=== PATIENT | female | born 1950 | race Caucasian/White ===

== ENCOUNTER 2019-10-28 04:02 | Emergency (ER) | payer MEDICARE, OTHER, SELFPAY ==
[2019-10-28 04:51] VITALS: BP 152/84; PULSE 94; RESP 18; TEMP 37; O2SAT 97; BMI 26.9
--- NOTE | 2019-10-28 04:58 | ECG_ITS ---
[facility] Test Date: 2019-10-28 Pat Name: Kylah Patterson Department: Room: Gender: Female Credit Historian: : 1950 Requested By: Rashmi Gonzalez Order Number: [id number] Otoniel MD: Yoly Dewitt M.D. Measurements Intervals [place] Rate: 78 P: 30 ND: 174 QRS: -20 QRSD: 79 T: 11 QT: 379 QTc: 434 Interpretive Statements SINUS RHYTHM LOW QRS VOLTAGE IN PRECORDIAL LEADS [QRS DEFLECTION < 1.0 mV IN CHEST LEADS] MINIMAL VOLTAGE CRITERIA FOR LVH, CONSIDER NORMAL VARIANT [MEETS CRITERIA IN ONE OF: R(aVL), S(V1), R(V5), R(V5/V6)+S(V1)] No previous ECG available for comparison Electronically Signed On 10-28-2019 15:36:05 CDT by Yoly Dewitt M.D. [id number]
--- NOTE | 2019-10-28 04:58 | XRR_ITS ---
PROCEDURE INFORMATION: Exam: XR Chest, 1 View Exam date and time: 10/28/2019 5:32 AM Age: 68 years old Clinical indication: Prior surgery; Surgery date: <1 month; Surgery type: Thyroidectomy 2 weeks ago; Patient HX: C/O redness and drainage of incision from thyroidectomy with skin flap; Additional info: Section TECHNIQUE: Imaging protocol: XR of the chest Views: 1 view. COMPARISON: No relevant prior studies available. FINDINGS: Tubes, catheters and devices: Surgical clips in the left neck and and about the thoracic inlet Lungs: Calcified granuloma left mid lung Lungs are well aerated without a focal area of consolidation. Pleural space: Unremarkable. No pleural effusion. No pneumothorax. Heart/Mediastinum: Unremarkable. No cardiomegaly. Bones/joints: Unremarkable. Soft tissues: axillary dissection on the left with numerous surgical clips in the left axillary region. Surgical drain in the axillary region XR/XR chest 1V portable [id number] IMPRESSION: Lungs are well aerated without a focal area of consolidation.
--- NOTE | 2019-10-28 05:00 | CTR_ITS ---
PROCEDURE INFORMATION: Exam: CT Chest With Contrast Exam date and time: 10/28/2019 6:12 AM Age: 68 years old Clinical indication: Prior surgery; Patient HX: Onset of infection S/P thyroidectomy two weeks ago TECHNIQUE: Imaging protocol: Computed tomography of the chest with intravenous contrast. Radiation optimization: All CT scans at this facility use at least one of these dose optimization techniques: automated exposure control; mA and/or kV adjustment per patient size (includes targeted exams where dose is matched to clinical indication); or iterative reconstruction. Contrast material: OMNI 300; Contrast volume: 75 ml; Contrast route: INTRAVENOUS (IV); COMPARISON: No relevant prior studies available. RADIATION DOSE METRICS: Total DLP (mGy-cm): 455.28 FINDINGS: Thyroid: Operative changes about the thoracic inlet status post thyroidectomy. Large amount of air in the soft tissues. See above CT neck dictation. Lungs: Lungs are well aerated without a focal area of consolidation. Calcified granuloma left lower lobe Pleural space: Unremarkable. No pneumothorax. No pleural effusion. Heart: Unremarkable. No cardiomegaly. No pericardial effusion. Mediastinal space: Soft tissues of the mediastinum unremarkable. Aorta: Unremarkable. No aortic aneurysm. Lymph nodes: Unremarkable. No enlarged lymph nodes. Bones/joints: The osseous structures are unremarkable other than mild degenerative disk disease.. No fracture. Soft tissues: See Thyroid finding. Other findings: No dissection; In regards to the visualized portions of the abdomen, no acute process. CT/CT chest w con* [id number] IMPRESSION: 1. Soft tissues of the mediastinum unremarkable. 2. Lungs are well aerated without a focal area of consolidation. 3. Operative changes about the thoracic inlet status post thyroidectomy. Large amount of air in the soft tissues. See CT neck dictation. Radiation Dose CTDIVOL = (mGy): DLP = 455.28 (mGy-cm)
--- NOTE | 2019-10-28 05:00 | CTR_ITS ---
PROCEDURE INFORMATION: Exam: CT Neck With Contrast Exam date and time: 10/28/2019 6:12 AM Age: 68 years old Clinical indication: Abscess, cutaneous; Prior surgery; Patient HX: Onset of infection to neck S/P thyroidectomy 2 weeks ago. TECHNIQUE: Imaging protocol: Computed tomography images of the neck with intravenous contrast. Radiation optimization: All CT scans at this facility use at least one of these dose optimization techniques: automated exposure control; mA and/or kV adjustment per patient size (includes targeted exams where dose is matched to clinical indication); or iterative reconstruction. Contrast material: OMNI 300; Contrast volume: 75 ml; Contrast route: INTRAVENOUS (IV); COMPARISON: No relevant prior studies available. RADIATION DOSE METRICS: Total DLP (mGy-cm): 510.49 FINDINGS: Brain: The deliverer pharmacy space is normal. Visualized portions of the brain and orbits are normal. Nasopharynx: fossa of Rosenmuller is normal. Oropharynx: parapharyngeal space normal. Hypopharynx: Piriform sinus is unremarkable. Larynx: the epiglottis, preepiglottic fat and the aryepiglottic folds are normal. The true cords appear normal. Retropharyngeal space: Unremarkable. Submandibular/Parotid glands: submental and submandibular regions are normal. the carotid and parotid spaces are normal. Thyroid: Operative changes in the soft tissues of the neck on the right and left about the thyroid gland. Lymph nodes: Unremarkable. No lymphadenopathy. Trachea: Visualized trachea is unremarkable. Lungs: The lung apices are normal. Bones/joints: No acute osseous abnormality. Vasculature: Nonvisualization of the left jugular vein. Correlate regarding surgical ligation and or thrombosis. Soft tissues: Unremarkable. No significant soft tissue swelling. Other findings: The; precervical space is normal. CT/CT neck w con* [id number] IMPRESSION: 1. Operative changes in the soft tissues of the neck on the right and left about the thyroid gland. inflammatory changes with thickening of the left sternocleidomastoid muscle. Small amount of fluid about the operative site. Large amount of air in the soft tissues about the left thyroidectomy site with fistula communication to the skin surface. Air extends posteriorly adjacent to the thickened esophagus. Correlate regarding esophageal injury. Consider esophagram. Small amount of air in the retropharyngeal space. 2. Nonvisualization of the left jugular vein. Correlate regarding surgical ligation and or thrombosis. Radiation Dose CTDIVOL = (mGy): DLP = 510.49 (mGy-cm)
--- NOTE | 2019-10-28 05:59 | ED_ITS ---
Documented by User: Rashmi Taylor 10/28/19 06:02 HPI - Wound/Laceration General: Chief Complaint: Wound/Laceration Stated Complaint: drainage/post op complications Time Seen by Provider: 10/28/19 04:58 Source: patient and family Mode of arrival: ambulatory Limitations: no limitations History of Present Illness: HPI narrative: Kylah is a nice 68-year-old female who comes in complaining of swelling and neck pain with drainage. Patient states that she had a thyroidectomy with skin flap done at [facility] by Dr. Tarsha Small. She been recovering uneventfully had followed up once with Dr. Aguilar but over the past few days she developed redness and drainage from her wound. She denies any fevers or chills and she denies any difficulty speaking or difficulty swallowing or eating. Associated symptoms: Denies chills, fever(s), nausea, syncope or vomiting Review of Systems Const: Denies: fever(s), chills, body aches, fatigue, malaise or diaphoresis Eyes: Denies: change in vision, blurry vision, blind spots, photophobia, eye discharge or eye redness ENMT: Reports: other (See HPI); Denies: throat pain, odynophagia, hoarseness, swelling of lips/tongue, oral sores, ear or mastoid pain, ear discharge, change in hearing or nasal discharge Card: Denies: chest pain, palpitations, irregular heart rhythm, edema, lightheadedness, syncope, pre-syncope, dyspnea on exertion or orthopnea Resp: Denies: dyspnea, productive cough, non-productive cough, wheezing, hemoptysis or chest congestion GI: Denies: abdominal pain, nausea, vomiting, hematemesis, coffee ground emesis, heartburn, diarrhea, constipation, GI cramping, hematochezia or melena : Denies: flank pain, dysuria, urinary frequency, urinary urgency or hematuria Musc: Denies: neck pain, back pain, extremity pain, extremity swelling, joint pain, joint swelling, joint redness, joint warmth or joint stiffness Skin/Breast: Denies: rash, pruritus, erythema, skin tenderness or jaundice Neuro: Denies: headache(s), numbness in extremities, weakness in extremities, sensory changes, lack of coordination, difficulty walking, dizziness, vertigo, confusion, Slurred speech present or seizure-like activity Erik/Lymph: Denies: easy bruising, easy bleeding, petechiae, purpura or enlarged lymph nodes All/Imm: Denies: urticaria, throat swelling, tongue swelling, facial swelling or acute wheezing PFSH ED PFSH: Medical History (Updated 10/28/19 @ 06:01 by Rashmi Taylor) DM type 2 (diabetes mellitus, type 2) Thyroid cancer Surgical History (Updated 10/28/19 @ 06:01 by Rashmi Taylor) History of thyroid surgery Physical Exam Const: COMMON NORMALS: no acute distress, patient oriented x3, no limitations, healthy appearing and well nourished GENERAL APPEARANCE: cooperative, well kempt and well developed HENMT: COMMON NORMALS: normocephalic, atraumatic, external ears normal, EAC's normal and Normal external nose present HEAD & SCALP: normal to inspection, normocephalic and atraumatic FACE & SINUS: normal facial exam and face symmetric NOSE: Normal external nose present and Normal nares present EXTERNAL EAR: Yes external ears normal EXTERNAL AUDITORY CANAL: EAC's normal MOUTH: Normal oral and palatal mucosa present, lip normal and tongue normal Eye: COMMON NORMALS: Equal, round and reactive pupils present and conjunctivae normal GENERAL EYE: appearance normal, both eyes and all related structures ALIGNMENT: Yes alignment normal PERIORBITAL: periorbital findings normal EYELID: eyelids normal CONJUNCTIVA: Yes conjunctivae normal SCLERA: sclerae normal PUPIL: Yes Equal, round and reactive pupils present Neck/C-Spine: COMMON NORMALS: full ROM, no lymphadenopathy and no meningeal signs GENERAL: Yes normal visual inspection, Yes trachea midline and Yes other (Large amount of swelling and erythema noted with significant large amount of thick purulent drainage from incision site.) Chest: COMMONS NORMALS: normal inspection of the chest and normal palpation of entire chest wall Resp: COMMON NORMALS: normal respiratory effort, No retractions and No use of accessory muscles EFFORT & INSPECTION: Yes able to speak in complete sentences and Yes symmetric chest movement AUSCULTATION: no crackles, no rales, no rhonchi and no wheezes Cardio: COMMON NORMALS: regular rate, regular rhythm, S1 normal heart sound present and S2 normal heart sound present RATE: regular rate RHYTHM: regular rhythm HEART SOUNDS: S1 normal heart sound present, S2 normal heart sound present, no click, no gallops, no murmurs, no rubs and abnormal split S2 GI: COMMON NORMALS: Soft to palpation and No hepatosplenomegaly present PALPATION: Yes Soft to palpation, No Tenderness to palpation present (GI), No Guarding due to palpation present (GI), No Rigid due to palpation, Yes No hepatosplenomegaly present, No Hernia present, No Palpable mass present and No Pulsatile mass present : COMMON NORMALS: Yes no CVA tenderness BLADDER/KIDNEY EXAM: Yes no CVA tenderness EXTERNAL FEMALE EXAM: No Hernia present Back/Pelvis: COMMON NORMALS: no CVA tenderness, thoracic and lumbar spine normal to inspection, no thoracic nor lumbar tenderness and thoraco-lumbar ROM normal GENERAL BACK: Yes other (Incision site appears well-healed.) Extremity: COMMON NORMALS: normal to inspection, full ROM, capillary refill normal, no joint enlargement, no clubbing, cyanosis or edema and no calf tenderness Neuro: COMMON NORMALS: patient oriented x3, CN's II-XII intact bilaterally, moves all extremities, no focal motor deficits and no sensory deficits noted MENINGEAL SIGNS: Yes no meningeal signs SPEECH: speech normal Psych: COMMON NORMALS: mental status grossly normal, Normal thought process present, cooperative, normal affect, speech normal and activity/motor behavior normal APPEARANCE: Yes well kempt SPEECH: Yes normal speech THOUGHT PROCESS: Normal thought process present Skin: COMMON NORMALS: no rashes or lesions noted, turgor normal, no jaundice, no petechiae and no mottling GENERAL SKIN EXAM: no rashes or lesions noted and turgor normal Course Vital Signs: Vital signs: Vital Signs Temperature 98.6 F 10/28/19 04:51 Pulse Rate 92 10/28/19 06:10 Respiratory Rate 18 10/28/19 06:10 Blood Pressure 136/78 10/28/19 06:33 Pulse Oximetry 100 10/28/19 06:33 MDM - Wound/Laceration MDM Narrative: Medical decision making narrative: Dr. Alcantar was contacted by phone he states he is unavailable and the patient will be have to be transferred back to [facility] for definitive therapy. Dr. Aguilar then talked to Dr. Prieto of the ENT resident at [facility] who agreed to accept the patient but wanted me to talk to the ER. I reviewed the case with Dr. Wang who understands that CT is pending at this time and we will call him with an update but he agrees to accept the patient in transfer. Lab Data: Labs: Lab Results 10/28/19 10/28/19 10/28/19 Range/Units 06:00 06:00 06:00 WBC 10.0 (4.0-10.0) 10^3/ uL RBC 4.37 (4.1-5.3) 10^6/u L Hgb 11.9 (11.5-15.3) g/dL Hct 38.9 (37.0-47.0) % MCV 89.0 (81-99) fL MCH 27.2 L (28.0-34.0) pg MCHC 30.6 (30.0-36.0) g/dL RDW 14.3 (12.1-15.1) % Plt Count 318 (130-400) 10^3/c mm MPV 8.8 (7.4-10.4) fL Neut % (Auto) 75.4 % Lymph % (Auto) 11.7 % [place] % (Auto) 6.8 % Eos % (Auto) 5.3 % Baso % (Auto) 0.5 % Neut # (Auto) 7.52 (1.8-7.7) 10^3/u L Lymph # (Auto) 1.2 (0.8-4.8) 10^3/u L [place] # (Auto) 0.7 (0.2-0.9) 10^3/u L Eos # (Auto) 0.5 (0.0-0.8) 10^3/u L Baso # (Auto) 0.1 (0.0-0.1) 10^3/u L Nucleated RBC % (a uto) 0 % Nucleated RBCs # 0.0 /100WBC Sodium 137 (136-145) mmol/L Potassium 3.9 (3.5-5.1) mmol/L Chloride 99 (98-107) mmol/L Carbon Dioxide 28 (22-29) mmol/L Anion Gap 13.9 (5-19) BUN 8 (8-23) mg/dL Creatinine 0.7 (0.5-0.9) mg/dL GFR Calculation 83.7 L (90-130) mL/min Glucose 152 H (65-115) mg/dL Calculated Osmolal ity 283 L (285-295) mOsm/k g Lactic Acid 1.1 (0.5-2.2) mmol/L Calcium 9.5 (8.5-10.5) mg/dL Magnesium 2.3 (1.7-2.3) mg/dL Total Bilirubin 0.4 (0.15-1.2) mg/dL AST 13 (0-32) U/L ALT 12 (0-33) U/L Alkaline Phosphata se 115 H (35-105) IU/L Total Protein 7.5 (6.6-8.7) g/dL Albumin 4.1 (3.5-5.2) g/dL Globulin 3.4 (1.3-4.6) g/dL Discharge Plan Discharge Discharge Orders: Transfer Out of Facility (Order); Ordered 10/28/19 Ordered By: Delvin James Sign Out Sign Out Data: Patient Sign Out occurred on 10/28/19 at 07:24. Patient's care was discussed, and care was transferred from to Delvin James. Coding Level of Care Code ED Cookie Mixer Helper for Chg Fwd Exam Comprehensive Documented by User: Delvin James DO 10/28/19 07:24 HPI - Wound/Laceration General: Chief Complaint: Wound/Laceration Stated Complaint: drainage/post op complications Time Seen by Provider: 10/28/19 04:58 PFSH ED PFSH: Medical History (Updated 10/28/19 @ 06:01 by Rashmi Taylor) DM type 2 (diabetes mellitus, type 2) Thyroid cancer Surgical History (Updated 10/28/19 @ 06:01 by Rashmi Taylor) History of thyroid surgery Course Vital Signs: Vital signs: Vital Signs Temperature 98.6 F 10/28/19 04:51 Pulse Rate 92 10/28/19 06:10 Respiratory Rate 18 10/28/19 06:10 Blood Pressure 136/78 10/28/19 06:33 Pulse Oximetry 100 07/09/20 06:33 MDM - Wound/Laceration Lab Data: Labs: Lab Results 10/28/19 10/28/19 10/28/19 Range/Units 06:00 06:00 06:00 WBC 10.0 (4.0-10.0) 10^3/ uL RBC 4.37 (4.1-5.3) 10^6/u L Hgb 11.9 (11.5-15.3) g/dL Hct 38.9 (37.0-47.0) % MCV 89.0 (81-99) fL MCH 27.2 L (28.0-34.0) pg MCHC 30.6 (30.0-36.0) g/dL RDW 14.3 (12.1-15.1) % Plt Count 318 (130-400) 10^3/c mm MPV 8.8 (7.4-10.4) fL Neut % (Auto) 75.4 % Lymph % (Auto) 11.7 % [place] % (Auto) 6.8 % Eos % (Auto) 5.3 % Baso % (Auto) 0.5 % Neut # (Auto) 7.52 (1.8-7.7) 10^3/u L Lymph # (Auto) 1.2 (0.8-4.8) 10^3/u L [place] # (Auto) 0.7 (0.2-0.9) 10^3/u L Eos # (Auto) 0.5 (0.0-0.8) 10^3/u L Baso # (Auto) 0.1 (0.0-0.1) 10^3/u L Nucleated RBC % (a uto) 0 % Nucleated RBCs # 0.0 /100WBC Sodium 137 (136-145) mmol/L Potassium 3.9 (3.5-5.1) mmol/L Chloride 99 (98-107) mmol/L Carbon Dioxide 28 (22-29) mmol/L Anion Gap 13.9 (5-19) BUN 8 (8-23) mg/dL Creatinine 0.7 (0.5-0.9) mg/dL GFR Calculation 83.7 L (90-130) mL/min Glucose 152 H (65-115) mg/dL Calculated Osmolal ity 283 L (285-295) mOsm/k g Lactic Acid 1.1 (0.5-2.2) mmol/L Calcium 9.5 (8.5-10.5) mg/dL Magnesium 2.3 (1.7-2.3) mg/dL Total Bilirubin 0.4 (0.15-1.2) mg/dL AST 13 (0-32) U/L ALT 12 (0-33) U/L Alkaline Phosphata se 115 H (35-105) IU/L Total Protein 7.5 (6.6-8.7) g/dL Albumin 4.1 (3.5-5.2) g/dL Globulin 3.4 (1.3-4.6) g/dL Discharge Plan Discharge Discharge Orders: Transfer Out of Facility (Order); Ordered 10/28/19 Ordered By: Delvin James Sign Out Sign Out Data: Patient Sign Out occurred on 10/28/19 at 07:24. Patient's care was discussed, and care was transferred from to Delvin James. Coding Level of Care Code ED Cookie Mixer Helper for Berting Fwd Exam Comprehensive
[2019-10-28] MEDS: piperacillin-tazobactam 3.375 GM in sodium chloride 0.9% (plus) 50 ML IV (06:00)
[2019-10-28] MEDS: sodium chloride 0.9% 1,809.84 ML 1809.8 ML IV (06:02)
[2019-10-28 06:10] VITALS: BP 135/80; PULSE 92; RESP 18; O2SAT 99
[2019-10-28 06:15] LABS: Basophils # 0.1 10^3/uL (0.0-0.1); Basophils % 0.5 %; Eosinophils # 0.5 10^3/uL (0.0-0.8); Eosinophils % 5.3 %; Hematocrit 38.9 % (37.0-47.0); Hemoglobin 11.9 g/dL (11.5-15.3); Lymphocytes # 1.2 10^3/uL (0.8-4.8); Lymphocytes % 11.7 %; Mean Corpuscular HGB Conc 30.6 g/dL (30.0-36.0); Mean Corpuscular Hemoglobin 27.2 pg (28.0-34.0); Mean Platelet Volume 8.8 fL (7.4-10.4); Monocytes # 0.7 10^3/uL (0.2-0.9); Monocytes % 6.8 %; Neutrophils # 7.52 10^3/uL (1.8-7.7); Neutrophils % 75.4 %; Nucleated Red Blood Cells % 0 %; Platelet Count 318 10^3/cmm (130-400); Red Blood Count 4.37 10^6/uL (4.1-5.3); Red Cell Distribution Width 14.3 % (12.1-15.1)
[2019-10-28 06:30] LABS: Alanine Aminotransferase 12 U/L (0-33); Albumin Level 4.1 g/dL (3.5-5.2); Alkaline Phosphatase 115 IU/L (35-105); Anion Gap 13.9 (5-19); Aspartate Amino Transferase 13 U/L (0-32); Blood Urea Nitrogen 8 mg/dL (8-23); Calcium 9.5 mg/dL (8.5-10.5); Carbon Dioxide 28 mmol/L (22-29); Chloride 99 mmol/L (98-107); Globulin 3.4 g/dL (1.3-4.6); Glomerular Filtration Rate 83.7 mL/min (90-130); Glucose 152 mg/dL (65-115); Lactic Sepsis W/Reflex 1.1 mmol/L (0.5-2.2); Magnesium 2.3 mg/dL (1.7-2.3); Osmolality Calculated 283 mOsm/kg (285-295); Potassium 3.9 mmol/L (3.5-5.1); Sodium 137 mmol/L (136-145); Total Bilirubin 0.4 mg/dL (0.15-1.2); Total Protein 7.5 g/dL (6.6-8.7)
[2019-10-28 06:33] VITALS: BP 136/78; O2SAT 100
[2019-10-28] MEDS: iohexol 300 mg/mL 100 mL Btl IV ×2 (06:47→06:48)
[2019-10-28 07:36] VITALS: BP 127/73; PULSE 81; RESP 20; TEMP 36.8; O2SAT 99
== END 2019-10-28 08:02 ==
PROVIDERS: Emergency Medicine; Emergency Provider Family Medicine; Family Provider Family Medicine
DX: M79.89 Other specified soft tissue disorders (principal); M54.2 Cervicalgia; E11.9 Type 2 diabetes mellitus without complications; Z85.850 Personal history of malignant neoplasm of thyroid
CPT/HCPCS: 12345; 36415; 70491; 71045; 71260; 80053; 83605; 83735; 85025; 87040; 93005; 96365; 96367; 99283; 99285; J0131; J2543; J3370; J7030; J7050; Q9967

== ENCOUNTER → 2020-01-26 11:03 | Outpatient (BNVA) | payer MEDICARE, OTHER, SELFPAY | PROVIDERS: Family Provider Family Medicine; Visit Provider Specialist | DX: Z11.59 Encounter for screening for other viral diseases (principal) | CPT/HCPCS: 87635 ==

== ENCOUNTER 2020-01-31 09:51 | Outpatient (CLI) | payer MEDICARE, OTHER, SELFPAY ==
--- NOTE | 2020-01-31 10:00 | FL_ITS ---
WS: [id number] ESOPHAGRAM WITH FLUOROSCOPY HISTORY: MALIGNANT NEOPLASM OF THYROID GLAND COMPARISON: None available. FLUOROSCOPY TIME: 1.1 minutes. Stitch Bonding Machine Operator radiograph: Slight increase in the cervical lordosis. There are extensive surgical clips in the soft tissues of the neck. No retropharyngeal mass or abscess. No air in the soft tissues beyond the lumen of the esophagus. Esophagus and swallowing function: Patient swallowed the barium mixture without difficulty. There is no extravasation into the soft tissues. No aspiration was noted. Small osteophytes encroach upon the posterior cervical esophagus without significant narrowing or stenosis. FL/FL barium swallow [id number] IMPRESSION: 1. No fistulous communication. 2. Extensive postsurgical clips in the soft tissues of the neck. 3. No cervical esophageal stenosis.
== END 2020-01-31 09:52 | disposition home or self-care (01) ==
LOC: RAD 09:56
PROVIDERS: PCP Family Medicine; Visit Provider Specialist
DX: C73 Malignant neoplasm of thyroid gland (principal)
CPT/HCPCS: 74220

== ENCOUNTER 2020-02-02 05:40 | Outpatient (RCR) | payer MEDICARE, OTHER, SELFPAY ==
--- NOTE | 2020-02-02 | CT_ITS ---
Radiation Therapy Planning CT images; total exam DLP: 767.86 mGy-cm MTDD
[2020-02-02 10:17] LABS: Basophils % 0.8 %; Eosinophils # 0.1 10^3/uL (0.0-0.8); Hematocrit 40.2 % (37.0-47.0); Hemoglobin 12.2 g/dL (11.5-15.3); Lymphocytes # 1.4 10^3/uL (0.8-4.8); Lymphocytes % 28.5 %; Mean Corpuscular HGB Conc 30.3 g/dL (30.0-36.0); Mean Corpuscular Hemoglobin 26.2 pg (28.0-34.0); Mean Corpuscular Volume 86.3 fL (81-99); Mean Platelet Volume 9.4 fL (7.4-10.4); Monocytes # 0.5 10^3/uL (0.2-0.9); Monocytes % 9.3 %; Neutrophils # 2.98 10^3/uL (1.8-7.7); Nucleated Red Blood Cells % 0 %; Platelet Count 171 10^3/cmm (130-400); Red Blood Count 4.66 10^6/uL (4.1-5.3); White Blood Count 5.1 10^3/uL (4.0-10.0)
[2020-02-02 10:26] LABS: Total Bilirubin 0.3 mg/dL (0.15-1.2)
[2020-02-02 11:00] LABS: Blood Urea Nitrogen 18 mg/dL (8-23); Glomerular Filtration Rate 83.5 mL/min (90-130)
--- NOTE | 2020-02-03 11:55 | N.ONRAD NP_ITS ---
Radiation Oncology New Patient Visit Patient: Kylah Patterson MR#: [id number] : 1950> Age: 69> Sex: Female> Dictated by: Dr. Lexa Darnell Date of Service: 01/31/2020 Referring Physician(s) : Dr. Mccray Diagnosis: [id number] stage III papillary thyroid carcinoma Treatment rendered: -) 05/12/2018 (Dr Laboy & Melvina) - total thyroidectomy, sacrifice of recurrent laryngeal nerve, lymph node dissection and reimplantation of left inferior parathyroid into right brachial radialis musculature. Tumor was noted to extend into the esophagus & recurrent laryngeal nerve and 5/5 lymph nodes were involved with extranodal extension; -) May 2018 - radioactive iodine, 150 mCi -) 10/15/2019 - due to disease recurrence with significant FDG avidity in the bilateral neck per PET/CT (10/01/2019) she underwent bilateral neck dissection. Pathology revealed 8 positive lymph nodes involving left neck level 3 (largest 2.5 cm without CHRISTOPHER), left neck level 2A, left neck level 4, central neck lymph node, right level 4, and in the right superior parapharyngeal lymph node. -) 01/12/2020 ??? Dr Hinson recommended adjuvant lenvatanib vs other options such as Pembro of Vemurafenib. Tumor molecular profiling showed BRAF mutation and PD-L1 positivity at 40%, TMB was low. Purpose of Visit: Discuss the role of radiotherapy with curative intent. History of Present Illness: The patient is a 69-year-old female with the above diagnosis and treatment history. She is referred to us by Dr. Mccray due to travel constraints associated with external beam radiation therapy. In consultation today, the patient reports no swallowing difficulties, no significant range of motion issues with her neck, and no new lumps or bumps. Her most recent MRI of the brain (01/05/2020) revealed no evidence of intracranial metastasis. Imaging Review: I reviewed the radiographic images discussed above. Current Medications: Doxycycline Hyclate, levothyroxine Sodium. Allergies: No Known Allergies Medical History: - Gastroesophageal reflux disease, - hypercholesterolemia, - hypertension, - osteoarthritis, - type II diabetes. No history of collagen vascular disease. No previous radiation therapy. Surgical History: Bowel and bladder suspension, cholecystectomy, colonoscopy on 04/21/2010, hysterectomy, left parathyroidectomy, thyroidectomy and tonsillectomy. Current Complaints / Review of Systems: Constitutional - Complains of mild fatigue. Denies lack of appetite, fever, night sweats and change in weight. Eyes - Denies blurred vision and double vision. ENMT - Complains of altered taste. Denies dysphagia, ear pain, mouth dryness, stomatitis and tinnitus. Neck - Complains of decreased range of motion. Denies neck pain but has tightness. Integumentary - Denies rash. Breasts - Denies pain. Cardiovascular - Denies arrhythmias, chest pain and edema. Respiratory - Complains of a mild cough which is productive. Complains of hiccoughs. Denies dyspnea, hemoptysis and wheezing. Gastrointestinal - Complains of intermittent constipation. Complains of heartburn / dyspepsia. Denies abdominal pain, diarrhea, melena / GI bleeding, nausea and vomiting. Genitourinary (F) - Complains of nocturia occasionally. Denies dysuria, frequency, urgency, vaginal discharge / bleeding and vaginal spotting. Musculoskeletal - Complains of joint pain to the right knee, both hips, and lower back. Complains of generalized muscle weakness. Denies bone pain. Neurologic - Denies dizziness, abnormal gait and headaches. Endocrine - Complains of thyroid disease. Denies diabetes. Hematologic/Lymphatic - Denies easy bruising.. Vital Signs: Performed on 01/31/2020 4:16 PM BMI - 28.045 kg/m2 (high), Height - 57.00 in, Weight - 129.6 lbs, Temperature - 98.3 f, Pulse - 89, Respiration - 20, O2 Sat - 98 %, Pain - 0 and BP - 150/ 99 mm(hg)(high). Physical Exam: GENERAL:??? The patient is alert, and in no acute distress. HEENT:??? Head is normocephalic. Face is symmetric. External ocular movements are intact. Sclera and conjunctivae are non erythematous. NECK:??? Trachea is midline.??? Postsurgical changes are appreciated bilaterally, along with mild subcutaneous fibrotic change. LYMPH NODES:??? There is no palpable cervical or supraclavicular adenopathy bilaterally. LUNGS:??? Clear to auscultation bilaterally. Respiratory movement is unlabored. HEART:??? Regular rate and rhythm. EXTREMITIES:??? No deformities. NEUROLOGIC:??? Gait and station are normal.??? The patient is well coordinated and strength is equal bilaterally. AUTOMATED WEAVER:??? Cranial nerves II-XII are intact and without focal deficits.??? Psych: Affect is normal. Skin: Cursory review of the skin reveals no obvious lesions concerning for malignancy. Performance Status: 0 - Fully active, able to carry on all predisease activities without restrictions. (ECOG) Impression: The patient is a 69 year-old female who was diagnosed in April 2018 with [id number] stage III papillary thyroid carcinoma. She was treated with a total thyroidectomy and lymph node dissection (04/2018), followed by radioactive iodine ablation therapy (05/2018), and a bilateral neck dissection for bulky disease recurrence proving 8 positive lymph nodes throughout the bilateral neck (10/15/2019). Adjuvant external beam radiation therapy is prudent given her history of multiply recurrent disease and pathologic findings. I plan to offer a total dose of 66 Gy in 33 fractions, unless gross disease is appreciated on upcoming scans. We will begin treatment planning along with an MRI of the head and neck/soft tissues spanning an area from the base of skull down to the kendra. If minimal gross disease is found, I will increase the dose to 70 Gy in 35 fractions. Medical oncology intends to continue treating with VEGF antagonists. Signed by: 02/03/2020 11:53:20 AM <<Signature on File>> Time spent with patient: CPT Code: CPT Code:
== END 2020-02-08 06:00 | disposition home or self-care (01) ==
LOC: ONCMED 05:40
PROVIDERS: PCP Family Medicine; Visit Provider Radiology Radiation Oncology
DX: Z51.0 Encounter for antineoplastic radiation therapy (principal); C73 Malignant neoplasm of thyroid gland; C77.0 Secondary and unspecified malignant neoplasm of lymph nodes of head, face and neck; I10 Essential (primary) hypertension; E78.5 Hyperlipidemia, unspecified; E11.9 Type 2 diabetes mellitus without complications; K21.9 Gastro-esophageal reflux disease without esophagitis; K58.9 Irritable bowel syndrome, unspecified; M19.90 Unspecified osteoarthritis, unspecified site
CPT/HCPCS: 77300; 77301; 77334; 77338; 82247; 82248; 82565; 84520; 85025; 99203

== ENCOUNTER 2020-02-08 14:02 | Outpatient (CLI) | payer MEDICARE, OTHER, SELFPAY ==
--- NOTE | 2020-02-08 14:30 | MR_ITS ---
WS: [id number] MRI NECK with and without CONTRAST. COMPARISON: 01/05/2020 and 03/24/2018 Multiplanar, multisequence imaging is performed with and without contrast. Status post thyroidectomy. No thyroid tissue is identified. No postoperative collection or abscess is identified. There is a very small amount of increased T2 signal overlying the LEFT lateral sternocle idomastoid muscle. Probably the residual of the surgery. There is no compromise of the airway. No cer vical chain lymph nodes are identified. Imaging through the skull base is negative. Mild increase in cervical lordosis and disc bulging and desiccation. MR/MR orbit face neck wo/w* [id number] IMPRESSION: 1. Status post complete thyroidectomy. No thyroid tissue is identified. 2. Very small amount of increased T2 signal is probably edema along the LEFT s ternocleidomastoid muscle. 3. No abscess. 4. No lymphadenopathy.
== END 2020-02-08 14:03 | disposition home or self-care (01) ==
LOC: RADWPI 14:05
PROVIDERS: Family Provider Family Medicine; PCP Family Medicine; Visit Provider Radiology Radiation Oncology
DX: C73 Malignant neoplasm of thyroid gland (principal); E89.0 Postprocedural hypothyroidism
CPT/HCPCS: 70543; A9579

== ENCOUNTER 2020-02-10 13:21 | Outpatient (CLI) | payer MEDICARE, OTHER, SELFPAY ==
--- NOTE | 2020-02-11 09:18 | ONC CON_ITS ---
Dr. Clark New Patient Note Patient: yKlah Patterson Unit #: [id number]: 1950 Dicatated By: Mata Clark M.D.Date of Visit: Feb 10, 2020 Onc MED New Patient/Consult Referring Physician: Hugh Morfin Chief Complaint: Thyroid cancer. History of Present Illness: This is a 69-year-old woman with recurrent/metastatic papillary thyroid cancer. On 05/12/2018 she underwent left radical total thyroidectomy for locally advanced papillary thyroid cancer, which included involvement of the recurrent laryngeal nerve and esophagus. The procedure included partial esophagectomy, sacrifice of the recurrent laryngeal nerve, Left central neck dissection, reimplantation of the left inferior parathyroid into right brachial radialis musculature, left laryngeal reinnervation and left cranial nerve neurorrhaphy, and sternocleidomastoid muscle flap repair of esophagus. Pathology showed papillary carcinoma involving the left lobe measuring 4 x 3.5 x 1 cm. There was extension into strap muscles and perithyroidal soft tissues both microscopically and grossly. The margins were noted to be involved. There was involvement in 1 level lymph node and there was involvement in 4/4 left central neck lymph nodes. There was extranodal extension. Her disease was stage III (pT4a, pN2b, M0). She was given 150 mCI of radioactive iodine in May 2018 due to finding of 2 foci of increased activity in the midline neck on her posttreatment scan, consistent with residual functioning thyroid tissue. She reportedly was noted to have rising thyroglobulin level in 2019. Her I-131 scan completed on 10/01/2019 showed no functioning thyroid tissue. PET/CT at that time showed extensive FDG avid disease in the neck, including right and left level 2 nodes, right thyroid bed, bilateral supraclavicular nodes, and a probable small right paraesophageal node at the thoracic inlet. The most significant area of involvement was a left level 2 node measuring 2.3 x 1.3 cm with maximum SUV 57.6. There were no other areas of metastatic involvement noted. On 10/15/2019 she underwent bilateral neck dissection. Pathology showed metastatic papillary thyroid cancer involving 3/13 level III nodes, the largest measuring 2.5 cm, 1/10 level IIA, 1/2 level IV, 1/4 central lymph nodes, 1/11 right level IV lymph nodes. Nodes from the right level IIA, III, and IIB were negative. Excision of a right superior parapharyngeal lymph node also was positive. 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 Her tremor reportedly showed positive PD-L1 expression at 40%, though TMB was reportedly low. On molecular profiling, her tumor was noted to harbor a BRAF mutation. She had radiation and medical oncology consultations in [place]. She was recommended to undergo postop radiation. Options for systemic therapy were reviewed, including lenvatinib, immunotherapy, and vemurafenib. She was recommended to begin adjuvant therapy with lenvatinib following completion of the radiation. She is seen today because she wishes to continue her further treatment locally. She has been seen by Dr. Darnell for the radiation, which is expected to start next week. She has been feeling pretty good generally. Her energy is not as good as it used to be, but she is still pretty active. Her ECOG score is 1. She has good appetite and her weight is stable. She has not had fever or night sweats. She says she does feel warm off and on. She has a lot of sinus drainage, which is chronic. She has just occasional cough. She sometimes has difficulty swallowing. She has no shortness of breath or chest pain. She occasionally has nausea, and she does have heartburn off and on. Her bowel function is somewhat variable due to irritable bowel syndrome. Bladder function has been okay. She has a little arthritis pain, mainly in her hands. She does not complain of headache or dizziness. She has no focal neurologic symptoms. Past Medical History: Her medical history includes degenerative arthritis, gastroesophageal reflux disease, hypercholesterolemia, hypertension, irritable bowel syndrome, and type II diabetes. Past Surgical History: She underwent left radical total thyroidectomy, partial esophagectomy, sacrifice of recurrent laryngeal nerve, left central neck dissection, reimplantation of left inferior parathyroid, left laryngeal reinnervation and sternocleidomastoid muscle flap repair of esophagus on 05/12/2018. She underwent bilateral neck dissection, left revision central neck dissection, limited right revision central neck dissection, resection of right retropharyngeal lymph node, esophageal repair, and left fasciocutaneous parascapular free flap on 10/15/2019. Her other surgical/procedural history includes bowel and bladder suspension, cholecystectomy, hysterectomy/bilateral salpingo-oophorectomy, tonsillectomy, and colonoscopy in 2010. Medications: Levothyroxine Sodium 1 Tablet (of 150 mcg) Tablet Oral daily Allergies: No Known Allergies. Social History: Ms. Patterson is . She is a nonsmoker. She does not drink alcohol. Family History: Her father had COPD and at age 66 due to complications following hip fracture. Mother of lung disease at age 62. A brother has diabetes and heart disease and a sister also has diabetes. Review Of Symptoms: Constitutional - She generally feels good. Her energy is not as good as it used to be. Her appetite is good and her weight is stable. No fevers or night sweats. She has hot flashes. ECOG score is 1, Eyes - No change in vision, ENMT - No hearing loss or tinnitus. She has a lot of sinus congestion/drainage. No mouth sores. No sore throat. She has occasional difficulty swallowing, Hematologic/Lymphatic - No abnormal bruising or bleeding, Respiratory - No shortness of breath. She has occasional cough. No pleuritic pain or hemoptysis, Cardiovascular - No angina pain. No palpitations, Gastrointestinal - She has occasional nausea. No vomiting. She has heartburn depending on what she eats. Her bowels are irregular from IBS. No blood in the stool or black stools, Genitourinary (F) - No dysuria or hematuria. No urinary frequency. No urgency or incontinence, Musculoskeletal - She has some arhritis pain, mainly in her hands, Integumentary - No skin complications, Neurologic - No headache or dizziness. No numbness or tingling. No other focal neurologic symptoms, Psychiatric - She has some anxiety/depression. She has some difficulty sleeping. Vital Signs: Performed on Feb 10, 2020 14:05: 0, 27.96, 1.49 sq.m, 57.00 in, 99 %, 93 /min, 20 /min, 123/70 mm(hg), 98.4 F, and 129.2 lbs (LOW). Physical Examination: Constitutional - She looks good generally, Eyes - Sclerae nonicteric. Conjunctivae clear, ENMT - No lesions noted in the oral cavity, Neck - There is induration on both sides of the neck. There is no discrete mass noted, Hematologic/Lymphatic - No cervical, clavicular, or axillary adenopathy noted, Respiratory - Lungs are clear with good air movement bilaterally, Cardiovascular - Heart rhythm is regular. There is no murmur, gallop, or rub noted, Abdomen - Soft and non-tender. Liver and spleen are not enlarged. There is no abdominal mass or ascites noted and there is no inguinal adenopathy, Back/Spine - No spine or CVA tenderness noted, Extremities - No edema. Pedal pulses are palpable bilaterally, Integumentary - No rashes. No suspicious skin lesions noted, Neurologic - No focal neurologic deficits noted. Impression: 1. Patient with papillary thyroid carcinoma, stage III (pT4a, pN1b, M0) at initial diagnosis in April 2018 at which time she underwent left total thyroidectomy and left central neck dissection. 2. She was given 150 mCI of radioactive iodine in May 2018. 3. On 10/15/2019 she underwent bilateral neck dissection for PET/CT evidence of extensive recurrent disease in the neck, including right and left level II nodes, bilateral supraclavicular nodes, and a paraesophageal lymph node at the thoracic inlet. Her tumor was noted to have positive PD-L1 expression at 40%, though with low TMB. On molecular analysis, the tumor was noted to harbor a BRAF mutation. Her other medical illnesses include: 4. Hypertension. 5. Hyperlipidemia. 6. Type 2 diabetes. 7. GERD. 8. Irritable bowel syndrome. 9. Degenerative arthritis. Plan: Patient will be undergoing radiation, currently scheduled to begin next week. Due to her very high risk for further recurrence/disease progression, she also has been advised to begin adjuvant TKI therapy with lenvatinib. She has already reviewed information on lenvatinib, and given the possible side effects associated with it, she indicates that she is not wanting to take it. I will plan to review all of this in more detail with her after she completes the radiation. A trial of immunotherapy may be a reasonable alternative if she is still opposed to taking the lenvatinib, but that would be subject to availability of the medication through manufacture, as it would be an off label usage. Signed By: Mata Clark M.D. <<Signature on File>>
== END 2020-02-10 13:22 | disposition home or self-care (01) ==
LOC: ONCMED 13:23
PROVIDERS: PCP Family Medicine; Visit Provider Internal Medicine Medical Oncology
DX: C73 Malignant neoplasm of thyroid gland (principal); C77.0 Secondary and unspecified malignant neoplasm of lymph nodes of head, face and neck; I10 Essential (primary) hypertension; E78.5 Hyperlipidemia, unspecified; E11.9 Type 2 diabetes mellitus without complications; K21.9 Gastro-esophageal reflux disease without esophagitis; K58.9 Irritable bowel syndrome, unspecified; M19.90 Unspecified osteoarthritis, unspecified site; Z92.3 Personal history of irradiation; Z79.899 Other long term (current) drug therapy
CPT/HCPCS: 99215

== ENCOUNTER 2020-02-18 05:44 | Outpatient (RCR) | payer MEDICARE, OTHER, SELFPAY | END 2020-02-19 23:59 | disposition home or self-care (01) | LOC: ONCMED 05:44 | PROVIDERS: PCP Family Medicine; Visit Provider Radiology Radiation Oncology | DX: C73 Malignant neoplasm of thyroid gland (principal); C77.0 Secondary and unspecified malignant neoplasm of lymph nodes of head, face and neck | CPT/HCPCS: 77386 ==

== ENCOUNTER 2020-03-08 10:59 | Outpatient (CLI) | payer MEDICARE, OTHER, SELFPAY ==
[2020-03-08 11:55] LABS: Thyroid Stimulating Hormone 0.02 uIU/mL (0.27-4.20)
[2020-03-09 16:42] LABS: Thyroglobulin AB <1 IU/mL (< or = 1)
[2020-03-15 10:58] LABS: Thyroglobulin Level <0.4 ng/mL
== END 2020-03-08 11:00 | disposition home or self-care (01) ==
LOC: LAB 11:05
PROVIDERS: PCP Family Medicine; Visit Provider Internal Medicine
DX: C73 Malignant neoplasm of thyroid gland (principal)
CPT/HCPCS: 84432; 84439; 84443; 86800

== ENCOUNTER 2020-03-20 05:24 | Outpatient (RCR) | payer MEDICARE, OTHER, SELFPAY ==
--- NOTE | 2020-02-22 18:48 | ONCRAD TMN_ITS ---
Radiation Oncology Weekly Treatment Management Patient: Leonardo Montero MR#: [id number] : 1950 Age: 69 Sex: Female Dictated by: Dr. Lexa Darnell Date of Service: 02/22/2020 Referring Physician(s) : Diagnosis: [id number] stage III papillary thyroid carcinoma Treatment rendered: -) 05/12/2018 (Dr Laboy & Melvina) - total thyroidectomy, sacrifice of recurrent laryngeal nerve, lymph node dissection and reimplantation of left inferior parathyroid into right brachial radialis musculature. Tumor was noted to extend into the esophagus & recurrent laryngeal nerve and 5/5 lymph nodes were involved with extranodal extension; -) May 2018 - radioactive iodine, 150 mCi -) 10/15/2019 - due to disease recurrence with significant FDG avidity in the bilateral neck per PET/CT (10/01/2019) she underwent bilateral neck dissection. Pathology revealed 8 positive lymph nodes involving left neck level 3 (largest 2.5 cm without CHRISTOPHER), left neck level 2A, left neck level 4, central neck lymph node, right level 4, and in the right superior parapharyngeal lymph node. -) 01/12/2020 ??? Dr Hinson recommended adjuvant lenvatanib vs other options such as Pembro of Vemurafenib. Tumor molecular profiling showed BRAF mutation and PD-L1 positivity at 40%, TMB was low. Planned treatment: Postoperative radiation therapy to a total dose of 66 Gy in 33 fractions. Radiotherapy to date: Course: HN 33FX, Treatment Site: HN SIB 33FX, Ref. ID: [id number], Energy: 6X, Dose/Fx (cGy): 200, #Fx: , Dose Correction (cGy): 0, Total Dose (cGy): 1,000, Start Date: 02/16/2020, Elapsed Days: 6 Reason for visit: The patient is being seen today as part of their regularly scheduled weekly on treatment visits to assess for acute toxicities from radiotherapy. Interim History: The patient reports dysgeusia, and mild irritation around her surgical site on the right neck. Current Medications: Levothyroxine Sodium. Allergies: No Known Allergies Vital Signs: Performed on 02/22/2020 3:04 PM BMI - 27.396 kg/m2 (high), Height - 57.00 in, Weight - 126.6 lbs, Temperature - 98.6 f, Pulse - 80, Respiration - 18, O2 Sat - 98 %, Pain - 0 and BP - 137/ 85 mm(hg). Physical Exam: Appears stable, no skin erythema or desquamation. Performance Status: 0 - Fully active, able to carry on all predisease activities without restrictions. (ECOG) Lab: None pending in Radiation Oncology. Imaging: Radiation therapy imaging related to accurate target localization (i.e. KV, MV and CBCT) was reviewed. Appropriate changes, if any, were made to ensure treatment accuracy. Plan: The patient is tolerating therapy reasonably well. Radiotherapy will continue as planned. CPT: 92345 Signed by: Dr. Lexa Darnell 02/22/2020 6:46:41 PM
--- NOTE | 2020-03-01 16:13 | ONCRAD TMN_ITS ---
Radiation Oncology Weekly Treatment Management Patient: Leonardo Montero MR#: [id number] : 1950> Attending Physician: Romario Franks M.D. Date of Service: 03/01/2020 Diagnosis: C73 - Malignant neoplasm of thyroid gland, Diagnosed 02/10/2020 (Active) Stage III, T4a, N1b, M0, DxAge=>57 Treatment Site: Thyroid Fraction #: Start Date: 02/16/2020 End Date: 03/01/2020 Elapsed Days: 14 Reason for visit: The patient is being seen today as part of their regularly scheduled weekly on treatment visits to assess for acute toxicities from radiotherapy. Review of Systems: The patient reported odynophagia. Vital Signs: Performed on 03/01/2020 3:42 PM BMI - 26.574 kg/m2 (high), Height - 57.00 in, Weight - 122.8 lbs, Temperature - 96.0 f, Pulse - 80, Respiration - 18, O2 Sat - 100 %, Pain - 0 and BP - 141/ 86 mm(hg)(high/). Physical Exam: Examination of the skin within the treatment calles did not reveal any erythema. Imaging: Radiation therapy imaging related to accurate target localization (i.e. KV, MV and CBCT) was reviewed. Appropriate changes, if any, were made to ensure treatment accuracy. Plan: Continue head and neck radiotherapy as prescribed. Ultram 50 mg was prescribed for odynophagia. Signed by: Dr. Romario Franks 03/01/2020 4:11:08 PM
--- NOTE | 2020-03-07 15:59 | ONCRAD TMN_ITS ---
Radiation Oncology Weekly Treatment Management Patient: Kylah Patterson MR#: [id number] : 1950 Attending Physician: Romario Franks M.D. Date of Service: 03/07/2020 Referring Physician(s): Diagnosis: Thyroid cancer Treatment Site: Neck Dose: 30 Gy of a prescribed 66 Gy. Review of Systems: The patient described dysgeusia. Vital Signs: Weight - 120 lbs. Temperature -97.4 F, BP -126/85 (mm Hg). Pulse ??? 74 bpm, Respirations - 18, oxygen saturation was 99% with ambient air Physical Exam: The skin within the treatment calles did not demonstrate any erythema. Imaging: Radiation therapy imaging related to accurate target localization (i.e. KV, MV and CBCT) was reviewed. Appropriate changes, if any, were made to ensure treatment accuracy. Plan: Continue head and neck radiotherapy as planned. Signed by: Dr. Romario Franks 03/07/2020 3:58:42 PM
--- NOTE | 2020-03-14 15:36 | ONCRAD TMN_ITS ---
Radiation Oncology Weekly Treatment Management Patient: Leonardo Montero MR#: [id number] : 1950 Attending Physician: Romario Franks M.D. Date of Service: 03/14/2020 Diagnosis: Papillary thyroid cancer Treatment Site: Neck Dose: 38 Gy of a prescribed 66 Gy. Review of Systems: The patient described dysgeusia. Vital Signs: Weight - 119 lbs. Temperature -98.3 F, BP -131/79 (mm Hg). Pulse ??? 86 bpm, Respirations - 18, oxygen saturation was 99% with ambient air Physical Exam: The skin within the treatment calles did not demonstrate any erythema. Imaging: Radiation therapy imaging related to accurate target localization (i.e. KV, MV and CBCT) was reviewed. Appropriate changes, if any, were made to ensure treatment accuracy. Plan: Continue head and neck radiotherapy as prescribed. Signed by: Dr. Romario Franks 03/14/2020 3:34:51 PM
== END 2020-03-20 23:59 | disposition home or self-care (01) ==
LOC: ONCMED 05:24
PROVIDERS: PCP Family Medicine; Visit Provider Radiology Radiation Oncology
DX: C73 Malignant neoplasm of thyroid gland (principal); C77.0 Secondary and unspecified malignant neoplasm of lymph nodes of head, face and neck; Z51.0 Encounter for antineoplastic radiation therapy; R43.2 Parageusia; R13.10 Dysphagia, unspecified; E89.0 Postprocedural hypothyroidism; Z98.890 Other specified postprocedural states
CPT/HCPCS: 77336; 77386

== ENCOUNTER 2020-04-13 05:36 | Outpatient (RCR) | payer MEDICARE, OTHER, SELFPAY ==
--- NOTE | 2020-03-21 15:46 | ONCRAD TMN_ITS ---
Radiation Oncology Weekly Treatment Management Patient: Leonardo Montero MR#: [id number] : 1950 Attending Physician: Romario Franks M.D. Date of Service: 03/21/2020 Diagnosis: Thyroid cancer Treatment Site: Head & Neck Fraction Number: Total Dose: 44 Gy Start Date: 02/16/2020 Reason for visit: The patient is being seen today as part of their regularly scheduled weekly on treatment visits to assess for acute toxicities from radiotherapy. Review of Systems: She did not describe any adverse effects from radiotherapy. Vital Signs: Weight - 116 lbs. Temperature -98.6 F, BP -985318 (mm Hg). Pulse ??? 85 bpm, Respirations - 18, oxygen saturation was 95% with ambient air Physical Exam: The skin within the treatment calles demonstrated erythema without desquamation. Imaging: Radiation therapy imaging related to accurate target localization (i.e. KV, MV and CBCT) was reviewed. Appropriate changes, if any, were made to ensure treatment accuracy. Plan: Continue head neck radiotherapy as planned. Signed by: Dr. Romario Franks 03/21/2020 3:44:31 PM
--- NOTE | 2020-03-28 15:14 | ONCRAD TMN_ITS ---
Radiation Oncology Weekly Treatment Management Patient: Kylah Patterson MR#: [id number] : 1950 Attending Physician: Romario Franks M.D. Date of Service: 03/28/2020 Diagnosis: Thyroid cancer Treatment Site: Head & Neck Fraction Number: Total Dose: 52 Gy Reason for visit: The patient is being seen today as part of their regularly scheduled weekly on treatment visits to assess for acute toxicities from radiotherapy. Review of Systems: She reported peeling of the skin. Vital Signs: Weight - 112 lbs. Temperature -96.0 F, BP -137/85 (mm Hg). Pulse ??? 89 bpm, Respirations - 18, oxygen saturation was 98% with ambient air Physical Exam: The skin within the treatment calles demonstrated wet desquamation. Imaging: Radiation therapy imaging related to accurate target localization (i.e. KV, MV and CBCT) was reviewed. Appropriate changes, if any, were made to ensure treatment accuracy. Plan: Radiotherapy will be delayed for 1 week Signed by: Dr. Romario Franks 03/28/2020 3:12:38 PM
--- NOTE | 2020-04-06 15:34 | ONCRAD TMN_ITS ---
Radiation Oncology Weekly Treatment Management Patient: Kylah Patterson MR#: [id number] : 1950 Attending Physician: Romario Franks M.D. Date of Service: 04/06/2020 Diagnosis: Thyroid cancer Treatment Site: Head & Neck Fraction Number: Total Dose: 58 Gy Reason for visit: The patient is being seen today as part of their regularly scheduled weekly on treatment visits to assess for acute toxicities from radiotherapy. Review of Systems: She reported hoarseness. Vital Signs: Weight - 110 lbs. Temperature -99.2 F, BP -137/84 (mm Hg). Pulse ??? 80 bpm, Respirations - 20, oxygen saturation was 98% while breathing ambient air Physical Exam: The skin within the treatment calles demonstrated localized dry desquamation. Imaging: Radiation therapy imaging related to accurate target localization (i.e. KV, MV and CBCT) was reviewed. Appropriate changes, if any, were made to ensure treatment accuracy. Plan: Continue head and neck radiotherapy as prescribed. Signed by: Dr. Romario Franks 04/06/2020 3:32:30 PM
== END 2020-04-20 23:59 | disposition home or self-care (01) ==
LOC: ONCMED 05:36
PROVIDERS: PCP Family Medicine; Visit Provider Radiology Radiation Oncology
DX: Z51.0 Encounter for antineoplastic radiation therapy (principal); C73 Malignant neoplasm of thyroid gland; C77.0 Secondary and unspecified malignant neoplasm of lymph nodes of head, face and neck; R23.4 Changes in skin texture; Y84.2 Radiological procedure and radiotherapy as the cause of abnormal reaction of the patient, or of later complication, without mention of misadventure at the time of the procedure
CPT/HCPCS: 77336; 77385; 77386

== ENCOUNTER → 2020-05-08 09:06 | Outpatient (BNVA) | payer MEDICARE, OTHER, SELFPAY | PROVIDERS: PCP Family Medicine; Visit Provider Internal Medicine | DX: C73 Malignant neoplasm of thyroid gland (principal); Z98.890 Other specified postprocedural states | CPT/HCPCS: 99215 ==

== ENCOUNTER 2020-05-15 12:51 | Outpatient (CLI) | payer MEDICARE, OTHER, SELFPAY ==
[2020-05-15 14:16] LABS: Thyroid Stimulating Hormone 0.01 uIU/mL (0.27-4.20)
== END 2020-05-15 12:52 | disposition home or self-care (01) ==
LOC: LAB 12:58
PROVIDERS: PCP Family Medicine; Visit Provider Internal Medicine
DX: C73 Malignant neoplasm of thyroid gland (principal)
CPT/HCPCS: 84443

== ENCOUNTER 2020-05-16 05:55 | Outpatient (RCR) | payer MEDICARE, OTHER, SELFPAY ==
--- NOTE | 2020-05-22 11:33 | ONC FU_ITS ---
Dr. Clark Patient Follow-Up Note Patient: Kylah Patterson Unit #: [id number]: 1950 Dicatated By: Mata Clark M.D.Date of Visit:May 16, 2020 Onc Med Follow-up/Prog Note Chief Complaint: Thyroid cancer. History of Present Illness: This is a 69 year-old woman with recurrent/metastatic papillary thyroid cancer. On 05/12/2018 she underwent left radical total thyroidectomy for locally advanced papillary thyroid cancer, which included involvement of the recurrent laryngeal nerve and esophagus. The procedure included partial esophagectomy, sacrifice of the recurrent laryngeal nerve, Left central neck dissection, reimplantation of the left inferior parathyroid into right brachial radialis musculature, left laryngeal reinnervation and left cranial nerve neurorrhaphy, and sternocleidomastoid muscle flap repair of esophagus. Pathology showed papillary carcinoma involving the left lobe measuring 4 x 3.5 x 1 cm. There was extension into strap muscles and perithyroidal soft tissues both microscopically and grossly. The margins were noted to be involved. There was involvement in 1 level lymph node and there was involvement in 4/4 left central neck lymph nodes. There was extranodal extension. Her disease was stage III (pT4a, pN2b, M0). She was given 150 mCI of radioactive iodine in May 2018 due to finding of 2 foci of increased activity in the midline neck on her posttreatment scan, consistent with residual functioning thyroid tissue. She reportedly was noted to have rising thyroglobulin level in 2019. Her I-131 scan completed on 10/01/2019 showed no functioning thyroid tissue. PET/CT at that time showed extensive FDG avid disease in the neck, including right and left level 2 nodes, right thyroid bed, bilateral supraclavicular nodes, and a probable small right paraesophageal node at the thoracic inlet. The most significant area of involvement was a left level 2 node measuring 2.3 x 1.3 cm with maximum SUV 57.6. There were no other areas of metastatic involvement noted. On 10/15/2019 she underwent bilateral neck dissection. Pathology showed metastatic papillary thyroid cancer involving 3/13 level III nodes, the largest measuring 2.5 cm, 1/10 level IIA, 1/2 level IV, 1/4 central lymph nodes, 1/11 right level IV lymph nodes. Nodes from the right level IIA, III, and IIB were negative. Excision of a right superior parapharyngeal lymph node also was positive. 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 Her tremor reportedly showed positive PD-L1 expression at 40%, though TMB was reportedly low. On molecular profiling, her tumor was noted to harbor a BRAF mutation. She had radiation and medical oncology consultations in [place]. She was recommended to undergo postop radiation. Options for systemic therapy were reviewed, including lenvatinib, immunotherapy, and vemurafenib. She was recommended to begin adjuvant therapy with lenvatinib following completion of the radiation. She was then seen here because she preferred to continue her further treatment locally. She completed radiation on 04/13/2020 to a total dose of 6600 cGy, adiministered in 33 fractions. Her other medical illnesses include hypertension, hyperlipidemia, type 2 diabetes, GERD, irritable bowel syndrome, and degenerative. Her other surgeries include bowel and bladder suspension, cholecystectomy, hysterectomy/bilateral salpingo-oophorectomy, and tonsillectomy. She had a colonoscopy in 2010. She is a nonsmoker. She is seen for a followup visit. She has been feeling pretty good generally. Her energy is improving. Her ECOG score is 1. She has good appetite. She does not have fever or night sweats. She does complain that her throat is dry and sore. She is having some difficulty swallowing, particularly pills. She also tends to cough and choke when she drinks liquids. Overall she has a lot of coughing and she has some shortness of breath with activity. She does not complain of chest pain. She has not been having nausea. She sometimes has acid reflux. Bowel and bladder function have been okay. She has some arthritis in her hands, but not very much. She has no other joint or bone pain. She does not complain of headache. She occasionally has dizziness. She has no focal neurologic symptoms. Medications: Levothyroxine Sodium 1 Tablet (of 150 mcg) Tablet Oral daily, Prochlorperazine Maleate 1 Tablet (of 10 mg) Oral t.i.d. PRN Allergies: No Known Allergies. Vital Signs: Performed on May 16, 2020 08:22 Height - 57.00 in Weight - 104.2 lbs (LOW) BSA - 1.36 sq.m BMI - 22.55 Temperature - 97.8 F (LOW) Pulse - 89 /min Respiration - 17 /min BP - 123/78 mm(hg) O2 Sat - 98 % Pain - 0 Physical Examination: Constitutional - She looks good generally, Eyes - Sclerae nonicteric. Conjunctivae clear, ENMT - No lesions noted in the oral cavity, Neck - There is swelling and induration on both sides of the neck. There is no discrete mass palpable, Hematologic/Lymphatic - No cervical, clavicular, or axillary adenopathy, Respiratory - Lungs sound clear, Cardiovascular - Heart rhythm is regular. There is no murmur, gallop, or rub noted, Abdomen - Soft. Liver and spleen are not enlarged. There is no abdominal mass or ascites noted and there is no inguinal adenopathy, Extremities - No edema, Neurologic - No focal neurologic deficits noted. Problem List: 1. Papillary thyroid carcinoma, stage III (pT4a, pN1b, M0) at initial diagnosis in April 2018. She underwent left total thyroidectomy and left central neck dissection. 2. She was given 150 mCI of radioactive iodine in May 2018. 3. On 10/15/2019 she underwent bilateral neck dissection for PET/CT evidence of extensive recurrent disease in the neck, including right and left level II nodes, bilateral supraclavicular nodes, and a paraesophageal lymph node at the thoracic inlet. Her tumor was noted to have positive PD-L1 expression at 40%, though with low TMB. On molecular analysis, the tumor was noted to harbor a BRAF mutation. 4. Hypertension. 5. Hyperlipidemia. 6. Type 2 diabetes. 7. GERD. 8. Irritable bowel syndrome. 9. Degenerative arthritis. Problems Addressed with this Encounter and Plan: Papillary thyroid carcinoma, stage III (pT4a, pN1b, M0) at initial diagnosis in April 2018. She underwent left total thyroidectomy and left central neck dissection. She was given 150 mCI of radioactive iodine in May 2018. In September 2019 she underwent bilateral neck dissection for PET/CT evidence of extensive recurrent disease in the neck, including right and left level II nodes, bilateral supraclavicular nodes, and a paraesophageal lymph node at the thoracic inlet. Her tumor was noted to have positive PD-L1 expression at 40%, though with low TMB. On molecular analysis, the tumor was noted to harbor a p.V600E BRAF mutation. She was given definitive radiation to the neck area, completed on 04/13/2020 to a total dose of 6600 cGy, administered in 33 fractions. She has having some difficulty with dryness and other local symptoms following the radiation, and she is having some difficulty with swallowing. I suspect that she is aspirating liquids. Overall, she tolerated the radiation well. She unfortunately is at very high risk for further recurrence of the thyroid cancer. At this point she will need restaging labs and a restaging PET/CT, but not until at least 6 weeks following completion of the radiation. In the meantime, she will be referred to speech therapy to assist with her swallowing/aspiration. Signed By: Mata Clark M.D. <<Signature on File>>
== END 2020-05-21 23:59 | disposition home or self-care (01) ==
LOC: ONCMED 05:55
PROVIDERS: PCP Family Medicine; Visit Provider Internal Medicine Medical Oncology
DX: C73 Malignant neoplasm of thyroid gland (principal); C77.0 Secondary and unspecified malignant neoplasm of lymph nodes of head, face and neck; I10 Essential (primary) hypertension; E78.5 Hyperlipidemia, unspecified; E11.9 Type 2 diabetes mellitus without complications; K21.9 Gastro-esophageal reflux disease without esophagitis; K58.9 Irritable bowel syndrome, unspecified; M19.90 Unspecified osteoarthritis, unspecified site; Z92.3 Personal history of irradiation; Z79.899 Other long term (current) drug therapy
CPT/HCPCS: 99214

== ENCOUNTER 2020-05-24 09:12 | Outpatient (RCR) | payer MEDICARE, OTHER, SELFPAY | END 2020-06-18 23:59 | disposition home or self-care (01) | LOC: SST 09:12 | PROVIDERS: PCP Family Medicine; Referring Provider Internal Medicine Medical Oncology; Visit Provider Internal Medicine Medical Oncology | DX: R13.19 Other dysphagia (principal) | CPT/HCPCS: 80307; 92610 ==

== ENCOUNTER 2020-06-19 06:00 | Outpatient (RCR) | payer MEDICARE, OTHER, SELFPAY | END 2020-07-19 23:59 | disposition home or self-care (01) | LOC: SST 06:00 | PROVIDERS: PCP Family Medicine; Referring Provider Internal Medicine Medical Oncology; Visit Provider Internal Medicine Medical Oncology | DX: R13.10 Dysphagia, unspecified (principal); R13.19 Other dysphagia | CPT/HCPCS: 92526 ==

== ENCOUNTER 2020-06-26 10:58 | Outpatient (CLI) | payer MEDICARE, SELFPAY ==
--- NOTE | 2020-06-26 11:06 | FL_ITS ---
WS: [id number] MODIFIED BARIUM SWALLOW TECHNIQUE: Modified barium swallow with speech therapy using multiple consistencies. FLUOROSCOPY TIME: 2.8 minutes. CLINICAL INFORMATION: Other dysphagia COMPARISON: None. FINDINGS: Multiple consistencies utilized. Aspiration is visualized with thin liquids. Penetration was visualiz ed with multiple consistencies. No difficulties with the barium tablet. Surgical clips overlying the soft tissues neck with diffuse anterior soft tissue neck edema. This can be further evaluated with co ntrast-enhanced neck CT. Mild narrowing of the pharynx be due to prior radiation therapy but indeterm inant. This can be further evaluated with endoscopy. FL/FL barium swallow modifd 42810 IMPRESSION: 1. Penetration and aspiration visualized with thin liquids. 2. Mild narrowing of the pharynx may be due to radiation therapy but indetermi nant. This can be further evaluated with contrast-enhanced neck CT and upper en doscopy. 3. Prominent edema and increased density in the anterior neck soft tissues. Re commend further evaluation with contrast-enhanced neck CT.
== END 2020-06-26 10:59 | disposition home or self-care (01) ==
LOC: RAD 11:04
PROVIDERS: PCP Family Medicine; Visit Provider Internal Medicine Medical Oncology
DX: R13.19 Other dysphagia (principal); R60.0 Localized edema
CPT/HCPCS: 74230; 92611

== ENCOUNTER 2020-07-25 07:53 | Outpatient (CLI) | payer MEDICARE, OTHER, SELFPAY ==
[2020-07-25 08:39] LABS: Basophils % 0.7 %; Eosinophils # 0.1 10^3/uL (0.0-0.8); Eosinophils % 4.5 %; Hematocrit 40.7 % (37.0-47.0); Hemoglobin 12.9 g/dL (11.5-15.3); Lymphocytes # 0.5 10^3/uL (0.8-4.8); Lymphocytes % 16.6 %; Mean Corpuscular HGB Conc 31.7 g/dL (30.0-36.0); Mean Corpuscular Hemoglobin 28.4 pg (28.0-34.0); Mean Corpuscular Volume 89.6 fL (81-99); Mean Platelet Volume 8.9 fL (7.4-10.4); Monocytes # 0.4 10^3/uL (0.2-0.9); Monocytes % 12.8 %; Neutrophils # 1.89 10^3/uL (1.8-7.7); Neutrophils % 65.4 %; Nucleated Red Blood Cells % 0 %; Platelet Count 142 10^3/cmm (130-400); Red Blood Count 4.54 10^6/uL (4.1-5.3); Red Cell Distribution Width 12.8 % (12.1-15.1); White Blood Count 2.9 10^3/uL (4.0-10.0)
[2020-07-25 08:56] LABS: Alanine Aminotransferase 7 U/L (0-33); Albumin Level 4.1 g/dL (3.5-5.2); Alkaline Phosphatase 73 IU/L (35-105); Anion Gap 11.8 (5-19); Aspartate Amino Transferase 11 U/L (0-32); Blood Urea Nitrogen 10 mg/dL (8-23); Calcium 8.9 mg/dL (8.5-10.5); Carbon Dioxide 31 mmol/L (22-29); Chloride 100 mmol/L (98-107); Globulin 2.7 g/dL (1.3-4.6); Glomerular Filtration Rate 123.1 mL/min (90-130); Glucose 128 mg/dL (65-115); Osmolality Calculated 289 mOsm/kg (285-295); Potassium 3.8 mmol/L (3.5-5.1); Sodium 139 mmol/L (136-145); Total Bilirubin 0.3 mg/dL (0.15-1.2); Total Protein 6.8 g/dL (6.6-8.7)
--- NOTE | 2020-07-29 09:03 | ONC FU_ITS ---
Dr. Clark Patient Follow-Up Note Patient: Kylah Patterson Unit #: [id number]: 1950 Dicatated By: Mata Clark M.D.Date of Visit:Jul 25, 2020 Onc Med Follow-up/Prog Note Chief Complaint: Thyroid cancer. History of Present Illness: This is a 69 year-old woman with recurrent/metastatic papillary thyroid cancer. On 05/12/2018 she underwent left radical total thyroidectomy for locally advanced papillary thyroid cancer, which included involvement of the recurrent laryngeal nerve and esophagus. The procedure included partial esophagectomy, sacrifice of the recurrent laryngeal nerve, Left central neck dissection, reimplantation of the left inferior parathyroid into right brachial radialis musculature, left laryngeal reinnervation and left cranial nerve neurorrhaphy, and sternocleidomastoid muscle flap repair of esophagus. Pathology showed papillary carcinoma involving the left lobe measuring 4 x 3.5 x 1 cm. There was extension into strap muscles and perithyroidal soft tissues both microscopically and grossly. The margins were noted to be involved. There was involvement in 1 level lymph node and there was involvement in 4/4 left central neck lymph nodes. There was extranodal extension. Her disease was stage III (pT4a, pN2b, M0). She was given 150 mCI of radioactive iodine in May 2018 due to finding of 2 foci of increased activity in the midline neck on her posttreatment scan, consistent with residual functioning thyroid tissue. She reportedly was noted to have rising thyroglobulin level in 2019. Her I-131 scan completed on 10/01/2019 showed no functioning thyroid tissue. PET/CT at that time showed extensive FDG avid disease in the neck, including right and left level 2 nodes, right thyroid bed, bilateral supraclavicular nodes, and a probable small right paraesophageal node at the thoracic inlet. The most significant area of involvement was a left level 2 node measuring 2.3 x 1.3 cm with maximum SUV 57.6. There were no other areas of metastatic involvement noted. On 10/15/2019 she underwent bilateral neck dissection. Pathology showed metastatic papillary thyroid cancer involving 3/13 level III nodes, the largest measuring 2.5 cm, 1/10 level IIA, 1/2 level IV, 1/4 central lymph nodes, 1/11 right level IV lymph nodes. Nodes from the right level IIA, III, and IIB were negative. Excision of a right superior parapharyngeal lymph node also was positive. 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 Her tremor reportedly showed positive PD-L1 expression at 40%, though TMB was reportedly low. On molecular profiling, her tumor was noted to harbor a p.V600E BRAF mutation. She had radiation and medical oncology consultations in [place]. She was recommended to undergo postop radiation. Options for systemic therapy were reviewed, including lenvatinib, immunotherapy, and vemurafenib. She was recommended to begin adjuvant therapy with lenvatinib following completion of the radiation. She was then seen here because she preferred to continue her further treatment locally. She completed radiation on 04/13/2020 to a total dose of 6600 cGy, adiministered in 33 fractions. Her other medical illnesses include hypertension, hyperlipidemia, type 2 diabetes, GERD, irritable bowel syndrome, and degenerative. Her other surgeries include bowel and bladder suspension, cholecystectomy, hysterectomy/bilateral salpingo-oophorectomy, and tonsillectomy. She had a colonoscopy in 2010. She is a nonsmoker. INTERIM HISTORY: A restaging PET/CT on 06/17/2020 showed postsurgical and radiation therapy changes in the neck area. Within the thyroid bed there was noted to be an FDG avid 1.0 x 1.3 cm soft tissue nodule, SUV 17.1, felt to be highly likely to represent recurrent disease. There were no other areas of abnormal uptake. She had a follow-up visit with Dr. Laboy at [facility] on 06/27/2020. His evaluation included ultrasound-guided fine-needle aspiration biopsy of the nodule at the right level 6. He recommended that we proceed with a trial of systemic therapy prior to attempting any further surgery. She is seen for a followup visit. She says she is feeling pretty good, though she does have significant fatigue. Her ECOG score is 1. Her appetite has been okay, but she still has a nasty taste with certain foods. She has having some difficulty swallowing. During this time she did have evaluation with a modified barium swallow, which showed penetration and aspiration with thin liquids. She is seeing speech therapy. She does not have fever or night sweats. She is having some sinus drainage and cough. She says her breathing is pretty good. She does not complain of chest pain. She has nausea occasionally in association with coughing. She has occasional acid reflux. Bowel and bladder function have been okay. She has some joint pain in her hands/fingers and she also has back pain. She has occasional shooting pain in her head. She has no focal neurologic symptoms. Medications: Levothyroxine Sodium 1 Tablet (of 150 mcg) Tablet Oral daily, Prochlorperazine Maleate 1 Tablet (of 10 mg) Oral t.i.d. PRN Allergies: No Known Allergies. Vital Signs: Performed on Jul 25, 2020 09:15 Height - 57.00 in Weight - 102.8 lbs (LOW) BSA - 1.36 sq.m BMI - 22.25 Temperature - 97.9 F (LOW) Pulse - 72 /min Respiration - 17 /min BP - 131/84 mm(hg) O2 Sat - 97 % Pain - 0 Physical Examination: Constitutional - She looks a little bit frail now, Eyes - Sclerae nonicteric. Conjunctivae clear, ENMT - No lesions noted in the oral cavity, Neck - There is soft tissue swelling and induration, but there is no discrete mass palpable, Hematologic/Lymphatic - No cervical, clavicular, or axillary adenopathy, Respiratory - Lungs sound clear with some decrease in air movement bilaterally, Cardiovascular - Heart rhythm is regular. There is no murmur, gallop, or rub noted, Abdomen - Soft. Liver and spleen are not enlarged. There is no abdominal mass or ascites noted and there is no inguinal adenopathy, Extremities - No edema, Neurologic - No focal neurologic deficits noted. Lab/Imaging: Test performed on Jul 25, 2020 08:16 Sodium 139 mmol/L Potassium 3.8 mmol/L Chloride 100 mmol/L CO2 31 mmol/L Anion Gap 11.8 BUN 10 mg/dL Creatinine 0.5 mg/dL Cr Clearance (Est) 80.37 mL/min eGFR 123.1 mL/min Glucose 128 mg/dL Osmolality - Calculated 289 mOsm/kg Calcium 8.9 mg/dL Protein, Total 6.8 g/dL Albumin 4.1 g/dL Globulin 2.7 g/dL Bilirubin, Total 0.3 mg/dL ALT (SGPT) 7 U/L AST (SGOT) 11 U/L Alkaline Phosphatase 73 IU/L WBC 2.9 10 3/uL RBC 4.54 10 6/uL HGB 12.9 g/dL HCT 40.7 % MCV 89.6 fL MCH 28.4 pg MCHC 31.7 g/dL RDW 12.8 % Platelet Count 142 10 3/cmm MPV 8.9 fL Neutrophils 1.89 10 3/uL Lymphocytes 0.5 10 3/uL Monocytes 0.4 10 3/uL Eosinophils 0.1 10 3/uL Basophils 0.0 10 3/uL Neutrophil % 65.4 % Lymphocyte % 16.6 % Monocyte % 12.8 % Eosinophil % 4.5 % Basophils % 0.7 % NRBC % 0 % Problem List: 1. Papillary thyroid carcinoma, stage III (pT4a, pN1b, M0) at initial diagnosis in April 2018. She underwent left total thyroidectomy and left central neck dissection. 2. She was given 150 mCI of radioactive iodine in May 2018. 3. On 10/15/2019 she underwent bilateral neck dissection for PET/CT evidence of extensive recurrent disease in the neck, including right and left level II nodes, bilateral supraclavicular nodes, and a paraesophageal lymph node at the thoracic inlet. Her tumor was noted to have positive PD-L1 expression at 40%, though with low TMB. On molecular analysis, the tumor was noted to harbor a BRAF mutation. 4. Hypertension. 5. Hyperlipidemia. 6. Type 2 diabetes. 7. GERD. 8. Irritable bowel syndrome. 9. Degenerative arthritis. Problems Addressed with this Encounter and Plan: Patient with papillary thyroid carcinoma, stage III (pT4a, pN1b, M0) at initial diagnosis in April 2018. She underwent left total thyroidectomy and left central neck dissection. She was given 150 mCI of radioactive iodine in May 2018. In September 2019 she underwent bilateral neck dissection for PET/CT evidence of extensive recurrent disease in the neck, including right and left level II nodes, bilateral supraclavicular nodes, and a paraesophageal lymph node at the thoracic inlet. Her tumor was noted to have positive PD-L1 expression at 40%, though with low TMB. On molecular analysis, the tumor was noted to harbor a p.V600E BRAF mutation. She was given definitive radiation to the neck area, completed on 04/13/2020 to a total dose of 6600 cGy, administered in 33 fractions. A restaging PET/CT on 06/17/2020 showed postsurgical and radiation therapy changes in the neck area. Within the thyroid bed there was noted to be an FDG avid 1.0 x 1.3 cm soft tissue nodule, SUV 17.1, felt to be highly likely to represent recurrent disease. There were no other areas of abnormal uptake. She had a follow-up visit with Dr. Laboy at [facility] on 06/27/2020. His evaluation included ultrasound-guided fine-needle aspiration biopsy of the nodule at the right level 6. He recommended that we proceed with a trial of systemic therapy prior to attempting any further surgery. I reviewed several options for systemic therapy. The recommended treatment per NCCN guidelines and the only approved option is lenvatinib. With her tumor showing positive PD-L1 expression, another option would be a trial of immunotherapy, that would be off label for thyroid cancer. The other option would be a targeted therapy for the breath the 600 E mutation, that also would be an off label usage and thyroid cancer. Either of the above can reserve for salvage therapy. In the meantime, she is agreeable to proceeding with lenvatinib, which will be initiated at a standard dosage of 24 mg daily. I reviewed potential side effects including fatigue, hypertension, proteinuria, edema, skin rash, and renal and or liver dysfunction, among others. She will require close monitoring, as the majority of patients do require dose reduction. Treatment will be started subject to verification of insurance coverage and availability of the medication. Signed By: Mata Clark M.D. <<Signature on File>>
== END 2020-07-25 07:54 | disposition home or self-care (01) ==
LOC: ONCMED 07:55
PROVIDERS: PCP Family Medicine; Visit Provider Internal Medicine Medical Oncology
DX: C73 Malignant neoplasm of thyroid gland (principal); C77.0 Secondary and unspecified malignant neoplasm of lymph nodes of head, face and neck; I10 Essential (primary) hypertension; E78.5 Hyperlipidemia, unspecified; E11.9 Type 2 diabetes mellitus without complications; K21.9 Gastro-esophageal reflux disease without esophagitis; K58.9 Irritable bowel syndrome, unspecified; M19.90 Unspecified osteoarthritis, unspecified site; Z79.899 Other long term (current) drug therapy
CPT/HCPCS: 36415; 80053; 85025; 99215

== ENCOUNTER → 2020-07-31 09:04 | Outpatient (BNVA) | payer MEDICARE, OTHER, SELFPAY | PROVIDERS: PCP Family Medicine; Visit Provider Internal Medicine | DX: C73 Malignant neoplasm of thyroid gland (principal); Z98.890 Other specified postprocedural states | CPT/HCPCS: 99214 ==

== ENCOUNTER 2020-08-04 10:09 | Outpatient (CLI) | payer MEDICARE, OTHER, SELFPAY ==
[2020-08-04 10:57] LABS: Thyroid Stimulating Hormone 0.02 uIU/mL (0.27-4.20)
[2020-08-04 12:34] LABS: Free T4 Free Thyroxine 2.69 ng/dL (0.82-1.77)
== END 2020-08-04 10:10 | disposition home or self-care (01) ==
LOC: LAB 10:16
PROVIDERS: PCP Family Medicine; Visit Provider Internal Medicine
DX: C73 Malignant neoplasm of thyroid gland (principal)
CPT/HCPCS: 36415; 84439; 84443

== ENCOUNTER 2020-08-21 15:14 | Outpatient (CLI) | payer MEDICARE, OTHER, SELFPAY ==
--- NOTE | 2020-09-03 23:22 | ONC FU_ITS ---
[facility] Patient Note Patient: Kylah Patterson Unit #: [id number]: 1950 Dictated By: Mini ZamudioDate of Visit: August 21, 2020 Onc MED Follow-Up/Prog Note Chief Complaint: Thyroid cancer. History of Present Illness: Ms Patterson is a 69 year-old woman with recurrent/metastatic papillary thyroid cancer. On 05/12/2018 she underwent left radical total thyroidectomy for locally advanced papillary thyroid cancer, which included involvement of the recurrent laryngeal nerve and esophagus. The procedure included partial esophagectomy, sacrifice of the recurrent laryngeal nerve, Left central neck dissection, reimplantation of the left inferior parathyroid into right brachial radialis musculature, left laryngeal reinnervation and left cranial nerve neurorrhaphy, and sternocleidomastoid muscle flap repair of esophagus. Pathology showed papillary carcinoma involving the left lobe measuring 4 x 3.5 x 1 cm. There was extension into strap muscles and perithyroidal soft tissues both microscopically and grossly. The margins were noted to be involved. There was involvement in 1 level lymph node and there was involvement in 4/4 left central neck lymph nodes. There was extranodal extension. Her disease was stage III (pT4a, pN2b, M0). She was given 150 mCI of radioactive iodine in May 2018 due to finding of 2 foci of increased activity in the midline neck on her posttreatment scan, consistent with residual functioning thyroid tissue. She reportedly was noted to have rising thyroglobulin level in 2019. Her I-131 scan completed on 10/01/2019 showed no functioning thyroid tissue. PET/CT at that time showed extensive FDG avid disease in the neck, including right and left level 2 nodes, right thyroid bed, bilateral supraclavicular nodes, and a probable small right paraesophageal node at the thoracic inlet. The most significant area of involvement was a left level 2 node measuring 2.3 x 1.3 cm with maximum SUV 57.6. There were no other areas of metastatic involvement noted. On 10/15/2019 she underwent bilateral neck dissection. Pathology showed metastatic papillary thyroid cancer involving 3/13 level III nodes, the largest measuring 2.5 cm, 1/10 level IIA, 1/2 level IV, 1/4 central lymph nodes, 1/11 right level IV lymph nodes. Nodes from the right level IIA, III, and IIB were negative. Excision of a right superior parapharyngeal lymph node also was positive. 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 Her tremor reportedly showed positive PD-L1 expression at 40%, though TMB was reportedly low. On molecular profiling, her tumor was noted to harbor a p.V600E BRAF mutation. She had radiation and medical oncology consultations in [place]. She was recommended to undergo postop radiation. Options for systemic therapy were reviewed, including lenvatinib, immunotherapy, and vemurafenib. She was recommended to begin adjuvant therapy with lenvatinib following completion of the radiation. She was then seen here because she preferred to continue her further treatment locally. She completed radiation on 04/13/2020 to a total dose of 6600 cGy, adiministered in 33 fractions. Her other medical illnesses include hypertension, hyperlipidemia, type 2 diabetes, GERD, irritable bowel syndrome, and degenerative. Her other surgeries include bowel and bladder suspension, cholecystectomy, hysterectomy/bilateral salpingo-oophorectomy, and tonsillectomy. She had a colonoscopy in 2010. She is a nonsmoker. INTERIM HISTORY: A restaging PET/CT on 06/17/2020 showed postsurgical and radiation therapy changes in the neck area. Within the thyroid bed there was noted to be an FDG avid 1.0 x 1.3 cm soft tissue nodule, SUV 17.1, felt to be highly likely to represent recurrent disease. There were no other areas of abnormal uptake. She had a follow-up visit with Dr. Laboy at [facility] on 06/27/2020. His evaluation included ultrasound-guided fine-needle aspiration biopsy of the nodule at the right level 6. He recommended that we proceed with a trial of systemic therapy prior to attempting any further surgery. Ms. Patterson was seen by Dr. Clark July 25, 2020 and was encouraged to pursue lenvatinib (Lenvima). She is here today for followup and initiation of her first cycles of lenvatinib 24 mg daily. She has no new concerns. She denies any fever or chills. She is had no signs or symptoms of infection for at least the last 72 hours. She denies any mouth sores, sore throat or difficulty swallowing. She denies any cough or hemoptysis. She denies any shortness of breath orthopnea. She denies chest pain, palpitations and dyspnea. She denies any nausea. Her energy level is about the same as always. She states her bowels and bladder are always [id number] but she has a history of irritable bowel syndrome, but states they are normal for her. She is able to do all her ADLs without any assistance. Her ECOG is 1. Past Medical History: Degenerative arthritis Gastroesophageal reflux disease Hypercholesterolemia Hypertension Irritable bowel syndrome Type II diabetes Past Surgical History: Bowel and bladder suspension Cholecystectomy Hysterectomy/bilateral salpingo-oophorectomy Tonsillectomy Bilateral neck dissection in 2019 Left central neck dissection and reimplantation of left inferior parathyroid in 2018 Left laryngeal reinnervation and sternocleidomastoid muscle flap repair of esophagus in 2018 Left radical total thyroidectomy, partial esophagectomy, sacrifice of recurrent laryngeal nerve in 2019 Colonoscopy in 2010 Allergies: No Known Allergies. Medications: Levothyroxine Sodium 1 Tablet (of 150 mcg) Tablet Oral daily Prochlorperazine Maleate 1 Tablet (of 10 mg) Oral t.i.d. PRN Family History: Ms. Patterson's mother at age 62. Ms. Patterson's father at age 66: chronic obstructive pulmonary disease. Ms. Patterson has 1 brother who is alive. Her father had COPD and at age 66 due to complications following hip fracture. Mother of lung disease at age 62. A brother has diabetes and heart disease and a sister also has diabetes. Social History: Ms. Patterson is . Ms. Patterson has never smoked. She has no history of drinking. She is a nonsmoker. She does not drink alcohol. Review Of Symptoms: <See Above> Vital Signs: Performed on August 21, 2020 15:28 Height - 57.00 in Weight - 100.8 lbs (LOW) BSA - 1.34 sq.m BMI - 21.81 Temperature - 98.2 F (LOW) Pulse - 106 /min (HIGH) Respiration - 18 /min BP - 106/70 mm(hg) O2 Sat - 99 % Pain - 0 Fatigue - 6,1 - No physically strenuous activity, but ambulatory and able to carry out light or sedentary work (e.g. office work, light house work). (ECOG) Physical Examination: Constitutional Alert, oriented, no acute distress. Skin pink, warm and dry. Head Normocephalic; atraumatic. Eyes Conjunctivae and sclerae are clear and without icterus. Pupils are reactive and equal. Neck Supple without masses. No jugular venous distension. Hematologic/Lymphatic No petechiae or purpura. No tender or palpable lymph nodes in the cervical or supraclavicular areas. Respiratory Lungs are clear to auscultation without rhonchi or wheezing. Cardiovascular Regular rate and rhythm of heart without murmurs,clicks, gallops or rubs. Abdomen Non-tender, non-distended, no masses or ascites. Good bowel sounds noted in all quads. No guarding or rebound tenderness. No pulsatile masses. Back/Spine Non-tender to palpation. Extremities No visible deformities, no cyanosis, clubbing or edema. Musculoskeletal No tenderness or swelling, normal range of motion without obvious weakness. Integumentary No rashes or lesions. Neurologic No sensory or motor deficits, normal cerebellar function, normal gait. Psychiatric Alert and oriented times three. Coherent speech. Verbalizes understanding of our discussions today. Laboratory:Test performed on Jul 25, 2020 08:16 Sodium 139 mmol/L Potassium 3.8 mmol/L Chloride 100 mmol/L CO2 31 mmol/L Anion Gap 11.8 BUN 10 mg/dL Creatinine 0.5 mg/dL Cr Clearance (Est) 80.37 mL/min eGFR 123.1 mL/min Glucose 128 mg/dL Osmolality - Calculated 289 mOsm/kg Calcium 8.9 mg/dL Protein, Total 6.8 g/dL Albumin 4.1 g/dL Globulin 2.7 g/dL Bilirubin, Total 0.3 mg/dL ALT (SGPT) 7 U/L AST (SGOT) 11 U/L Alkaline Phosphatase 73 IU/L WBC 2.9 10 3/uL RBC 4.54 10 6/uL HGB 12.9 g/dL HCT 40.7 % MCV 89.6 fL MCH 28.4 pg MCHC 31.7 g/dL RDW 12.8 % Platelet Count 142 10 3/cmm MPV 8.9 fL Neutrophils 1.89 10 3/uL Lymphocytes 0.5 10 3/uL Monocytes 0.4 10 3/uL Eosinophils 0.1 10 3/uL Basophils 0.0 10 3/uL Neutrophil % 65.4 % Lymphocyte % 16.6 % Monocyte % 12.8 % Eosinophil % 4.5 % Basophils % 0.7 % NRBC % 0 % Impression: 1. Papillary thyroid carcinoma, stage III (pT4a, pN1b, M0) at initial diagnosis in April 2018. She underwent left total thyroidectomy and left central neck dissection. 2. She was given 150 mCI of radioactive iodine in May 2018. 3. On 10/15/2019 she underwent bilateral neck dissection for PET/CT evidence of extensive recurrent disease in the neck, including right and left level II nodes, bilateral supraclavicular nodes, and a paraesophageal lymph node at the thoracic inlet. Her tumor was noted to have positive PD-L1 expression at 40%, though with low TMB. On molecular analysis, the tumor was noted to harbor a BRAF mutation. 4. Hypertension. 5. Hyperlipidemia. 6. Type 2 diabetes. 7. GERD. 8. Irritable bowel syndrome. 9. Degenerative arthritis. Plan/Problems Addressed at this Visit: 1. Papillary thyroid carcinoma, stage III (pT4a, pN1b, M0) at initial diagnosis in April 2018. She underwent left total thyroidectomy and left central neck dissection. She was given 150 mCI of radioactive iodine in May 2018. In September 2019 she underwent bilateral neck dissection for PET/CT evidence of extensive recurrent disease in the neck, including right and left level II nodes, bilateral supraclavicular nodes, and a paraesophageal lymph node at the thoracic inlet. Her tumor was noted to have positive PD-L1 expression at 40%, though with low TMB. On molecular analysis, the tumor was noted to harbor a p.V600E BRAF mutation. She was given definitive radiation to the neck area, completed on 04/13/2020 to a total dose of 6600 cGy, administered in 33 fractions. A restaging PET/CT on 06/17/2020 showed postsurgical and radiation therapy changes in the neck area. Within the thyroid bed there was noted to be an FDG avid 1.0 x 1.3 cm soft tissue nodule, SUV 17.1, felt to be highly likely to represent recurrent disease. There were no other areas of abnormal uptake. She had a follow-up visit with Dr. Laboy at [facility] on 06/27/2020. His evaluation included ultrasound-guided fine-needle aspiration biopsy of the nodule at the right level 6. He recommended that we proceed with a trial of systemic therapy prior to attempting any further surgery. Dr Clark had reviewed several options for systemic therapy. The recommended treatment per NCCN guidelines and the only approved option is lenvatinib. With her tumor showing positive PD-L1 expression, another option would be a trial of immunotherapy, that would be off label for thyroid cancer. The other option would be a targeted therapy for the breath the 600 E mutation, that also would be an off label usage and thyroid cancer. Either of the above can be reserved for salvage therapy. In the meantime, she is agreeable to proceeding with lenvatinib, which will be initiated at a standard dosage of 24 mg daily. A. Proceed with lenvatinib 24 mg p.o. daily B. She may have Compazine, lorazepam and/or ondansetron as needed for antiemetics at home. C. Her last labs were January 24, 2021. She will need baseline labs today to include a CBC CMP, TSH and thyroglobulin level. D. WE will plan weekly interim CBC, CMP. E. She will be due back in 2 weeks for follow-up visit to determine how well she is tolerating the lenvatinib. Have requested a CBC CMP, UA for that visit. F. Her TSH on 08/04/2020 was reported at 0.02 and free T4 was 2.69. Her follow-up TSH today is 0.02 and thyroglobulin is less than 0.4 G. Mrs. Patterson was instructed to contact us in interim if questions or problems arise. 2. Chemotherapy Patient Treatment Plan Education A. he patient and family were informed of chemotherapy plan and specific drugs were discussed. We also discussed how chemotherapy works and identified common side effects including alopecia; myelosuppression-including neutropenia, anemia, thrombocytopenia; peripheral neuropathy; fatigue; nausea; edema, diarrhea; constipation; bleeding or bruising; skin changes-rash/dryness; mouth sores; drug hypersensitivity/allergic reactions or anaphylaxis, renal and /or liver dysfunction and increased risk of blood clots. They have also been informed how to contact the clinic with side effects or symptoms, including but not limited to fever greater than 100.4???, chills, sore throat, bleeding or bruising that is not explained or mouth sores, cough, nasal discharge, diarrhea, constipation, nausea and/or vomiting not relieved with medications on hand at home, as well as any other concern or question they may have. Our hours are 8:00 a.m. to 4:30 p.m. on Friday through and 8-12:00 on Friday. However, someone is pulmonary nurse practitioner 24 hours per day and they have been advised to contact the [facility] at if it is after hours. We have also discussed potential long-term side effects of chemotherapy including secondary cancers, infertility, pulmonary complications, cardiac complications, and again peripheral neuropathy. We have discussed that they certainly need to let us know before taking any antioxidants or herbal or further dietary supplements, as we are unsure of how these agents react with chemotherapy and we request that they avoid these products for now. They were informed that it is okay to take multivitamins at normal doses. They verbally state that they understand to take all medications as directed by their healthcare provider unless otherwise indicated. Instructions for oral care with baking soda and salt water rinses as well as a guide for use of [id number] medication were provided with the treatment plan. They have been given a written patient treatment plan, of which a copy is in the chart, as well as specific drug information. They have no questions and verbalized understanding and are willing to proceed with chemotherapy at this time. Total time spent on Ms Patterson's care today included review of records prior to visit, discussion of treatment plan with lenvatinib 25 mg p.o. daily as well as side effect identification and management and post visit documentation was 60 minutes. Signed By: Mini Zamudio-BRE NAGEL <<Signature on File>>
== END 2020-08-21 15:15 | disposition home or self-care (01) ==
PROVIDERS: PCP Family Medicine; Visit Provider Nurse Practitioner
DX: C73 Malignant neoplasm of thyroid gland (principal); I10 Essential (primary) hypertension; E78.5 Hyperlipidemia, unspecified; E11.9 Type 2 diabetes mellitus without complications; K21.9 Gastro-esophageal reflux disease without esophagitis; K58.9 Irritable bowel syndrome, unspecified; M47.9 Spondylosis, unspecified; Z79.899 Other long term (current) drug therapy; Z92.21 Personal history of antineoplastic chemotherapy
CPT/HCPCS: 99215

== ENCOUNTER 2020-08-24 13:42 | Outpatient (CLI) | payer MEDICARE, OTHER, SELFPAY ==
[2020-08-24 15:45] LABS: Thyroid Stimulating Hormone 0.02 uIU/mL (0.27-4.20)
[2020-08-30 12:47] LABS: Thyroglobulin Level <0.4 ng/mL
== END 2020-08-24 13:43 | disposition home or self-care (01) ==
PROVIDERS: PCP Family Medicine; Visit Provider Nurse Practitioner
DX: C73 Malignant neoplasm of thyroid gland (principal); C77.0 Secondary and unspecified malignant neoplasm of lymph nodes of head, face and neck
CPT/HCPCS: 36415; 84432; 84443; 86800

== ENCOUNTER 2020-08-31 06:23 | Outpatient (CLI) | payer MEDICARE, OTHER, SELFPAY ==
[2020-08-31 10:42] LABS: Basophils % 0.9 %; Eosinophils # 0.1 10^3/uL (0.0-0.8); Eosinophils % 1.7 %; Hematocrit 40.8 % (37.0-47.0); Hemoglobin 12.8 g/dL (11.5-15.3); Lymphocytes # 0.4 10^3/uL (0.8-4.8); Lymphocytes % 12.6 %; Mean Corpuscular HGB Conc 31.4 g/dL (30.0-36.0); Mean Corpuscular Hemoglobin 27.5 pg (28.0-34.0); Mean Corpuscular Volume 87.6 fL (81-99); Mean Platelet Volume 9.1 fL (7.4-10.4); Monocytes # 0.3 10^3/uL (0.2-0.9); Monocytes % 9.8 %; Neutrophils # 2.61 10^3/uL (1.8-7.7); Nucleated Red Blood Cells % 0 %; Platelet Count 163 10^3/cmm (130-400); Red Blood Count 4.66 10^6/uL (4.1-5.3); Red Cell Distribution Width 13.2 % (12.1-15.1); White Blood Count 3.5 10^3/uL (4.0-10.0)
[2020-08-31 10:54] LABS: Alanine Aminotransferase 6 U/L (0-33); Albumin Level 3.7 g/dL (3.5-5.2); Alkaline Phosphatase 92 IU/L (35-105); Aspartate Amino Transferase 10 U/L (0-32); Blood Urea Nitrogen 8 mg/dL (8-23); Calcium 8.9 mg/dL (8.5-10.5); Carbon Dioxide 32 mmol/L (22-29); Chloride 99 mmol/L (98-107); Globulin 3.1 g/dL (1.3-4.6); Glomerular Filtration Rate 123.1 mL/min (90-130); Glucose 175 mg/dL (65-115); Osmolality Calculated 287 mOsm/kg (285-295); Sodium 137 mmol/L (136-145); Total Bilirubin 0.3 mg/dL (0.15-1.2); Total Protein 6.8 g/dL (6.6-8.7)
== END 2020-08-31 06:24 | disposition home or self-care (01) ==
LOC: ONCMED 06:25
PROVIDERS: PCP Family Medicine; Visit Provider Nurse Practitioner
DX: C73 Malignant neoplasm of thyroid gland (principal)
CPT/HCPCS: 36415; 80053; 85025

== ENCOUNTER 2020-09-04 05:55 | Outpatient (CLI) | payer MEDICARE, OTHER, SELFPAY ==
--- NOTE | 2020-09-04 13:11 | CT_ITS ---
WS: [id number] CT NECK WITH CONTRAST HISTORY: NEW PROBLEMS SWALLOWING/SHORTNESS OF BREATH;THYROID CA TECHNIQUE: Contiguous 5 mm axial images are performed through the neck with intravenous contrast. Sag ittal and coronal reformats are also submitted. All CT scans at [facility] use at least o ne of these dose optimization techniques: automated exposure control; mA and/or kV adjustment per pat ient size (includes targeted exams where dose is matched to clinical indication); or iterative recons truction. CONTRAST: CONTRAST: Omnipaque 300; 50 mL IV. DLP: 526.85 mGy.cm COMPARISON: 10/28/2019 Status post RIGHT thyroidectomy. Left-sided cervical dissection. There are extensive surgical clips w ithin the soft tissues. The thyroid has been removed. There is a moderate amount of soft tissue edema and stranding which is probably posttreatment edema. Very mild narrowing of the larynx at the level of the vocal cords. No significant narrowing is identified. Previously described nodule in the RIGHT thyroid bed is no longer evident. No adenopathy identified. Again noted is the mild soft tissue stranding in the upper lung calles bilaterally. Irregular opacifi cations greatest at the medial LEFT upper lobe. May be postradiation pneumonitis. Early metastatic le sions are not completely excluded. No abnormality at the skull base. CT/CT neck w con* [id number] IMPRESSION: 1. Status post thyroidectomy. Large amount of soft tissue stranding and edema in the neck, greatest at the thyroidectomy site. 2. Previously described metastatic nodule in the RIGHT thyroid bed is not iden tified today. 3. Mild narrowing of the larynx secondary to edema. 4. Irregular consolidation at the LEFT apex may be post radiation changes. Ear ly metastatic lesions are not excluded. These were also described on the recent chest CT. Recommend chest CT follow-up in 2-3 months.
--- NOTE | 2020-09-04 13:11 | CT_ITS ---
WS: [id number] CT CHEST WITH INTRAVENOUS CONTRAST HISTORY: NEW PROBLEMS SWALLOWING/SHORTNESS OF Breath; thyroid CA;WHEEZ TECHNIQUE: Contiguous 5 mm axial imaging performed on the thorax. Coronal and sagittal reformats are submitted. All CT scans at [facility] use at least one of these dose optimization techniq ues: automated exposure control; mA and/or kV adjustment per patient size (includes targeted exams wh ere dose is matched to clinical indication); or iterative reconstruction. CONTRAST: Omnipaque 200; 50 mL IV. DLP: 135.56 mGy-cm. COMPARISON: 10/28/[address] 06/17/2020 Lungs and central airway: Bilateral paratracheal upper lobe opacifications. More focal areas of opaci fication and consolidation in the medial LEFT upper lobe. There is adjacent pleural thickening in the LEFT upper lung. This is probably related to postradiation pneumonitis. 5 mm nodule in the RIGHT mid dle lobe abuts the major fissure. This nodule was probably present on the PET/CT of 06/17/2020. Very s mall. New since 10/28/2019. No additional nodules. There is a focal opacification at the medial LEFT brandin ng base which may be an area of pneumonitis. Pleura: Normal. No pleural effusion. Heart and pericardium: Normal size heart with no pericardial effusion. Mediastinum and harvey: Mild mild esophageal thickening and a small hiatal hernia. No definite adenopat hy. Vessels: Mild atherosclerosis aorta. Chest wall and lower neck: Postsurgical changes at the thyroid bed. Interstitial edema and soft tissu e stranding at the thyroid bed and lower neck extending into the upper mediastinum. Upper abdomen: Prior cholecystectomy. Small hiatal hernia. Osseous structures: No destructive process. CT/CT chest w con* [id number] IMPRESSION: 1. Bilateral medial upper lobe stranding with more increasing consolidation an d pleural thickening at the LEFT apex. Probably post radiation pneumonitis. Rec ommend follow-up CT evaluation in 2-3 months. 2. New 5 mm nodule in the RIGHT middle lobe was probably present on the PET/CT from 06/17/2020. May be too small to be detected by FDG uptake. New nodule sinc e 10/28/2019. This can also be followed up in 2-3 months. Postinflammatory versus very early metastatic lesion. 3. Postsurgical changes and postsurgical treatment at the thyroid bed.
[2020-09-04] MEDS: iohexol 300 mg/mL 100 mL Btl IV ×2 (13:57→13:58)
--- NOTE | 2020-09-13 13:41 | ONC FU_ITS ---
[facility] Patient Note Patient: Kylah Patterson Unit #: [id number]: 1950 Dictated By: Mini ZamudioDate of Visit: September 04, 2020 Onc MED Follow-Up/Prog Note Chief Complaint: Thyroid cancer. History of Present Illness: Ms Patterson is a 69 year-old woman with recurrent/metastatic papillary thyroid cancer. On 05/12/2018 she underwent left radical total thyroidectomy for locally advanced papillary thyroid cancer, which included involvement of the recurrent laryngeal nerve and esophagus. The procedure included partial esophagectomy, sacrifice of the recurrent laryngeal nerve, Left central neck dissection, reimplantation of the left inferior parathyroid into right brachial radialis musculature, left laryngeal reinnervation and left cranial nerve neurorrhaphy, and sternocleidomastoid muscle flap repair of esophagus. Pathology showed papillary carcinoma involving the left lobe measuring 4 x 3.5 x 1 cm. There was extension into strap muscles and perithyroidal soft tissues both microscopically and grossly. The margins were noted to be involved. There was involvement in 1 level lymph node and there was involvement in 4/4 left central neck lymph nodes. There was extranodal extension. Her disease was stage III (pT4a, pN2b, M0). She was given 150 mCI of radioactive iodine in May 2018 due to finding of 2 foci of increased activity in the midline neck on her posttreatment scan, consistent with residual functioning thyroid tissue. She reportedly was noted to have rising thyroglobulin level in 2019. Her I-131 scan completed on 10/01/2019 showed no functioning thyroid tissue. PET/CT at that time showed extensive FDG avid disease in the neck, including right and left level 2 nodes, right thyroid bed, bilateral supraclavicular nodes, and a probable small right paraesophageal node at the thoracic inlet. The most significant area of involvement was a left level 2 node measuring 2.3 x 1.3 cm with maximum SUV 57.6. There were no other areas of metastatic involvement noted. On 10/15/2019 she underwent bilateral neck dissection. Pathology showed metastatic papillary thyroid cancer involving 3/13 level III nodes, the largest measuring 2.5 cm, 1/10 level IIA, 1/2 level IV, 1/4 central lymph nodes, 1/11 right level IV lymph nodes. Nodes from the right level IIA, III, and IIB were negative. Excision of a right superior parapharyngeal lymph node also was positive. 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 Her tremor reportedly showed positive PD-L1 expression at 40%, though TMB was reportedly low. On molecular profiling, her tumor was noted to harbor a p.V600E BRAF mutation. She had radiation and medical oncology consultations in [place]. She was recommended to undergo postop radiation. Options for systemic therapy were reviewed, including lenvatinib, immunotherapy, and vemurafenib. She was recommended to begin adjuvant therapy with lenvatinib following completion of the radiation. She was then seen here because she preferred to continue her further treatment locally. She completed radiation on 04/13/2020 to a total dose of 6600 cGy, adiministered in 33 fractions. Her other medical illnesses include hypertension, hyperlipidemia, type 2 diabetes, GERD, irritable bowel syndrome, and degenerative. Her other surgeries include bowel and bladder suspension, cholecystectomy, hysterectomy/bilateral salpingo-oophorectomy, and tonsillectomy. She had a colonoscopy in 2010. She is a nonsmoker. INTERIM HISTORY: A restaging PET/CT on 06/17/2020 showed postsurgical and radiation therapy changes in the neck area. Within the thyroid bed there was noted to be an FDG avid 1.0 x 1.3 cm soft tissue nodule, SUV 17.1, felt to be highly likely to represent recurrent disease. There were no other areas of abnormal uptake. She had a follow-up visit with Dr. Laboy at [facility] on 06/27/2020. His evaluation included ultrasound-guided fine-needle aspiration biopsy of the nodule at the right level 6. He recommended that we proceed with a trial of systemic therapy prior to attempting any further surgery. Ms. Patterson was seen by Dr. Clark July 25, 2020 and was encouraged to pursue lenvatinib (Lenvima). She is here today for followup after initiation of her first cycles of lenvatinib 24 mg daily on 08-21-2020. She has stopped the Lenvima on 08/25/2020. She had significantly increased shortness of breath and trouble swallowing. She also had decreased performance status. She did increase her oral fluid intake after stopping the Lenvima and by August 28 she was feeling like her old self. She states she is still having symptoms problems swallowing and still short of breath. She denies any fever or chills. She is had no cough or hemoptysis. She denies nausea or vomiting. She had no diarrhea or constipation. She denies any neuropathy symptoms. Her appetite is marginal and her energy is just fair . She states overall she does feel better since stopping the Lenvima but is still short of breath and having trouble swallowing. Her ECOG is 1. Past Medical History: Degenerative arthritis Gastroesophageal reflux disease Hypercholesterolemia Hypertension Irritable bowel syndrome Type II diabetes Past Surgical History: Bowel and bladder suspension Cholecystectomy Hysterectomy/bilateral salpingo-oophorectomy Tonsillectomy Bilateral neck dissection in 2019 Left central neck dissection and reimplantation of left inferior parathyroid in 2018 Left laryngeal reinnervation and sternocleidomastoid muscle flap repair of esophagus in 2019 Left radical total thyroidectomy, partial esophagectomy, sacrifice of recurrent laryngeal nerve in 2019 Colonoscopy in 2010 Allergies: No Known Allergies. Medications: Levothyroxine Sodium 1 Tablet (of 150 mcg) Tablet Oral daily Prochlorperazine Maleate 1 Tablet (of 10 mg) Oral t.i.d. PRN Family History: Ms. Patterson's mother at age 62. Ms. Patterson's father at age 66: chronic obstructive pulmonary disease. Ms. Patterson has 1 brother who is alive. Her father had COPD and at age 66 due to complications following hip fracture. Mother of lung disease at age 62. A brother has diabetes and heart disease and a sister also has diabetes. Social History: Ms. Patterson is . Ms. Patterson has never smoked. She has no history of drinking. She is a nonsmoker. She does not drink alcohol. Review Of Symptoms: <See Above> Vital Signs: Performed on September 04, 2020 12:17 Height - 57.00 in Weight - 99.6 lbs (LOW) BSA - 1.34 sq.m BMI - 21.55 Temperature - 98.0 F (LOW) Pulse - 90 /min Respiration - 18 /min BP - 125/84 mm(hg) O2 Sat - 95 % (LOW) Pain - 3,1 - No physically strenuous activity, but ambulatory and able to carry out light or sedentary work (e.g. office work, light house work). (ECOG) Physical Examination: Constitutional Alert, oriented, no acute distress. Skin pink, warm and dry. Head Normocephalic; atraumatic. Eyes Conjunctivae and sclerae are clear and without icterus. Pupils are reactive and equal. Neck Supple without masses. No jugular venous distension. Hematologic/Lymphatic No petechiae or purpura. No tender or palpable lymph nodes in the cervical or supraclavicular areas. Respiratory She does have some scattered expiratory wheezing without rhonchi and no fluid noted. Cardiovascular Regular rate and rhythm of heart without murmurs,clicks, gallops or rubs. Abdomen Non-tender, non-distended, no masses or ascites. Good bowel sounds noted in all quads. No guarding or rebound tenderness. No pulsatile masses. Back/Spine Non-tender to palpation. Extremities No visible deformities, no cyanosis, clubbing or edema. Musculoskeletal No tenderness or swelling, normal range of motion without obvious weakness. Integumentary No rashes or lesions. Neurologic No sensory or motor deficits, normal cerebellar function, normal gait. Psychiatric Alert and oriented times three. Coherent speech. Verbalizes understanding of our discussions today. Laboratory:Test performed on Jul 25, 2020 08:16 Sodium 139 mmol/L Potassium 3.8 mmol/L Chloride 100 mmol/L CO2 31 mmol/L Anion Gap 11.8 BUN 10 mg/dL Creatinine 0.5 mg/dL Cr Clearance (Est) 80.37 mL/min eGFR 123.1 mL/min Glucose 128 mg/dL Osmolality - Calculated 289 mOsm/kg Calcium 8.9 mg/dL Protein, Total 6.8 g/dL Albumin 4.1 g/dL Globulin 2.7 g/dL Bilirubin, Total 0.3 mg/dL ALT (SGPT) 7 U/L AST (SGOT) 11 U/L Alkaline Phosphatase 73 IU/L WBC 2.9 10 3/uL RBC 4.54 10 6/uL HGB 12.9 g/dL HCT 40.7 % MCV 89.6 fL MCH 28.4 pg MCHC 31.7 g/dL RDW 12.8 % Platelet Count 142 10 3/cmm MPV 8.9 fL Neutrophils 1.89 10 3/uL Lymphocytes 0.5 10 3/uL Monocytes 0.4 10 3/uL Eosinophils 0.1 10 3/uL Basophils 0.0 10 3/uL Neutrophil % 65.4 % Lymphocyte % 16.6 % Monocyte % 12.8 % Eosinophil % 4.5 % Basophils % 0.7 % NRBC % 0 % Impression: 1. Papillary thyroid carcinoma, stage III (pT4a, pN1b, M0) at initial diagnosis in April 2018. She underwent left total thyroidectomy and left central neck dissection. 2. She was given 150 mCI of radioactive iodine in May 2018. 3. On 10/15/2019 she underwent bilateral neck dissection for PET/CT evidence of extensive recurrent disease in the neck, including right and left level II nodes, bilateral supraclavicular nodes, and a paraesophageal lymph node at the thoracic inlet. Her tumor was noted to have positive PD-L1 expression at 40%, though with low TMB. On molecular analysis, the tumor was noted to harbor a BRAF mutation. 4. Hypertension. 5. Hyperlipidemia. 6. Type 2 diabetes. 7. GERD. 8. Irritable bowel syndrome. 9. Degenerative arthritis. Plan/Problems Addressed at this Visit: 1. Papillary thyroid carcinoma, stage III (pT4a, pN1b, M0) at initial diagnosis in April 2018. She underwent left total thyroidectomy and left central neck dissection. She was given 150 mCI of radioactive iodine in May 2018. In September 2019 she underwent bilateral neck dissection for PET/CT evidence of extensive recurrent disease in the neck, including right and left level II nodes, bilateral supraclavicular nodes, and a paraesophageal lymph node at the thoracic inlet. Her tumor was noted to have positive PD-L1 expression at 40%, though with low TMB. On molecular analysis, the tumor was noted to harbor a p.V600E BRAF mutation. She was given definitive radiation to the neck area, completed on 04/13/2020 to a total dose of 6600 cGy, administered in 33 fractions. A restaging PET/CT on 06/17/2020 showed postsurgical and radiation therapy changes in the neck area. Within the thyroid bed there was noted to be an FDG avid 1.0 x 1.3 cm soft tissue nodule, SUV 17.1, felt to be highly likely to represent recurrent disease. There were no other areas of abnormal uptake. She had a follow-up visit with Dr. Laboy at [facility] on 06/27/2020. His evaluation included ultrasound-guided fine-needle aspiration biopsy of the nodule at the right level 6. He recommended that we proceed with a trial of systemic therapy prior to attempting any further surgery. Dr Calrk had reviewed several options for systemic therapy. The recommended treatment per NCCN guidelines and the only approved option is lenvatinib. With her tumor showing positive PD-L1 expression, another option would be a trial of immunotherapy, that would be off label for thyroid cancer. The other option would be a targeted therapy for the breath the 600 E mutation, that also would be an off label usage and thyroid cancer. Either of the above can be reserved for salvage therapy. In the meantime, she is agreeable to proceeding with lenvatinib, which will be initiated at a standard dosage of 24 mg daily. A. Continue to HOLD lenvatinib 24 mg p.o. daily due to worsening of shortness of breath and difficulty swallowing and poor performance status after starting the Lenvima. B. I have requested a CT with contrast of the neck/soft tissues for evaluation of her difficulty swallowing. C. I have also requested a restaging CT of the chest abdomen and pelvis with contrast. D. We will have her try Xopenex MDI 2 puffs up to 4 times daily for her shortness of breath. E. We will determine follow-up with her after we see the results of her CT scans. F. She states that she cannot tolerate the full dosing of the Lenvima but would be willing to try smaller dosing. G. Mrs. Patterson was instructed to contact us in interim if questions or problems arise. Signed By: Mini Zamudio-, [facility] Mata Clark MD <<Signature on File>>
== END 2020-09-04 05:56 | disposition home or self-care (01) ==
PROVIDERS: PCP Family Medicine; Visit Provider Nurse Practitioner
DX: C73 Malignant neoplasm of thyroid gland (principal); C77.8 Secondary and unspecified malignant neoplasm of lymph nodes of multiple regions; I10 Essential (primary) hypertension; E78.5 Hyperlipidemia, unspecified; K21.9 Gastro-esophageal reflux disease without esophagitis; K58.9 Irritable bowel syndrome, unspecified; M19.90 Unspecified osteoarthritis, unspecified site; Z79.899 Other long term (current) drug therapy; Z92.21 Personal history of antineoplastic chemotherapy
CPT/HCPCS: 70491; 71260; 99214; Q9967

== ENCOUNTER 2020-09-28 12:10 | Outpatient (CLI) | payer MEDICARE, OTHER, SELFPAY ==
[2020-09-28 12:58] LABS: Basophils # 0.1 10^3/uL (0.0-0.1); Basophils % 0.6 %; Eosinophils # 0.1 10^3/uL (0.0-0.8); Eosinophils % 0.6 %; Hematocrit 39.3 % (37.0-47.0); Hemoglobin 12.7 g/dL (11.5-15.3); Lymphocytes # 0.7 10^3/uL (0.8-4.8); Lymphocytes % 8.2 %; Mean Corpuscular HGB Conc 32.3 g/dL (30.0-36.0); Mean Corpuscular Hemoglobin 27.3 pg (28.0-34.0); Mean Corpuscular Volume 84.5 fL (81-99); Mean Platelet Volume 8.8 fL (7.4-10.4); Monocytes # 0.7 10^3/uL (0.2-0.9); Monocytes % 7.9 %; Neutrophils # 7.17 10^3/uL (1.8-7.7); Neutrophils % 82.4 %; Nucleated Red Blood Cells % 0 %; Platelet Count 179 10^3/cmm (130-400); Red Blood Count 4.65 10^6/uL (4.1-5.3); Red Cell Distribution Width 13.9 % (12.1-15.1); White Blood Count 8.7 10^3/uL (4.0-10.0)
[2020-09-28 13:19] LABS: Alanine Aminotransferase 6 U/L (0-33); Albumin Level 3.9 g/dL (3.5-5.2); Alkaline Phosphatase 81 IU/L (35-105); Anion Gap 13.2 (5-19); Aspartate Amino Transferase 14 U/L (0-32); Blood Urea Nitrogen 15 mg/dL (8-23); Calcium 8.8 mg/dL (8.5-10.5); Carbon Dioxide 31 mmol/L (22-29); Chloride 95 mmol/L (98-107); Globulin 2.7 g/dL (1.3-4.6); Glomerular Filtration Rate 83.5 mL/min (90-130); Glucose 190 mg/dL (65-115); Osmolality Calculated 286 mOsm/kg (285-295); Potassium 4.2 mmol/L (3.5-5.1); Sodium 135 mmol/L (136-145); Total Bilirubin 0.2 mg/dL (0.15-1.2); Total Protein 6.6 g/dL (6.6-8.7)
--- NOTE | 2020-10-19 21:43 | ONC FU_ITS ---
[facility] Patient Note Patient: Kylah Patterson Unit #: [id number]: 1950 Dictated By: Mini ZamudioDate of Visit: Sep 28, 2020 Onc MED Follow-Up/Prog Note Chief Complaint: Thyroid cancer. History of Present Illness: Ms Patterson is a 69 year-old woman with recurrent/metastatic papillary thyroid cancer. On 05/12/2018 she underwent left radical total thyroidectomy for locally advanced papillary thyroid cancer, which included involvement of the recurrent laryngeal nerve and esophagus. The procedure included partial esophagectomy, sacrifice of the recurrent laryngeal nerve, Left central neck dissection, reimplantation of the left inferior parathyroid into right brachial radialis musculature, left laryngeal reinnervation and left cranial nerve neurorrhaphy, and sternocleidomastoid muscle flap repair of esophagus. Pathology showed papillary carcinoma involving the left lobe measuring 4 x 3.5 x 1 cm. There was extension into strap muscles and perithyroidal soft tissues both microscopically and grossly. The margins were noted to be involved. There was involvement in 1 level lymph node and there was involvement in 4/4 left central neck lymph nodes. There was extranodal extension. Her disease was stage III (pT4a, pN2b, M0). She was given 150 mCI of radioactive iodine in May 2018 due to finding of 2 foci of increased activity in the midline neck on her posttreatment scan, consistent with residual functioning thyroid tissue. She reportedly was noted to have rising thyroglobulin level in 2019. Her I-131 scan completed on 10/01/2019 showed no functioning thyroid tissue. PET/CT at that time showed extensive FDG avid disease in the neck, including right and left level 2 nodes, right thyroid bed, bilateral supraclavicular nodes, and a probable small right paraesophageal node at the thoracic inlet. The most significant area of involvement was a left level 2 node measuring 2.3 x 1.3 cm with maximum SUV 57.6. There were no other areas of metastatic involvement noted. On 10/15/2019 she underwent bilateral neck dissection. Pathology showed metastatic papillary thyroid cancer involving 3/13 level III nodes, the largest measuring 2.5 cm, 1/10 level IIA, 1/2 level IV, 1/4 central lymph nodes, 1/11 right level IV lymph nodes. Nodes from the right level IIA, III, and IIB were negative. Excision of a right superior parapharyngeal lymph node also was positive. 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 Her tremor reportedly showed positive PD-L1 expression at 40%, though TMB was reportedly low. On molecular profiling, her tumor was noted to harbor a p.V600E BRAF mutation. She had radiation and medical oncology consultations in [place]. She was recommended to undergo postop radiation. Options for systemic therapy were reviewed, including lenvatinib, immunotherapy, and vemurafenib. She was recommended to begin adjuvant therapy with lenvatinib following completion of the radiation. She was then seen here because she preferred to continue her further treatment locally. She completed radiation on 04/13/2020 to a total dose of 6600 cGy, adiministered in 33 fractions. Her other medical illnesses include hypertension, hyperlipidemia, type 2 diabetes, GERD, irritable bowel syndrome, and degenerative. Her other surgeries include bowel and bladder suspension, cholecystectomy, hysterectomy/bilateral salpingo-oophorectomy, and tonsillectomy. She had a colonoscopy in 2010. She is a nonsmoker. INTERIM HISTORY: A restaging PET/CT on 06/17/2020 showed postsurgical and radiation therapy changes in the neck area. Within the thyroid bed there was noted to be an FDG avid 1.0 x 1.3 cm soft tissue nodule, SUV 17.1, felt to be highly likely to represent recurrent disease. There were no other areas of abnormal uptake. She had a follow-up visit with Dr. Laboy at [facility] on 06/27/2020. His evaluation included ultrasound-guided fine-needle aspiration biopsy of the nodule at the right level 6. He recommended that we proceed with a trial of systemic therapy prior to attempting any further surgery. Ms. Patterson was seen by Dr. Clark July 25, 2020 and was encouraged to pursue lenvatinib (Lenvima). She returned for followup on 08/31/2020 after initiation of her first cycles of lenvatinib 24 mg daily on 08-21-2020. She stopped the Lenvima on 08/25/2020. She had significantly increased shortness of breath and trouble swallowing. She also had decreased performance status. She did increase her oral fluid intake after stopping the Lenvima and by Friday, August 28 she was feeling like her old self. She did have follow-up CT of the neck and chest both with contrast on 09/04/2020. CT of the neck reported status post thyroidectomy. Large amount of soft tissue stranding and edema in the neck, greatest at the thyroidectomy site. Previously described metastatic nodule in the right thyroid bed is not identified. Mild narrowing of the larynx secondary to edema. Irregular consolidation at the left apex may be post radiation changes. Early metastatic lesions are not excluded. These were also described on the recent chest CT and recommend chest CT follow-up in 2 to [address] of the chest reported bilateral medial upper lobe stranding with more increasing consolidation and pleural thickening at the left apex. Probably post radiation pneumonitis recommend follow-up CT evaluation 2 to 3 months . There is a new 5 mm nodule in the right middle lobe which was probably present on the PET/CT from 06/17/2020. This may be too small to be detected by FDG uptake. New nodule since 10/28/2019. Postsurgical changes in for surgical treatment at the thyroid bed. Mrs. Ramirez was informed of her PET/CT results by clinic nurse Neena GOMES on 09/13/2020. She was encouraged to reduce the Lenvima to 12 mg and attempt to resume it at that time. She is here today for follow-up after resuming the Lenvima at 12 mg daily. She states overall she feels some better as far as a poor performance status however she is still having some trouble swallowing. She states it just hurts to swallow even water at times. She states she is also having new bilateral shoulder pain and is requesting an MRI of her shoulders. However given the new 5 mm long nodule noted on the CT as above, we will request PET CT imaging for further evaluation. She states she is just very concerned that the cancer is there and we are not finding it. She denies any new cough. She denies any hemoptysis. She denies any diarrhea or constipation. She has had no neuropathy symptoms. She denies any skin rashes or lesions. She denies any mouth sores. She states she has not had any fever or chills. Her appetite is marginal at times. Her ECOG is 1. Past Medical History: Degenerative arthritis Gastroesophageal reflux disease Hypercholesterolemia Hypertension Irritable bowel syndrome Type II diabetes Past Surgical History: Bowel and bladder suspension Cholecystectomy Hysterectomy/bilateral salpingo-oophorectomy Tonsillectomy Bilateral neck dissection in 2019 Left central neck dissection and reimplantation of left inferior parathyroid in 2018 Left laryngeal reinnervation and sternocleidomastoid muscle flap repair of esophagus in 2018 Left radical total thyroidectomy, partial esophagectomy, sacrifice of recurrent laryngeal nerve in 2019 Colonoscopy in 2010 Allergies: No Known Allergies. Medications: Lenvima (12 MG Daily Dose) Tablet Oral daily Levothyroxine Sodium 1 Tablet (of 150 mcg) Tablet Oral daily Prochlorperazine Maleate 1 Tablet (of 10 mg) Oral t.i.d. PRN Family History: Ms. Patterson's mother at age 62. Ms. Patterson's father at age 66: chronic obstructive pulmonary disease. Ms. Patterson has 1 brother who is alive. Her father had COPD and at age 66 due to complications following hip fracture. Mother of lung disease at age 62. A brother has diabetes and heart disease and a sister also has diabetes. Social History: Ms. Patterson is . Ms. Patterson has never smoked. She has no history of drinking. She is a nonsmoker. She does not drink alcohol. Review Of Symptoms: <See Above> Vital Signs: Performed on Sep 28, 2020 14:24 Height - 57.00 in Weight - 99.4 lbs (LOW) BSA - 1.34 sq.m BMI - 21.51 Temperature - 98.9 F (HIGH) Pulse - 98 /min Respiration - 17 /min BP - 158/99 mm(hg) (HIGH) O2 Sat - 99 % Pain - 4,1 - No physically strenuous activity, but ambulatory and able to carry out light or sedentary work (e.g. office work, light house work). (ECOG) Physical Examination: Constitutional Alert, oriented, no acute distress. Skin pink, warm and dry. Head Normocephalic; atraumatic. Eyes Conjunctivae and sclerae are clear and without icterus. Pupils are reactive and equal. Neck Supple without masses. No jugular venous distension. Hematologic/Lymphatic No petechiae or purpura. No tender or palpable lymph nodes in the cervical or supraclavicular areas. Respiratory She does have some scattered expiratory wheezing without rhonchi and no fluid noted. Cardiovascular Regular rate and rhythm of heart without murmurs,clicks, gallops or rubs. Back/Spine Non-tender to palpation. Extremities No visible deformities, no cyanosis, clubbing or edema. Musculoskeletal No tenderness or swelling, normal range of motion without obvious weakness. Integumentary No rashes or lesions. Neurologic No sensory or motor deficits, normal cerebellar function, normal gait. Psychiatric Alert and oriented times three. Coherent speech. Verbalizes understanding of our discussions today. Laboratory:Test performed on Sep 28, 2020 12:36 Sodium 135 mmol/L Potassium 4.2 mmol/L Chloride 95 mmol/L CO2 31 mmol/L Anion Gap 13.2 BUN 15 mg/dL Creatinine 0.7 mg/dL Cr Clearance (Est) 55.51 mL/min eGFR 83.5 mL/min Glucose 190 mg/dL Osmolality - Calculated 286 mOsm/kg Calcium 8.8 mg/dL Protein, Total 6.6 g/dL Albumin 3.9 g/dL Globulin 2.7 g/dL Bilirubin, Total 0.2 mg/dL ALT (SGPT) 6 U/L AST (SGOT) 14 U/L Alkaline Phosphatase 81 IU/L WBC 8.7 10 3/uL RBC 4.65 10 6/uL HGB 12.7 g/dL HCT 39.3 % MCV 84.5 fL MCH 27.3 pg MCHC 32.3 g/dL RDW 13.9 % Platelet Count 179 10 3/cmm MPV 8.8 fL Neutrophils 7.17 10 3/uL Lymphocytes 0.7 10 3/uL Monocytes 0.7 10 3/uL Eosinophils 0.1 10 3/uL Basophils 0.1 10 3/uL Neutrophil % 82.4 % Lymphocyte % 8.2 % Monocyte % 7.9 % Eosinophil % 0.6 % Basophils % 0.6 % NRBC % 0 % Impression: 1. Papillary thyroid carcinoma, stage III (pT4a, pN1b, M0) at initial diagnosis in April 2018. She underwent left total thyroidectomy and left central neck dissection. 2. She was given 150 mCI of radioactive iodine in May 2018. 3. On 10/15/2019 she underwent bilateral neck dissection for PET/CT evidence of extensive recurrent disease in the neck, including right and left level II nodes, bilateral supraclavicular nodes, and a paraesophageal lymph node at the thoracic inlet. Her tumor was noted to have positive PD-L1 expression at 40%, though with low TMB. On molecular analysis, the tumor was noted to harbor a BRAF mutation. 4. Hypertension. 5. Hyperlipidemia. 6. Type 2 diabetes. 7. GERD. 8. Irritable bowel syndrome. 9. Degenerative arthritis. Plan/Problems Addressed at this Visit: 1. Papillary thyroid carcinoma, stage III (pT4a, pN1b, M0) at initial diagnosis in April 2018. She underwent left total thyroidectomy and left central neck dissection. She was given 150 mCI of radioactive iodine in May 2018. In September 2019 she underwent bilateral neck dissection for PET/CT evidence of extensive recurrent disease in the neck, including right and left level II nodes, bilateral supraclavicular nodes, and a paraesophageal lymph node at the thoracic inlet. Her tumor was noted to have positive PD-L1 expression at 40%, though with low TMB. On molecular analysis, the tumor was noted to harbor a p.V600E BRAF mutation. She was given definitive radiation to the neck area, completed on 04/13/2020 to a total dose of 6600 cGy, administered in 33 fractions. A restaging PET/CT on 06/17/2020 showed postsurgical and radiation therapy changes in the neck area. Within the thyroid bed there was noted to be an FDG avid 1.0 x 1.3 cm soft tissue nodule, SUV 17.1, felt to be highly likely to represent recurrent disease. There were no other areas of abnormal uptake. She had a follow-up visit with Dr. Laboy at [facility] on 06/27/2020. His evaluation included ultrasound-guided fine-needle aspiration biopsy of the nodule at the right level 6. He recommended that we proceed with a trial of systemic therapy prior to attempting any further surgery. Dr Clark had reviewed several options for systemic therapy. The recommended treatment per NCCN guidelines and the only approved option is lenvatinib. With her tumor showing positive PD-L1 expression, another option would be a trial of immunotherapy, that would be off label for thyroid cancer. The other option would be a targeted therapy for the breath the 600 E mutation, that also would be an off label usage and thyroid cancer. Either of the above can be reserved for salvage therapy. In the meantime, she was agreeable to proceeding with lenvatinib, which was initiated at a standard dosage of 24 mg daily. She began her 1st dose on 08/21/2020. She stopped the Lenvima on 08/25/2020 due to significant increase shortness of breath and trouble swallowing. She also had decreased performance status. She increased her fluid intake and by August 28 she was feeling like her old self. Follow-up CT of the neck and chest did not reveal any new disease but mild narrowing of the larynx secondary to edema and irregular consolidation at the left apex may be postradiation changes. Early metastatic lesions were not excluded. CT of the chest reported bilateral medial upper lobe stranding with more increasing consolidation and pleural thickening at the left apex. It was thought to be post radiation pneumonitis. There was a new 5 mm nodule in the right middle lobe which was probably present on the PET/CT from June 17, 2020. She was encouraged to reduce the Lenvima to 12 mg and attempt to resume it on 09/13/2020. She has tolerated it much better to date. A. Continue Lenvima at 12 mg daily. B. Today's labs reviewed in detail and discussed with Ms. Nino and her family and a copy was given to her. WBC 8.7, hemoglobin 12.7, platelets 179,000, ANC is 7170. Potassium 4.2 creatinine 0.7 random glucose 190 LFTs are normal. C. I requested PET/CT imaging for evaluation of a new pulmonary nodule and her persistence in difficulty swallowing. She is also having bilateral shoulder pain which is most likely due to degenerative arthritis but she is concerned that this could be cancer. D. We will establish follow-up plan of care after the results of her PET/CT imaging are obtained. E. Mrs. Patterson was instructed to contact us in interim if questions or problems arise. Signed By: Mini Zamudio-ROBE, BRE Clark MD <<Signature on File>>
== END 2020-09-28 12:11 | disposition home or self-care (01) ==
LOC: ONCMED 12:12
PROVIDERS: PCP Family Medicine; Visit Provider Nurse Practitioner
DX: C73 Malignant neoplasm of thyroid gland (principal); C77.8 Secondary and unspecified malignant neoplasm of lymph nodes of multiple regions; I10 Essential (primary) hypertension; E78.5 Hyperlipidemia, unspecified; E11.9 Type 2 diabetes mellitus without complications; K21.9 Gastro-esophageal reflux disease without esophagitis; K58.9 Irritable bowel syndrome, unspecified; M19.90 Unspecified osteoarthritis, unspecified site; Z92.21 Personal history of antineoplastic chemotherapy; Z79.899 Other long term (current) drug therapy
CPT/HCPCS: 36415; 80053; 85025; 99214

== ENCOUNTER 2020-10-27 11:30 | Outpatient (CLI) | payer MEDICARE, OTHER, SELFPAY ==
[2020-10-27 11:59] LABS: Basophils % 0.8 %; Eosinophils % 1.5 %; Hematocrit 43.7 % (37.0-47.0); Lymphocytes # 0.5 10^3/uL (0.8-4.8); Lymphocytes % 19.5 %; Mean Corpuscular Hemoglobin 27.8 pg (28.0-34.0); Mean Corpuscular Volume 86.9 fL (81-99); Mean Platelet Volume 8.9 fL (7.4-10.4); Monocytes # 0.3 10^3/uL (0.2-0.9); Monocytes % 11.9 %; Neutrophils # 1.72 10^3/uL (1.8-7.7); Neutrophils % 65.9 %; Nucleated Red Blood Cells % 0 %; Platelet Count 68 10^3/cmm (130-400); Red Blood Count 5.03 10^6/uL (4.1-5.3); Red Cell Distribution Width 16.1 % (12.1-15.1); White Blood Count 2.6 10^3/uL (4.0-10.0)
[2020-10-27 12:31] LABS: Alanine Aminotransferase 12 U/L (0-33); Albumin Level 4.2 g/dL (3.5-5.2); Alkaline Phosphatase 92 IU/L (35-105); Aspartate Amino Transferase 16 U/L (0-32); Blood Urea Nitrogen 11 mg/dL (8-23); Calcium 9.6 mg/dL (8.5-10.5); Carbon Dioxide 33 mmol/L (22-29); Chloride 98 mmol/L (98-107); Globulin 2.7 g/dL (1.3-4.6); Glomerular Filtration Rate 99.7 mL/min (90-130); Glucose 109 mg/dL (65-115); Osmolality Calculated 290 mOsm/kg (285-295); Sodium 140 mmol/L (136-145); Thyroid Stimulating Hormone 0.04 uIU/mL (0.27-4.20); Total Bilirubin 0.8 mg/dL (0.15-1.2); Total Protein 6.9 g/dL (6.6-8.7)
[2020-11-03 16:03] LABS: Thyroglobulin Level <0.4 ng/mL
== END 2020-10-27 11:31 | disposition home or self-care (01) ==
LOC: ONCMED 11:37
PROVIDERS: PCP Family Medicine; Visit Provider Internal Medicine Medical Oncology
DX: C73 Malignant neoplasm of thyroid gland (principal); C77.0 Secondary and unspecified malignant neoplasm of lymph nodes of head, face and neck
CPT/HCPCS: 36415; 80053; 84432; 84443; 85025; 86800

== ENCOUNTER 2020-10-31 06:18 | Outpatient (CLI) | payer MEDICARE, OTHER, SELFPAY ==
--- NOTE | 2020-11-04 13:10 | ONC FU_ITS ---
Dr. Clark Patient Follow-Up Note Patient: Kylah Patterson Unit #: [id number]: 1950 Dicatated By: Mata Clark M.D.Date of Visit:Oct 31, 2020 Onc Med Follow-up/Prog Note Chief Complaint: Thyroid cancer. History of Present Illness: This is a 69 year-old woman with recurrent/metastatic papillary thyroid cancer. On 05/12/2018 she underwent left radical total thyroidectomy for locally advanced papillary thyroid cancer, which included involvement of the recurrent laryngeal nerve and esophagus. The procedure included partial esophagectomy, sacrifice of the recurrent laryngeal nerve, Left central neck dissection, reimplantation of the left inferior parathyroid into right brachial radialis musculature, left laryngeal reinnervation and left cranial nerve neurorrhaphy, and sternocleidomastoid muscle flap repair of esophagus. Pathology showed papillary carcinoma involving the left lobe measuring 4 x 3.5 x 1 cm. There was extension into strap muscles and perithyroidal soft tissues both microscopically and grossly. The margins were noted to be involved. There was involvement in 1 level lymph node and there was involvement in 4/4 left central neck lymph nodes. There was extranodal extension. Her disease was stage III (pT4a, pN2b, M0). She was given 150 mCI of radioactive iodine in May 2018 due to finding of 2 foci of increased activity in the midline neck on her posttreatment scan, consistent with residual functioning thyroid tissue. She reportedly was noted to have rising thyroglobulin level in 2019. Her I-131 scan completed on 10/01/2019 showed no functioning thyroid tissue. PET/CT at that time showed extensive FDG avid disease in the neck, including right and left level 2 nodes, right thyroid bed, bilateral supraclavicular nodes, and a probable small right paraesophageal node at the thoracic inlet. The most significant area of involvement was a left level 2 node measuring 2.3 x 1.3 cm with maximum SUV 57.6. There were no other areas of metastatic involvement noted. On 10/15/2019 she underwent bilateral neck dissection. Pathology showed metastatic papillary thyroid cancer involving 3/13 level III nodes, the largest measuring 2.5 cm, 1/10 level IIA, 1/2 level IV, 1/4 central lymph nodes, 1/11 right level IV lymph nodes. Nodes from the right level IIA, III, and IIB were negative. Excision of a right superior parapharyngeal lymph node also was positive. 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 Her tremor reportedly showed positive PD-L1 expression at 40%, though TMB was reportedly low. On molecular profiling, her tumor was noted to harbor a p.V600E BRAF mutation. She had radiation and medical oncology consultations in [place]. She was recommended to undergo postop radiation. Options for systemic therapy were reviewed, including lenvatinib, immunotherapy, and vemurafenib. She was recommended to begin adjuvant therapy with lenvatinib following completion of the radiation. She was then seen here because she preferred to continue her further treatment locally. She completed radiation on 04/13/2020 to a total dose of 6600 cGy, adiministered in 33 fractions. Her other medical illnesses include hypertension, hyperlipidemia, type 2 diabetes, GERD, irritable bowel syndrome, and degenerative. Her other surgeries include bowel and bladder suspension, cholecystectomy, hysterectomy/bilateral salpingo-oophorectomy, and tonsillectomy. She had a colonoscopy in 2010. She is a nonsmoker. INTERIM HISTORY: A restaging PET/CT on 06/17/2020 showed postsurgical and radiation therapy changes in the neck area. Within the thyroid bed there was noted to be an FDG avid 1.0 x 1.3 cm soft tissue nodule, SUV 17.1, felt to be highly likely to represent recurrent disease. There were no other areas of abnormal uptake. She had a follow-up visit with Dr. Laboy at [facility] on 06/27/2020. His evaluation included ultrasound-guided fine-needle aspiration biopsy of the nodule at the right level 6. He recommended that we proceed with a trial of systemic therapy prior to attempting any further surgery. On 08/21/2020 she began a trial of therapy with lenvatinib 24 mg daily. She developed chest pain after the initial dosage, and she then stopped taking it. As of 09/13/2020 she restarted treatment with the dosage reduced to 12 mg daily. A repeat PET/CT on 09/30/2020 showed resolution of the right-sided thyroid bed lesion compared to the previous study from May 2020. A new 5 mm pulmonary nodule in the inferior right major fissure had SUV 2.2, suspicious for metastatic disease. There were no other areas of abnormal uptake noted on that study. With those findings, she continued lenvatinib 12 mg daily. She is seen for a follow-up visit. Her main complaint now is that she just does not have any energy. She is still doing some light housework. ECOG score is 1. Her appetite is usually good. She does report having some difficulty swallowing. She complains that she cannot gain weight. She does not have fever or night sweats. She has having some angular cheilitis on the lenvatinib. She has quite a bit of cough. She does not complain of shortness of breath or chest pain. She has some nausea and she has been having postprandial bloating with Ensure. Her stools are sometimes runny and sometimes hard. Bladder function has been okay. She has no significant joint or bone pain. She has headaches, sometimes in the back of her head/neck area and sometimes in the forehead area. She has dizziness. She has no numbness/paresthesia or other focal neurologic symptoms. Medications: Lenvima (12 MG Daily Dose) Tablet Oral daily, Levothyroxine Sodium 1 Tablet (of 150 mcg) Tablet Oral daily, Prochlorperazine Maleate 1 Tablet (of 10 mg) Oral t.i.d. PRN Allergies: No Known Allergies. Vital Signs: Performed on Oct 31, 2020 15:38 Height - 57.00 in Weight - 93.2 lbs (LOW) BSA - 1.30 sq.m BMI - 20.17 Temperature - 97.9 F (LOW) Pulse - 94 /min Respiration - 18 /min BP - 135/91 mm(hg) O2 Sat - 96 % Pain - 0 Fatigue - 8 Physical Examination: Constitutional - She appears somewhat weak generally, Eyes - Sclerae nonicteric. Conjunctivae clear, ENMT - There is some angular cheilitis. There are no lesions noted in the oral cavity, Neck - There is some swelling and induration on both sides of the neck, more prominently on the right. There is no discrete mass palpable, Hematologic/Lymphatic - No cervical, clavicular, or axillary adenopathy, Respiratory - Lungs sound clear with some decrease in air movement bilaterally, Cardiovascular - Heart rhythm is regular. There is no murmur, gallop, or rub noted, Abdomen - Soft. Liver and spleen are not enlarged. There is no abdominal mass or ascites noted and there is no inguinal adenopathy, Extremities - No edema, Neurologic - No focal neurologic deficits noted. Lab/Imaging: Test performed on Oct 27, 2020 11:45 Sodium 140 mmol/L TSH 0.04 uIU/mL Potassium 4.0 mmol/L Chloride 98 mmol/L CO2 33 mmol/L Anion Gap 13.0 BUN 11 mg/dL Creatinine 0.6 mg/dL Cr Clearance (Est) 64.7600 mL/min eGFR 99.7 mL/min Glucose 109 mg/dL Osmolality - Calculated 290 mOsm/kg Calcium 9.6 mg/dL Protein, Total 6.9 g/dL Albumin 4.2 g/dL Globulin 2.7 g/dL Bilirubin, Total 0.8 mg/dL ALT (SGPT) 12 U/L AST (SGOT) 16 U/L Alkaline Phosphatase 92 IU/L WBC 2.6 10 3/uL RBC 5.03 10 6/uL HGB 14.0 g/dL HCT 43.7 % MCV 86.9 fL MCH 27.8 pg MCHC 32.0 g/dL RDW 16.1 % Platelet Count 68 10 3/cmm MPV 8.9 fL Neutrophils 1.72 10 3/uL Lymphocytes 0.5 10 3/uL Monocytes 0.3 10 3/uL Eosinophils 0.0 10 3/uL Basophils 0.0 10 3/uL Neutrophil % 65.9 % Lymphocyte % 19.5 % Monocyte % 11.9 % Eosinophil % 1.5 % Basophils % 0.8 % NRBC % 0 % Problem List: 1. Papillary thyroid carcinoma, stage III (pT4a, pN1b, M0) at initial diagnosis in April 2018. She underwent left total thyroidectomy and left central neck dissection. 2. She was given 150 mCI of radioactive iodine in May 2018. 3. On 10/15/2019 she underwent bilateral neck dissection for PET/CT evidence of extensive recurrent disease in the neck, including right and left level II nodes, bilateral supraclavicular nodes, and a paraesophageal lymph node at the thoracic inlet. Her tumor was noted to have positive PD-L1 expression at 40%, though with low TMB. On molecular analysis, the tumor was noted to harbor a BRAF mutation. 4. Hypertension. 5. Hyperlipidemia. 6. Type 2 diabetes. 7. GERD. 8. Irritable bowel syndrome. 9. Degenerative arthritis. Problems Addressed with this Encounter and Plan: Patient with papillary thyroid carcinoma, stage III (pT4a, pN1b, M0) at initial diagnosis in April 2018. She underwent left total thyroidectomy and left central neck dissection. She was given 150 mCI of radioactive iodine in May 2018. In September 2019 she underwent bilateral neck dissection for PET/CT evidence of extensive recurrent disease in the neck, including right and left level II nodes, bilateral supraclavicular nodes, and a paraesophageal lymph node at the thoracic inlet. Her tumor was noted to have positive PD-L1 expression at 40%, though with low TMB. On molecular analysis, the tumor was noted to harbor a p.V600E BRAF mutation. She was given definitive radiation to the neck area, completed on 04/13/2020 to a total dose of 6600 cGy, administered in 33 fractions. A restaging PET/CT on 06/17/2020 showed postsurgical and radiation therapy changes in the neck area. Within the thyroid bed there was noted to be an FDG avid 1.0 x 1.3 cm soft tissue nodule, SUV 17.1, felt to be highly likely to represent recurrent disease. There were no other areas of abnormal uptake. She had a follow-up visit with Dr. Laboy at [facility] on 06/27/2020. His evaluation included ultrasound-guided fine-needle aspiration biopsy of the nodule at the right level 6. He recommended that we proceed with a trial of systemic therapy prior to attempting any further surgery. On 08/21/2020 she began a trial of therapy with lenvatinib 24 mg daily. She developed chest pain after the initial dosage, and she then stopped taking it. As of 09/13/2020 she restarted treatment with the dosage reduced to 12 mg daily. A repeat PET/CT on 09/30/2020 showed resolution of the right-sided thyroid bed lesion compared to the previous study from May 2020. A new 5 mm pulmonary nodule in the inferior right major fissure had SUV 2.2, suspicious for metastatic disease. There were no other areas of abnormal uptake noted on that study. With those findings, she continued lenvatinib 12 mg daily. At this point she is having significant fatigue associated with the lenvatinib. She has some mild angular cheilitis. The significance of the pulmonary nodule noted on the PET/CT is uncertain, but has a thyroid lesion appears to have responded to treatment, I am encouraging her to continue with the lenvatinib. She will try reducing the dosage to 8 mg daily. She will continue to monitor her blood pressure at home. I encouraged her to bring in her blood pressure cuff so that we can verify the accuracy, she has been getting higher blood pressure readings at home. I will see her in 1 month. Signed By: Mata Clark M.D. <<Signature on File>>
== END 2020-10-31 06:19 | disposition home or self-care (01) ==
LOC: ONCMED 06:20
PROVIDERS: PCP Family Medicine; Visit Provider Internal Medicine Medical Oncology
DX: C73 Malignant neoplasm of thyroid gland (principal); C77.0 Secondary and unspecified malignant neoplasm of lymph nodes of head, face and neck; I10 Essential (primary) hypertension; E78.5 Hyperlipidemia, unspecified; E11.9 Type 2 diabetes mellitus without complications; K21.9 Gastro-esophageal reflux disease without esophagitis; K58.9 Irritable bowel syndrome, unspecified; M19.90 Unspecified osteoarthritis, unspecified site; Z92.3 Personal history of irradiation
CPT/HCPCS: 99214

== ENCOUNTER 2020-11-29 08:11 | Outpatient (CLI) | payer MEDICARE, OTHER, SELFPAY ==
[2020-11-29 08:44] LABS: Basophils % 0.8 %; Eosinophils # 0.1 10^3/uL (0.0-0.8); Eosinophils % 1.9 %; Hemoglobin 14.2 g/dL (11.5-15.3); Lymphocytes # 0.6 10^3/uL (0.8-4.8); Lymphocytes % 22.1 %; Mean Corpuscular HGB Conc 31.6 g/dL (30.0-36.0); Mean Corpuscular Hemoglobin 28.4 pg (28.0-34.0); Mean Platelet Volume 9.3 fL (7.4-10.4); Monocytes # 0.4 10^3/uL (0.2-0.9); Monocytes % 14.1 %; Neutrophils # 1.61 10^3/uL (1.8-7.7); Neutrophils % 61.1 %; Nucleated Red Blood Cells % 0 %; Platelet Count 119 10^3/cmm (130-400); Red Cell Distribution Width 15.3 % (12.1-15.1); White Blood Count 2.6 10^3/uL (4.0-10.0)
[2020-11-29 09:16] LABS: Alanine Aminotransferase 10 U/L (0-33); Albumin Level 4.1 g/dL (3.5-5.2); Alkaline Phosphatase 75 IU/L (35-105); Anion Gap 12.8 (5-19); Aspartate Amino Transferase 16 U/L (0-32); Blood Urea Nitrogen 9 mg/dL (8-23); Calcium 9.1 mg/dL (8.5-10.5); Carbon Dioxide 31 mmol/L (22-29); Chloride 100 mmol/L (98-107); Globulin 2.7 g/dL (1.3-4.6); Glomerular Filtration Rate 122.7 mL/min (90-130); Glucose 136 mg/dL (65-115); Osmolality Calculated 291 mOsm/kg (285-295); Potassium 3.8 mmol/L (3.5-5.1); Sodium 140 mmol/L (136-145); Total Bilirubin 0.4 mg/dL (0.15-1.2); Total Protein 6.8 g/dL (6.6-8.7)
--- NOTE | 2020-11-29 18:29 | ONC FU_ITS ---
Dr. Clark Patient Follow-Up Note Patient: Kylah Patterson Unit #: [id number]: 1950 Dicatated By: Mata Clark M.D.Date of Visit:Nov 29, 2020 Onc Med Follow-up/Prog Note Chief Complaint: Thyroid cancer. History of Present Illness: This is a 69 year-old woman with recurrent/metastatic papillary thyroid cancer. On 05/12/2018 she underwent left radical total thyroidectomy for locally advanced papillary thyroid cancer, which included involvement of the recurrent laryngeal nerve and esophagus. The procedure included partial esophagectomy, sacrifice of the recurrent laryngeal nerve, Left central neck dissection, reimplantation of the left inferior parathyroid into right brachial radialis musculature, left laryngeal reinnervation and left cranial nerve neurorrhaphy, and sternocleidomastoid muscle flap repair of esophagus. Pathology showed papillary carcinoma involving the left lobe measuring 4 x 3.5 x 1 cm. There was extension into strap muscles and perithyroidal soft tissues both microscopically and grossly. The margins were noted to be involved. There was involvement in 1 level lymph node and there was involvement in 4/4 left central neck lymph nodes. There was extranodal extension. Her disease was stage III (pT4a, pN2b, M0). She was given 150 mCI of radioactive iodine in May 2018 due to finding of 2 foci of increased activity in the midline neck on her posttreatment scan, consistent with residual functioning thyroid tissue. She reportedly was noted to have rising thyroglobulin level in 2019. Her I-131 scan completed on 10/01/2019 showed no functioning thyroid tissue. PET/CT at that time showed extensive FDG avid disease in the neck, including right and left level 2 nodes, right thyroid bed, bilateral supraclavicular nodes, and a probable small right paraesophageal node at the thoracic inlet. The most significant area of involvement was a left level 2 node measuring 2.3 x 1.3 cm with maximum SUV 57.6. There were no other areas of metastatic involvement noted. On 10/15/2019 she underwent bilateral neck dissection. Pathology showed metastatic papillary thyroid cancer involving 3/13 level III nodes, the largest measuring 2.5 cm, 1/10 level IIA, 1/2 level IV, 1/4 central lymph nodes, 1/11 right level IV lymph nodes. Nodes from the right level IIA, III, and IIB were negative. Excision of a right superior parapharyngeal lymph node also was positive. 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 Her tremor reportedly showed positive PD-L1 expression at 40%, though TMB was reportedly low. On molecular profiling, her tumor was noted to harbor a p.V600E BRAF mutation. She had radiation and medical oncology consultations in [place]. She was recommended to undergo postop radiation. Options for systemic therapy were reviewed, including lenvatinib, immunotherapy, and vemurafenib. She was recommended to begin adjuvant therapy with lenvatinib following completion of the radiation. She was then seen here because she preferred to continue her further treatment locally. She completed radiation on 04/13/2020 to a total dose of 6600 cGy, adiministered in 33 fractions. Her other medical illnesses include hypertension, hyperlipidemia, type 2 diabetes, GERD, irritable bowel syndrome, and degenerative. Her other surgeries include bowel and bladder suspension, cholecystectomy, hysterectomy/bilateral salpingo-oophorectomy, and tonsillectomy. She had a colonoscopy in 2010. She is a nonsmoker. INTERIM HISTORY: A restaging PET/CT on 06/17/2020 showed postsurgical and radiation therapy changes in the neck area. Within the thyroid bed there was noted to be an FDG avid 1.0 x 1.3 cm soft tissue nodule, SUV 17.1, felt to be highly likely to represent recurrent disease. There were no other areas of abnormal uptake. She had a follow-up visit with Dr. Laboy at [facility] on 06/27/2020. His evaluation included ultrasound-guided fine-needle aspiration biopsy of the nodule at the right level 6. He recommended that we proceed with a trial of systemic therapy prior to attempting any further surgery. On 08/21/2020 she began a trial of therapy with lenvatinib 24 mg daily. She developed chest pain after the initial dosage, and she then stopped taking it. As of 09/13/2020 she restarted treatment with the dosage reduced to 12 mg daily. A repeat PET/CT on 09/30/2020 showed resolution of the right-sided thyroid bed lesion compared to the previous study from May 2020. A new 5 mm pulmonary nodule in the inferior right major fissure had SUV 2.2, suspicious for metastatic disease. There were no other areas of abnormal uptake noted on that study. With those findings, she continued lenvatinib 12 mg daily. As of her follow-up visit on 10/31/2020 her lenvatinib dosage was further reduced to 8 mg daily due to persistent fatigue and to moderately severe neutropenia, ANC 1700. She is seen for a scheduled visit. She has continued to have severe fatigue. In the interim she did see her primary care provider and she did initially get some improvement in her energy following a B12 shot. Her fatigue, though, is coming back now. Her ECOG score is 2. Her appetite lately has been a little better. She does not have fever or night sweats. She has dry mouth and throat. She coughs to clear phlegm from her throat. She has shortness of breath with activity. She does not complain of chest pain. She has nausea off and on and she feels a knot in her stomach when she first gets up in the morning. She has constipation. She has no complaints. She has no significant joint or bone pain. She has just occasional headache. She sometimes has dizziness. She has no numbness/paresthesia or other focal neurologic symptoms. Medications: Lenvima (12 MG Daily Dose) Tablet Oral daily, Levothyroxine Sodium 1 Tablet (of 150 mcg) Tablet Oral daily, Methylphenidate HCl (5 mg) Tablet Oral b.i.d., Prochlorperazine Maleate 1 Tablet (of 10 mg) Oral t.i.d. PRN Allergies: No Known Allergies. Vital Signs: Performed on Nov 29, 2020 10:06 Height - 57.00 in Weight - 89.8 lbs (LOW) BSA - 1.28 sq.m BMI - 19.43 Temperature - 98.4 F Pulse - 92 /min Respiration - 18 /min BP - 128/86 mm(hg) O2 Sat - 97 % Pain - 0 Fatigue - 8 Physical Examination: Constitutional - She appears somewhat weak generally, Eyes - Sclerae nonicteric. Conjunctivae clear, ENMT - No lesions noted in the oral cavity, Neck - There is significant induration on both sides of the neck, more prominently on the right. There is no discrete mass palpable, Hematologic/Lymphatic - No cervical, clavicular, or axillary adenopathy, Respiratory - Lungs sound clear with some decrease in air movement bilaterally, Cardiovascular - Heart rhythm is regular. There is no murmur, gallop, or rub noted, Abdomen - Soft. Liver and spleen are not enlarged. There is no abdominal mass or ascites noted and there is no inguinal adenopathy, Extremities - No edema, Neurologic - No focal neurologic deficits noted. Lab/Imaging: Test performed on Nov 29, 2020 08:21 Sodium 140 mmol/L Potassium 3.8 mmol/L Chloride 100 mmol/L CO2 31 mmol/L Anion Gap 12.8 BUN 9 mg/dL Creatinine 0.5 mg/dL Cr Clearance (Est) 69.25 mL/min eGFR 122.7 mL/min Glucose 136 mg/dL Osmolality - Calculated 291 mOsm/kg Calcium 9.1 mg/dL Protein, Total 6.8 g/dL Albumin 4.1 g/dL Globulin 2.7 g/dL Bilirubin, Total 0.4 mg/dL ALT (SGPT) 10 U/L AST (SGOT) 16 U/L Alkaline Phosphatase 75 IU/L WBC 2.6 10 3/uL RBC 5.00 10 6/uL HGB 14.2 g/dL HCT 45.0 % MCV 90.0 fL MCH 28.4 pg MCHC 31.6 g/dL RDW 15.3 % Platelet Count 119 10 3/cmm MPV 9.3 fL Neutrophils 1.61 10 3/uL Lymphocytes 0.6 10 3/uL Monocytes 0.4 10 3/uL Eosinophils 0.1 10 3/uL Basophils 0.0 10 3/uL Neutrophil % 61.1 % Lymphocyte % 22.1 % Monocyte % 14.1 % Eosinophil % 1.9 % Basophils % 0.8 % NRBC % 0 % Problem List: 1. Papillary thyroid carcinoma, stage III (pT4a, pN1b, M0) at initial diagnosis in April 2018. She underwent left total thyroidectomy and left central neck dissection. 2. She was given 150 mCI of radioactive iodine in May 2018. 3. On 10/15/2019 she underwent bilateral neck dissection for PET/CT evidence of extensive recurrent disease in the neck, including right and left level II nodes, bilateral supraclavicular nodes, and a paraesophageal lymph node at the thoracic inlet. Her tumor was noted to have positive PD-L1 expression at 40%, though with low TMB. On molecular analysis, the tumor was noted to harbor a BRAF mutation. 4. Hypertension. 5. Hyperlipidemia. 6. Type 2 diabetes. 7. GERD. 8. Irritable bowel syndrome. 9. Degenerative arthritis. Problems Addressed with this Encounter and Plan: Patient with papillary thyroid carcinoma, stage III (pT4a, pN1b, M0) at initial diagnosis in April 2018. She underwent left total thyroidectomy and left central neck dissection. She was given 150 mCI of radioactive iodine in May 2018. In September 2019 she underwent bilateral neck dissection for PET/CT evidence of extensive recurrent disease in the neck, including right and left level II nodes, bilateral supraclavicular nodes, and a paraesophageal lymph node at the thoracic inlet. Her tumor was noted to have positive PD-L1 expression at 40%, though with low TMB. On molecular analysis, the tumor was noted to harbor a p.V600E BRAF mutation. She was given definitive radiation to the neck area, completed on 04/13/2020 to a total dose of 6600 cGy, administered in 33 fractions. A restaging PET/CT on 06/17/2020 showed postsurgical and radiation therapy changes in the neck area. Within the thyroid bed there was noted to be an FDG avid 1.0 x 1.3 cm soft tissue nodule, SUV 17.1, felt to be highly likely to represent recurrent disease. There were no other areas of abnormal uptake. She had a follow-up visit with Dr. Laboy at [facility] on 06/27/2020. His evaluation included ultrasound-guided fine-needle aspiration biopsy of the nodule at the right level 6. He recommended that we proceed with a trial of systemic therapy prior to attempting any further surgery. On 08/21/2020 she began a trial of therapy with lenvatinib 24 mg daily. She developed chest pain after the initial dosage, and she then stopped taking it. As of 09/13/2020 she restarted treatment with the dosage reduced to 12 mg daily. A repeat PET/CT on 09/30/2020 showed resolution of the right-sided thyroid bed lesion compared to the previous study from May 2020. A new 5 mm pulmonary nodule in the inferior right major fissure had SUV 2.2, suspicious for metastatic disease. There were no other areas of abnormal uptake noted on that study. With those findings, she continued lenvatinib 12 mg daily. As of her follow-up visit on 10/31/2020 the lenvatinib dosage was further reduced to 8 mg daily due to persistent fatigue and to moderately severe neutropenia, ANC 1700. At this point she continues to have moderately severe neutropenia, but her blood counts remain adequate and stable. She also continues to have significant fatigue. Thus far there has been no obvious progression of the thyroid cancer. As such, she will continue the lenvatinib at 8 mg daily as long as she is able to tolerate it. I will see her again in 1 month. She will have restaging CT scans of the neck and chest prior to that visit. Signed By: Mata Clark M.D. <<Signature on File>>
== END 2020-11-29 08:12 | disposition home or self-care (01) ==
LOC: ONCMED 08:15
PROVIDERS: PCP Family Medicine; Visit Provider Internal Medicine Medical Oncology
DX: C73 Malignant neoplasm of thyroid gland (principal); C77.0 Secondary and unspecified malignant neoplasm of lymph nodes of head, face and neck; I10 Essential (primary) hypertension; E78.5 Hyperlipidemia, unspecified; E11.9 Type 2 diabetes mellitus without complications; K21.9 Gastro-esophageal reflux disease without esophagitis; K58.9 Irritable bowel syndrome, unspecified; M19.90 Unspecified osteoarthritis, unspecified site; Z92.3 Personal history of irradiation
CPT/HCPCS: 36415; 80053; 85025; 99214

== ENCOUNTER 2020-12-26 09:25 | Outpatient (CLI) | payer MEDICARE, OTHER, SELFPAY ==
--- NOTE | 2020-12-26 10:05 | CT_ITS ---
WS: [id number] CT CHEST TECHNIQUE: Contrast enhanced CT of the chest with coronal and sagittal reformatted images. CLINICAL INFORMATION: PROBLEMS SWALLOWING/SHORTNESS OF BREATH COMPARISON: CT chest September 04, 2020 10/28/2019 PET/CT September 30, [address] June 17, 2020 DLP: 251.[address] scans at [facility] use at least one of these dose optimization techniques: automated e xposure control; mA and/or kV adjustment per patient size (includes targeted exams where dose is matc hed to clinical indication); or iterative reconstruction. FINDINGS: Previously described 5 mm FDG avid pulmonary nodule inferior right major fissure medially is unchange d since AugustSeptember 2020. This was previously FDG avid suspicious for metastatic disease. Tiny stabl e 2 mm noncalcified nodule left upper lobe. A few calcified granulomas. Fibrosis in the lung apices. Small pleural fluid or pleural thickening in the posterior mid and upper lungs bilaterally. Post radiation changes in the lung apices and mediast inum with bronchiectasis.Subsegmental atelectasis left lower lobe. Postoperative changes thyroid bed. Normal caliber thoracic aorta. Proximal main pulmonary arteries ar e normal. Calcified mediastinal lymph nodes. No mediastinal or hilar lymphadenopathy. No axillary lym phadenopathy. Diffuse fatty infiltration liver. Adrenal glands are normal. Small esophageal hiatal hernia. Mild tho racic kyphosis with mild thoracic curve. CT/CT chest w con* [id number] IMPRESSION: 1. Post radiation changes in the lung apices are stable. 2. Small amount of progressed pleural fluid and pleural thickening layering in the mid and upper lungs bilaterally. Postradiation changes with bronchovascula r thickening about the mediastinum. 3. Previously described 5 mm FDG avid pulmonary nodule inferior right major fi ssure medially is unchanged since AugustSeptember 2020. This was previously FDG av id suspicious for metastatic disease. 4. Tiny stable 2 mm noncalcified nodule left upper lobe.
--- NOTE | 2020-12-26 10:05 | CT_ITS ---
WS: [id number] CT NECK TECHNIQUE: Contrast-enhanced CT of the neck with coronal and sagittal reformatted images. CLINICAL INFORMATION: SHORTNESS OF BREATH/WHEEZING COMPARISON: CT September 04, 2020 and PET/CT September 30, 2020 DLP: 276.[address] scans at [facility] use at least one of these dose optimization techniques: automated e xposure control; mA and/or kV adjustment per patient size (includes targeted exams where dose is matc hed to clinical indication); or iterative reconstruction. FINDINGS: Prior postoperative changes right thyroidectomy. Thyroid bed is stable in appearance with treatment-r elated changes. No evidence of significant airway narrowing. No recurrent thyroid lesions. No cervical lymphadenopathy. Prior postoperative changes neck dissection and postradiation changes. N o evidence of supraglottic or glottic mass. Mild thickening of the platysma bilaterally due to postra diation changes. No evidence of supraglottic or glottic mass. Mastoid air cells and paranasal sinuses are well aerated. Normal posterior nasopharynx. Normal parapharyngeal fat. Postradiation changes in the lung apices with bronchovascular thickening and interstitial fibrosis. CT/CT neck w con* [id number] IMPRESSION: 1. Prior postoperative intramedullary changes in the neck with surgical clips in the neck bilaterally. 2. No cervical lymphadenopathy. 3. No evidence supraglottic or glottic mass. 4. Postoperative changes thyroidectomy stable in appearance from previous. No mass or lesion in the thyroid bed. 5. Radiation changes in the lung apices and upper mediastinum.
[2020-12-26 10:10] LABS: Basophils % 0.3 %; Eosinophils % 0.2 %; Hematocrit 44.6 % (37.0-47.0); Hemoglobin 14.2 g/dL (11.5-15.3); Lymphocytes # 0.5 10^3/uL (0.8-4.8); Lymphocytes % 7.8 %; Mean Corpuscular HGB Conc 31.8 g/dL (30.0-36.0); Mean Corpuscular Hemoglobin 28.7 pg (28.0-34.0); Mean Corpuscular Volume 90.1 fl (81-99); Mean Platelet Volume 9.4 fL (7.4-10.4); Monocytes # 0.4 10^3/uL (0.2-0.9); Monocytes % 5.7 %; Neutrophils # 5.42 10^3/uL (1.8-7.7); Neutrophils % 85.8 %; Nucleated Red Blood Cells % 0 %; Platelet Count 154 10^3/cmm (130-400); Red Blood Count 4.95 10^6/uL (4.1-5.3); Red Cell Distribution Width 14.3 % (12.1-15.1); White Blood Count 6.3 10^3/uL (4.0-10.0)
[2020-12-26 10:45] LABS: Alanine Aminotransferase 7 U/L (0-33); Albumin Level 3.8 g/dL (3.5-5.2); Alkaline Phosphatase 81 IU/L (35-105); Anion Gap 15.6 (5-19); Aspartate Amino Transferase 14 U/L (0-32); Blood Urea Nitrogen 10 mg/dL (8-23); Calcium 9.5 mg/dL (8.5-10.5); Carbon Dioxide 27 mmol/L (22-29); Chloride 97 mmol/L (98-107); Globulin 3.1 g/dL (1.3-4.6); Glomerular Filtration Rate 122.7 mL/min (90-130); Glucose 161 mg/dL (65-115); Osmolality Calculated 285 mOsm/kg (285-295); Potassium 3.6 mmol/L (3.5-5.1); Sodium 136 mmol/L (136-145); Total Bilirubin 0.4 mg/dL (0.15-1.2); Total Protein 6.9 g/dL (6.6-8.7)
[2020-12-26] MEDS: iohexol 300 mg/mL 100 mL Btl IV ×2 (12:17→12:18)
== END 2020-12-26 09:26 | disposition home or self-care (01) ==
PROVIDERS: PCP Family Medicine; Visit Provider Internal Medicine Medical Oncology
DX: C73 Malignant neoplasm of thyroid gland (principal); C77.0 Secondary and unspecified malignant neoplasm of lymph nodes of head, face and neck; R06.02 Shortness of breath; R06.2 Wheezing
CPT/HCPCS: 36415; 70491; 71260; 80053; 85025; Q9967

== ENCOUNTER 2021-01-02 06:07 | Outpatient (CLI) | payer MEDICARE, OTHER, SELFPAY ==
--- NOTE | 2021-01-02 17:22 | ONC FU_ITS ---
Dr. Clark Patient Follow-Up Note Patient: Kylah Patterson Unit #: [id number]: 1950 Dicatated By: Mata Clark M.D.Date of Visit:Jan 02, 2021 Onc Med Follow-up/Prog Note Chief Complaint: Thyroid cancer. History of Present Illness: This is a 70 year-old woman with recurrent/metastatic papillary thyroid cancer. On 05/12/2018 she underwent left radical total thyroidectomy for locally advanced papillary thyroid cancer, which included involvement of the recurrent laryngeal nerve and esophagus. The procedure included partial esophagectomy, sacrifice of the recurrent laryngeal nerve, Left central neck dissection, reimplantation of the left inferior parathyroid into right brachial radialis musculature, left laryngeal reinnervation and left cranial nerve neurorrhaphy, and sternocleidomastoid muscle flap repair of esophagus. Pathology showed papillary carcinoma involving the left lobe measuring 4 x 3.5 x 1 cm. There was extension into strap muscles and perithyroidal soft tissues both microscopically and grossly. The margins were noted to be involved. There was involvement in 1 level lymph node and there was involvement in 4/4 left central neck lymph nodes. There was extranodal extension. Her disease was stage III (pT4a, pN2b, M0). She was given 150 mCI of radioactive iodine in May 2018 due to finding of 2 foci of increased activity in the midline neck on her posttreatment scan, consistent with residual functioning thyroid tissue. She reportedly was noted to have rising thyroglobulin level in 2019. Her I-131 scan completed on 10/01/2019 showed no functioning thyroid tissue. PET/CT at that time showed extensive FDG avid disease in the neck, including right and left level 2 nodes, right thyroid bed, bilateral supraclavicular nodes, and a probable small right paraesophageal node at the thoracic inlet. The most significant area of involvement was a left level 2 node measuring 2.3 x 1.3 cm with maximum SUV 57.6. There were no other areas of metastatic involvement noted. On 10/15/2019 she underwent bilateral neck dissection. Pathology showed metastatic papillary thyroid cancer involving 3/13 level III nodes, the largest measuring 2.5 cm, 1/10 level IIA, 1/2 level IV, 1/4 central lymph nodes, 1/11 right level IV lymph nodes. Nodes from the right level IIA, III, and IIB were negative. Excision of a right superior parapharyngeal lymph node also was positive. 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 Her tremor reportedly showed positive PD-L1 expression at 40%, though TMB was reportedly low. On molecular profiling, her tumor was noted to harbor a p.V600E BRAF mutation. She had radiation and medical oncology consultations in [place]. She was recommended to undergo postop radiation. Options for systemic therapy were reviewed, including lenvatinib, immunotherapy, and vemurafenib. She was recommended to begin adjuvant therapy with lenvatinib following completion of the radiation. She was then seen here because she preferred to continue her further treatment locally. She completed radiation on 04/13/2020 to a total dose of 6600 cGy, adiministered in 33 fractions. Her other medical illnesses include hypertension, hyperlipidemia, type 2 diabetes, GERD, irritable bowel syndrome, and degenerative. Her other surgeries include bowel and bladder suspension, cholecystectomy, hysterectomy/bilateral salpingo-oophorectomy, and tonsillectomy. She had a colonoscopy in 2010. She is a nonsmoker. INTERIM HISTORY: A restaging PET/CT on 06/17/2020 showed postsurgical and radiation therapy changes in the neck area. Within the thyroid bed there was noted to be an FDG avid 1.0 x 1.3 cm soft tissue nodule, SUV 17.1, felt to be highly likely to represent recurrent disease. There were no other areas of abnormal uptake. She had a follow-up visit with Dr. Laboy at [facility] on 06/27/2020. His evaluation included ultrasound-guided fine-needle aspiration biopsy of the nodule at the right level 6. He recommended that we proceed with a trial of systemic therapy prior to attempting any further surgery. On 08/21/2020 she began a trial of therapy with lenvatinib 24 mg daily. She developed chest pain after the initial dosage, and she then stopped taking it. As of 09/13/2020 she restarted treatment with the dosage reduced to 12 mg daily. A repeat PET/CT on 09/30/2020 showed resolution of the right-sided thyroid bed lesion compared to the previous study from May 2020. A new 5 mm pulmonary nodule in the inferior right major fissure had SUV 2.2, suspicious for metastatic disease. There were no other areas of abnormal uptake noted on that study. With those findings, she continued lenvatinib 12 mg daily. As of her follow-up visit on 10/31/2020 her lenvatinib dosage was further reduced to 8 mg daily due to persistent fatigue and to moderately severe neutropenia, ANC 1700. She then continued treatment at that dosage, though she still had to periodically stop it for short time periods due to side effects. Her repeat CT scans of the neck and chest on 12/26/2020 showed postoperative changes in the neck bilaterally with no associated cervical lymphadenopathy. There was no evidence for supraglottic or glottic mass. There was no mass or lesion noted in the thyroid bed. Radiation changes were noted in the lung apices and upper. There was a small amount of progressed pleural fluid and pleural thickening layering in the mid and upper lungs bilaterally. There were postradiation changes with bronchovascular thickening about the mediastinum. A previously described 5 mm pulmonary nodule inferior to the right major fissure medially appeared unchanged. A 2 mm noncalcified left upper lobe nodule also appeared stable. She is seen for a follow-up visit. Her main complaint is that her throat is dry and it tends to block off, so that she is constantly trying to bring up phlegm. She says it bothers her all day and night, but it is worse at night, and she tends to repeatedly wake up coughing and choking. She has ongoing problems with her voice being hoarse and gruff. She has been taking her lenvatinib, but off and on. Recently she has been off for the last 4 days, but she is planning to start it up again. She says her energy is not as good as she would like it to be. She is able to do light work. ECOG score is 1. Her appetite lately has been a little better. She does not have fever or night sweats. She says her breathing is not real good. She does not complain of chest pain. She has no GI or complaints. She has no significant joint or bone pain. She does not complain of headache. She does get lightheaded off and on. She has no numbness/paresthesia or other focal neurologic symptoms. Medications: Lenvima (8 MG Daily Dose) Tablet Oral daily, Levothyroxine Sodium 1 Tablet (of 150 mcg) Tablet Oral daily, Methylphenidate HCl (5 mg) Tablet Oral b.i.d., Prochlorperazine Maleate 1 Tablet (of 10 mg) Oral t.i.d. PRN Allergies: No Known Allergies. Vital Signs: Performed on Jan 02, 2021 11:32 Height - 57.00 in Weight - 87.6 lbs (LOW) BSA - 1.27 sq.m BMI - 18.96 Temperature - 98.3 F (LOW) Pulse - 103 /min (HIGH) Respiration - 18 /min BP - 108/72 mm(hg) O2 Sat - 95 % (LOW) Pain - 0 Fatigue - 7 Physical Examination: Constitutional - She appears somewhat frail generally, Eyes - Sclerae nonicteric. Conjunctivae clear, ENMT - No lesions noted in the oral cavity, Neck - There is induration on both sides of the neck, moreso on the right. There is no discrete mass palpable, Hematologic/Lymphatic - No cervical, clavicular, or axillary adenopathy noted, Respiratory - Lungs show slightly coarse breath sounds and some decrease in air movement bilaterally, Cardiovascular - Heart rhythm is regular. There is a I/ systolic murmur. There is no gallop or rub noted, Abdomen - Soft. Liver and spleen are not enlarged. There is no abdominal mass or ascites noted and there is no inguinal adenopathy, Extremities - No edema, Neurologic - No focal neurologic deficits noted. Lab/Imaging: Test performed on Dec 26, 2020 09:40 Sodium 136 mmol/L Potassium 3.6 mmol/L Chloride 97 mmol/L CO2 27 mmol/L Anion Gap 15.6 BUN 10 mg/dL Creatinine 0.5 mg/dL Cr Clearance (Est) 69.2500 mL/min eGFR 122.7 mL/min Glucose 161 mg/dL Osmolality - Calculated 285 mOsm/kg Calcium 9.5 mg/dL Protein, Total 6.9 g/dL Albumin 3.8 g/dL Globulin 3.1 g/dL Bilirubin, Total 0.4 mg/dL ALT (SGPT) 7 U/L AST (SGOT) 14 U/L Alkaline Phosphatase 81 IU/L WBC 6.3 10 3/uL RBC 4.95 10 6/uL HGB 14.2 g/dL HCT 44.6 % MCV 90.1 fl MCH 28.7 pg MCHC 31.8 g/dL RDW 14.3 % Platelet Count 154 10 3/cmm MPV 9.4 fL Neutrophils 5.42 10 3/uL Lymphocytes 0.5 10 3/uL Monocytes 0.4 10 3/uL Eosinophils 0.0 10 3/uL Basophils 0.0 10 3/uL Neutrophil % 85.8 % Lymphocyte % 7.8 % Monocyte % 5.7 % Eosinophil % 0.2 % Basophils % 0.3 % NRBC % 0 % Problem List: 1. Papillary thyroid carcinoma, stage III (pT4a, pN1b, M0) at initial diagnosis in April 2018. She underwent left total thyroidectomy and left central neck dissection. 2. She was given 150 mCI of radioactive iodine in May 2018. 3. On 10/15/2019 she underwent bilateral neck dissection for PET/CT evidence of extensive recurrent disease in the neck, including right and left level II nodes, bilateral supraclavicular nodes, and a paraesophageal lymph node at the thoracic inlet. Her tumor was noted to have positive PD-L1 expression at 40%, though with low TMB. On molecular analysis, the tumor was noted to harbor a BRAF mutation. 4. Hypertension. 5. Hyperlipidemia. 6. Type 2 diabetes. 7. GERD. 8. Irritable bowel syndrome. 9. Degenerative arthritis. Problems Addressed with this Encounter and Plan: Patient with papillary thyroid carcinoma, stage III (pT4a, pN1b, M0) at initial diagnosis in April 2018. She underwent left total thyroidectomy and left central neck dissection. She was given 150 mCI of radioactive iodine in May 2018. In September 2019 she underwent bilateral neck dissection for PET/CT evidence of extensive recurrent disease in the neck, including right and left level II nodes, bilateral supraclavicular nodes, and a paraesophageal lymph node at the thoracic inlet. Her tumor was noted to have positive PD-L1 expression at 40%, though with low TMB. On molecular analysis, the tumor was noted to harbor a p.V600E BRAF mutation. She was given definitive radiation to the neck area, completed on 04/13/2020 to a total dose of 6600 cGy, administered in 33 fractions. A restaging PET/CT on 06/17/2020 showed postsurgical and radiation therapy changes in the neck area. Within the thyroid bed there was noted to be an FDG avid 1.0 x 1.3 cm soft tissue nodule, SUV 17.1, felt to be highly likely to represent recurrent disease. There were no other areas of abnormal uptake. She had a follow-up visit with Dr. Laboy at [facility] on 06/27/2020. His evaluation included ultrasound-guided fine-needle aspiration biopsy of the nodule at the right level 6. He recommended that we proceed with a trial of systemic therapy prior to attempting any further surgery. On 08/21/2020 she began a trial of therapy with lenvatinib 24 mg daily. She developed chest pain after the initial dosage, and she then stopped taking it. As of 09/13/2020 she restarted treatment with the dosage reduced to 12 mg daily. A repeat PET/CT on 09/30/2020 showed resolution of the right-sided thyroid bed lesion compared to the previous study from May 2020. A new 5 mm pulmonary nodule in the inferior right major fissure had SUV 2.2, suspicious for metastatic disease. There were no other areas of abnormal uptake noted on that study. With those findings, she continued lenvatinib 12 mg daily. As of her follow-up visit on 10/31/2020 the lenvatinib dosage was further reduced to 8 mg daily due to persistent fatigue and to moderately severe neutropenia, ANC 1700. She has since then been able to continue treatment at that dosage, though due to ongoing side effects she has been taking it on an intermittent basis. With that she does it appear to be tolerating it with acceptable toxicity. She does appear to have response by follow-up CT scan. However, she has ongoing problems with throat dryness and associated respiratory symptoms. This is most likely secondary to radiation. I will have her see Dr. Dick to see if he has any suggestions for her symptomatic management. I will see her again in 1 month. In the meantime, she will continue lenvatinib 8 mg daily as tolerated. I will have her try [place] 5 mg 3 times daily for the throat dryness. Signed By: Mata Clark M.D. <<Signature on File>>
== END 2021-01-02 06:08 | disposition home or self-care (01) ==
LOC: ONCMED 06:10
PROVIDERS: PCP Family Medicine; Visit Provider Internal Medicine Medical Oncology
DX: C73 Malignant neoplasm of thyroid gland (principal); C77.0 Secondary and unspecified malignant neoplasm of lymph nodes of head, face and neck; J39.2 Other diseases of pharynx; I10 Essential (primary) hypertension; E78.5 Hyperlipidemia, unspecified; E11.9 Type 2 diabetes mellitus without complications; K21.9 Gastro-esophageal reflux disease without esophagitis; K58.9 Irritable bowel syndrome, unspecified; M19.90 Unspecified osteoarthritis, unspecified site; Z79.899 Other long term (current) drug therapy; Z79.890 Hormone replacement therapy
CPT/HCPCS: 99214

== ENCOUNTER 2021-01-15 13:50 | Inpatient (IN) | payer MEDICARE, OTHER, SELFPAY ==
[2021-01-15] VITALS (10 sets, daily range): BP systolic 102–145; BP diastolic 62–102; PULSE 104–123; RESP 18–33; TEMP 36.6–37.2; O2SAT 91–100; BMI 17.4; BMI 17.7
--- NOTE | 2021-01-15 15:27 | XR_ITS ---
WS: [id number] Exam: XR chest 1V portable [id number] Date/Time of Exam: 01/15/2021 3:30 PM Reason For Exam: dyspnea/cough Comparison 10/28/2019. There are patchy groundglass infiltrates in the upper lobe of the right lung and possibly the upper l eft lung zone. There may also be some infiltrate in the left lower lobe in the retrocardiac region. H eart size is normal. The mediastinum is not widened. Surgical clips seen in the base of the neck in t he left axilla. Bilateral apical pleural thickening. XR/XR chest 1V portable [id number] IMPRESSION: 1. Patchy groundglass infiltrates in the upper lobe of the right lung and the l eft lower lobe. There may also be some infiltrate developing in the left upper lobe. Active pneumonia is considered likely. 2. Bilateral apical pleural thickening. Postoperative changes of the chest and lower neck.
--- NOTE | 2021-01-15 15:27 | ECG_ITS ---
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 Measurements Intervals [place] Rate: 123 P: 61 FL: 143 QRS: -20 QRSD: 64 T: 59 QT: 320 QTc: 458 Interpretive Statements SINUS TACHYCARDIA POSSIBLE ANTERIOR MYOCARDIAL INFARCTION , OF INDETERMINATE AGE [30 ms Q WAVE IN V3/V4, OR R < 0.2 mV IN V4] Compared to ECG 10/28/2019 07:29:16 Myocardial infarct finding now present Sinus rhythm no longer present Electronically Signed On 01-15-2021 22:10:08 CDT by Richard Unger M.D. [email or web address]
--- NOTE | 2021-01-15 15:32 | W.ED.SOB ---
HPI - SOB/Dyspnea General: Chief Complaint: Shortness of Breath/Dyspnea Stated Complaint: ALLERGIC REACION TO NASAL SPRAY/INHALATION POWDER Time Seen by Provider: 01/15/21 15:15 History of Present Illness: HPI Narrative: 70-year-old female presents emergency room with cough and wheezing. States it began last night when she used an Astelin nasal spray. She states that throughout the night she was having difficulty with breathing. She denies any fevers or chills she has had some cough she is on a LABA ICS combination medications as well as Astelin nasal spray she is not used any beta agonist. No fever sweats or chills no productive cough denies chest pain MD elicited complaint: shortness of breath and cough Pertinent past history: COPD Onset (ago): hour(s) Timing: constant Severity: moderate Exacerbating factors: nothing Relieving factors: nothing Known history of: COPD Associated symptoms: Reports chest congestion; Deny abdominal pain, chest pain, cough, diaphoresis, dizziness, extremity pain, fever(s), hemoptysis, lightheadedness, myalgias, nausea, orthopnea, palpitations, paresthesias, polydipsia, polyuria, rash, sense of impending doom, syncope or vomiting Treatment prior to arrival: oxygen Review of Systems Const: Denies: fever(s) or diaphoresis ENMT: Denies: throat pain, ear or mastoid pain, nasal discharge or nasal congestion Card: Denies: chest pain, palpitations, lightheadedness, syncope or orthopnea Resp: Reports: dyspnea, non-productive cough and chest congestion; Denies: hemoptysis GI: Denies: abdominal pain, nausea or vomiting : Denies: flank pain, difficulty voiding, dysuria, urinary frequency or urinary urgency Musc: Denies: extremity pain Skin/Breast: Denies: rash or pruritus Neuro: Denies: dizziness Endo: Denies: polyuria or polydipsia PFSH ED PFSH: Medical History DM type 2 (diabetes mellitus, type 2) GERD (gastroesophageal reflux disease) HTN (hypertension) Hyperlipidemia IBS (irritable bowel syndrome) Lung nodules Thyroid cancer Surgical History History of bladder suspension procedure History of cholecystectomy History of hysterectomy History of intestinal surgery History of salpingo-oophorectomy History of thyroid surgery Hx of tonsillectomy Family History Unknown Hypertension Diabetes Social History Smoking and tobacco status: never smoked Second hand smoke exposure: No Smoking risk assessment/counseling performed?: No Alcohol intake: never Counseling given: No Counseling given: No Lives independently: Yes Household members: spouse Marital status: History of recent travel: No Current gender identity: Female Physical Exam Const: COMMON NORMALS: no acute distress GENERAL APPEARANCE: cooperative and comfortable ORIENTATION/CONSCIOUSNESS: Yes awake, Yes oriented to person, Yes oriented to place and Yes oriented to time HENMT: COMMON NORMALS: normocephalic, atraumatic and hearing grossly normal bilaterally HEAD & SCALP: normocephalic and atraumatic Neck/C-Spine: COMMON NORMALS: no JVD Resp: AUSCULTATION: rhonchi, wheezes and diminished lung sounds Cardio: COMMON NORMALS: no JVD, regular rate, regular rhythm and No murmurs present (Cardio) RATE: regular rate RHYTHM: regular rhythm GI: COMMON NORMALS: Soft to palpation and No hepatosplenomegaly present AUSCULTATION: Yes normoactive bowel sounds PALPATION: Yes Soft to palpation, No Tenderness to palpation present (GI), No Guarding due to palpation present (GI) and Yes No hepatosplenomegaly present Extremity: COMMON NORMALS: normal to inspection, capillary refill normal, no clubbing, cyanosis or edema, no calf tenderness and no pedal edema Neuro: SENSORIUM/ORIENTATION: Yes oriented to person, Yes oriented to place and Yes oriented to time Skin: COMMON NORMALS: no rashes or lesions noted GENERAL SKIN EXAM: no rashes or lesions noted Course Vital Signs: Vital signs: Vital Signs Temperature 97.9 F 01/17/21 12:00 Pulse Rate 94 01/17/21 15:49 Respiratory Rate 20 H 01/17/21 15:49 Blood Pressure 111/64 01/17/21 12:00 Pulse Oximetry 94 01/17/21 15:49 MDM - SOB/Dyspnea MDM Narrative: Medical decision making narrative: Labs imaging and EKGs reviewed. Patient appears to have a aspiration pneumonia. Is also potential this is Covid discussed with Dr. Vasquez orders written in addition to that she has an acute kidney injury, albeit somewhat mild. Lab Data: Labs: Lab Results 01/15/21 01/15/21 01/15/21 15:30 15:30 15:30 WBC 20.4 10^3/uL H 10 ^3/uL (4.0-10.0) RBC 5.27 10^6/uL 10^6 /uL (4.1-5.3) Hgb 15.0 g/dL g/dL (11.5-15.3) Hct 47.7 % H % (37.0-47.0) MCV 90.5 fl fl (81-99) MCH 28.5 pg pg (28.0-34.0) MCHC 31.4 g/dL g/dL (30.0-36.0) RDW 14.4 % % (12.1-15.1) Plt Count 128 10^3/cmm L 10 ^3/cmm (130-400) MPV 9.6 fL fL (7.4-10.4) Neut % (Auto) 94.8 % % Lymph % (Auto) 1.3 % % Saline % (Auto) 1.4 % % Eos % (Auto) 0.0 % % Baso % (Auto) 0.7 % % Neut # (Auto) 19.32 10^3/uL H 1 0^3/uL (1.8-7.7) Lymph # (Auto) 0.3 10^3/uL L 10^ 3/uL (0.8-4.8) Saline # (Auto) 0.3 10^3/uL 10^3/ uL (0.2-0.9) Eos # (Auto) 0.0 10^3/uL 10^3/ uL (0.0-0.8) Baso # (Auto) 0.1 10^3/uL 10^3/ uL (0.0-0.1) Nucleated RBC % (a uto) 0 % % Nucleated RBCs # 0.0 /100WBC /100W BC Specimen Type Sample Site ABG pH ABG pCO2 ABG pO2 ABG HCO3 ABG O2 Saturation ABG Base Excess Js Test A-a O2 Gradient Hematocrit Hgb O2 Saturation Carboxyhemoglobin Methemoglobin Total Hemoglobin Ionized Calcium O2 Delivery Device FiO2 Licensed Dispensing Optician ID Sodium 134 mmol/L L mmol /L (136-145) Potassium 4.1 mmol/L mmol/L (3.5-5.1) Chloride 91 mmol/L L mmol/ L (98-107) Carbon Dioxide 25 mmol/L mmol/L (22-29) Anion Gap 22.1 H (5-19) BUN 26 mg/dL H mg/dL (8-23) Creatinine 1.4 mg/dL H mg/dL (0.5-0.9) GFR Calculation 37.4 mL/min L mL/ min (90-130) Glucose 191 mg/dL H mg/dL (65-115) Calculated Osmolal ity 288 mOsm/kg mOsm/ kg (285-295) Calcium 9.9 mg/dL mg/dL (8.5-10.5) Total Bilirubin 0.4 mg/dL mg/dL (0.15-1.2) AST 18 U/L U/L (0-32) ALT 13 U/L U/L (0-33) Alkaline Phosphata se 71 IU/L IU/L (35-105) Total Protein 7.6 g/dL g/dL (6.6-8.7) Albumin 3.7 g/dL g/dL (3.5-5.2) Globulin 3.9 g/dL g/dL (1.3-4.6) Serum Ketones Negative (Negative) Nasal/Oral COVID-1 9 PCR SARS-CoV-2 Ag (Rap id) 01/15/21 01/15/21 01/15/21 15:41 16:40 16:40 WBC RBC Hgb Hct MCV MCH MCHC RDW Plt Count MPV Neut % (Auto) Lymph % (Auto) Saline % (Auto) Eos % (Auto) Baso % (Auto) Neut # (Auto) Lymph # (Auto) Saline # (Auto) Eos # (Auto) Baso # (Auto) Nucleated RBC % (a uto) Nucleated RBCs # Specimen Type Arterial Sample Site Radial, left ABG pH 7.39 (7.35-7.45) ABG pCO2 41.2 mmHg mmHg (35-45) ABG pO2 54.7 mmHg L mmHg (80.0-100.0) ABG HCO3 24.8 mmol/L mmol/ L (22-26) ABG O2 Saturation 91.5 ABG Base Excess -0.3 mmol/L mmol/ L (-2.0-2.0) Js Test Pos A-a O2 Gradient 5.7 mmHg mmHg (5-10) Hematocrit 44.4 % % (37-47) Hgb O2 Saturation 90.3 % L % (95-100) Carboxyhemoglobin 1.2 %THgb %THgb (0.4-20.1) Methemoglobin 0.1 % L % (0.4-1.5) Total Hemoglobin 14.5 g/dL g/dL (12-16) Ionized Calcium 1.2 mmol/L mmol/L (1.1-1.4) O2 Delivery Device Room air FiO2 21.0 % % Licensed Dispensing Optician ID [place] Sodium 135.0 mmol/L mmol /L (131-143) Potassium 4.0 mmol/L mmol/L (3.5-5.0) Chloride Carbon Dioxide Anion Gap BUN Creatinine GFR Calculation Glucose 187.0 mg/dL H mg/ dL (70-115) Calculated Osmolal ity Calcium Total Bilirubin AST ALT Alkaline Phosphata se Total Protein Albumin Globulin Serum Ketones Nasal/Oral COVID-1 9 PCR Not detected SARS-CoV-2 Ag (Rap id) Negative (Negative) Discharge Plan Discharge Patient Disposition: Home Clinical Impression: Aspiration pneumonia, DM type 2 (diabetes mellitus, type 2), Sepsis, YOLANDA (acute kidney injury), Metabolic acidosis Condition: Stable Coding Level of Care Code ED Saw Offbearer for Chg Fwd Exam Comprehensive
[2021-01-15] MEDS: famotidine 20 mg/2 mL INJ 40 MG IVP (15:39)
[2021-01-15] MEDS: diphenhydrAMINE 50 mg/mL SDV 1mL IVP (15:39)
[2021-01-15] MEDS: ipratropium-albuterol 3 mL Neb INHALATION (15:39)
[2021-01-15 15:44] LABS: Basophils # 0.1 10^3/uL (0.0-0.1); Basophils % 0.7 %; Hematocrit 47.7 % (37.0-47.0); Lymphocytes # 0.3 10^3/uL (0.8-4.8); Lymphocytes % 1.3 %; Mean Corpuscular HGB Conc 31.4 g/dL (30.0-36.0); Mean Corpuscular Hemoglobin 28.5 pg (28.0-34.0); Mean Corpuscular Volume 90.5 fl (81-99); Mean Platelet Volume 9.6 fL (7.4-10.4); Monocytes # 0.3 10^3/uL (0.2-0.9); Monocytes % 1.4 %; Neutrophils # 19.32 10^3/uL (1.8-7.7); Neutrophils % 94.8 %; Nucleated Red Blood Cells % 0 %; Platelet Count 128 10^3/cmm (130-400); Red Blood Count 5.27 10^6/uL (4.1-5.3); Red Cell Distribution Width 14.4 % (12.1-15.1); White Blood Count 20.4 10^3/uL (4.0-10.0)
[2021-01-15 15:53] LABS: ABG PCO2 41.2 mmHg (35-45); ABG PH Result 7.39 (7.35-7.45); Alveolar-Arterial Oxygen Gradi 5.7 mmHg (5-10); Arterial Blood Gas Hematocrit 44.4 % (37-47); Base Excess ABG -0.3 mmol/L (-2.0-2.0); Blood Gas Allen Test Pos; Blood Gas Sample Type Arterial; Carboxyhemoglobin 1.2 %THgb (0.4-20.1); HCO3 ABG 24.8 mmol/L (22-26); HGB O2 Sat 90.3 % (95-100); Ionized Calcium Level - ABG 1.2 mmol/L (1.1-1.4); Methemoglobin 0.1 % (0.4-1.5); Oxygen Saturation ABG 91.5; PO2 ABG 54.7 mmHg (80.0-100.0); Total Hemoglobin 14.5 g/dL (12-16)
[2021-01-15 15:54] LABS: Blood Gas Operator Identificat MONRO; Blood Gas Sample Site Radial, left; Oxygen Device ROOM AIR
[2021-01-15 16:03] LABS: Alanine Aminotransferase 13 U/L (0-33); Albumin Level 3.7 g/dL (3.5-5.2); Alkaline Phosphatase 71 IU/L (35-105); Anion Gap 22.1 (5-19); Aspartate Amino Transferase 18 U/L (0-32); Blood Urea Nitrogen 26 mg/dL (8-23); Calcium 9.9 mg/dL (8.5-10.5); Carbon Dioxide 25 mmol/L (22-29); Chloride 91 mmol/L (98-107); Globulin 3.9 g/dL (1.3-4.6); Glomerular Filtration Rate 37.4 mL/min (90-130); Glucose 191 mg/dL (65-115); Osmolality Calculated 288 mOsm/kg (285-295); Potassium 4.1 mmol/L (3.5-5.1); Sodium 134 mmol/L (136-145); Total Bilirubin 0.4 mg/dL (0.15-1.2); Total Protein 7.6 g/dL (6.6-8.7)
--- NOTE | 2021-01-15 16:19 | PC.PHAR ---
PT STATES SHE TAKES CARE OF HER OWN MEDICATIONS-PT STATES SHE HASNT TAKEN RITALIN 5MG FOR A WHILE EXT MED HISTORY SHOWS LAST FILLED ON 11/05/20 30D/S FOR 5MG BID-
[2021-01-15 16:35] LABS: Slide Review Slide Review Perform
[2021-01-15] MEDS: cefTRIAXone 1,000 MG in sodium chloride 0.9% (plus) 50 ML 100 MG IV (16:50)
[2021-01-15 17:17] LABS: SARS Covid-2 Antigen Negative (Negative)
[2021-01-15] MEDS: azithromycin 500 MG in sodium chloride 0.9% 250 ML 250 MG IV (17:30)
[2021-01-15] MEDS: piperacillin-tazobactam 3.375 GM in sodium chloride 0.9% (plus) 50 ML IV (17:47)
--- NOTE | 2021-01-15 19:29 | PM.HP ---
Providers/Chief Complaint Primary Care Provider: Jah Ortega DO Chief Complaint: ALLERGIC REACTION TO NASAL SPRAY/INHALATION POWDER History of Present Illness Pleasant 70-year-old lady with history of papillary thyroid cancer status post multiple surgical procedures as well as radiation therapy, with noted history of aspiration with abnormal MBS in June 2020, also follows with pulmonology, with history of allergic rhinosinusitis, also treated for possible asthma, as well as following due to history of post radiation lung changes, presents to the hospital due to being progressively more short of breath, last night shaking, which she associated with azelastine spray and Symbicort inhalation, thinking she had taken them close together. Denies any rash. Did not feel she had chills, although did feel somewhat cold. States she was hurting all over. Has been coughing, although this is not unusual for her. Had diarrhea last night as well. Does not think that she has COVID-19 as she has been distancing from others, however, has been vaccinated against illness. Reports she feels like she has some phlegm to cough up, but has not been able to. In ER noted to be hypoxic requiring 3 L of oxygen. Not normally on supplemental oxygen. Chest x-ray with patchy groundglass infiltrates in upper lobe right lung and left lower lobe. Possibly some infiltrate developing in the left upper lobe. Changes suspicious of pneumonia. She initially received ceftriaxone, azithromycin, but due to suspicion of aspiration is started on Zosyn after blood cultures collected due to possible sepsis with leukocytosis of 20.4, tachycardia 108. Also noted to have acute kidney injury with creatinine of 1.4. She does say she took ibuprofen yesterday due to the shaking spell. With regards to CODE STATUS, states she would want attempted resuscitation but would not want prolonged or indefinite life support especially if she was not having cognitive recovery. Review of Systems Const: Reports: chills, body aches and malaise; Denies: fever(s) Eyes: Denies: change in vision or eye redness ENMT: Denies: throat pain, oral sores or ear or mastoid pain Card: Denies: chest pain, edema, pre-syncope or dyspnea on exertion Resp: Reports: productive cough; Denies: dyspnea, change in phlegm color or hemoptysis GI: Reports: diarrhea; Denies: abdominal pain, nausea, vomiting, constipation, hematochezia or melena : Denies: flank pain, urinary frequency or hematuria Musc: Denies: back pain, joint swelling or joint redness Skin/Breast: Denies: rash, sores or new lesions Neuro: Denies: headache(s), numbness in extremities, weakness in extremities, dizziness, confusion or seizure-like activity Endo: Denies: polyuria or polydipsia Erik/Lymph: Denies: easy bleeding or purpura All/Imm: Denies: urticaria, throat swelling or tongue swelling Medications/Allergies Home Medications Medication Instructions Recorded Confirmed Last Taken Type azelastine 137 mcg (0.1 %) nasal 2 spray INTRANASAL BID 30 Days #30 01/04/21 01/15/21 01/15/21 11:30 Rx spray aerosol ml mecobalamin (vitamin B12) 1,000 1,000 mcg SUBLINGUAL DAILY 01/04/21 01/15/21 01/14/21 History mcg disintegrating tablet,sublingual pilocarpine HCl 5 mg tablet 5 mg PO TID 01/04/21 01/15/21 01/14/21 History fluticasone furoate 100 1 inh INHALATION DAILY #60 ea 01/09/21 01/15/21 01/14/21 Rx mcg-vilanterol 25 mcg/dose inhalation powder acetaminophen [Tylenol Ex Str 500 mg PO Q4H PRN 01/15/21 01/15/21 Unknown History Rapid Release] ibuprofen 400 mg PO Q4H PRN 01/15/21 01/15/21 01/15/21 10:00 History lenvatinib [Lenvima] 12 mg PO QAM 01/15/21 01/15/21 01/14/21 History levothyroxine 125 mcg PO QAM 01/15/21 01/15/21 01/14/21 History Allergies Allergy/AdvReac Type Severity Reaction Status Date / Time No Known Allergies Allergy Verified 01/15/21 16:19 PFSH Acute PFSH: Medical History DM type 2 (diabetes mellitus, type 2) GERD (gastroesophageal reflux disease) HTN (hypertension) Hyperlipidemia IBS (irritable bowel syndrome) Lung nodules Thyroid cancer Surgical History History of bladder suspension procedure History of cholecystectomy History of hysterectomy History of intestinal surgery History of salpingo-oophorectomy History of thyroid surgery Hx of tonsillectomy Family History Unknown Hypertension Diabetes Social History Smoking and tobacco status: never smoked Second hand smoke exposure: No Smoking risk assessment/counseling performed?: No Alcohol intake: never Counseling given: No Counseling given: No Lives independently: Yes Household members: spouse Marital status: History of recent travel: No Current gender identity: Female Vitals/I&O/Wt Last Vital Signs Temp 98.9 F 01/15/21 14:53 Pulse 108 H 01/15/21 18:38 Resp 22 H 01/15/21 18:38 BP 128/79 01/15/21 18:38 Pulse Ox 100 01/15/21 18:38 01/15/21 01/15/21 01/15/21 06:59 14:59 22:59 Intake Total 100 / 100 Balance 100 / 100 Weight last 48 hrs Weight 39.009 kg Physical Exam Const: COMMON NORMALS: no acute distress, patient oriented x3 and alert GENERAL APPEARANCE: cooperative and frail appearing ORIENTATION/CONSCIOUSNESS: Yes awake HENMT: COMMON NORMALS: oropharynx normal Neck/C-Spine: COMMON NORMALS: no JVD Resp: COMMON NORMALS: normal respiratory effort and clear to auscultation bilaterally AUSCULTATION: clear to auscultation bilaterally Cardio: COMMON NORMALS: no JVD, regular rhythm, S1 normal heart sound present, S2 normal heart sound present and No murmurs present (Cardio) RHYTHM: regular rhythm HEART SOUNDS: S1 normal heart sound present and S2 normal heart sound present GI: COMMON NORMALS: Normal to inspection, nondistended, normoactive bowel sounds present, Soft to palpation and non-tender PALPATION: Yes Soft to palpation Extremity: COMMON NORMALS: no joint enlargement and no pedal edema Neuro: COMMON NORMALS: patient oriented x3 and moves all extremities Skin: COMMON NORMALS: no rashes or lesions noted GENERAL SKIN EXAM: no rashes or lesions noted Data : 01/15/21 15:30 09/27/21 15:30 Micro: Microbiology 01/15/21 17:25 Blood Culture - Preliminary Blood SPECIMEN COLLECTED 01/15/21 17:25 Blood Culture - Preliminary Blood SPECIMEN COLLECTED A&P Assessment and plan (1) Pneumonia: Possible aspiration, however discussed with her appears symptoms may also represent COVID-19 given chills yesterday, rigors, cough, malaise, body aches, diarrhea, groundglass opacities in unvaccinated patient. She verbalized understanding, hopes it is not COVID-19. PCR is pending. Continue renally dosed Zosyn at this time due to concern for aspiration pneumonia given known history of dysphagia. She has not been thickening her liquids. Discussed with her abnormal MBS in June with noted aspiration with thin liquids. Encouraged her to thicken liquids to prevent additional aspiration. Will request speech therapy evaluation. In addition history complicated by post radiation changes, as well as possible asthma as noted by pulmonology. Currently does not appear to be in asthma exacerbation, no wheezing on exam. Decent air entry. Oxygen support due to hypoxia. Collect sputum cultures. Urine bacterial antigens, Legionella. Rapid flu. Fungitell. Galactomannan. Hold lenvatinib at this time due to acute infection, risk of pneumonia with the medication. Status: Acute (2) Sepsis: Blood culture collected. Received antibiotic. Check lactic acid. Leukocytosis 20.4, mostly neutrophilic. Sinus tachycardia 108. Respiratory rate 33 at presentation. Currently improved down to 22. Source is pneumonia. Status: Acute (3) YOLANDA (acute kidney injury): Suspect secondary to NSAID use. States has been taken ibuprofen at home. Discussed with her to discontinue NSAID use. Hold NSAIDs. Very cautious minimal fluid challenge due to new hypoxia, multilobar pneumonia with possibility it still may be COVID-19. Status: Acute (4) Hypoxia: As above. Status: Acute (5) Dysphagia: ST, dysphagia diet Status: Acute (6) Metabolic acidosis: Gap and nongap metabolic acidosis. Check lactic acid. Otherwise likely secondary to acute kidney injury. Possibly diarrhea. Combined with metabolic alkalosis. Has diabetes as well. Check ketones. Status: Acute Additional A&P Information Papillary thyroid cancer History of thyroid surgery DM HTN HLD Lung nodules GERD Other comorbidities noted Attestations Medical Necessity Statement*: Admission of over 2 midnights is going to be needed for assessment management of pneumonia, sepsis, in a lady with thyroid papillary cancer, post radiation lung changes, dysphagia, possible asthma, other comorbidities. Coding Level of Care Code Acute [employer] Functional Analyst for Chg Fwd Diagnoses Pneumonia J18.9 Sepsis A41.9 YOLANDA (acute kidney injury) N17.9 Hypoxia R09.02 Dysphagia R13.10 Metabolic acidosis E87.2
--- NOTE | 2021-01-15 20:37 | PC.NURSE ---
1899 report from ELISEO Major
[2021-01-15 20:40] LABS: Lactic Sepsis W/Reflex 5.9 mmol/L (0.5-2.2)
[2021-01-15 20:45] LABS: Ketone (Acetest) Serum Negative (Negative)
--- NOTE | 2021-01-15 20:53 | PM.EVENT ---
Event Note Event Note: Lactic acid came back at 5.9 HR 112, SBP 137, looks frail but comfortable, mild cough, congestion. Tachycardic, scattered wheezes that improve with cough, upper airway noise, no retractions. Pulses equal x 4, no mottling, cap refill 2 seconds. Abd soft, muscle wasting noted. Verified repeat lactic acid ordered. Do not currently feel elevation related to sepsis given current clinical status. May be related to hypoxemia, cancer, other. Has antibiotics and fluids order at rate of 75 ml/hr. Discussed with patient and will monitor for change.
--- NOTE | 2021-01-15 21:32 | PC.NURSE ---
Assisted onto bedside toilet; assistance needed due to weakness, but pt was able to successfully do so. Urine sent to lab.
--- NOTE | 2021-01-15 21:44 | PC.NURSE ---
Pt gave permission to speak to daughter Tasha about any of her care.
[2021-01-15 21:46] LABS: Add Urine Culture? Yes; Add Urine Microscopic? YES; Bacteria Urine 1+ /hpf; Bilirubin Urine Neg (Negative); Blood Urine Neg (Negative); Glucose Urine UA Norm (Normal); Ketones Urine 1+ (Negative); Leukocyte Esterase Urine 2+ (Negative); Nitrate Urine Negative (Negative); Protein Urine Trace (Negative); RBC Urine 0-4 /hpf (0-2); Urine Appearance SL Hazy (CLEAR); Urine Color Yellow (Yellow); Urobilinogen Urine Norm (Negative); WBC Urine 40-55 /hpf (0-5); pH Urine 5 (5-7)
[2021-01-15 21:46] LABS: Reflex Lactate Order REFLEX LACTIC ORDERD
--- NOTE | 2021-01-15 22:00 | PC.NURSE ---
Attempted to call daughter Tasha, but the number given is the wrong number. Pt unsure of the number, states it is at home in her cell phone. Also states her is at home but I m sure he is asleep and won't hear his phone. No answer at the home and cell numbers listed as pt's numbers.
[2021-01-15 22:13] LABS: Influenza A by IFA Negative (Negative); Influenza B by IFA Negative (Negative)
--- NOTE | 2021-01-15 22:14 | PC.NURSE ---
Addendum entered by Christy Mixon RN 01/15/21 22:40: Did get hold of karel Cordova and gave her an update, as requested by pt. She states that she is unable to reach the hospital due to an issue with her cell service provider, so she asks that she be given a call every few hours or if any changes. Original Note: Karel Monroy [phone]
[2021-01-15] MEDS: lactated ringers 1,000 ML 67 ML (23:06)
[2021-01-15 23:30] LABS: Lactic Acid level (Lactate) 4.1 mmol/L (0.5-2.2)
[2021-01-16] VITALS (12 sets, daily range): BP systolic 87–116; BP diastolic 54–69; PULSE 89–113; RESP 16–20; TEMP 36.2–37.2; O2SAT 91–99
[2021-01-16] MEDS: enoxaparin 40 mg/0.4 mL Syringe SUBCUT ×2 (00:08→21:23)
[2021-01-16] MEDS: sodium chloride 0.9% 1,000 ML 120 ML IV ×3 (00:09→14:20)
[2021-01-16] MEDS: acetaminophen 500 mg Tablet PO ×2 (00:32→12:29)
[2021-01-16 05:36] LABS: Hematocrit 40.4 % (37.0-47.0); Hemoglobin 12.8 g/dL (11.5-15.3); Mean Corpuscular HGB Conc 31.7 g/dL (30.0-36.0); Mean Corpuscular Hemoglobin 28.2 pg (28.0-34.0); Mean Platelet Volume 9.8 fL (7.4-10.4); Platelet Count 109 10^3/cmm (130-400); Red Blood Count 4.54 10^6/uL (4.1-5.3); Red Cell Distribution Width 14.4 % (12.1-15.1); White Blood Count 14.9 10^3/uL (4.0-10.0)
[2021-01-16 06:00] LABS: Alanine Aminotransferase 9 U/L (0-33); Albumin Level 3.2 g/dL (3.5-5.2); Alkaline Phosphatase 64 IU/L (35-105); Anion Gap 16.2 (5-19); Aspartate Amino Transferase 13 U/L (0-32); Blood Urea Nitrogen 32 mg/dL (8-23); Calcium 9.1 mg/dL (8.5-10.5); Carbon Dioxide 27 mmol/L (22-29); Chloride 95 mmol/L (98-107); Glomerular Filtration Rate 62.3 mL/min (90-130); Glucose 120 mg/dL (65-115); Osmolality Calculated 286 mOsm/kg (285-295); Potassium 4.2 mmol/L (3.5-5.1); Sodium 134 mmol/L (136-145); Total Bilirubin 0.3 mg/dL (0.15-1.2); Total Protein 6.2 g/dL (6.6-8.7)
[2021-01-16 06:12] LABS: Slide Review Slide Review Perform
[2021-01-16 06:14] LABS: Absolute Neutrophil 14.3 10^3/cmm (1.4-6.5); Absolute Segmented Neutrophil 7.5 10/cmm (1.6-7.1); Band Neutrophils Absolute 6.9 10^3/cmm (0.0-1.2); Eosinophils 0 %; Lymphocytes 3 %; Lymphocytes Absolute 0.4 10^3/cmm (1.2-3.4); Monocytes Absolute 0.1 10^3/cmm (0.1-0.6); Platelet Estimate Decreased (Normal); Segmented Neutrophils 50 %; Total Cells Counted 100 (0-100)
[2021-01-16] MEDS: piperacillin-tazobactam 3.375 GM in sodium chloride 0.9% (plus) 50 ML IV ×3 (06:18→21:22)
[2021-01-16] MEDS: levothyroxine 125 mcg Tablet PO (06:18)
--- NOTE | 2021-01-16 12:37 | PC.NURSE ---
Notified Dr Vasquez that patient has her cancer drug with her, Lenvima, she said she takes 2 tablets twice a day. are you ok with her taking it here? also, sent patient's home med pilocarpine to pharmacy for label
[2021-01-16] MEDS: ipratropium-albuterol 3 mL Neb INHALATION ×2 (14:10→21:25)
--- NOTE | 2021-01-16 14:18 | PC.NURSE ---
Rcvd message from Dr Vasquez stating he doesn't want patient to restart Lenvima because she has pneumonia
--- NOTE | 2021-01-16 15:25 | PC.NURSE ---
notified Dr Vasquez that patient's heart rate is jumping up in the 170s.
--- NOTE | 2021-01-16 15:36 | ECG_ITS ---
[facility] Test Date: 2021-01-16 Pat Name: Kylah Patterson Department: Room: 268 Gender: Female Civil Manager: : 1950 Requested By: Negro Vasquez Order Number: [id number] Reading MD: JAMAAL GILLIAM Measurements Intervals [place] Rate: 105 P: 60 WI: 148 QRS: -9 QRSD: 74 T: 59 QT: 316 QTc: 418 Interpretive Statements SINUS TACHYCARDIA WITH FREQUENT SUPRAVENTRICULAR PREMATURE COMPLEXES ABNORMAL RHYTHM ECG Compared to ECG 01/15/2021 15:45:59 Myocardial infarct finding no longer present Electronically Signed On 01-16-2021 20:02:50 CDT by JAMAAL GILLIAM [id number]
[2021-01-16 16:05] LABS: Coronavirus Test Green County Not Detected
--- NOTE | 2021-01-16 17:31 | PC.NURSE ---
Called Daughter Tasha [phone] and gave her update on patient.
--- NOTE | 2021-01-16 21:15 | P.PN_ITS ---
Subjective Subjective: Interval history: Has been having some pain in the posterior axillary line/right shoulder blade especially with deep inspiration, cough. She is otherwise doing little bit better. Vitals/I&O/Wt Last Vital Signs Temp 98.6 F 01/16/21 20:00 Pulse 102 H 01/16/21 20:00 Resp 18 01/16/21 20:00 BP 106/68 01/16/21 20:00 Pulse Ox 97 01/16/21 20:00 01/16/21 01/16/21 01/16/21 06:59 14:59 22:59 Intake Total 3384 / 3384 360 / 3744 Output Total 200 / 200 Balance -200 / -100 3384 / 3384 360 / 3744 Weight last 48 hrs Weight 39.916 kg Weight 39.916 kg Weight 39.009 kg Physical Exam Narrative: EXAM NARRATIVE: Visited by her . Const: COMMON NORMALS: no acute distress, patient oriented x3 and alert GENERAL APPEARANCE: cooperative and frail appearing ORIENTATION/ CONSCIOUSNESS: Yes awake HENMT: COMMON NORMALS: oropharynx normal Neck/C-Spine: COMMON NORMALS: no JVD Resp: COMMON NORMALS: normal respiratory effort and clear to auscultation bilaterally AUSCULTATION: clear to auscultation bilaterally and wheezes (Mild) Cardio: COMMON NORMALS: no JVD, regular rhythm, S1 normal heart sound present, S2 normal heart sound present and No murmurs present (Cardio) RHYTHM: regular rhythm HEART SOUNDS: S1 normal heart sound present and S2 normal heart sound present GI: COMMON NORMALS: Normal to inspection, nondistended, normoactive bowel sounds present, Soft to palpation and non-tender PALPATION: Yes Soft to palpation Extremity: COMMON NORMALS: no joint enlargement and no pedal edema Neuro: COMMON NORMALS: patient oriented x3 and moves all extremities SENSORIUM/ORIENTATION: Yes alert Skin: COMMON NORMALS: no rashes or lesions noted GENERAL SKIN EXAM: no rashes or lesions noted Data : 01/16/21 05:11 01/16/21 05:11 Micro: Microbiology 01/15/21 17:25 Blood Culture - Preliminary Blood NEGATIVE TO DATE 01/15/21 17:25 Blood Culture - Preliminary Blood NEGATIVE TO DATE 01/16/21 04:00 Gram Stain - Final Sputum - Expectorated Sputum 01/15/21 21:18 Bacterial Antigens - Final Urine,Clean Catch 01/15/21 21:18 Legionella Urinary Antigen - Final Urine,Clean Catch A&P Assessment and plan (1) Pneumonia: Improvement in sepsis, oxygenation secondary to aspiration pneumonia. Was assessed by speech therapy with recommendation for pur?ed consistency dysphagia diet with nectar thick liquids. Requested. Continue Zosyn. YOLANDA resolved. Changed to regular dosing. COVID-19 PCR negative. Follow-up micro studies. Oxygen support due to hypoxia. Hypoxia gradually improving. Collect sputum cultures. Urine bacterial antigens, Legionella negative. Rapid flu. Fungitell. Galactomannan. Hold lenvatinib at this time due to acute infection, risk of pneumonia with the medication. Status: Acute (2) Sepsis: Improving sepsis. Decreasing leukocytosis. Improving tachycardia. Blood culture negative so far. Continue antibiotic. Status: Acute (3) YOLANDA (acute kidney injury): Resolved. Suspect secondary to NSAID use. States has been taken ibuprofen at home. Discussed with her to discontinue NSAID use. Hold NSAIDs. Received very cautious minimal fluid challenge due to new hypoxia, multilobar pneumonia with possibility it still may be COVID-19. Status: Acute (4) Hypoxia: As above. Status: Acute (5) Dysphagia: Appreciate assessment by ST, adjusted dysphagia diet. Status: Acute (6) Metabolic acidosis: Resolved. Status: Acute Additional A&P Information Papillary thyroid cancer History of thyroid surgery DM HTN HLD Lung nodules GERD Other comorbidities noted Attestations Medical Necessity Statement*: Continue admission for assessment management of pneumonia, hypoxia, improving sepsis. Coding Level of Care Code Acute Fiscal Clerk for [facility] Fwd Diagnoses Pneumonia J18.9 Sepsis A41.9 YOLANDA (acute kidney injury) N17.9 Hypoxia R09.02 Dysphagia R13.10 Metabolic acidosis E87.2
[2021-01-17] VITALS (18 sets, daily range): BP systolic 111–137; BP diastolic 64–88; PULSE 84–99; RESP 17–22; TEMP 36.4–37.1; O2SAT 94–99
[2021-01-17] MEDS: sodium chloride 0.9% 1,000 ML 120 ML IV ×3 (00:32→20:04)
[2021-01-17] MEDS: ipratropium-albuterol 3 mL Neb INHALATION ×4 (03:10→20:49)
[2021-01-17 05:31] LABS: Basophils # 0.1 10^3/uL (0.0-0.1); Basophils % 0.7 %; Hematocrit 40.2 % (37.0-47.0); Hemoglobin 12.6 g/dL (11.5-15.3); Lymphocytes # 0.4 10^3/uL (0.8-4.8); Lymphocytes % 2.8 %; Mean Corpuscular HGB Conc 31.3 g/dL (30.0-36.0); Mean Corpuscular Hemoglobin 28.6 pg (28.0-34.0); Mean Corpuscular Volume 91.2 fl (81-99); Mean Platelet Volume 10.6 fL (7.4-10.4); Monocytes # 0.2 10^3/uL (0.2-0.9); Monocytes % 1.3 %; Neutrophils # 13.97 10^3/uL (1.8-7.7); Neutrophils % 94.3 %; Nucleated Red Blood Cells % 0 %; Platelet Count 102 10^3/cmm (130-400); Red Blood Count 4.41 10^6/uL (4.1-5.3); Red Cell Distribution Width 14.7 % (12.1-15.1); White Blood Count 14.8 10^3/uL (4.0-10.0)
[2021-01-17] MEDS: levothyroxine 125 mcg Tablet PO (05:33)
[2021-01-17] MEDS: piperacillin-tazobactam 3.375 GM in sodium chloride 0.9% (plus) 50 ML IV ×3 (05:35→20:06)
[2021-01-17 05:43] LABS: Anion Gap 11.6 (5-19); Blood Urea Nitrogen 19 mg/dL (8-23); Calcium 8.4 mg/dL (8.5-10.5); Carbon Dioxide 25 mmol/L (22-29); Chloride 105 mmol/L (98-107); Glomerular Filtration Rate 158.7 mL/min (90-130); Glucose 99 mg/dL (65-115); Osmolality Calculated 288 mOsm/kg (285-295); Potassium 3.6 mmol/L (3.5-5.1); Sodium 138 mmol/L (136-145)
[2021-01-17 06:04] LABS: Slide Review Slide Review Perform
[2021-01-17] MEDS: lidocaine 5% Patch 1 PATCH TOPICAL (08:34)
--- NOTE | 2021-01-17 12:07 | PC.NURSE ---
Flutter valve placed at bedside. Instructed patient how and when to use it. Patient stated understanding.
--- NOTE | 2021-01-17 15:49 | PM.PN ---
Subjective Subjective: Interval history: She is doing a little bit better. She has been coughing up phlegm. Right posterior chest/shortness of breath pain better with lidocaine patch. Vitals/I&O/Wt Last Vital Signs Temp 97.9 F 01/17/21 12:00 Pulse 91 01/17/21 15:43 Resp 20 H 01/17/21 15:43 BP 111/64 01/17/21 12:00 Pulse Ox 94 01/17/21 15:43 01/17/21 01/17/21 01/17/21 06:59 14:59 22:59 Intake Total 1050 / 4844 1170 / 1170 Output Total 550 / 550 Balance 500 / 4294 1170 / 1170 Weight last 48 hrs Weight 42.184 kg Weight 39.916 kg Weight 39.916 kg Physical Exam Narrative: EXAM NARRATIVE: Visited by her . Const: COMMON NORMALS: no acute distress, patient oriented x3 and alert GENERAL APPEARANCE: cooperative and frail appearing ORIENTATION/CONSCIOUSNESS: Yes awake HENMT: COMMON NORMALS: oropharynx normal Neck/C-Spine: COMMON NORMALS: no JVD Resp: COMMON NORMALS: normal respiratory effort AUSCULTATION: no wheezes (Mild) and diminished lung sounds Cardio: COMMON NORMALS: no JVD, regular rhythm, S1 normal heart sound present, S2 normal heart sound present and No murmurs present (Cardio) RHYTHM: regular rhythm HEART SOUNDS: S1 normal heart sound present and S2 normal heart sound present GI: COMMON NORMALS: Normal to inspection, nondistended, normoactive bowel sounds present, Soft to palpation and non-tender PALPATION: Yes Soft to palpation Extremity: COMMON NORMALS: no joint enlargement and no pedal edema Neuro: COMMON NORMALS: patient oriented x3 and moves all extremities SENSORIUM/ORIENTATION: Yes alert Skin: COMMON NORMALS: no rashes or lesions noted GENERAL SKIN EXAM: no rashes or lesions noted Data : 01/17/21 04:48 01/17/21 04:48 Micro: Microbiology 01/16/21 04:00 Gram Stain - Final Sputum - Expectorated Sputum Sputum Culture - Preliminary 01/15/21 21:18 Urine Culture - Preliminary Urine,Clean Catch 01/15/21 17:25 Blood Culture - Preliminary Blood NEGATIVE TO DATE 01/15/21 17:25 Blood Culture - Preliminary Blood NEGATIVE TO DATE A&P Assessment and plan (1) Pneumonia: Subjectively she is feeling little bit better. There is further improvement in tachycardia. Persistent leukocytosis at 14.8. Continues with hypoxia, requiring 3 L oxygen by nasal cannula. Continues working with speech therapy. Diet adjusted. Continue with dysphagia, ground meats, nectar thick liquid. Continue Zosyn. COVID-19 PCR negative. Follow-up micro studies including fungal studies. Urine bacterial antigens, Legionella negative. Rapid flu. Fungitell. Galactomannan. Hold lenvatinib at this time due to acute infection, risk of pneumonia with the medication. Status: Acute (2) Sepsis: Improving sepsis. Persistent leukocytosis but improving tachycardia. Blood culture negative so far. Continue antibiotic. Status: Acute (3) YOLANDA (acute kidney injury): Resolved. Suspect secondary to NSAID use. States has been taken ibuprofen at home. Discussed with her to discontinue NSAID use. Hold NSAIDs. Received very cautious minimal fluid challenge due to new hypoxia, multilobar pneumonia with possibility it still may be COVID-19. Status: Acute (4) Hypoxia: As above. Status: Acute (5) Dysphagia: Appreciate assessment by ST, continue to optimize dysphagia diet. Status: Acute (6) Metabolic acidosis: Resolved. Status: Acute Additional A&P Information Papillary thyroid cancer History of thyroid surgery DM HTN HLD Lung nodules GERD Other comorbidities noted Attestations Medical Necessity Statement*: Continue admission for assessment and management of improving sepsis, aspiration pneumonia of antibiotics, optimization of dysphagia diet, follow-up on microbiologic studies. Coding Level of Care Code Acute Inspector Quality Assurance for [facility] Fwd Exam Comprehensive Diagnoses Pneumonia J18.9 Sepsis A41.9 YOLANDA (acute kidney injury) N17.9 Hypoxia R09.02 Dysphagia R13.10 Metabolic acidosis E87.2
[2021-01-17] MEDS: guaiFENesin 600 mg Tablet PO (17:23)
[2021-01-17] MEDS: lanolin oint 7 gm 1 APPLIC TOPICAL (17:24)
[2021-01-18] VITALS (15 sets, daily range): BP systolic 138–163; BP diastolic 80–94; PULSE 70–102; RESP 18–22; TEMP 36.7–37.3; O2SAT 95–100; BMI 18.8
[2021-01-18] MEDS: enoxaparin 40 mg/0.4 mL Syringe SUBCUT ×2 (00:07→22:28)
[2021-01-18] MEDS: ipratropium-albuterol 3 mL Neb INHALATION ×3 (03:45→20:00)
[2021-01-18] MEDS: piperacillin-tazobactam 3.375 GM in sodium chloride 0.9% (plus) 50 ML IV ×2 (04:38→22:25)
[2021-01-18] MEDS: sodium chloride 0.9% 1,000 ML 120 ML IV (04:39)
[2021-01-18] MEDS: levothyroxine 125 mcg Tablet PO (05:00)
[2021-01-18 05:48] LABS: Basophils # 0.1 10^3/uL (0.0-0.1); Basophils % 0.5 %; Eosinophils % 0.1 %; Hematocrit 39.2 % (37.0-47.0); Lymphocytes # 0.4 10^3/uL (0.8-4.8); Lymphocytes % 3.1 %; Mean Corpuscular HGB Conc 30.6 g/dL (30.0-36.0); Mean Corpuscular Hemoglobin 28.3 pg (28.0-34.0); Mean Corpuscular Volume 92.5 fl (81-99); Mean Platelet Volume 9.8 fL (7.4-10.4); Monocytes # 0.3 10^3/uL (0.2-0.9); Monocytes % 2.2 %; Neutrophils # 10.74 10^3/uL (1.8-7.7); Neutrophils % 93.8 %; Nucleated Red Blood Cells % 0 %; Platelet Count 96 10^3/cmm (130-400); Red Blood Count 4.24 10^6/uL (4.1-5.3); Red Cell Distribution Width 14.9 % (12.1-15.1); White Blood Count 11.5 10^3/uL (4.0-10.0)
[2021-01-18 06:10] LABS: Slide Review Slide Review Perform
[2021-01-18 06:11] LABS: Blood Urea Nitrogen 6 mg/dL (8-23); Calcium 8.3 mg/dL (8.5-10.5); Carbon Dioxide 29 mmol/L (22-29); Chloride 102 mmol/L (98-107); Glomerular Filtration Rate 221.2 mL/min (90-130); Glucose 102 mg/dL (65-115); Osmolality Calculated 282 mOsm/kg (285-295); Sodium 137 mmol/L (136-145)
[2021-01-18] MEDS: lidocaine 5% Patch 1 PATCH TOPICAL (08:48)
[2021-01-18] MEDS: budesonide 0.5 mg/2 mL Neb INHALATION ×2 (09:14→19:56)
--- NOTE | 2021-01-18 10:41 | PC.NURSE ---
When this nurse entered room the patient was woken up to get ready for breakfast, when this nurse noted patient having trouble breathing. Respiratory was called. Lung sounds were diminished and stridor was heard. Vitals showed patient was 99-100% on 2 L NC. Physician was called. Orders to put patient on continuous pulse ox, NPO diet ordered. CT at a later time if patient does not recover well. Patient also given a PRN breathing treatment by respiratory. Patient doing better. Goiter noted to be swollen and red. Patient states this sometimes happens. Dr. Vasquez also ordered Acyclovir for cold sores on patient's lips.
--- NOTE | 2021-01-18 11:08 | PC.NURSE ---
Called daughter to update her on patient's condition.
[2021-01-18] MEDS: lidocaine 1% 5 ML in potassium chloride premix 100 ML 50 ML IV (11:29)
--- NOTE | 2021-01-18 11:56 | CTR_ITS ---
PROCEDURE INFORMATION: Exam: CT Neck With Contrast Exam date and time: 01/18/2021 11:56 AM Age: 70 years old Clinical indication: Mass, lump, or swelling in neck; Bilateral; Prior surgery; Surgery type: Lymph nodes; Patient HX: Thyroid cancer; Additional info: Sepsis, neck swelling, dyspnea TECHNIQUE: Imaging protocol: Computed tomography images of the neck with contrast. Total images: 283 Radiation optimization: All CT scans at this facility use at least one of these dose optimization techniques: automated exposure control; mA and/or kV adjustment per patient size (includes targeted exams where dose is matched to clinical indication); or iterative reconstruction. Contrast material: OMNI 300; Contrast volume: 95 ml; Contrast route: INTRAVENOUS (IV); COMPARISON: CT neck w con* [id number] 12/26/2020 12:15 PM RADIATION DOSE METRICS: Total DLP (mGy-cm): 331.81 FINDINGS: Nasopharynx: Unremarkable. Oropharynx: [place], pharyngeal, and lingual tonsils unremarkable. Hypopharynx: No visible mass. Soft tissue fullness post radiation therapy. Larynx: Thickening of the epiglottis that remain stable since study of 12/26/2020. Retropharyngeal space: Unremarkable. Submandibular/Parotid glands: Hypoplastic. No visible mass. No visible sialoadenitis. Thyroid: Status post thyroidectomy. Lymph nodes: Numerous anterior cervical surgical clips presume from lymph node resection. Trachea: Small amount of retained secretions at the kendra of the trachea. No findings raising suspicion for tracheitis. Lungs: Limited assessment of the lungs reveals bilateral pleural effusions. Subsegmental densely consolidated alveolar airspace disease with air bronchograms medial aspect of the anterior and apical segments right upper lobe that has increased since last evaluation with concern for pneumonia. Bilateral patches of ground-glass interstitial lung disease raising concern for bilateral active interstitial pneumonitis. In light of the patient's history of thyroid carcinoma linear bilateral upper lobe medial fibrotic changes are again identified consistent with radiation fibrosis. Esophagus: Diffuse mucosal thickening of the esophagus suggesting chronic esophagitis. Bones/joints: No visible active or acute osseous pathology. Osteopenia. Soft tissues: Soft tissue fullness to the base of the neck again bleed secondary to radiation fibrosis. CT/CT neck w con* [id number] IMPRESSION: 1. Subsegmental densely consolidated alveolar airspace disease with air bronchograms medial aspect of the anterior and apical segments right upper lobe that has increased since last evaluation with concern for pneumonia. 2. Bilateral patches of ground-glass interstitial lung disease raising concern for bilateral active interstitial pneumonitis. 3. Bilateral pleural effusions. 4. Diffuse mucosal thickening of the esophagus suggesting chronic esophagitis. 5. Status post thyroidectomy. 6. Status post partial neck lymph node resection. 7. Post radiation therapy changes. Radiation Dose CTDIVOL = (mGy): DLP = 331.81 (mGy-cm)
--- NOTE | 2021-01-18 12:12 | P.PN_ITS ---
Subjective Subjective: Interval history: This morning noted to have a hard time breathing. Could not have breakfast. With goiter concern was for possibly some stridor sounds. Received a breathing treatment. Made NPO. During my visit feeling better. Breathing more comfortably. Saturations good on 2 L nasal cannula. Denies any throat pain. Noticed also is breaking out with cold sores in multiple occasions on both upper and lower lips. Vitals/I&O/Wt Last Vital Signs Temp 98.2 F 01/18/21 11:34 Pulse 94 01/18/21 11:34 Resp 20 H 01/18/21 11:34 BP 138/85 01/18/21 11:34 Pulse Ox 99 01/18/21 11:34 01/17/21 01/18/21 01/18/21 22:59 06:59 14:59 Intake Total 1370 / 2540 1350 / 3890 154.2 / 154.2 Output Total 800 / 800 Balance 1370 / 2540 550 / 3090 154.2 / 154.2 Weight last 48 hrs Weight 42.184 kg Weight 42.184 kg Physical Exam Narrative: EXAM NARRATIVE: Visited by her . Const: COMMON NORMALS: no acute distress, patient oriented x3 and alert GENERAL APPEARANCE: cooperative and frail appearing LUDMILA ENTATION/CONSCIOUSNESS: Yes awake HENMT: COMMON NORMALS: oropharynx normal Neck/C-Spine: OTHER: Persistent swelling changes around the neck Resp: COMMON NORMALS: normal respiratory effort AUSCULTATION: no wheezes and diminished lung sounds Cardio: COMMON NORMALS: regular rhythm, S1 normal heart sound present, S2 normal heart sound present and No murmurs present (Cardio) RHYTHM: regular rhythm HEART SOUNDS: S1 normal heart sound present and S2 normal heart sound present GI: COMMON NORMALS: Normal to inspection, nondistended, normoactive bowel sounds present, Soft to palpation and non-tender PALPATION: Yes Soft to palpation Extremity: COMMON NORMALS: no joint enlargement and no pedal edema Neuro: COMMON NORMALS: patient oriented x3 and moves all extremities SENSORIUM/ORIENTATION: Yes alert Skin: COMMON NORMALS: no rashes or lesions noted GENERAL SKIN EXAM: no rashes or lesions noted Data : 01/18/21 05:20 01/18/21 05:20 Micro: Microbiology 01/16/21 04:00 Gram Stain - Final Sputum - Expectorated Sputum Sputum Culture - Final 01/15/21 21:18 Urine Culture - Final Urine,Clean Catch A&P Assessment and plan (1) Pneumonia: This morning episode of difficulty breathing. Made NPO. Persistent swelling of the neck with history of extensive neck dissection. Possibly some transient stridorous sounds. Continuous pulse oximetry requested. Will image with CT neck soft tissues. Add budesonide nebs. Continue breathing treatments. Continue antibiotic treatment with Zosyn. Will broaden also with vancomycin for now. MRSA PCR nares. Added acyclovir as well due to extensive herpes labialis. Sepsis improving. Leukocytosis coming down. Hypoxia gradual improvement, currently down to 2 L nasal cannula. Continue working with speech therapy. Diet adjusted yesterday after her dentures were brought in. Continue with dysphagia, ground meats, nectar thick liquid. Continue Zosyn. COVID-19 PCR negative. Follow-up micro studies including fungal studies. Urine bacterial antigens, Legionella negative. Rapid flu. Fungitell. Galactomannan. Hold lenvatinib at this time due to acute infection, risk of pneumonia with the medication. Status: Acute (2) Sepsis: Improving sepsis. Blood culture negative so far. Continue antibiotic. Status: Acute (3) YOLANDA (acute kidney injury): Resolved. Suspect secondary to NSAID use. States has been taken ibuprofen at home. Discussed with her to discontinue NSAID use. Hold NSAIDs. Received very cautious minimal fluid challenge due to new hypoxia, multilobar pneumonia with possibility it still may be COVID-19. Status: Acute (4) Hypoxia: As above. Status: Acute (5) Dysphagia: Appreciate assessment by ST, continue to optimize dysphagia diet when resumes p.o. intake. Status: Acute (6) Metabolic acidosis: Resolved. Status: Acute Additional A&P Information Papillary thyroid cancer History of thyroid surgery DM HTN HLD Lung nodules GERD Other comorbidities noted Attestations Medical Necessity Statement*: Continue admission for assessment management of pneumonia, sepsis, hypoxia, with neck swelling with history of thyroid cancer, extensive neck dissection, radiation therapy, with additionally underlying chronic radiation lung changes. Coding Level of Care Code Acute Supervisor Beam Department for [facility] Fwd Diagnoses Pneumonia J18.9 Sepsis A41.9 YOLANDA (acute kidney injury) N17.9 Hypoxia R09.02 Dysphagia R13.10 Metabolic acidosis E87.2
--- NOTE | 2021-01-18 16:45 | ECG_ITS ---
[facility] Test Date: 2021-01-18 Pat Name: Kylah Patterson Department: Room: 268 Gender: Female Target Network Analyst: : 1950 Requested By: Negro Vasquez Order Number: [id number] Otoniel MD: Yoly Dewitt M.D. Measurements Intervals [place] Rate: 93 P: 53 SC: 136 QRS: 2 QRSD: 70 T: 53 QT: 347 QTc: 432 Interpretive Statements SINUS RHYTHM LOW QRS VOLTAGE IN PRECORDIAL LEADS [QRS DEFLECTION < 1.0 mV IN CHEST LEADS] Compared to ECG 01/16/2021 15:42:32 Low QRS voltage now present Sinus tachycardia no longer present Electronically Signed On 01-19-2021 6:57:43 CDT by Yoly Dewitt M.D. [id number]
[2021-01-18] MEDS: iohexol 300 mg/mL 100 mL Btl IV (20:23)
[2021-01-18] MEDS: vancomycin 750 MG in sodium chloride 0.9% 250 ML 250 MG IV (21:14)
[2021-01-19] VITALS (16 sets, daily range): BP systolic 128–163; BP diastolic 69–90; PULSE 65–106; RESP 16–20; TEMP 36.2–37.2; O2SAT 97–100
[2021-01-19] MEDS: ipratropium-albuterol 3 mL Neb INHALATION ×4 (02:30→20:00)
[2021-01-19] MEDS: piperacillin-tazobactam 3.375 GM in sodium chloride 0.9% (plus) 50 ML IV ×2 (05:55→16:31)
[2021-01-19] MEDS: levothyroxine 125 mcg Tablet PO (05:55)
[2021-01-19] MEDS: sodium chloride 0.9% 1,000 ML 120 ML IV ×2 (06:00→15:03)
[2021-01-19 06:03] LABS: Basophils % 0.6 %; Hematocrit 39.2 % (37.0-47.0); Hemoglobin 11.9 g/dL (11.5-15.3); Lymphocytes # 0.3 10^3/uL (0.8-4.8); Lymphocytes % 6.4 %; Mean Corpuscular HGB Conc 30.4 g/dL (30.0-36.0); Mean Corpuscular Hemoglobin 28.1 pg (28.0-34.0); Mean Corpuscular Volume 92.7 fl (81-99); Mean Platelet Volume 10.4 fL (7.4-10.4); Monocytes # 0.4 10^3/uL (0.2-0.9); Monocytes % 7.1 %; Neutrophils # 4.58 10^3/uL (1.8-7.7); Neutrophils % 85.5 %; Nucleated Red Blood Cells % 0 %; Platelet Count 106 10^3/cmm (130-400); Red Blood Count 4.23 10^6/uL (4.1-5.3); Red Cell Distribution Width 14.8 % (12.1-15.1); White Blood Count 5.4 10^3/uL (4.0-10.0)
[2021-01-19 06:15] LABS: Anion Gap 15.3 (5-19); Blood Urea Nitrogen 5 mg/dL (8-23); Calcium 8.1 mg/dL (8.5-10.5); Carbon Dioxide 29 mmol/L (22-29); Chloride 100 mmol/L (98-107); Glomerular Filtration Rate 221.2 mL/min (90-130); Glucose 73 mg/dL (65-115); Osmolality Calculated 288 mOsm/kg (285-295); Potassium 3.3 mmol/L (3.5-5.1); Sodium 141 mmol/L (136-145)
[2021-01-19] MEDS: guaiFENesin 600 mg Tablet PO ×2 (08:34→16:33)
[2021-01-19] MEDS: lidocaine 5% Patch 1 PATCH TOPICAL (08:34)
[2021-01-19] MEDS: budesonide 0.5 mg/2 mL Neb INHALATION ×2 (09:03→20:00)
[2021-01-19] MEDS: fluconazole premix 200 MG/100 ML PREMIX 100 MG IV (11:22)
[2021-01-19] MEDS: vancomycin 750 MG in sodium chloride 0.9% 250 ML 250 MG IV (15:03)
--- NOTE | 2021-01-19 15:19 | PC.CHAP ---
Pastoral Care Encounter/Spiritual Assessment Type of Contact [] Declined audio/visual manager visit [] Patient/Family/Request visit [] Outpatient visit [xx] Follow-up visit [] Physician referral [] Code/Alert [xx] Routine visit [] Staff referral [] Actively dying [] Patient sleeping [] Family support [] [] Out of room [] Palliative care [] [] Receiving care in room [] Pre-surgical visit [] Trauma [xx] Long length of stay [] ICU visit [] Other: Relational/Emotional Strength [xx] Patient feels connected with others/family/visitors/staff [] Distress [] Loneliness/isolation [] Abandonment Spirituality of Patient [xx] Person of Unique [xx] Attends Pentecostal of their Unique [xx] Believes in Prayer [xx] Reads Bible or Worship materials [] There are Spiritual issues to be addressed Learning And Development Consultant Interventions [xx] Prayer [xx] Active listening [xx] Non-anxious presence [] Spiritual/emotional support [] Crisis/trauma care [] Spiritual counseling [] Bereavement support [] Provided bereavement packet [xx] Provided Bible/devotional materials [] Provided toy/stuffed animal, coloring book to patient or family member [] Provided Communion [] Anointing/[place] [] Salvation [xx] Completed spiritual assessment [] Other: Impact on Illness or Injury [] Angry [] Fearful [] Anxious [] Often cries [] Exhaustion [] Unable to work [] Unable to attend sikh [] Unable to walk/stand [] Unable to read [] Unable to drive [] Unable to eat/drink [] Unable to sleep [] Unable to be with family [] Patient intubated [] Other: Summary Patient's spouse, Tashi, was present. 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 Time spent with patient 7 minutes
--- NOTE | 2021-01-19 19:23 | P.PN_ITS ---
Subjective Subjective: Interval history: Today she is overall doing a bit better. Requested to try advance her diet. Discussed with her results of CT scan, no abscess noted in the neck, and a chest noted multiple changes in the lungs, including pneumonia, as well as pleural effusions, as well as post radiation changes and pleural thickening. Vitals/I&O/Wt Last Vital Signs Temp 98.2 F 01/19/21 16:00 Pulse 99 01/19/21 16:00 Resp 16 01/19/21 16:00 BP 163/85 01/19/21 16:00 Pulse Ox 99 01/19/21 16:00 01/19/21 01/19/21 01/19/21 06:59 14:59 22:59 Intake Total 154.2 / 2063.4 1344.2 / 1344.2 350 / 1694.2 Output Total 750 / 750 800 / 800 Balance -595.8 / 1313.4 544.2 / 544.2 350 / 894.2 Weight last 48 hrs Weight 45.45 kg Weight 42.184 kg Physical Exam Const: COMMON NORMALS: no acute distress, patient oriented x3 and alert GENERAL APPEARANCE: cooperative and frail appearing ORIENTATION /CONSCIOUSNESS: Yes awake HENMT: COMMON NORMALS: oropharynx normal Neck/C-Spine: OTHER: Persistent swelling/postsurgical changes of neck Resp: COMMON NORMALS: normal respiratory effort AUSCULTATION: no wheezes and diminished lung sounds Cardio: COMMON NORMALS: regular rhythm, S1 normal heart sound present, S2 normal heart sound present and No murmurs present (Cardio) RHYTHM: regular rhythm HEART SOUNDS: S1 normal heart sound present and S2 normal heart sound present GI: COMMON NORMALS: Normal to inspection, nondistended, normoactive bowel sounds present, Soft to palpation and non-tender PALPATION: Yes Soft to palpation Extremity: COMMON NORMALS: no joint enlargement and no pedal edema Neuro: COMMON NORMALS: patient oriented x3 and moves all extremities SENSORIUM/ORIENTATION: Yes alert Skin: COMMON NORMALS: no rashes or lesions noted GENERAL SKIN EXAM: no rashes or lesions noted Data : 01/19/21 04:54 01/19/21 04:54 Micro: Microbiology 01/18/21 12:35 MRSA Culture - Final Nose A&P Assessment and plan (1) Pneumonia: Doing a bit better today. With noted thrush, started on IV Diflucan so as to reduce chance of aspiration. Continue Zosyn, vancomycin for now given decompensation on 01/18. Doing a bit better in terms of oxygenation. Discussed with her results of CT scan with finding of pneumonia, pleural effusions. As well as chronic changes post radiation in the upper lungs and pleural thickening. Requested to advance her diet, trial of GI diet again. Continue ST follow-up. Budesonide nebs. Acyclovir as well due to extensive herpes labialis. Sepsis improving. Leukocytosis resolving. Hypoxia gradual improvement, currently down to 1.5 L nasal cannula. COVID-19 PCR negative. Follow-up micro studies including fungal studies. Urine bacterial antigens, Legionella negative. Rapid flu. Fungitell. Galactomannan. Hold lenvatinib at this time due to acute infection, risk of pneumonia with the medication. Status: Acute (2) Sepsis: Improving sepsis. Blood culture negative so far. Continue antibiotic. Status: Acute (3) Hypoxia: As above. Status: Acute (4) Dysphagia: Appreciate assessment by ST, continue to optimize dysphagia diet when resumes p.o. intake. Status: Acute (5) YOLANDA (acute kidney injury): Resolved. Suspect secondary to NSAID use. States has been taken ibuprofen at home. Discussed with her to discontinue NSAID use. Hold NSAIDs. Received very cautious minimal fluid challenge due to new hypoxia, multilobar pneumonia with possibility it still may be COVID-19. Status: Acute (6) Metabolic acidosis: Resolved. Status: Acute Additional A&P Information Papillary thyroid cancer History of thyroid surgery DM HTN: Blood pressures initially low, now variable but appear to be rising. Monitor. HLD Lung nodules GERD Other comorbidities noted Attestations Medical Necessity Statement*: Continue admission for assessment of management of aspiration pneumonia with multiple complicating factors with underlying radiation lung damage, asthma. Coding Level of Care Code Acute Logistics Analytics Manager for g Fwd Diagnoses Pneumonia J18.9 Sepsis A41.9 Hypoxia R09.02 Dysphagia R13.10 YOLANDA (acute kidney injury) N17.9 Metabolic acidosis E87.2
--- NOTE | 2021-01-19 21:21 | PC.NURSE ---
Spoke with daughter Tasha on phone and gave her an update on patient. Family has concerns about discharge plans and possible day of discharge, concerns over weight loss and would like to talk to the doctor about possible placement of a G-Tube for supplemental feedings, would also like to speak to patient care coordinator about home services and home oxygen evaluation and needing possible help with medication expenses.
[2021-01-20] VITALS (15 sets, daily range): BP systolic 112–160; BP diastolic 65–82; PULSE 87–111; RESP 18–20; TEMP 36.7–37.1; O2SAT 86–100
[2021-01-20] MEDS: lidocaine 5% Patch 1 PATCH TOPICAL ×2 (00:27→20:44)
[2021-01-20] MEDS: enoxaparin 40 mg/0.4 mL Syringe SUBCUT ×2 (00:28→22:37)
[2021-01-20] MEDS: sodium chloride 0.9% 1,000 ML 120 ML IV ×3 (00:46→17:53)
[2021-01-20] MEDS: piperacillin-tazobactam 3.375 GM in sodium chloride 0.9% (plus) 50 ML IV ×3 (01:09→16:22)
[2021-01-20] MEDS: ipratropium-albuterol 3 mL Neb INHALATION ×4 (02:26→20:53)
[2021-01-20 05:51] LABS: Alanine Aminotransferase 7 U/L (0-33); Albumin Level 2.4 g/dL (3.5-5.2); Alkaline Phosphatase 54 IU/L (35-105); Anion Gap 16.8 (5-19); Aspartate Amino Transferase 11 U/L (0-32); Blood Urea Nitrogen 4 mg/dL (8-23); Calcium 8.1 mg/dL (8.5-10.5); Carbon Dioxide 27 mmol/L (22-29); Chloride 99 mmol/L (98-107); Globulin 2.7 g/dL (1.3-4.6); Glomerular Filtration Rate 221.2 mL/min (90-130); Glucose 80 mg/dL (65-115); Osmolality Calculated 286 mOsm/kg (285-295); Sodium 140 mmol/L (136-145); Total Bilirubin 0.3 mg/dL (0.15-1.2); Total Protein 5.1 g/dL (6.6-8.7)
[2021-01-20 06:12] LABS: Potassium 2.8 mmol/L (3.5-5.1)
[2021-01-20] MEDS: levothyroxine 125 mcg Tablet PO (06:54)
[2021-01-20 09:03] LABS: Magnesium 1.8 mg/dL (1.7-2.3)
[2021-01-20] MEDS: budesonide 0.5 mg/2 mL Neb INHALATION ×2 (09:05→20:52)
[2021-01-20] MEDS: vancomycin 750 MG in sodium chloride 0.9% 250 ML 250 MG IV (09:59)
[2021-01-20] MEDS: fluconazole premix 100 MG in empty flexible container 1 EACH 50 MG IV (10:53)
--- NOTE | 2021-01-20 10:58 | PC.SOCIAL ---
IMM Update Pg. 2of IMM updated and reviewed with patient, who verbalized understanding. Copy provided.
[2021-01-20] MEDS: potassium chloride premix 100 ML 25 MEQ IV (11:24)
--- NOTE | 2021-01-20 18:39 | P.PN_ITS ---
Subjective Subjective: Interval history: She is overall doing a bit better, but is rather weak, with some difficulties with balance. Later on reporting feeling heartburn after having soup. Requesting for Maalox. Vitals/I&O/Wt Last Vital Signs Temp 98.6 F 01/20/21 15:59 Pulse 102 H 01/20/21 15:59 Resp 18 01/20/21 15:59 BP 141/75 01/20/21 15:59 Pulse Ox 100 01/20/21 15:59 01/20/21 01/20/21 01/20/21 06:59 14:59 22:59 Intake Total 1216.2 / 2960.4 1814.2 / 1814.2 1564.2 / 3378.4 Output Total 300 / 1700 Balance 916.2 / 1260.4 1814.2 / 1814.2 1564.2 / 3378.4 Weight last 48 hrs Weight 47.219 kg Weight 45.45 kg Physical Exam Narrative: EXAM NARRATIVE: Visited by her son. Const: COMMON NORMALS: no acute distress, patient oriented x3 and alert GENERAL APPEARANCE: cooperative and frail appearing ORIENTATION/CON SCIOUSNESS: Yes awake HENMT: COMMON NORMALS: oropharynx normal Neck/C-Spine: OTHER: Postsurgical goiter-like changes of neck Resp: COMMON NORMALS: normal respiratory effort AUSCULTATION: diminished lung sounds Cardio: COMMON NORMALS: regular rhythm, S1 normal heart sound present, S2 normal heart sound present and No murmurs present (Cardio) RHYTHM: regular rhythm HEART SOUNDS: S1 normal heart sound present and S2 normal heart sound present GI: COMMON NORMALS: Normal to inspection, nondistended, normoactive bowel sounds present, Soft to palpation and non-tender PALPATION: Yes Soft to palpation Extremity: COMMON NORMALS: no joint enlargement and no pedal edema Neuro: COMMON NORMALS: patient oriented x3 and moves all extremities SENSORIUM/ORIENTATION: Yes alert Skin: COMMON NORMALS: no rashes or lesions noted GENERAL SKIN EXAM: no rashes or lesions noted Data : 01/19/21 04:54 01/20/21 04:36 A&P Assessment and plan (1) Pneumonia: Today doing slightly worse, requiring 3 L of oxygen by nasal cannula. No hitesh overall has been weak, and having some difficulties with her balance, staggering backwards even at short distances. Continue to biotic at this time. Reports she did not eat her lunch, requesting for more soup in her diet. We will switch her diet to full liquid with protein shakes, she does seem to be drinking Ensure. Continue aspiration precautions. Continue Zosyn, vancomycin, empirically D iflucan. Thrush appears to be improving. Continue acyclovir, extensive herpes labialis appears to be improving. Today noted to have some dysphonia. Did report/complaint of significant heartburn as well. Noted hiatal hernia on CT. Possibility also of chemical pneumonitis secondary to acid reflux possibly again exacerbated by extensive neck surgery. Add PPI. She also request for Maalox. Continue Zosyn, vancomycin for now given decompensation on 01/18. Doing a bit better in terms of oxygenation. Discussed with her results of CT scan with finding of pneumonia, pleural effusions. As well as chronic changes post radiation in the upper lungs and pleural thickening. Continue ST follow-up. Budesonide nebs. Acyclovir as well due to extensive herpes labialis. Sepsis improving. Leukocytosis had been resolving. Hypoxia gradual improvement, currently down to 1.5 L nasal cannula. COVID-19 PCR negative. Follow-up micro studies including fungal studies. Sputum cultures initially with GPC in pairs, few GPR, few GNR, but no growth on culture. Urine bacterial antigens, Legionella negative. Rapid flu. Fungitell. Galactomannan. Hold lenvatinib at this time due to acute infection, risk of pneumonia with the medication. Status: Acute (2) Sepsis: Improving sepsis. Blood culture negative so far. Continue antibiotic. Status: Acute (3) Hypoxia: As above. Status: Acute (4) Dysphagia: Appreciate assessment by ST, continue to optimize dysphagia diet when resumes p.o. intake. Discussed with her and her son consideration of feeding tube, she absolutely declines. Status: Acute (5) YOLANDA (acute kidney injury): Resolved. Suspect secondary to NSAID use. States has been taking ibuprofen at home. Discussed with her to discontinue NSAID use. Hold NSAIDs. Received very cautious minimal fluid challenge due to new hypoxia, multilobar pneumonia with possibility it still may be COVID-19. Status: Acute (6) Metabolic acidosis: Resolved. Status: Acute Additional A&P Information Hyperkalemia: Replaced. Magnesium checked, 1.8, replacement requested. Papillary thyroid cancer History of thyroid surgery DM HTN: Blood pressures initially low, now variable but appear to be rising. Monitor. HLD Lung nodules GERD Other comorbidities noted Attestations Medical Necessity Statement*: Continue admission for assessment management of hypoxia, pneumonia, aspiration pneumonia, with prior extensive neck dissection, radiation therapy, with aspiration, possibly with chemical pneumonitis secondary to acid reflux, optimization of diet in setting of aspiration, poor oral intake. Coding Level of Care Code Acute It Project Manager for Chg Fwd Exam Comprehensive Diagnoses Pneumonia J18.9 Sepsis A41.9 Hypoxia R09.02 Dysphagia R13.10 YOLANDA (acute kidney injury) N17.9 Metabolic acidosis E87.2
[2021-01-20] MEDS: alum-mag-hydroxide-sime 30 mL UDC 15 ML PO (18:40)
[2021-01-20] MEDS: pantoprazole DR 40 mg Tablet PO (20:44)
[2021-01-21] VITALS (10 sets, daily range): BP systolic 160–179; BP diastolic 72–93; PULSE 82–107; RESP 16–18; TEMP 36.6–36.7; O2SAT 93–100
[2021-01-21] MEDS: piperacillin-tazobactam 3.375 GM in sodium chloride 0.9% (plus) 50 ML IV ×2 (00:29→09:30)
[2021-01-21] MEDS: sodium chloride 0.9% 1,000 ML 120 ML IV ×2 (02:15→10:51)
[2021-01-21] MEDS: ipratropium-albuterol 3 mL Neb INHALATION ×2 (03:04→09:10)
[2021-01-21] MEDS: vancomycin 750 MG in sodium chloride 0.9% 250 ML 250 MG IV (03:58)
[2021-01-21 05:35] LABS: Alanine Aminotransferase 6 U/L (0-33); Alkaline Phosphatase 41 IU/L (35-105); Aspartate Amino Transferase 11 U/L (0-32); Blood Urea Nitrogen 2 mg/dL (8-23); Calcium 7.4 mg/dL (8.5-10.5); Carbon Dioxide 30 mmol/L (22-29); Chloride 100 mmol/L (98-107); Globulin 2.5 g/dL (1.3-4.6); Glomerular Filtration Rate 353.2 mL/min (90-130); Glucose 116 mg/dL (65-115); Osmolality Calculated 281 mOsm/kg (285-295); Sodium 137 mmol/L (136-145); Total Bilirubin 0.2 mg/dL (0.15-1.2); Total Protein 4.5 g/dL (6.6-8.7)
[2021-01-21 05:41] LABS: Anion Gap 10.1 (5-19); Potassium 3.1 mmol/L (3.5-5.1)
[2021-01-21] MEDS: levothyroxine 125 mcg Tablet PO (06:03)
[2021-01-21] MEDS: budesonide 0.5 mg/2 mL Neb INHALATION (09:11)
[2021-01-21] MEDS: lidocaine 1% 5 ML in potassium chloride premix 100 ML 50 ML IV (09:27)
[2021-01-21 09:30] LABS: Basophils % 0.5 %; Eosinophils # 0.1 10^3/uL (0.0-0.8); Eosinophils % 2.1 %; Hematocrit 36.1 % (37.0-47.0); Hemoglobin 11.1 g/dL (11.5-15.3); Lymphocytes # 0.4 10^3/uL (0.8-4.8); Lymphocytes % 10.9 %; Mean Corpuscular HGB Conc 30.7 g/dL (30.0-36.0); Mean Corpuscular Hemoglobin 28.9 pg (28.0-34.0); Mean Platelet Volume 10.4 fL (7.4-10.4); Monocytes # 0.6 10^3/uL (0.2-0.9); Monocytes % 14.8 %; Neutrophils # 2.72 10^3/uL (1.8-7.7); Neutrophils % 70.7 %; Nucleated Red Blood Cells % 0 %; Platelet Count 122 10^3/cmm (130-400); Red Blood Count 3.84 10^6/uL (4.1-5.3); Red Cell Distribution Width 14.7 % (12.1-15.1); White Blood Count 3.9 10^3/uL (4.0-10.0)
[2021-01-21] MEDS: fluconazole premix 100 MG in empty flexible container 1 EACH 50 MG IV (09:32)
[2021-01-21] MEDS: lidocaine 5% Patch 1 PATCH TOPICAL (09:36)
[2021-01-21] MEDS: amlodipine 5 mg Tablet PO (09:37)
--- NOTE | 2021-01-21 17:15 | PC.NURSE ---
PT HAS DONE WELL FOR ME TODAY. PT IS READY TO GO HOME. HER O2 HAS BEEN REALLY WELL; BETWEEN 98-100. PT HAS NOT HAD ANY COMPLAINTS OF PAIN. PTS LUNG SOUNDS HAVE IMPROVED A LOT AND SEE SOUNDS MUCH BETTER. SHE STATES SHE IS FEELING MUCH BETTER WELL. PT WILL DISCHARGE TODAY PER HOSPITALIST. DISCHARGE PAPERWORK WAS GONE OVER WITH PT. ALL QUESTIONS ANSWERED. IV WAS REMOVED. PT TOLERATED WELL. CATHETER TIP INTACT. PT WHEELED OUT BY THIS NURSE.
--- NOTE | 2021-01-21 22:13 | PM.DCS ---
Discharge Providers Date of Admission: 01/15/21 17:34 Date of Discharge: January 21, 2021 Attending Provider at Admission: Negro Vasquez Attending Provider at Discharge: Negro Vasquez Primary Care Provider: Jah Ortega DO Diagnoses at Discharge Discharge Diagnosis (1) Pneumonia: Status: Acute (2) Sepsis: Status: Acute (3) Hypoxia: Status: Acute (4) Dysphagia: Status: Acute (5) YOLANDA (acute kidney injury): Status: Acute (6) Metabolic acidosis: Status: Acute Reason for Visit Reason for Visit: ALLERGIC REACTION TO NASAL SPRAY/INHALATION POWDER Hospital Course Hospital Course Pleasant 70-year-old lady with history of papillary thyroid cancer with multiple surgical procedures, extensive neck dissection, with noted abnormal MBS in June 2020, aspiration, recently following with pulmonology for additional assessment, also with noted chronic radiation changes in upper lungs, pleura, was admitted and treated for aspiration pneumonia, initially with some scattered wheezing, with noted some concern for asthma, although on and off noted some of the wheezing may be coming from upper airway, with no problems superimposed on the additional chronic conditions related to radiation therapy. Possibly exacerbated by GERD, for which she is started on PPI. Initially with sepsis, acute kidney injury, metabolic acidosis. With new requirement of 3-4 L of oxygen by nasal cannula. Tested negative for COVID-19. Was treated with Zosyn, breathing treatments, inhaled steroid, seen by speech therapy with adjustment of diet to dysphagia, ground meats, nectar thick liquids, although preferred full liquid diet with protein shakes, nectar thick liquids. Acute kidney injury possibly related to sepsis, possibly NSAID use. Is asked to discontinue NSAIDs at discharge. Please avoid. Sepsis gradually resolved. Initially was overall improving, transiently with some worsening, also with noted thrush, as well as herpes labialis in both upper and lower lips, additionally treated with fluconazole and acyclovir respectively. Subsequently continue to improve, today feeling well to return home. Lenvatinib currently is held until her condition and its safety can be reassessed. She has currently weaned down to about 1 L of oxygen. Did qualify for oxygen and home oxygen evaluation. Given some dysphonia, dysphagia, on and off mild wheezes which appear to be coming from upper airway she is referred for reevaluation by ENT. CT neck was obtained showing the postsurgical changes. She is encouraged to also follow-up with pulmonology in office. She is feeling much better, although overall is found deconditioned. Declined consideration of going to [facility]. Is referred for outpatient physical therapy to which she states will be taken by her . Physical Exam Const: COMMON NORMALS: no acute distress, patient oriented x3 and alert GENERAL APPEARANCE: cooperative and frail appearing ORIENTATION/CONSCIOUSNESS: Yes awake OTHER: Pleasant, in good spirits. Has been set up with oxygen. Feels ready to return home. HENMT: COMMON NORMALS: oropharynx normal Neck/C-Spine: OTHER: Postsurgical goiter-like changes of neck Resp: COMMON NORMALS: normal respiratory effort and clear to auscultation bilaterally AUSCULTATION: clear to auscultation bilaterally Cardio: COMMON NORMALS: regular rhythm, S1 normal heart sound present, S2 normal heart sound present and No murmurs present (Cardio) RHYTHM: regular rhythm HEART SOUNDS: S1 normal heart sound present and S2 normal heart sound present GI: COMMON NORMALS: Normal to inspection, nondistended, normoactive bowel sounds present, Soft to palpation and non-tender PALPATION: Yes Soft to palpation Extremity: COMMON NORMALS: no joint enlargement and no pedal edema Neuro: COMMON NORMALS: patient oriented x3 and moves all extremities SENSORIUM/ORIENTATION: Yes alert Skin: COMMON NORMALS: no rashes or lesions noted GENERAL SKIN EXAM: no rashes or lesions noted Discharge Data Data Completed and Pending: Completed Studies During Hospitalization Category Date Time Status CT neck w con* [id number] Routine Cat Scan 01/18/21 11:56 Completed XR chest 1V kassie ble [id number] Stat Exams 01/15/21 15:27 Completed Pending at discharge Category Date Time Status Fungitell Glucan Assay Routine Lab 01/15/21 19:43 Received Miscellaneous Mamta t Routine Lab 01/15/21 19:43 Received Labs from last 24 hours 01/21/21 01/21/21 04:57 04:51 WBC 3.9 L RBC 3.84 L Hgb 11.1 L Hct 36.1 L MCV 94.0 MCH 28.9 MCHC 30.7 RDW 14.7 Plt Count 122 L MPV 10.4 Neut % (Auto) 70.7 Lymph % (Auto) 10.9 [place] % (Auto) 14.8 Eos % (Auto) 2.1 Baso % (Auto) 0.5 Neut # (Auto) 2.72 Lymph # (Auto) 0.4 L [place] # (Auto) 0.6 Eos # (Auto) 0.1 Baso # (Auto) 0.0 Nucleated RBC % (a uto) 0 Nucleated RBCs # 0.0 Sodium 137 Potassium 3.1 L Chloride 100 Carbon Dioxide 30 H Anion Gap 10.1 BUN 2 L Creatinine 0.2 L GFR Calculation 353.2 H Glucose 116 H Calculated Osmolal ity 281 L Calcium 7.4 L Total Bilirubin 0.2 AST 11 ALT 6 Alkaline Phosphata se 41 Total Protein 4.5 L Albumin 2.0 L Globulin 2.5 Vitals: Last Vital Signs Temp 98.1 F 01/21/21 12:00 Pulse 99 01/21/21 17:27 Resp 16 01/21/21 15:36 BP 164/72 01/21/21 12:00 Pulse Ox 96 01/21/21 15:36 Discharge Plan Discharge Patient Disposition: Home Condition: Stable Prescriptions: New acyclovir 400 mg tablet 400 mg PO TID 10 Days Qty: 30 RF: 0 ipratropium-albuterol 0.5 mg-3 mg(2.5 mg base)/3 mL Solution For Nebulization 3 ml inhalation Q4H PRN (Reason: Shortness Of Breath) Qty: 90 RF: 3 Mucinex 600 mg Tablet Extended Release 12hr 600 mg PO BID Qty: 60 RF: 0 Lanolin (HPA) 100 % Cream 1 applic topical PRN PRN (Reason: Dryness) Qty: 7 RF: 0 Augmentin 875-125 mg tablet 1 tab PO BID 4 Days Qty: 8 RF: 0 pantoprazole 40 mg Tablet,Delayed Release (Dr/Ec) 40 mg PO Q24H Qty: 90 RF: 0 fluconazole 100 mg tablet 100 mg PO DAILY 14 Days Qty: 14 RF: 0 Continued mecobalamin (vitamin B12) 1,000 mcg tablet,disintegrating 1,000 mcg sublingual DAILY RF: 0 pilocarpine HCl 5 mg tablet 5 mg PO TID RF: 0 azelastine 137 mcg (0.1 %) aerosol,spray 2 spray intranasal BID 30 Days Qty: 30 RF: 3 Breo Ellipta 100-25 mcg/dose blister with device 1 inh inhalation DAILY Qty: 60 RF: 3 acetaminophen 500 mg Tablet 500 mg PO Q4H PRN (Reason: Pain) RF: 0 levothyroxine 125 mcg tablet 125 mcg PO QAM RF: 0 Held Lenvima 12 mg/day (4 mg x 3) Capsule 12 mg PO QAM RF: 0 Hold Instructions: Resume on 02/04/21. Discontinued ibuprofen 200 mg Tablet 400 mg PO Q4H PRN (Reason: Pain) RF: 0 Discharge Orders: Discharge Order (Routine); Ordered 01/21/21 Ordered By: Negro Vasquez Other Ambulatory Orders: DME: Nebulizer with Neb Kit (Order) Timeframe: 1 Day Location: None Selected Ordered By: Negro Vasquez DME: Oxygen (Order) Location: None Selected Ordered By: Negro Vasquez Physical Therapy Eval and Treat Outpatient (Order) Timeframe: 1 Day Facility: [facility] - Location: Physical Therapy Ordered By: Negro Vasquez Referrals: [facility] [Outside] Rich Alcantar MD [Physician] - (Recurrent aspiration, shortness of breath, dysphonia Dr. Alcantar's office will call you with appointment.) Mata Clark MD [Hospitalist] - 1 week (Dr. Clark's office will call you Friday to set up an appointment. ) Jah Ortega DO [Primary Care Provider] - 4-7 days (Please call Dr. Ortega and schedule an appointment to be seen next week.) Bisi Dick MD [Physician] - 4-7 days ([facility] will call you Friday to set up an appointment.) Discharge Diet: As Directed Discharge Activity: Increase activity as tolerated and Oxygen as instructed Patient Instructions: Acyclovir (By mouth), Amoxicillin/Clavulanate Potassium (By mouth), Fluconazole (By mouth), Acute Kidney Injury (GEN), Using Oxygen at Home (DC), Aspiration Pneumonia (GEN), Aspiration Precautions (GEN) Activity Restrictions/Additional Instructions: Please complete antibiotic course for your pneumonia. Continue with Breo Ellipta. Nebulizer is requested for you as well. You are able to use DuoNeb nebulization with it. Please maintain strict aspiration precautions. Please continue dysphagia diet as instructed. As per her preference you may continue with full liquids if that is easier for you. You can try ground solids as per discussion with speech. Please continue to thicken water and other liquids to nectar thick consistency. Please follow-up with ENT for reassessment of dysphagia, as well as hoarseness, occasional upper airway wheezing. In case you experience severe shortness of breath, or your oxygen saturation decreases below 88% despite oxygen supplementation, please seek medical attention immediately. Revisit consideration of feeding tube with your primary provider if you change your mind. Continue follow-up with your lung doctor with regards to aspiration pneumonia, as well as of the more chronic changes seen in your lungs with radiation, as well as thickening of the pleura from radiation, lung nodules, as well as consideration of any other underlying lung condition. Please follow-up with your primary doctor with regards to all of the above including sepsis that was caused by your pneumonia, but also follow-up with regards to thrush for which you are prescribed Diflucan. As well as with regards to herpes labialis/cold sores for which you are prescribed acyclovir. Please hold your chemotherapy medication for now while you are recovering from acute infection. Please schedule an appointment with your oncology doctor to follow-up with regards to when it may be safe to restart this medication. Please have your primary doctor also recheck your kidney function due to noted acute kidney injury on presentation. Please avoid any NSAIDs like ibuprofen, Aleve, etc. as these may contribute to kidney injury. Discharge Attestations Time Spent in Discharge Care*: greater than 30 min Quality Metrics Clinical Quality Measures During this hospital stay, did patient experience: None Coding Level of Care Code Acute [facility] note Diagnoses Pneumonia J18.9 Sepsis A41.9 Hypoxia R09.02 Dysphagia R13.10 YOLANDA (acute kidney injury) N17.9 Metabolic acidosis E87.2
[2021-01-22 18:26] LABS: Fungitell 1-3-B Glucan Assay <31 pg/mL; Interpretation NEGATIVE
--- NOTE | 2021-01-23 09:02 | PC.SOCIAL ---
discharge follow up call made. spoke with patient. patient picked up prescriptions from the pharmacy. patient didn't receive nebulizer solution, lanolin or mucinex. nurse called and spoke to [facility]. the pharmacy needs a diagnosis code for the nebulizer solution, spoke with dr. fitzgerald, since dr. jansen is out and he is going to send over new prescription. discussed to not take motrin or aleve due to kidney injury, patient verbalizes understanding. patient is aware of lenvima being on hold and to resume 17. patient given all follow up appointment dates and times, she has transportation to those appointments. discussed with patient the importance of maintaining dysphagia diet. she reports she is doing well with that. patient denies any questions or concerns.
== END 2021-01-21 17:27 | disposition home or self-care (01) | DRG 871 ==
LOC: ER 15:15 → MEDSURG 20:47
PROVIDERS: Admitting Provider Internal Medicine; Emergency Provider Family Medicine; PCP Family Medicine; Visit Provider Internal Medicine
DX: A41.9 Sepsis, unspecified organism (principal); J69.0 Pneumonitis due to inhalation of food and vomit; N17.9 Acute kidney failure, unspecified; B37.0 Candidal stomatitis; E11.9 Type 2 diabetes mellitus without complications; K21.9 Gastro-esophageal reflux disease without esophagitis; I10 Essential (primary) hypertension; E78.5 Hyperlipidemia, unspecified; Z85.850 Personal history of malignant neoplasm of thyroid; E89.0 Postprocedural hypothyroidism; Z92.3 Personal history of irradiation; R13.10 Dysphagia, unspecified; R09.02 Hypoxemia; B00.1 Herpesviral vesicular dermatitis
CPT/HCPCS: 36415; 36600; 70491; 71045; 80048; 80051; 80053; 81001; 82009; 82330; 82805; 83605; 83735; 85007; 85025; 86403; 87040; 87070; 87086; 87205; 87305; 87426; 87449; 87635; 87641; 87804; 92526; 92610; 93005; 94640; 94664; 94762; 96365; 96367; 96372; 96375; 97162; 97530; 99285; J0133; J0456; J0696; J1200; J1450; J1650; J2543; J2930; J3370; J3475; J3480; J3490; J7030; J7050; J7626; Q9967

== ENCOUNTER 2021-01-30 10:19 | Outpatient (RCR) | payer MEDICARE, OTHER, SELFPAY | END 2021-02-18 23:59 | disposition home or self-care (01) | LOC: SPT 10:19 | PROVIDERS: PCP Family Medicine; Referring Provider Internal Medicine; Visit Provider Internal Medicine | DX: M62.81 Muscle weakness (generalized) (principal) | CPT/HCPCS: 97110; 97116; 97161 ==

== ENCOUNTER → 2021-02-05 09:30 | Outpatient (BNVA) | payer MEDICARE, OTHER, SELFPAY | PROVIDERS: PCP Family Medicine; Visit Provider Internal Medicine Critical Care Medicine | DX: Z20.822 Contact with and (suspected) exposure to COVID-19 (principal); J45.909 Unspecified asthma, uncomplicated | CPT/HCPCS: 87635 ==

== ENCOUNTER 2021-02-08 10:03 | Outpatient (CLI) | payer MEDICARE, OTHER, SELFPAY ==
--- NOTE | 2021-02-08 12:52 | PFTS_ITS ---
Date of Study:02/08/21 Date of Dictation: MECHANICS: Forced vital capacity (FVC) is reduced. Forced expiratory volume in one second (FEV1) is normal. FEV1/FVC is normal. FLOW VOLUME LOOP: Reduced flow at all lung volumes LUNG VOLUMES: Total lung capacity (TLC) is normal. Residual volume (RV) is increased. DIFFUSING CAPACITY FOR CARBON MONOXIDE: Normal. INTERPRETATION: The pulmonary function tests are consistent with nonspecific ventilatory limitations. The prebronchodilator spirometry is consistent with mild restriction however the lung volumes are not suggestive of that. No postbronchodilator spirometry was performed. Lung volumes are consistent with air trapping. Gas exchange (DLCO) is normal. MTDD
== END 2021-02-08 10:04 | disposition home or self-care (01) ==
LOC: RT 10:05
PROVIDERS: PCP Family Medicine; Visit Provider Internal Medicine Critical Care Medicine
DX: J45.909 Unspecified asthma, uncomplicated (principal)
CPT/HCPCS: 94010; 94726; 94729

== ENCOUNTER 2021-02-13 14:01 | Outpatient (CLI) | payer MEDICARE, OTHER, SELFPAY ==
[2021-02-13 15:10] LABS: Basophils % 0.6 %; Eosinophils # 0.1 10^3/uL (0.0-0.8); Eosinophils % 1.1 %; Hematocrit 42.9 % (37.0-47.0); Hemoglobin 13.3 g/dL (11.5-15.3); Lymphocytes # 0.5 10^3/uL (0.8-4.8); Lymphocytes % 9.7 %; Mean Corpuscular Hemoglobin 28.2 pg (28.0-34.0); Mean Corpuscular Volume 91.1 fl (81-99); Mean Platelet Volume 9.5 fL (7.4-10.4); Monocytes # 0.5 10^3/uL (0.2-0.9); Monocytes % 9.9 %; Neutrophils # 4.22 10^3/uL (1.8-7.7); Neutrophils % 78.3 %; Nucleated Red Blood Cells % 0 %; Platelet Count 191 10^3/cmm (130-400); Red Blood Count 4.71 10^6/uL (4.1-5.3); Red Cell Distribution Width 15.9 % (12.1-15.1); White Blood Count 5.4 10^3/uL (4.0-10.0)
[2021-02-13 15:22] LABS: Alanine Aminotransferase 6 U/L (0-33); Alkaline Phosphatase 72 IU/L (35-105); Anion Gap 13.6 (5-19); Aspartate Amino Transferase 12 U/L (0-32); Blood Urea Nitrogen 10 mg/dL (8-23); Calcium 9.5 mg/dL (8.5-10.5); Carbon Dioxide 32 mmol/L (22-29); Chloride 97 mmol/L (98-107); Globulin 3.3 g/dL (1.3-4.6); Glomerular Filtration Rate 122.7 mL/min (90-130); Glucose 110 mg/dL (65-115); Osmolality Calculated 286 mOsm/kg (285-295); Potassium 4.6 mmol/L (3.5-5.1); Sodium 138 mmol/L (136-145); Total Bilirubin 0.3 mg/dL (0.15-1.2); Total Protein 7.3 g/dL (6.6-8.7)
--- NOTE | 2021-02-17 12:07 | ONC FU_ITS ---
Dr. Clark Patient Follow-Up Note Patient: Kylah Patterson Unit #: [id number]: 1950 Dicatated By: Mata Clark M.D.Date of Visit:Feb 13, 2021 Onc Med Follow-up/Prog Note Chief Complaint: Thyroid cancer. History of Present Illness: This is a 70 year-old woman with recurrent/metastatic papillary thyroid cancer. On 05/12/2018 she underwent left radical total thyroidectomy for locally advanced papillary thyroid cancer, which included involvement of the recurrent laryngeal nerve and esophagus. The procedure included partial esophagectomy, sacrifice of the recurrent laryngeal nerve, Left central neck dissection, reimplantation of the left inferior parathyroid into right brachial radialis musculature, left laryngeal reinnervation and left cranial nerve neurorrhaphy, and sternocleidomastoid muscle flap repair of esophagus. Pathology showed papillary carcinoma involving the left lobe measuring 4 x 3.5 x 1 cm. There was extension into strap muscles and perithyroidal soft tissues both microscopically and grossly. The margins were noted to be involved. There was involvement in 1 level lymph node and there was involvement in 4/4 left central neck lymph nodes. There was extranodal extension. Her disease was stage III (pT4a, pN2b, M0). She was given 150 mCI of radioactive iodine in May 2018 due to finding of 2 foci of increased activity in the midline neck on her posttreatment scan, consistent with residual functioning thyroid tissue. She reportedly was noted to have rising thyroglobulin level in 2019. Her I-131 scan completed on 10/01/2019 showed no functioning thyroid tissue. PET/CT at that time showed extensive FDG avid disease in the neck, including right and left level 2 nodes, right thyroid bed, bilateral supraclavicular nodes, and a probable small right paraesophageal node at the thoracic inlet. The most significant area of involvement was a left level 2 node measuring 2.3 x 1.3 cm with maximum SUV 57.6. There were no other areas of metastatic involvement noted. On 10/15/2019 she underwent bilateral neck dissection. Pathology showed metastatic papillary thyroid cancer involving 3/13 level III nodes, the largest measuring 2.5 cm, 1/10 level IIA, 1/2 level IV, 1/4 central lymph nodes, 1/11 right level IV lymph nodes. Nodes from the right level IIA, III, and IIB were negative. Excision of a right superior parapharyngeal lymph node also was positive. 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 Her tremor reportedly showed positive PD-L1 expression at 40%, though TMB was reportedly low. On molecular profiling, her tumor was noted to harbor a p.V600E BRAF mutation. She had radiation and medical oncology consultations in [place]. She was recommended to undergo postop radiation. Options for systemic therapy were reviewed, including lenvatinib, immunotherapy, and vemurafenib. She was recommended to begin adjuvant therapy with lenvatinib following completion of the radiation. She was then seen here because she preferred to continue her further treatment locally. She completed radiation on 04/13/2020 to a total dose of 6600 cGy, adiministered in 33 fractions. Her other medical illnesses include hypertension, hyperlipidemia, type 2 diabetes, GERD, irritable bowel syndrome, and degenerative. Her other surgeries include bowel and bladder suspension, cholecystectomy, hysterectomy/bilateral salpingo-oophorectomy, and tonsillectomy. She had a colonoscopy in 2010. She is a nonsmoker. INTERIM HISTORY: A restaging PET/CT on 06/17/2020 showed postsurgical and radiation therapy changes in the neck area. Within the thyroid bed there was noted to be an FDG avid 1.0 x 1.3 cm soft tissue nodule, SUV 17.1, felt to be highly likely to represent recurrent disease. There were no other areas of abnormal uptake. She had a follow-up visit with Dr. Laboy at [facility] on 06/27/2020. His evaluation included ultrasound-guided fine-needle aspiration biopsy of the nodule at the right level 6. He recommended that we proceed with a trial of systemic therapy prior to attempting any further surgery. On 08/21/2020 she began a trial of therapy with lenvatinib 24 mg daily. She developed chest pain after the initial dosage, and she then stopped taking it. As of 09/13/2020 she restarted treatment with the dosage reduced to 12 mg daily. A repeat PET/CT on 09/30/2020 showed resolution of the right-sided thyroid bed lesion compared to the previous study from May 2020. A new 5 mm pulmonary nodule in the inferior right major fissure had SUV 2.2, suspicious for metastatic disease. There were no other areas of abnormal uptake noted on that study. With those findings, she continued lenvatinib 12 mg daily. As of her follow-up visit on 10/31/2020 her lenvatinib dosage was further reduced to 8 mg daily due to persistent fatigue and to moderately severe neutropenia, ANC 1700. She then continued treatment at that dosage, though she still had to periodically stop it for short time periods due to side effects. Her repeat CT scans of the neck and chest on 12/26/2020 showed postoperative changes in the neck bilaterally with no associated cervical lymphadenopathy. There was no evidence for supraglottic or glottic mass. There was no mass or lesion noted in the thyroid bed. Radiation changes were noted in the lung apices and upper. There was a small amount of progressed pleural fluid and pleural thickening layering in the mid and upper lungs bilaterally. There were postradiation changes with bronchovascular thickening about the mediastinum. A previously described 5 mm pulmonary nodule inferior to the right major fissure medially appeared unchanged. A 2 mm noncalcified left upper lobe nodule also appeared stable. With those findings she continued treatment lenvatinib 8 mg daily, as tolerated. On 01/15/2021 she was admitted to the hospital with pneumonia, presumed to be due to aspiration. She did test negative for COVID-19 virus infection. She improved on antibiotic therapy and on 01/22/2020 when she was discharged home to continue antibiotic coverage with Augmentin. She is seen for a follow-up visit. She is feeling pretty good now. Her lenvatinib had been put on hold while she was in the hospital, but she was able to get it restarted last week. She continues to have limited activity, but she is able to do some light work. ECOG score is 1. She says she is hungry, but she has difficulty eating due to the aspiration. She says there is so much that she cannot eat because it chokes her. She has been losing weight. She does not have fever or night sweats. She complains that she coughs all the time. Her breathing is okay now. She does not complain of chest pain. She has no GI or complaints. She has no significant joint or bone pain. She does not complain of headache or dizziness, and she has no focal neurologic symptoms. Medications: Lenvima (12 MG Daily Dose) Tablet Oral daily, Levothyroxine Sodium 1 Tablet (of 150 mcg) Tablet Oral daily, Methylphenidate HCl (5 mg) Tablet Oral b.i.d., Prochlorperazine Maleate 1 Tablet (of 10 mg) Oral t.i.d. PRN Allergies: No Known Allergies. Vital Signs: Performed on Feb 13, 2021 16:00 Height - 57.00 in Weight - 84 lbs (LOW) BSA - 1.24 sq.m BMI - 18.18 Temperature - 99.1 F (HIGH) Pulse - 95 /min Respiration - 18 /min BP - 132/88 mm(hg) O2 Sat - 92 % (LOW) Pain - 0 Fatigue - 5 Physical Examination: Constitutional - She appears somewhat frail generally, Eyes - Sclerae nonicteric. Conjunctivae clear, ENMT - No lesions noted in the oral cavity, Neck - There is induration on both sides of the neck, moreso on the right. There is no discrete mass palpable, Hematologic/Lymphatic - No cervical, clavicular, or axillary adenopathy noted, Respiratory - Lungs sound clear with diminished air movement bilaterally, Cardiovascular - Heart rhythm is regular. There is a I/ systolic murmur. There is no gallop or rub noted, Abdomen - Soft. Liver and spleen are not enlarged. There is no abdominal mass or ascites noted and there is no inguinal adenopathy, Extremities - No edema, Neurologic - No focal neurologic deficits noted. Lab/Imaging: Test performed on Feb 13, 2021 14:30 Sodium 138 mmol/L Potassium 4.6 mmol/L Chloride 97 mmol/L CO2 32 mmol/L Anion Gap 13.6 BUN 10 mg/dL Creatinine 0.5 mg/dL Cr Clearance (Est) 64.77 mL/min eGFR 122.7 mL/min Glucose 110 mg/dL Osmolality - Calculated 286 mOsm/kg Calcium 9.5 mg/dL Protein, Total 7.3 g/dL Albumin 4.0 g/dL Globulin 3.3 g/dL Bilirubin, Total 0.3 mg/dL ALT (SGPT) 6 U/L AST (SGOT) 12 U/L Alkaline Phosphatase 72 IU/L WBC 5.4 10 3/uL RBC 4.71 10 6/uL HGB 13.3 g/dL HCT 42.9 % MCV 91.1 fl MCH 28.2 pg MCHC 31.0 g/dL RDW 15.9 % Platelet Count 191 10 3/cmm MPV 9.5 fL Neutrophils 4.22 10 3/uL Lymphocytes 0.5 10 3/uL Monocytes 0.5 10 3/uL Eosinophils 0.1 10 3/uL Basophils 0.0 10 3/uL Neutrophil % 78.3 % Lymphocyte % 9.7 % Monocyte % 9.9 % Eosinophil % 1.1 % Basophils % 0.6 % NRBC % 0 % Problem List: 1. Papillary thyroid carcinoma, stage III (pT4a, pN1b, M0) at initial diagnosis in April 2018. She underwent left total thyroidectomy and left central neck dissection. 2. She was given 150 mCI of radioactive iodine in May 2018. 3. On 10/15/2019 she underwent bilateral neck dissection for PET/CT evidence of extensive recurrent disease in the neck, including right and left level II nodes, bilateral supraclavicular nodes, and a paraesophageal lymph node at the thoracic inlet. Her tumor was noted to have positive PD-L1 expression at 40%, though with low TMB. On molecular analysis, the tumor was noted to harbor a BRAF mutation. 4. Hypertension. 5. Hyperlipidemia. 6. Type 2 diabetes. 7. GERD. 8. Irritable bowel syndrome. 9. Degenerative arthritis. Problems Addressed with this Encounter and Plan: Patient with papillary thyroid carcinoma, stage III (pT4a, pN1b, M0) at initial diagnosis in April 2018. She underwent left total thyroidectomy and left central neck dissection. She was given 150 mCI of radioactive iodine in May 2018. In September 2019 she underwent bilateral neck dissection for PET/CT evidence of extensive recurrent disease in the neck, including right and left level II nodes, bilateral supraclavicular nodes, and a paraesophageal lymph node at the thoracic inlet. Her tumor was noted to have positive PD-L1 expression at 40%, though with low TMB. On molecular analysis, the tumor was noted to harbor a p.V600E BRAF mutation. She was given definitive radiation to the neck area, completed on 04/13/2020 to a total dose of 6600 cGy, administered in 33 fractions. A restaging PET/CT on 06/17/2020 showed postsurgical and radiation therapy changes in the neck area. Within the thyroid bed there was noted to be an FDG avid 1.0 x 1.3 cm soft tissue nodule, SUV 17.1, felt to be highly likely to represent recurrent disease. There were no other areas of abnormal uptake. She had a follow-up visit with Dr. Laboy at [facility] on 06/27/2020. His evaluation included ultrasound-guided fine-needle aspiration biopsy of the nodule at the right level 6. He recommended that we proceed with a trial of systemic therapy prior to attempting any further surgery. On 08/21/2020 she began a trial of therapy with lenvatinib 24 mg daily. She developed chest pain after the initial dosage, and she then stopped taking it. As of 09/13/2020 she restarted treatment with the dosage reduced to 12 mg daily. A repeat PET/CT on 09/30/2020 showed resolution of the right-sided thyroid bed lesion compared to the previous study from May 2020. A new 5 mm pulmonary nodule in the inferior right major fissure had SUV 2.2, suspicious for metastatic disease. There were no other areas of abnormal uptake noted on that study. With those findings, she continued lenvatinib 12 mg daily. As of her follow-up visit on 10/31/2020 the lenvatinib dosage was further reduced to 8 mg daily due to persistent fatigue and to moderately severe neutropenia, ANC 1700. She has since then been able to continue treatment at that dosage, though due to ongoing side effects she has been taking it on an intermittent basis. With that she has been able to tolerate it with acceptable toxicity and she did show some response by follow-up CT scan. On 01/15/2021 she was admitted to the hospital with aspiration pneumonia. She recovered uneventfully with antibiotic therapy. However, she does have ongoing issues with aspiration, and she also has been showing significant weight loss. She is continuing physical therapy for that. For now she will continue lenvatinib 8 mg daily, as tolerated. I will plan to see her again in 6 weeks with restaging PET/CT prior to the visit. Signed By: Mata Clark M.D. <<Signature on File>>
== END 2021-02-13 14:02 | disposition home or self-care (01) ==
PROVIDERS: PCP Family Medicine; Visit Provider Internal Medicine Medical Oncology
DX: C73 Malignant neoplasm of thyroid gland (principal); C77.0 Secondary and unspecified malignant neoplasm of lymph nodes of head, face and neck
CPT/HCPCS: 36415; 80053; 85025; 99214

== ENCOUNTER 2021-02-19 06:00 | Outpatient (RCR) | payer MEDICARE, OTHER, SELFPAY | END 2021-03-20 23:59 | disposition home or self-care (01) | LOC: SPT 06:00 | PROVIDERS: PCP Family Medicine; Referring Provider Internal Medicine; Visit Provider Internal Medicine | DX: A41.9 Sepsis, unspecified organism (principal); J18.9 Pneumonia, unspecified organism; R09.02 Hypoxemia; R13.10 Dysphagia, unspecified; N17.9 Acute kidney failure, unspecified; E87.2 Acidosis | CPT/HCPCS: 97110; 97116 ==

== ENCOUNTER → 2021-03-09 10:57 | Outpatient (BNVA) | payer MEDICARE, OTHER, SELFPAY | PROVIDERS: PCP Family Medicine; Visit Provider Internal Medicine | DX: C73 Malignant neoplasm of thyroid gland (principal); R20.0 Anesthesia of skin; Z98.890 Other specified postprocedural states | CPT/HCPCS: 99214 ==

== ENCOUNTER 2021-04-04 07:27 | Emergency (ER) | payer MEDICARE, OTHER, SELFPAY ==
[2021-04-04 07:38] VITALS: BP 154/113; PULSE 98; RESP 20; TEMP 36.8; O2SAT 98; BMI 16.2
--- NOTE | 2021-04-04 07:41 | ED_ITS ---
HPI - SOB/Dyspnea General: Chief Complaint: Shortness of Breath/Dyspnea Stated Complaint: DIFF BREATHING: AUDIBLE WHISTLING WITH BREATHING Time Seen by Provider: 04/04/21 07:32 History of Present Illness: HPI Narrative: 62-year-old female presents to the emergency room with complaints of difficulty breathing tightness. Patient has a history of thyroid cancer is currently getting chemotherapy she previously had radiation therapy. She was hospitalized for pneumonia 1 month ago. She has obvious audible stridor in the room. She has difficulty speaking a little as well is not particularly new. She denies a history of smoking no history of COPD she does use budesonide and DuoNeb's. MD elicited complaint: shortness of breath and cough Pertinent past history: other (Thyroid CA) Timing: constant Exacerbating factors: movement and coughing Relieving factors: nothing Associated symptoms: Deny abdominal pain, chest congestion, chest pain, cough, diaphoresis, dizziness, extremity pain, fever(s), hemoptysis, lightheadedness, myalgias, nausea, orthopnea, palpitations, paresthesias, polydipsia, polyuria, rash, sense of impending doom, syncope or vomiting Treatment prior to arrival: none Review of Systems Const: Denies: fever(s) or diaphoresis ENMT: Denies: throat pain, ear or mastoid pain, nasal discharge or nasal congestion Card: Denies: chest pain, palpitations, lightheadedness, syncope or orthopnea Resp: Denies: hemoptysis or chest congestion GI: Denies: abdominal pain, nausea or vomiting : Denies: flank pain, difficulty voiding, dysuria, urinary frequency or urinary urgency Musc: Denies: extremity pain Skin/Breast: Denies: rash or pruritus Neuro: Denies: dizziness Endo: Denies: polyuria or polydipsia PFSH ED PFSH: Medical History YOLANDA (acute kidney injury) DM type 2 (diabetes mellitus, type 2) GERD (gastroesophageal reflux disease) HTN (hypertension) Hyperlipidemia IBS (irritable bowel syndrome) Lung nodules Thyroid cancer Surgical History History of bladder suspension procedure History of cholecystectomy History of hysterectomy History of intestinal surgery History of salpingo-oophorectomy History of thyroid surgery Hx of tonsillectomy Family History Unknown Hypertension Diabetes Social History Second hand smoke exposure: No Smoking risk assessment/counseling performed?: No Alcohol intake: never Counseling given: No Counseling given: No Lives independently: Yes Household members: spouse Marital status: History of recent travel: No Current gender identity: Female Physical Exam Const: GENERAL APPEARANCE: cooperative and comfortable ORIENTATION/CONSCIOUSNESS: Yes awake, Yes oriented to person, Yes oriented to place and Yes oriented to time HENMT: COMMON NORMALS: normocephalic, atraumatic, hearing grossly normal bilaterally and external ears normal HEAD & SCALP: normocephalic and atraumatic EXTERNAL EAR: Yes external ears normal Neck/C-Spine: COMMON NORMALS: full ROM, no lymphadenopathy, supple and no JVD OTHER: moderate swelling about the thyriod Lymph: LYMPHATIC: no lymphadenopathy noted and no lymphedema noted Resp: COMMON NORMALS: normal respiratory effort, No retractions, No use of accessory muscles and clear to auscultation bilaterally AUSCULTATION: clear to auscultation bilaterally Cardio: COMMON NORMALS: no JVD, regular rate, regular rhythm and No murmurs present (Cardio) RATE: regular rate RHYTHM: regular rhythm GI: COMMON NORMALS: Soft to palpation and No hepatosplenomegaly present AUSCULTATION: Yes normoactive bowel sounds PALPATION: Yes Soft to palpation, No Tenderness to palpation present (GI), No Guarding due to palpation present (GI) and Yes No hepatosplenomegaly present Extremity: COMMON NORMALS: normal to inspection, capillary refill normal, no clubbing, cyanosis or edema, no calf tenderness and no pedal edema Neuro: SENSORIUM/ORIENTATION: Yes oriented to person, Yes oriented to place and Yes oriented to time Skin: COMMON NORMALS: no rashes or lesions noted GENERAL SKIN EXAM: no rashes or lesions noted Course Vital Signs: Vital signs: Vital Signs Temperature 98.2 F 04/04/21 07:38 Pulse Rate 99 04/04/21 07:43 Respiratory Rate 20 H 04/04/21 07:43 Blood Pressure 154/98 04/04/21 07:43 Pulse Oximetry 98 04/04/21 07:43 MDM - SOB/Dyspnea MDM Narrative: Medical decision making narrative: Labs imaging and EKG reviewed. There is some post radiation changes that appear to be chronic around the larynx and thyroid. None of this is new she is not having any active stridor at this time. We will put her on dexamethasone 4 mg daily and have her follow-up with oncology and ENT within the next 3 to 5 days. She has no worsening symptoms return to the emergency room. Lab Data: Labs: Lab Results 04/04/21 04/04/21 04/04/21 08:10 08:10 08:10 WBC 8.7 10^3/uL 10^3/ uL (4.0-10.0) RBC 5.03 10^6/uL 10^6 /uL (4.1-5.3) Hgb 14.6 g/dL g/dL (11.5-15.3) Hct 42.9 % % (37.0-47.0) MCV 85.3 fl fl (81-99) MCH 29.0 pg pg (28.0-34.0) MCHC 34.0 g/dL g/dL (30.0-36.0) RDW 14.4 % % (12.1-15.1) Plt Count 130 10^3/cmm 10^3 /cmm (130-400) MPV 9.4 fL fL (7.4-10.4) Neut % (Auto) 90.7 % % Lymph % (Auto) 4.4 % % [place] % (Auto) 4.5 % % Eos % (Auto) 0.0 % % Baso % (Auto) 0.1 % % Neut # (Auto) 7.84 10^3/uL H 10 ^3/uL (1.8-7.7) Lymph # (Auto) 0.4 10^3/uL L 10^ 3/uL (0.8-4.8) [place] # (Auto) 0.4 10^3/uL 10^3/ uL (0.2-0.9) Eos # (Auto) 0.0 10^3/uL 10^3/ uL (0.0-0.8) Baso # (Auto) 0.0 10^3/uL 10^3/ uL (0.0-0.1) Nucleated RBC % (a uto) 0 % % Nucleated RBCs # 0.0 /100WBC /100W BC Sodium 127 mmol/L L mmol /L (136-145) Potassium 3.5 mmol/L mmol/L (3.5-5.1) Chloride 84 mmol/L L mmol/ L (98-107) Carbon Dioxide 28 mmol/L mmol/L (22-29) Anion Gap 18.5 (5-19) BUN 8 mg/dL mg/dL (8-23) Creatinine 0.4 mg/dL L mg/dL (0.5-0.9) GFR Calculation 158.7 mL/min H mL /min (90-130) Glucose 129 mg/dL H mg/dL (65-115) Calculated Osmolal ity 264 mOsm/kg L mOs m/kg (285-295) Calcium 8.9 mg/dL mg/dL (8.5-10.5) Total Bilirubin 0.8 mg/dL mg/dL (0.15-1.2) AST 14 U/L U/L (0-32) ALT 11 U/L U/L (0-33) Alkaline Phosphata se 61 IU/L IU/L (35-105) Troponin T Baselin e 9 ng/L ng/L (0-10) Total Protein 6.5 g/dL L g/dL (6.6-8.7) Albumin 4.4 g/dL g/dL (3.5-5.2) Globulin 2.1 g/dL g/dL (1.3-4.6) Discharge Plan Discharge Patient Disposition: Home Clinical Impression: Papillary thyroid carcinoma, History of thyroid surgery Dysphagia Qualifiers: Dysphagia type: pharyngoesophageal phase Qualified Code(s): R13.14 - Dysphagia, pharyngoesophageal phase Condition: Stable Prescriptions: New dexamethasone 4 mg tablet 4 mg PO DAILY Qty: 20 RF: 0 No Action mecobalamin (vitamin B12) 1,000 mcg tablet,disintegrating 1,000 mcg sublingual DAILY RF: 0 ipratropium-albuterol 0.5 mg-3 mg(2.5 mg base)/3 mL solution for nebulization 3 ml inhalation Q4H PRN (Reason: shortness of breath or wheezing) Qty: 3 RF: 4 budesonide [Pulmicort] 0.5 mg/2 mL suspension for nebulization 0.5 mg inhalation BID 30 Days Qty: 120 RF: 4 acetaminophen 500 mg Tablet 500 mg PO Q4H PRN (Reason: Pain) RF: 0 levothyroxine 125 mcg tablet 125 mcg PO QAM RF: 0 Lenvima 12 mg/day (4 mg x 3) Capsule 12 mg PO QAM RF: 0 Hold Instructions: Resume on 02/04/21. Mucinex 600 mg Tablet Extended Release 12hr 600 mg PO BID Qty: 60 RF: 0 Lanolin (HPA) 100 % Cream 1 applic topical PRN PRN (Reason: Dryness) Qty: 7 RF: 0 pantoprazole 40 mg Tablet,Delayed Release (Dr/Ec) 40 mg PO Q24H Qty: 90 RF: 0 Discharge Orders: Discharge ED (Routine); Ordered 04/04/21 Ordered By: Maynor Rainey Referrals: Jah Ortega, [Primary Care Provider] - Discharge Activity: Resume usual activity Patient Instructions: Opioid Safety Activity Restrictions/Additional Instructions: Follow-up with Dr. Aguilar within the next 5 to 7 days. If you have any further worsening problems return to the emergency room Coding Level of Care Code ED Precast Worker for Omid Fwd Exam Comprehensive
--- NOTE | 2021-04-04 07:42 | XR_ITS ---
WS: [id number] XR chest 1V portable [id number] REASON FOR EXAM: dyspnea/cough FINDINGS: Compared to the examination of 01/15/2021, the infiltrative changes in the right upper lung are no meliza scotty identifiable. The infiltrative changes in the left lung have also resolved. No definite acute or subacute pulmonary parenchymal or pleural abnormality is identified. No other interval change or new finding. XR/XR chest 1V portable [id number] IMPRESSION: Resolution of previous infiltrates with no definite findings for acute pulmonar y disease.
[2021-04-04 07:43] VITALS: BP 154/98; PULSE 99; RESP 20; O2SAT 98
--- NOTE | 2021-04-04 07:43 | ECG_ITS ---
[facility] Test Date: 2021-04-04 Pat Name: Kylah Patterson Department: Room: Gender: Female Linen Aide: : 1950 Requested By: Maynor Melgar Order Number: [id number] Otoniel MD: Maryam Carpenter M.D. Measurements Intervals [place] Rate: 93 P: 77 HI: 148 QRS: -21 QRSD: 78 T: 61 QT: 331 QTc: 413 Interpretive Statements SINUS RHYTHM POSSIBLE LEFT ATRIAL ENLARGEMENT [-0.1mV P-WAVE IN V1/V2] BORDERLINE LEFT AXIS DEVIATION [QRS AXIS < -20] POSSIBLE RIGHT VENTRICULAR CONDUCTION DELAY [RSR (QR) IN V1/V2] Compared to ECG 01/18/2021 16:02:54 No significant changes Electronically Signed On 04-04-2021 21:59:06 HIDE SHAKER by Maryam Carpenter M.D. [email or web address]
--- NOTE | 2021-04-04 07:48 | CT_ITS ---
WS: [id number] CT NECK TECHNIQUE: Contrast-enhanced CT of the neck with coronal and sagittal reformatted images. CLINICAL INFORMATION: stridor/thyriod CA COMPARISON: January 18, 2021 and PET/CT September 30, 2020 DLP: 251.[address] scans at [facility] use at least one of these dose optimization techniques: automated e xposure control; mA and/or kV adjustment per patient size (includes targeted exams where dose is matc hed to clinical indication); or iterative reconstruction. FINDINGS: Prior postoperative changes thyroidectomy with surgical clips in the thyroid bed. Post therapeutic ch anges involving the neck with prior neck dissection. No cervical lymphadenopathy. Normal posterior nasopharynx. No evidence of supraglottic or glottic mas s. No evidence of thyroid bed recurrence. Normal epiglottis. Normal vocal cords. Mild narrowing of th e supraglottic larynx at the level of the vocal folds due to mild diffuse circumferential supraglotti c edema. This is likely due to treatment-related changes. Mild narrowing of the glottis is also simil ar in appearance. Fibrosis and bronchiectasis in the lung apices is similar in appearance to the prior examinations. Mastoid air cells well aerated. Paranasal sinuses are well aerated. Mild mucosal thickening ethmoid a ir cells. Normal partially visualized posterior fossa. Retroglottic course of the right common caroti d artery. CT/CT neck w con* [id number] IMPRESSION: 1. Prior postoperative changes total thyroidectomy with neck dissection. 2. Postradiation changes in the neck with thickening of the platysma and mild induration in the subcutaneous soft tissues. 3. Mild circumferential pharyngeal and supraglottic and glottic edema compatib le with post therapy related changes similar in appearance to the prior examina tion. Mild narrowing of the supraglottic and glottic larynx. No obstructing mas s or lesion. 4. Subglottic airway is patent. 5. No recurrence in the thyroid bed. No cervical lymphadenopathy. 6. Fibrosis and bronchiectasis in the lung apices similar to previous. 7. Mild diffuse circumferential thickening involving the thoracic esophagus ca n be seen with esophagitis or therapy-related changes Attempted Maynor Rainey DO at 04/04/2021 9:20 AM.
[2021-04-04 08:16] LABS: Basophils % 0.1 %; Hematocrit 42.9 % (37.0-47.0); Hemoglobin 14.6 g/dL (11.5-15.3); Lymphocytes # 0.4 10^3/uL (0.8-4.8); Lymphocytes % 4.4 %; Mean Corpuscular Volume 85.3 fl (81-99); Mean Platelet Volume 9.4 fL (7.4-10.4); Monocytes # 0.4 10^3/uL (0.2-0.9); Monocytes % 4.5 %; Neutrophils # 7.84 10^3/uL (1.8-7.7); Neutrophils % 90.7 %; Nucleated Red Blood Cells % 0 %; Platelet Count 130 10^3/cmm (130-400); Red Blood Count 5.03 10^6/uL (4.1-5.3); Red Cell Distribution Width 14.4 % (12.1-15.1); White Blood Count 8.7 10^3/uL (4.0-10.0)
[2021-04-04 08:32] LABS: Troponin(5th) Baseline 9 ng/L (0-10)
[2021-04-04] MEDS: iohexol 300 mg/mL 100 mL Btl IV (08:32)
[2021-04-04 08:54] LABS: Alanine Aminotransferase 11 U/L (0-33); Albumin Level 4.4 g/dL (3.5-5.2); Alkaline Phosphatase 61 IU/L (35-105); Anion Gap 18.5 (5-19); Aspartate Amino Transferase 14 U/L (0-32); Blood Urea Nitrogen 8 mg/dL (8-23); Calcium 8.9 mg/dL (8.5-10.5); Carbon Dioxide 28 mmol/L (22-29); Chloride 84 mmol/L (98-107); Globulin 2.1 g/dL (1.3-4.6); Glomerular Filtration Rate 158.7 mL/min (90-130); Glucose 129 mg/dL (65-115); Osmolality Calculated 264 mOsm/kg (285-295); Potassium 3.5 mmol/L (3.5-5.1); Sodium 127 mmol/L (136-145); Total Bilirubin 0.8 mg/dL (0.15-1.2); Total Protein 6.5 g/dL (6.6-8.7)
[2021-04-04] MEDS: dexamethasone 10 mg/mL INJ IVP (10:30)
== END 2021-04-04 10:32 | disposition home or self-care (01) ==
PROVIDERS: Emergency Provider Family Medicine; PCP Family Medicine
DX: R13.14 Dysphagia, pharyngoesophageal phase (principal); C73 Malignant neoplasm of thyroid gland; E11.9 Type 2 diabetes mellitus without complications; I10 Essential (primary) hypertension; E78.5 Hyperlipidemia, unspecified; Z79.899 Other long term (current) drug therapy; Z92.3 Personal history of irradiation
CPT/HCPCS: 70491; 71045; 80053; 84484; 85025; 93005; 96374; 99284; J1100; Q9967

== ENCOUNTER 2021-04-16 10:44 | Outpatient (CLI) | payer MEDICARE, OTHER, SELFPAY ==
[2021-04-16 11:45] LABS: Thyroid Stimulating Hormone 0.05 uIU/mL (0.27-4.20)
[2021-04-17 13:53] LABS: Thyroglobulin AB <1 IU/mL (< or = 1)
[2021-04-19 23:22] LABS: Thyroglobulin Level <0.4 ng/mL
== END 2021-04-16 10:45 | disposition home or self-care (01) ==
LOC: LAB 10:51
PROVIDERS: PCP Family Medicine; Visit Provider Internal Medicine
DX: C73 Malignant neoplasm of thyroid gland (principal); R20.0 Anesthesia of skin
CPT/HCPCS: 36415; 84432; 84439; 84443; 86800

== ENCOUNTER 2021-04-27 11:59 | Inpatient (IN) | payer MEDICARE, OTHER, SELFPAY ==
[2021-04-27] VITALS (7 sets, daily range): BP systolic 114–139; BP diastolic 83–87; PULSE 61–99; RESP 12–24; TEMP 36.9; O2SAT 90–98; BMI 15.3
--- NOTE | 2021-04-27 12:19 | ED_ITS ---
HPI - Weakness General: Chief complaint: ER Hold Stated complaint: Weakness Time Seen by Provider: 04/27/21 12:19 History of Present Illness: HPI Narrative: Ms. Patterson is a 70-year-old lady with history of thyroid cancer status post surgical resection and radiation currently on oral chemotherapy as well as radiation-induced fibrosis/lung disease who presents to the emergency department due to generalized symptoms. She has had weakness for a number of months now however it is worsened over the past week. Symptoms are generalized. She reports difficulty tolerating p.o. intake secondary to soreness of her throat this is been ongoing. Mild occasional productive cough. She denies focal infectious symptoms otherwise. Overall the course of symptoms is worsening. Intensity is moderate to severe. She reports history of vitamin deficiency. No other specific changes in health, exacerbating, or relieving factors identified. Complaint: generalized weakness Onset (ago): week(s) Duration: constant and progressively worsening Location: generalized Severity: moderate (to severe) Relieving factors: none Exacerbating factors: exertion Associated symptoms: Denies chest pain or chills Review of Systems General: Reports: 10 or more systems reviewed and unremarkable except in HPI and below Const: Denies: chills Card: Denies: chest pain PFSH ED PFSH: Medical History YOLANDA (acute kidney injury) DM type 2 (diabetes mellitus, type 2) GERD (gastroesophageal reflux disease) HTN (hypertension) Hyperlipidemia IBS (irritable bowel syndrome) Lung nodules Pneumonia Pulmonary nodule less than 1 cm in diameter with moderate to high risk for malignant neoplasm Rhinosinusitis Thyroid cancer Surgical History (Updated 05/03/21 @ 13:51 by Danny Vides MD) History of bladder suspension procedure History of cholecystectomy History of hysterectomy History of intestinal surgery History of salpingo-oophorectomy History of thyroid surgery Hx of tonsillectomy S/P percutaneous endoscopic gastrostomy (PEG) tube placement (05/03/21) Family History Unknown Hypertension Diabetes Social History Smoking and tobacco status: never smoked Second hand smoke exposure: No Smoking risk assessment/counseling performed?: No Alcohol intake: never Counseling given: No Counseling given: No Lives independently: Yes Household members: spouse Marital status: History of recent travel: No Current gender identity: Female Physical Exam Const: COMMON NORMALS: alert GENERAL APPEARANCE: cooperative, ill appearing (Chronically. Patient is nontoxic.) and frail appearing NUTRITIONAL APPEARANCE: underweight HENMT: COMMON NORMALS: normocephalic and atraumatic HEAD & SCALP: normocephalic and atraumatic THROAT: posterior oropharynx normal and uvula midline Eye: COMMON NORMALS: conjunctivae normal CONJUNCTIVA: Yes conjunctivae normal SCLERA: sclerae normal Neck/C-Spine: COMMON NORMALS: supple GENERAL: Yes trachea midline OTHER: well healed Resp: COMMON NORMALS: clear to auscultation bilaterally EFFORT & INSPECT ION: Yes able to speak in complete sentences, Yes tachypneic and No uses accessory muscles AUSCULTATION: clear to auscultation bilaterally OTHER: Transmitted upper airway noises. No stridor. Cardio: COMMON NORMALS: regular rate and regular rhythm RATE: regular rate RHYTHM: regular rhythm GI: COMMON NORMALS: Soft to palpation PALPATION: Yes Soft to palpation and No Tenderness to palpation present (GI) Extremity: GENERAL: Yes normal exam except as noted and No edema Neuro: COMMON NORMALS: moves all extremities SENSORIUM/ORIENTATION: Yes alert and No Orientation impaired Psych: COMMON NORMALS: mental status grossly normal and Normal thought process present THOUGHT PROCESS: Normal thought process present Course ED course: - Patient was seen and evaluated by me at bedside - Patient placed on cardiac monitors, IV access obtained - Initial evaluation notable for frail, underweight, chronically ill. - Initially fluids ordered for symptom treatment however not administered prior to results of CMP, rate adjusted from bolus to drip. - Labs notable for leukocytosis which is mild and in the context of hemoconcentration difficult to interpret. Given chemotherapy I will obtain blood cultures. Metabolic panel notable for hyponatremia and hypochloremia. Given degree of hyponatremia this is likely explanation for patient's symptoms. - Imaging notable for chronic changes, possible pneumothorax noted on shoulder x-ray though likely appears chronic per radiology report. Patient's trauma from fall a few days ago was minor, additionally patient denies worsening chest pain or respiratory status. - Upon serial reexamination after treatment the patient was similar. Given upper airway noises I will give breathing treatment and Decadron as the patient likely has chronic narrowing that clinically appears mildly worse, no evidence of impending airway compromise. - Based on patient history, evaluation, labs, and imaging as interpreted the most likely cause of the patient's condition is symptomatic hyponatremia causing weakness. - The results of ED evaluation were discussed with the patient including plan for admission due to requirement for level of care not available if discharged to prevent significant worsening/deterioration. - Hospitalist service contacted and agreed admit the patient. After discussion drip will be placed at 50 mL/hour given degree of likely dehydration correlating with hyponatremia to avoid rapid correction, will be titrated by admitting physician based on serial testing. - Patient was admitted without further deterioration or significant events. Note: Click bubbles or prepopulated calles in note writing are used for assistance with data collection and billing and are inherently more limited than narrative and other text portions of this note. Please use narrative for additional clinical history and defer to narrative/free test for any case of contradictory information. If information appears in only free text or click bubble it should be considered present or absent as reported. Please contact note check writer salesperson for clarifications of clinical information or contradictory information. MDM is a brief summary, contradictory or erroneous seeming information should be clarified and full note should be referred to in cases of contradiction or lack of clarity. Vital Signs: Vital signs: Vital Signs Temperature 98.8 F 05/05/21 14:00 Pulse Rate 87 05/05/21 16:00 Respiratory Rate 21 H 05/05/21 16:00 Blood Pressure 117/75 05/05/21 16:00 Pulse Oximetry 100 05/05/21 16:00 MDM - Weakness MDM Narrative: Medical decision making narrative: 70-year-old lady with complex history including thyroid cancer currently on oral chemotherapy presenting with generalized symptoms. Found to have fairly profound hyponatremia at 113. Did have downtrending value in the middle of March. Baseline is near normal or low end of normal. Given this significant change and correlated generalized symptoms including poor p.o. intake patient requires admission. Medical Records: Attestation: I reviewed the patient's medical records. Lab Data: Attestation: I reviewed the patient's lab results. Labs: Lab Results 04/27/21 04/27/21 04/27/21 13:30 13:30 13:30 WBC 13.5 10^3/uL H 10 ^3/uL (4.0-10.0) RBC 5.68 10^6/uL H 10 ^6/uL (4.1-5.3) Hgb 16.5 g/dL H g/dL (11.5-15.3) Hct 47.6 % H % (37.0-47.0) MCV 83.8 fl fl (81-99) MCH 29.0 pg pg (28.0-34.0) MCHC 34.7 g/dL g/dL (30.0-36.0) RDW 13.4 % % (12.1-15.1) Plt Count 187 10^3/cmm 10^3 /cmm (130-400) MPV 8.4 fL fL (7.4-10.4) Neut % (Auto) 92.9 % % Lymph % (Auto) 2.2 % % [place] % (Auto) 4.0 % % Eos % (Auto) 0.1 % % Baso % (Auto) 0.4 % % Neut # (Auto) 12.58 10^3/uL H 1 0^3/uL (1.8-7.7) Lymph # (Auto) 0.3 10^3/uL L 10^ 3/uL (0.8-4.8) [place] # (Auto) 0.5 10^3/uL 10^3/ uL (0.2-0.9) Eos # (Auto) 0.0 10^3/uL 10^3/ uL (0.0-0.8) Baso # (Auto) 0.1 10^3/uL 10^3/ uL (0.0-0.1) Nucleated RBC % (a uto) 0 % % Nucleated RBCs # 0.0 /100WBC /100W BC Sodium 113 mmol/L L* mmo l/L (136-145) Potassium 3.8 mmol/L mmol/L (3.5-5.1) Chloride 70 mmol/L L mmol/ L (98-107) Carbon Dioxide 27 mmol/L mmol/L (22-29) Anion Gap 19.8 H (5-19) BUN 11 mg/dL mg/dL (8-23) Creatinine 0.3 mg/dL L mg/dL (0.5-0.9) GFR Calculation 221.2 mL/min H mL /min (90-130) Glucose 210 mg/dL H mg/dL (65-115) Calculated Osmolal ity 242 mOsm/kg L mOs m/kg (285-295) Uric Acid 3.4 mg/dL mg/dL (2.4-5.7) Calcium 9.1 mg/dL mg/dL (8.5-10.5) Ionized Calcium Me as 1.1 mmol/L mmol/L (1.1-1.4) Magnesium 2.1 mg/dL mg/dL (1.7-2.3) Total Bilirubin 0.7 mg/dL mg/dL (0.15-1.2) AST 21 U/L U/L (0-32) ALT 24 U/L U/L (0-33) Alkaline Phosphata se 77 IU/L IU/L (35-105) Total Protein 7.0 g/dL g/dL (6.6-8.7) Albumin 4.3 g/dL g/dL (3.5-5.2) Globulin 2.7 g/dL g/dL (1.3-4.6) TSH 0.07 uIU/mL L uIU /mL (0.27-4.20) Free T4 2.52 ng/dL H ng/d L (0.82-1.77) EKG Data^: EKG 1: Attestation: I personally reviewed and interpreted this EKG as follows: EKG interpretation date: 04/27/21 EKG interpretation time: 18:45 Interpretation: Twelve-lead EKG shows a regular rhythm at a rate of 94. MD interval 140, QRS duration 89, QTc 400. Left axis deviation. Interpretation: Sinus rhythm. Discharge Plan Discharge Patient Disposition: Admitted As Inpatient Admit Provider: Negro Vasquez Clinical Impression: Dehydration with hyponatremia Condition: Stable Coding Level of Care Code ED Industrial Real Estate Agent for Chg Fwd Exam Comprehensive
--- NOTE | 2021-04-27 12:34 | XR_ITS ---
WS: [id number] Right shoulder, 3 views, 04/27/2021 Clinical Data: fall, pain Comparison: None. Findings: No fractures or dislocations are seen. The AC joint is normal. The adjacent right clavicle and ribs a re normal. The soft tissues are unremarkable. There is sclerosis of the neck and axillary border of t he scapula which may be from an old injury. There are clips in the soft tissue adjacent to the upper thoracic vertebral bodies. There is scarring in the right apex with a probable small chronic right apical pneumothorax. XR/XR shoulder RT min 2V* [id number] Impression: 1. Negative right shoulder. 2. Right apical scarring with probable chronic small right apical pneumothorax. 3. Sclerosis of the neck of the scapula and axillary border from old trauma.
--- NOTE | 2021-04-27 12:34 | XR_ITS ---
WS: [id number] Portable AP upright chest, 04/27/2021 Clinical Data: sob Comparison: Portable chest, 04/04/2021. Findings: No nodules, masses or effusions are seen. The heart is normal. The pulmonary vascularity is not increased. No pneumonia or pneumothorax is seen. There is scarring in the right upper lobe with clips adjacent to the upper thoracic and lower cervical spine. There are surgical clips in the left a xilla. Aortic arch and descending thoracic aorta show tortuosity. There is a calcified lymph node in the right tracheobronchial region. There are clips in the right upper quadrant from a cholecystectomy . XR/XR chest 1V portable [id number] Impression: 1. No change in right upper lobe scarring. 2. Atherosclerosis.
--- NOTE | 2021-04-27 13:12 | ECG_ITS ---
[facility] Test Date: 2021-04-27 Pat Name: Kylah Patterson Department: Room: Gender: Female Systems Security Analyst: : 1950 Requested By: Joe Alonzo Order Number: [id number] Otoniel MD: Yoly Dewitt M.D. Measurements Intervals Half Way Rate: 94 P: 80 OR: 140 QRS: -43 QRSD: 89 T: 71 QT: 348 QTc: 437 Interpretive Statements SINUS RHYTHM LEFT AXIS DEVIATION [QRS AXIS < -30] POSSIBLE RIGHT VENTRICULAR CONDUCTION DELAY [RSR (QR) IN V1/V2] Compared to ECG 04/04/2021 08:14:20 No significant changes Electronically Signed On 04-29-2021 8:36:28 USER INTERFACE ARTIST by Yoly Dewitt M.D. [id number]
[2021-04-27 13:34] LABS: Basophils # 0.1 10^3/uL (0.0-0.1); Basophils % 0.4 %; Eosinophils % 0.1 %; Hematocrit 47.6 % (37.0-47.0); Hemoglobin 16.5 g/dL (11.5-15.3); Lymphocytes # 0.3 10^3/uL (0.8-4.8); Lymphocytes % 2.2 %; Mean Corpuscular HGB Conc 34.7 g/dL (30.0-36.0); Mean Corpuscular Volume 83.8 fl (81-99); Mean Platelet Volume 8.4 fL (7.4-10.4); Monocytes # 0.5 10^3/uL (0.2-0.9); Neutrophils # 12.58 10^3/uL (1.8-7.7); Neutrophils % 92.9 %; Nucleated Red Blood Cells % 0 %; Platelet Count 187 10^3/cmm (130-400); Red Blood Count 5.68 10^6/uL (4.1-5.3); Red Cell Distribution Width 13.4 % (12.1-15.1); White Blood Count 13.5 10^3/uL (4.0-10.0)
[2021-04-27 14:09] LABS: Alanine Aminotransferase 24 U/L (0-33); Albumin Level 4.3 g/dL (3.5-5.2); Alkaline Phosphatase 77 IU/L (35-105); Anion Gap 19.8 (5-19); Aspartate Amino Transferase 21 U/L (0-32); Blood Urea Nitrogen 11 mg/dL (8-23); Calcium 9.1 mg/dL (8.5-10.5); Carbon Dioxide 27 mmol/L (22-29); Chloride 70 mmol/L (98-107); Free T4 Free Thyroxine 2.52 ng/dL (0.82-1.77); Globulin 2.7 g/dL (1.3-4.6); Glomerular Filtration Rate 221.2 mL/min (90-130); Glucose 210 mg/dL (65-115); Magnesium 2.1 mg/dL (1.7-2.3); Osmolality Calculated 242 mOsm/kg (285-295); Potassium 3.8 mmol/L (3.5-5.1); Thyroid Stimulating Hormone 0.07 uIU/mL (0.27-4.20); Total Bilirubin 0.7 mg/dL (0.15-1.2)
[2021-04-27 14:20] LABS: Sodium 113 mmol/L (136-145)
[2021-04-27 14:21] LABS: Ionized Calcium 1.1 mmol/L (1.1-1.4)
[2021-04-27] MEDS: ipratropium-albuterol 3 mL Neb INHALATION (14:29)
[2021-04-27] MEDS: dexamethasone 10 mg/mL INJ 6 MG IVP (15:15)
[2021-04-27] MEDS: sodium chloride 0.9% 1,000 ML 50 ML IV (15:18)
--- NOTE | 2021-04-27 16:14 | PM.HP ---
Providers/Chief Complaint Primary Care Provider: Jah Ortega DO Chief Complaint: Weakness History of Present Illness Pleasant 70-year-old lady with history of papillary thyroid cancer, status post excision, radiation therapy, following with surgery in [place], as well as here with Dr. Aguilar, had recently had pneumonia, as well as during recent appointment with Dr. Aguilar due to some ongoing stridor intermittently, dysphagia, asked to go back and see the surgeon in [place] again for consideration of additional reevaluation, perhaps even tracheostomy. She also has had issues with recurrent aspiration, he is on dysphagia diet with minced solids, thickened liquids. Presents due to persistent weakness. Has not been eating or drinking well, recently with no appetite. She also states because needs to be limiting sodium in his diet, she has been doing so as well. Her levothyroxine dose recently has been adjusted, and she is asked to take half the dose on Sundays. She states she normally ambulates carefully unassisted. Review of Systems Const: Reports: change in appetite and fatigue; Denies: fever(s), chills, body aches or malaise Eyes: Denies: change in vision or eye redness ENMT: Reports: other (Intermittent brief chronic stridor); Denies: throat pain, oral sores or ear or mastoid pain Card: Denies: chest pain, edema, pre-syncope or dyspnea on exertion Resp: Reports: non-productive cough and stridor; Denies: dyspnea, change in phlegm color or hemoptysis GI: Denies: abdominal pain, nausea, vomiting, diarrhea, constipation, hematochezia or melena : Denies: flank pain, urinary frequency or hematuria Musc: Denies: back pain, joint swelling or joint redness Skin/Breast: Denies: rash, sores or new lesions Neuro: Denies: headache(s), numbness in extremities, weakness in extremities, dizziness, confusion or seizure-like activity Endo: Denies: polyuria or polydipsia Erik/Lymph: Denies: easy bleeding or purpura All/Imm: Denies: urticaria, throat swelling or tongue swelling Medications/Allergies Home Medications Medication Instructions Recorded Confirmed Last Taken Type mecobalamin (vitamin B12) 1,000 1,000 mcg SUBLINGUAL DAILY 01/04/21 04/27/21 01/14/21 History mcg disintegrating tablet,sublingual acetaminophen 500 mg PO Q4H PRN 01/15/21 04/27/21 Unknown History lenvatinib 12 mg/day (4 mg x 3) 12 mg PO QAM 01/15/21 04/27/21 01/14/21 History capsule guaifenesin [Mucinex] 600 mg PO BID #60 tab 01/21/21 04/27/21 04/25/21 Rx modified lanolin [Lanolin (HPA)] 1 applic TOPICAL PRN PRN #7 g 01/21/21 04/27/21 Unknown Rx ipratropium 0.5 mg-albuterol 3 mg 3 ml INHALATION Q4H PRN #3 ml 03/08/21 04/27/21 Unknown Rx (2.5 mg base)/3 mL nebulization soln dexamethasone 4 mg PO DAILY #20 tab 04/04/21 04/27/21 04/26/21 Rx levothyroxine 125 mcg tablet See Rx Instructions .ROUTE .COMPLEX 04/16/21 04/27/21 04/27/21 07:30 History Probiotic 1 cap PO .UP TO BID 04/27/21 04/27/21 04/24/21 History Pulmicort 0.5 mg INHALATION BID PRN 04/27/21 04/27/21 Unknown History cyanocobalamin (vitamin B-12) 1 ml PO ONCE 04/27/21 04/27/21 04/27/21 History [Vitamin B-12] Allergies Allergy/AdvReac Type Severity Reaction Status Date / Time No Known Allergies Allergy Verified 04/27/21 12:53 PFSH Acute PFSH: Medical History YOLANDA (acute kidney injury) DM type 2 (diabetes mellitus, type 2) GERD (gastroesophageal reflux disease) HTN (hypertension) Hyperlipidemia IBS (irritable bowel syndrome) Lung nodules Thyroid cancer Surgical History History of bladder suspension procedure History of cholecystectomy History of hysterectomy History of intestinal surgery History of salpingo-oophorectomy History of thyroid surgery Hx of tonsillectomy Family History Unknown Hypertension Diabetes Social History (Updated 04/27/21 @ 16:17 by Negro Vasquez MD) Smoking and tobacco status: never smoked Second hand smoke exposure: No Smoking risk assessment/counseling performed?: No Alcohol intake: never Counseling given: No Counseling given: No Lives independently: Yes Household members: spouse Marital status: History of recent travel: No Current gender identity: Female Vitals/I&O/Wt Last Vital Signs Temp 98.5 F 04/27/21 12:13 Pulse 94 04/27/21 14:27 Resp 18 04/27/21 14:27 BP 114/87 04/27/21 12:42 Pulse Ox 90 04/27/21 14:27 Weight last 48 hrs Weight 33.112 kg Physical Exam Narrative: EXAM NARRATIVE: and daughter at bedside Const: COMMON NORMALS: no acute distress and patient oriented x3 GENERAL APPEARANCE: frail appearing HENMT: COMMON NORMALS: oropharynx normal OTHER: Occ upper resp wheeze/stridor Neck/C-Spine: COMMON NORMALS: no JVD Resp: COMMON NORMALS: normal respiratory effort and clear to auscultation bilaterally EFFORT & INSPECTION: Yes able to speak in complete sentences and Yes stridor AUSCULTATION: clear to auscultation bilaterally Cardio: COMMON NORMALS: no JVD, regular rhythm, S1 normal heart sound present, S2 normal heart sound present and No murmurs present (Cardio) RHYTHM: regular rhythm HEART SOUNDS: S1 normal heart sound present and S2 normal heart sound present GI: COMMON NORMALS: Normal to inspection, nondistended, normoactive bowel sounds present, Soft to palpation and non-tender PALPATION: Yes Soft to palpation Extremity: COMMON NORMALS: no joint enlargement and no pedal edema Neuro: COMMON NORMALS: patient oriented x3 and moves all extremities Skin: COMMON NORMALS: no rashes or lesions noted GENERAL SKIN EXAM: no rashes or lesions noted Data : 04/27/21 13:30 04/27/21 13:30 A&P Assessment and plan (1) Dehydration with hyponatremia: Severe acute on chronic hyponatremia. Poor oral intake, and also states has been following low-sodium diet because her is doing so for himself. Hypovolemic hyponatremia. Gentle IV hydration. Recheck sodium. Discussed with her not to limit sodium intake at home. Status: Acute (2) Dysphagia: Continue dysphagia level [address] [place] [address] liquids[address] evaluation. Recent aspiration pneumonia. In case of persistent/recurrent aspiration states would consider feeding tube if necessary. Status: Acute Qualifiers: Dysphagia type: pharyngoesophageal phase Qualified Code(s): R13.14 - Dysphagia, pharyngoesophageal phase Additional A&P Information Intermittent stridor: Has been going on for several months, followed up with ENT, is asked to follow-up with her surgeon in [place] to discuss further assessment, consideration of intervention, possibly even tracheostomy. She states she would leave the tracheostomy as an absolute last resort. Hypothyroidism levothyroxine dose recently adjusted by her rn travel, states was asked to take half dose of levothyroxine on Friday. On other days of 125 mcg. Generalized weakness, deconditioning: Multifactorial likely secondary to hyponatremia, poor oral intake, deconditioning we will also check COVID-19 PCR. PT, OT assessment. Papillary thyroid cancer status post excision, radiation therapy continues on [place] DM2: Not on any treatment currently HTN: Has been at goal without treatment HLD Attestations Medical Necessity Statement*: Admission of over 2 midnights is anticipated for assessment management of acute on chronic severe hyponatremia. Coding Level of Care Code Acute [employer] Operator for Chg Fwd Exam Comprehensive Diagnoses Dehydration with hyponatremia E86.0; E87.1 Dysphagia R13.14 Dysphagia type: pharyngoesophageal phase
[2021-04-27 17:03] LABS: Sodium 112 mmol/L (136-145)
[2021-04-27 20:00] LABS: Sodium 114 mmol/L (136-145)
[2021-04-27 20:09] LABS: Add Urine Microscopic? YES; Bilirubin Urine Neg (Negative); Blood Urine Neg (Negative); Glucose Urine UA 1+ (Normal); Ketones Urine 1+ (Negative); Leukocyte Esterase Urine 1+ (Negative); Nitrate Urine Negative (Negative); Protein Urine Neg (Negative); Specific Gravity, Urine 1.015 (1.005-1.030); Urine Color Yellow (Yellow); Urobilinogen Urine Norm (Negative); pH Urine 6.5 (5-7)
[2021-04-27 20:10] LABS: Add Urine Culture? No; Amorphous Sediment Urine 2+ /hpf; Bacteria Urine 4+ /hpf; RBC Urine 0-4 /hpf (0-2); Squamous Epithelial Cell Urine 15-25 /hpf (0-5); WBC Urine 25-40 /hpf (0-5)
[2021-04-27] MEDS: enoxaparin 30 mg/0.3 mL Syringe SUBCUT (21:10)
[2021-04-27] MEDS: budesonide 0.5 mg/2 mL Neb INHALATION (21:45)
[2021-04-27 21:51] LABS: Sodium 111 mmol/L (136-145)
[2021-04-27 22:41] LABS: Uric Acid 3.4 mg/dL (2.4-5.7)
[2021-04-27 22:44] LABS: Adenovirus Not Detected (NOT DETECT); Chlamydia Pneumoniae Not Detected (NOT DETECT); Coronavirus 229E,HKU1,NL63,OC4 Not Detected (NOT DETECT); Human Metapneumovirus Not Detected (NOT DETECT); Human Rhinovirus/Enterovirus Not Detected (NOT DETECT); Influenza A Not Detected (NOT DETECT); Influenza A H1 Not Detected (NOT DETECT); Influenza A H1-2009 Not Detected (NOT DETECT); Influenza A H3 Not Detected (NOT DETECT); Influenza B Not Detected (NOT DETECT); Mycoplasma Pneumoniae Not Detected (NOT DETECT); Parainfluenza Virus Type 1 Not Detected (NOT DETECT); Parainfluenza Virus Type 2 Not Detected (NOT DETECT); Parainfluenza Virus Type 3 Not Detected (NOT DETECT); Parainfluenza Virus Type 4 Not Detected (NOT DETECT); Respiratory Syncytial Virus A Not Detected (NOT DETECT); Respiratory Syncytial Virus B Not Detected (NOT DETECT); SARS-COV-2 Not Detected (NOT DETECT)
[2021-04-27] MEDS: guaiFENesin 100 mg/5 mL UDC 10 mL 600 MG PO (23:21)
[2021-04-27 23:36] LABS: Sodium 114 mmol/L (136-145)
[2021-04-28] VITALS (14 sets, daily range): BP systolic 129–181; BP diastolic 74–98; PULSE 68–101; RESP 14–18; TEMP 36.6; O2SAT 92–99
[2021-04-28] MEDS: racepinephrine 0.5 mL Neb INHALATION (02:42)
[2021-04-28 04:22] LABS: Basophils % 0.3 %; Hematocrit 35.8 % (37.0-47.0); Hemoglobin 12.4 g/dL (11.5-15.3); Lymphocytes # 0.3 10^3/uL (0.8-4.8); Mean Corpuscular HGB Conc 34.6 g/dL (30.0-36.0); Mean Corpuscular Hemoglobin 28.8 pg (28.0-34.0); Mean Corpuscular Volume 83.3 fl (81-99); Mean Platelet Volume 8.4 fL (7.4-10.4); Monocytes # 0.4 10^3/uL (0.2-0.9); Monocytes % 3.2 %; Neutrophils # 10.44 10^3/uL (1.8-7.7); Neutrophils % 93.2 %; Nucleated Red Blood Cells % 0 %; Platelet Count 138 10^3/cmm (130-400); Red Cell Distribution Width 13.2 % (12.1-15.1); White Blood Count 11.2 10^3/uL (4.0-10.0)
[2021-04-28 04:43] LABS: Alanine Aminotransferase 14 U/L (0-33); Alkaline Phosphatase 50 IU/L (35-105); Anion Gap 14.8 (5-19); Aspartate Amino Transferase 14 U/L (0-32); Blood Urea Nitrogen 6 mg/dL (8-23); Calcium 7.3 mg/dL (8.5-10.5); Carbon Dioxide 26 mmol/L (22-29); Chloride 80 mmol/L (98-107); Globulin 1.8 g/dL (1.3-4.6); Glomerular Filtration Rate 353.2 mL/min (90-130); Glucose 146 mg/dL (65-115); Osmolality Calculated 244 mOsm/kg (285-295); Potassium 3.8 mmol/L (3.5-5.1); Total Bilirubin 0.5 mg/dL (0.15-1.2); Total Protein 4.8 g/dL (6.6-8.7)
[2021-04-28 04:44] LABS: Sodium 117 mmol/L (136-145)
[2021-04-28 05:01] LABS: Creatinine Urine, Random 23 mg/dL (28-217); Urine Random Sodium 27 mmol/L
--- NOTE | 2021-04-28 07:01 | PC.NURSE ---
report given to paul
--- NOTE | 2021-04-28 07:17 | PC.NURSE ---
PT RESTING QUIETLY WITH EYES CLOSED IN BED. PT IS IN NAD.
[2021-04-28] MEDS: guaiFENesin 100 mg/5 mL UDC 10 mL 600 MG PO ×2 (08:29→21:45)
[2021-04-28] MEDS: levothyroxine 125 mcg Tablet PO (08:30)
[2021-04-28] MEDS: budesonide 0.5 mg/2 mL Neb INHALATION ×2 (08:52→19:20)
--- NOTE | 2021-04-28 10:20 | PC.NURSE ---
PT O2 VIA NC BECOME DISCONNECTED FROM WALL. O2 RECONNECTED SPO2 IS 92%. PT DENIES ANY FURTHER NEEDS.
[2021-04-28] MEDS: sodium chloride 0.9% 1,000 ML 50 ML IV (10:51)
[2021-04-28 12:25] LABS: Sodium 117 mmol/L (136-145)
[2021-04-28 13:46] LABS: Sodium 117 mmol/L (136-145)
[2021-04-28 16:40] LABS: Add Urine Microscopic? NO; Charge for UA Resulting for Rev
[2021-04-28 16:53] LABS: Bilirubin Urine Neg (Negative); Blood Urine Neg (Negative); Glucose Urine UA 1+ (Normal); Ketones Urine 1+ (Negative); Leukocyte Esterase Urine Negative (Negative); Nitrate Urine Negative (Negative); Protein Urine Neg (Negative); Specific Gravity, Urine 1.015 (1.005-1.030); Urine Appearance Clear (CLEAR); Urine Color Straw (Yellow); Urobilinogen Urine Norm (Negative); pH Urine 7 (5-7)
--- NOTE | 2021-04-28 17:49 | PC.NURSE ---
Critical Sodium of [address] Vasquez at 1546 by this RN. Orders were received at that time to stop continuous fluids. Fluids paused by this RN at 1550.
[2021-04-28 17:55] LABS: Sodium 117 mmol/L (136-145)
--- NOTE | 2021-04-28 17:55 | CTR_ITS ---
PROCEDURE INFORMATION: Exam: CT Chest Without Contrast; Diagnostic Exam date and time: 04/28/2021 5:55 PM Age: 70 years old Clinical indication: Cough and dyspnea; Prior surgery; Surgery date: 6+ months; Surgery type: Gb, thyroid; Patient HX: HX thyroid CA; Additional info: Siadh, history of lung pathology TECHNIQUE: Imaging protocol: Diagnostic computed tomography of the chest without contrast. Total images: 229 Radiation optimization: All CT scans at this facility use at least one of these dose optimization techniques: automated exposure control; mA and/or kV adjustment per patient size (includes targeted exams where dose is matched to clinical indication); or iterative reconstruction. COMPARISON: CT chest w con* [id number] 12/26/2020 12:11 PM RADIATION DOSE METRICS: Total DLP (mGy-cm): 276.62 FINDINGS: Thyroid: Status post thyroidectomy. Lungs: Small patches of ground-glass interstitial lung disease bilateral lower lobes consistent with active interstitial pneumonitis. Less significant involvement right middle lobe and lingula. Bilateral medial upper lobe radiation fibrosis stable. Stable parenchymal scar apex of the superior segment right lower lobe. Calcified granulomas of antecedent disease. Pleural spaces: Examination reveals a very tiny right apical pneumothorax. The pneumothorax measures only 6.9 mm in depth. Second tiny sliver of pneumothorax at the junction of the posterior margins of the right major and minor fissure near superior segment right lower lobe parenchymal scar. No visible pleural effusion. Heart: No cardiomegaly. No visible pericardial effusion. No visible significant coronary artery disease. Aorta: The thoracic aorta is nonaneurysmal. Minimal arterial sclerotic disease. Lymph nodes: No grossly visible active mediastinal or hilar lymphadenopathy although assessment of the hilum limited secondary due to the lack of intravenous contrast. Large calcified pretracheal complex of antecedent granulomatous disease. Bones/joints: No visible acute osseous abnormality. Osteopenia/osteoporosis. No visible osteolytic or osteoblastic destructive process. Degenerative disease and degenerative disc disease of the spine. Soft tissues: Cachexia. Other findings: Respiratory motion artifact limits detail assessment. CT/CT chest wo con [id number] IMPRESSION: 1. Examination reveals a very tiny right apical pneumothorax. The pneumothorax measures only 6.9 mm in depth. Second tiny sliver of pneumothorax at the junction of the posterior margins of the right major and minor fissure near superior segment right lower lobe parenchymal scar. 2. Small patches of ground-glass interstitial lung disease bilateral lung bases of active interstitial pneumonitis. 3. Other nonurgent, nonemergent, chronic, postoperative, and age related findings as detailed in text above.
--- NOTE | 2021-04-28 17:55 | PC.NURSE ---
Critical Na [address] Vasquez, order received to restart continuous fluids.
--- NOTE | 2021-04-28 18:01 | P.CONIM_ITS ---
Providers/Reason For Consult Consulting Physician/Specialty*: Nephrology Reason for Consult*: Hyponatremia Attending Physician: Negro Vasquez Primary Care Provider: Jah Ortega DO History of Present Illness History of Present Illness Thank for consultation, today had the pleasure reviewing a 70-year-old female for evaluation of hyponatremia. Chucky and Alexandria, family members in attendance. In April 2018 with [id number] stage III papillary thyroid carcinoma. She was treated with a total thyroidectomy and lymph node dissection (04/2018), followed by radioactive iodine ablation therapy (05/2018), and a bilateral neck dissection for bulky disease recurrence proving 8 positive lymph nodes throughout the bilateral neck. Ct scan performed in December was notable for radiation changes in the lung apices and upper mediastinum. Small amount of progressed pleural fluid and pleural thickening layering in the mid and upper lungs bilaterally. Postradiation changes with bronchovascular thickening about the mediastinum. Furthermore, a previously described 5 mm FDG avid pulmonary nodule inferior right major fissure medially is unchanged since August and September 2020. This was previously FDG avid suspicious for metastatic disease. There was also a tiny stable 2 mm noncalcified nodule left upper lobe. As an outpatient she is being treated with Lenvima as well as dexamethasone 4mg daily. She follows in [place] with Dr. Aguilar, recently was diagnosed with pneumonia, has issues with ongoing stridor, dysphagia. There was consideration for tracheostomy given recurrent aspiration. She is on a dysphagia diet with minced solids, thickened liquids. Last course of antibiotics ~ 2months ago. 1-2L of fluid/day, very little intake. Losing weight to the tune of 150 down to 75lbs. She presented with weakness. On arrival she was found to have urinalysis with a specific gravity 1.015 (series equivalent to osmolality 450, urine sodium of 27, serum sodium 113, which increased to 117 on gentle isotonic saline, however, subsequently dropped down to 105. It is noted that on 04/04/2021 his serum sodium was measured at 127. Her TSH yesterday was measured at 0.07 her free T4 yesterday was measured 2.52. Earlier in March, her free T4 was measured at 2.9 and she reduce the dose of levothyroxine. Chest x-ray performed yesterday demonstrates chronic right upper lobe scarring but no other acute new changes. Following hospitalization her blood pressures been elevated, last blood pressure measured 181/94 with a pulse of 96. No thiazide diuretics. No heart, liver or kidney disease. No swelling or edema. No anti-depressants, no opioids. Review of Systems Narrative: ROS - 12 point review of systems completed per HPI and subjective assessment, this includes Constitutional: Weakness, fatigue Respiratory: No SOB on exertion, comfortable at rest CardioVasc: No chest pain, palpitations Gastrointestinal: No nausea, no vomiting Neurological: No seizures, no AMS Derm: No new rashes, lesions or wounds Immunological: No seasonal and no food allergies Meds/Allergies Home Medications and Allergies Home Medications Medication Instructions Recorded Confirmed Last Taken Type mecobalamin (vitamin B12) 1,000 1,000 mcg SUBLINGUAL DAILY 01/04/21 04/27/21 01/14/21 History mcg disintegrating tablet,sublingual acetaminophen 500 mg PO Q4H PRN 01/15/21 04/27/21 Unknown History lenvatinib 12 mg/day (4 mg x 3) 12 mg PO QAM 01/15/21 04/27/21 01/14/21 History capsule guaifenesin [Mucinex] 600 mg PO BID #60 tab 01/21/21 04/27/21 04/25/21 Rx modified lanolin [Lanolin (HPA)] 1 applic TOPICAL PRN PRN #7 g 01/21/21 04/27/21 Unknown Rx ipratropium 0.5 mg-albuterol 3 mg 3 ml INHALATION Q4H PRN #3 ml 03/08/21 04/27/21 Unknown Rx (2.5 mg base)/3 mL nebulization soln dexamethasone 4 mg PO DAILY #20 tab 04/04/21 04/27/21 04/26/21 Rx levothyroxine 125 mcg tablet See Rx Instructions .ROUTE .COMPLEX 04/16/21 04/27/21 04/27/21 07:30 History Probiotic 1 cap PO .UP TO BID 04/27/21 04/27/21 04/24/21 History Pulmicort 0.5 mg INHALATION BID PRN 04/27/21 04/27/21 Unknown History cyanocobalamin (vitamin B-12) 1 ml PO ONCE 04/27/21 04/27/21 04/27/21 History [Vitamin B-12] Allergies Allergy/AdvReac Type Severity Reaction Status Date / Time No Known Allergies Allergy Verified 04/27/21 12:53 Current Medications Current Medications Generic Name Dose Route Start Last Admin Trade Name Freq PRN Reason Stop Dose Admin Budesonide 0.5 mg 04/27/21 20:00 04/28/21 08:52 Budesonide 0.5 Mg/2 Ml Neb INHALATION 0.5 mg BID.RESPIRATORY PHU Administration Enoxaparin Sodium 30 mg 04/27/21 20:00 04/27/21 21:10 Enoxaparin 30 Mg/0.3 Ml Syringe SUBCUT 30 mg Q24H PHU Administration Epinephrine 0.5 ml 04/28/21 02:37 04/28/21 02:42 Racepinephrine 0.5 Ml Neb INHALATION 0.5 ml Q4H.RESPIRATORY PRN Administration SHORTNESS OF BREATH Guaifenesin 600 mg 04/27/21 23:15 04/28/21 08:29 Guaifenesin 100 Mg/5 Ml Udc 10 Ml PO 600 mg BID PHU Administration Levothyroxine Sodium 125 mcg 04/28/21 08:00 04/28/21 08:30 Levothyroxine 125 Mcg Tablet PO 125 mcg [id number] PHU Administration PFSH Acute PFSH: Medical History YOLANDA (acute kidney injury) DM type 2 (diabetes mellitus, type 2) GERD (gastroesophageal reflux disease) HTN (hypertension) Hyperlipidemia IBS (irritable bowel syndrome) Lung nodules Thyroid cancer Surgical History History of bladder suspension procedure History of cholecystectomy History of hysterectomy History of intestinal surgery History of salpingo-oophorectomy History of thyroid surgery Hx of tonsillectomy Family History Unknown Hypertension Diabetes Social History (Updated 04/27/21 @ 16:17 by Negro Vasquez MD) Smoking and tobacco status: never smoked Second hand smoke exposure: No Smoking risk assessment/counseling performed?: No Alcohol intake: never Counseling given: No Counseling given: No Lives independently: Yes Household members: spouse Marital status: History of recent travel: No Current gender identity: Female Vitals/I&O/Wt Last Vital Signs Temp 98.5 F 04/27/21 12:13 Pulse 96 04/28/21 15:23 Resp 16 04/28/21 15:23 BP 181/94 04/28/21 11:00 Pulse Ox 97 04/28/21 15:23 04/28/21 04/28/21 04/28/21 06:59 14:59 22:59 Intake Total 977.5 / 977.5 249.167 / 1226.667 Balance 977.5 / 977.5 249.167 / 1226.667 Weight last 48 hrs Weight 33.112 kg Physical Exam Narrative: EXAM NARRATIVE: Constitutional: Awake, comfortable HEENT: Wet mucosa, no jvp, non icteric Lungs: Bilaterally clear without discernible wheeze or rales in all lung zones CVS: S1 S2, no murmurs Abdo: Soft, BS ok Ext 4: Minimal edema, peripheral perfusion with no cyanosis Neurological: Grossly non-focal Data Micro: Micro: Microbiology 04/27/21 16:33 Blood Culture - Pr eliminary Blood NEGATIVE TO JACI E 04/27/21 16:30 Blood Culture - Pr eliminary Blood NEGATIVE TO JACI E A&P Additional A&P Information 1. 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 Of note she was taking dexamethasone until the day of admission excluding adrenal insufficiency, also her blood pressure is elevated and she lacks other features i.e. she lacks type IV RTA. Free T4 elevated i.e. this is not hyponatremia either. She does have a history of lung pathology given the CT scans that she had back in December, and I am concerned that there is no new lung pathology that has now developed. This was not evident on the chest x-ray, however, we should get a CT scan of the lung without IV contrast. Consider imaging of the brain if this is unchanged. We will complete evaluation with osmolality of urine and blood, continue frequent sodium measures. Goal sodium will be roughly 123 tomorrow at lunchtime and roughly 130 on Friday at lunchtime. Stop IV hydration i.e. urine osmolality exceeds osmolality of normal saline and so normal saline will reduce serum sodium. We will give salt tablets and Lasix Continue to encourage protein intake and she should take an Ensure with meals We will give him Marinol to help stimulate appetite Continue outpatient dexamethasone 2. Hypertension Blood pressure is elevated following admission, will add Lasix and see how she responds to this therapy. She may need additional antihypertensives. 3. History of stage III papillary thyroid cancer Continue Lenvima and dexamethasone. Results of CT chest may be enlightening also. Will need oncology follow-up following discharge. All questions by family answered to their satisfaction Thank you for consultation, it is a pleasure to follow these cases with you Exam and interview performed with aid of bedside RN using telemedicine Time spent 20 min inc > 50% of time in face to face counseling Semaj Espinosa MD [facility] [phone] Coding Level of Care Code Acute Senior Strategy Analyst for Chg Parviz
--- NOTE | 2021-04-28 18:03 | PC.NURSE ---
Family notified of update in care, fluids not restarted, will speak with urology for further orders.
[2021-04-28] MEDS: dronabinol 2.5 mg Capsule 5 MG PO (18:12)
[2021-04-28] MEDS: FUROsemide 20 mg Tablet PO (18:19)
[2021-04-28] MEDS: sodium chloride 1 gm Tablet PO (18:21)
--- NOTE | 2021-04-28 19:05 | PC.NURSE ---
REPORT GIVEN TO [facility].
[2021-04-28] MEDS: dexamethasone 4 mg Tablet PO (20:31)
[2021-04-28] MEDS: enoxaparin 30 mg/0.3 mL Syringe SUBCUT (20:31)
--- NOTE | 2021-04-28 20:32 | PM.PN ---
Subjective Subjective: Interval history: Says he is doing all right, slightly better, but has some phlegm that she has been try to get up and having difficulty with. Discussed with her request for flutter valve and discussed how to use it. Vitals/I&O/Wt Last Vital Signs Temp 97.8 F 04/28/21 20:27 Pulse 75 04/28/21 20:27 Resp 16 04/28/21 20:27 BP 129/74 04/28/21 20:27 Pulse Ox 92 04/28/21 20:27 04/28/21 04/28/21 04/28/21 06:59 14:59 22:59 Intake Total 977.5 / 977.5 249.167 / 1226.667 Balance 977.5 / 977.5 249.167 / 1226.667 Weight last 48 hrs Weight 33.112 kg Physical Exam Narrative: EXAM NARRATIVE: and daughter at bedside Const: COMMON NORMALS: no acute distress and patient oriented x3 GENERAL APPEARANCE: frail appearing HENMT: COMMON NORMALS: oropharynx normal OTHER: Occ upper resp wheeze/stridor Neck/C-Spine: COMMON NORMALS: no JVD Resp: COMMON NORMALS: normal respiratory effort and clear to auscultation bilaterally EFFORT & INSPECTION: Yes able to speak in complete sentences and Yes stridor AUSCULTATION: clear to auscultation bilaterally Cardio: COMMON NORMALS: no JVD, regular rhythm, S1 normal heart sound present, S2 normal heart sound present and No murmurs present (Cardio) RHYTHM: regular rhythm HEART SOUNDS: S1 normal heart sound present and S2 normal heart sound present GI: COMMON NORMALS: Normal to inspection, nondistended, normoactive bowel sounds present, Soft to palpation and non-tender PALPATION: Yes Soft to palpation Extremity: COMMON NORMALS: no joint enlargement and no pedal edema Neuro: COMMON NORMALS: patient oriented x3 and moves all extremities Skin: COMMON NORMALS: no rashes or lesions noted GENERAL SKIN EXAM: no rashes or lesions noted Data : 04/28/21 04:04 04/28/21 19:38 Micro: Microbiology 04/27/21 16:33 Blood Culture - Preliminary Blood NEGATIVE TO DATE 04/27/21 16:30 Blood Culture - Preliminary Blood NEGATIVE TO DATE A&P Assessment and plan (1) Dehydration with hyponatremia: Difficult interpret sodium levels today, since this morning 117-117-117 every 2 hours, subsequent value 105 at 3:30 PM, then 117 again at 1717, now appears down again 106 at 7:30 PM. Discussed with the lab. They will try running on Colman analyzer to compare. We will also redraw additional sample to rerun. Continue monitor closely. Today also requested assistance with management with nephrology. Appreciate consultation. Severe acute on chronic hyponatremia. At home poor oral intake, and also states has been following low-sodium diet because her is doing so for himself. Status: Acute (2) Dysphagia: Continue dysphagia level 2 diet. [place] thick liquids. Appreciate ST evaluation. Assessed by MBS. As discussed with her and family, may have to consider feeding tube to reduce burden/risk of aspiration. N.p.o. for now except nectar thick sips, chips, meds. Repeat chest x-ray. Status: Acute Qualifiers: Dysphagia type: pharyngoesophageal phase Qualified Code(s): R13.14 - Dysphagia, pharyngoesophageal phase Additional A&P Information Intermittent stridor: Has been going on for several months, followed up with ENT, is asked to follow-up with her surgeon in [place] to discuss further assessment, consideration of intervention, possibly even tracheostomy. She states she would leave the tracheostomy as an absolute last resort. Hypothyroidism levothyroxine dose recently adjusted by her carton filling machine operator, states was asked to take half dose of levothyroxine on Friday. On other days of 125 mcg. Generalized weakness, deconditioning: Multifactorial likely secondary to hyponatremia, negative COVID-19 PCR. PT, OT assessment. Papillary thyroid cancer status post excision, radiation therapy continues on Lenvima DM2: Not on any treatment currently HTN: Has been at goal without treatment HLD Attestations Medical Necessity Statement*: Continue admission for assessment management of severe hyponatremia, dysphagia, generalized weakness. Coding Level of Care Code Acute Mathematical Technician for Chg Fwd Diagnoses Dehydration with hyponatremia E86.0; E87.1 Dysphagia R13.14 Dysphagia type: pharyngoesophageal phase
[2021-04-28 20:56] LABS: Sodium 115 mmol/L (136-145)
[2021-04-28 21:10] LABS: Sodium 114 mmol/L (136-145)
[2021-04-28 21:19] LABS: Sodium 116 mmol/L (136-145)
[2021-04-28 23:17] LABS: Sodium 114 mmol/L (136-145)
[2021-04-29] VITALS (34 sets, daily range): BP systolic 96–149; BP diastolic 50–100; PULSE 70–114; RESP 14–24; TEMP 36.4–36.5; O2SAT 90–100
--- NOTE | 2021-04-29 06:00 | XRR_ITS ---
PROCEDURE INFORMATION: Exam: XR Chest Exam date and time: 04/29/2021 6:00 AM Age: 70 years old Clinical indication: Dyspnea; Additional info: Hypoxia TECHNIQUE: Imaging protocol: XR of the chest. Views: 1 view. COMPARISON: CT chest con [id number] 04/28/2021 7:20 PM FINDINGS: Tubes, catheters and devices: Stable surgical clips over the left axilla. Lungs: Stable COPD . Mild left retrocardiac pneumonia. Pleural spaces: Unremarkable. No pleural effusion. No pneumothorax. Heart/Mediastinum: Unremarkable. No cardiomegaly. Bones/joints: Unremarkable. Organs: Stable cholecystectomy. Other findings: Stable surgical clips in the thyroid bed most consistent with bilateral thyroidectomy. XR/XR chest 1V portable [id number] IMPRESSION: 1. Stable COPD . 2. Mild left retrocardiac pneumonia.
--- NOTE | 2021-04-29 07:01 | PC.NURSE ---
report given to carol
--- NOTE | 2021-04-29 07:05 | P.PN_ITS ---
Subjective Subjective: Interval history: weak, difficulty eating, drinks water. per [id number] at baseline MS Medications: Reviewed: Yes Medication Review Details: Current Medications Acetaminophen (Acetaminophen 325 Mg Tablet) 650 mg PO Q6H PRN PRN Reason: Mild/Mod Pain Or Temp >/= 101 Albuterol/Ipratropium (Ipratropium-Albuterol 3 Ml Neb) 3 ml INHALATION Q4H.RESPIRATORY PRN PRN Reason: shortness of breath or wheezing Budesonide (Budesonide 0.5 Mg/2 Ml Neb) 0.5 mg INHALATION BID.RESPIRATORY [facility] Last Admin: 04/28/21 19:20 Dose: 0.5 mg Documented by: Dexamethasone (Dexamethasone 4 Mg Tablet) 4 mg PO DAILY [facility] Last Admin: 04/28/21 20:31 Dose: 4 mg Documented by: Dronabinol (Dronabinol 2.5 Mg Capsule) 5 mg PO BIDAC [facility] Last Admin: 04/28/21 18:12 Dose: 5 mg Documented by: Enoxaparin Sodium (Enoxaparin 30 Mg/0.3 Ml Syringe) 30 mg SUBCUT Q24H [facility] Last Admin: 04/28/21 20:31 Dose: 30 mg Documented by: Epinephrine (Racepinephrine 0.5 Ml Neb) 0.5 ml INHALATION Q4H.RESPIRATORY PRN PRN Reason: SHORTNESS OF BREATH Last Admin: 04/28/21 02:42 Dose: 0.5 ml Documented by: Guaifenesin (Guaifenesin 100 Mg/5 Ml Udc 10 Ml) 600 mg PO BID [facility] Last Admin: 04/28/21 21:45 Dose: 600 mg Documented by: Sodium Chloride (Sodium Chloride 0.9%) 1,000 mls @ 100 mls/hr IV .Q10H [facility] Lanolin (Lanolin Oint 7 Gm) 1 applic TOPICAL PRN PRN PRN Reason: Dryness Levothyroxine Sodium (Levothyroxine 125 Mcg Tablet) 125 mcg PO MoTuWeThFrSa [facility] Last Admin: 04/28/21 08:30 Dose: 125 mcg Documented by: Levothyroxine Sodium (Levothyroxine 125 Mcg Tablet) 62.5 mcg PO Harper [facility] Non-Formulary Medication (Lenvatinib [Lenvima]) 12 mg PO QAM [facility] Sodium Chloride (Sodium Chloride 1 Gm Tablet) 1 gm PO BID [facility] Last Admin: 04/28/21 19:04 Dose: Not Given Documented by: Vitals/I&O/Wt Last Vital Signs Temp 97.8 F 04/28/21 20:27 Pulse 70 04/29/21 06:09 Resp 16 04/29/21 06:09 BP 148/93 04/29/21 06:09 Pulse Ox 96 04/29/21 06:09 04/28/21 04/29/21 04/29/21 22:59 06:59 14:59 Intake Total 249.167 / 1226.667 Balance 249.167 / 1226.667 Weight last 48 hrs Weight 33.112 kg Physical Exam Narrative: EXAM NARRATIVE: vs noted thin, appears older than stated age, NARD in bed heent- nc/at, eomi, anicteric neck supple lungs clear b/l heart reg, no rub abd soft, nt, nd, + bs ext no edema neuro- a,a, interactive Data : 04/28/21 04:04 04/28/21 22:52 Micro: Microbiology 04/27/21 16:33 Blood Culture - Preliminary Blood NEGATIVE TO DATE 04/27/21 16:30 Blood Culture - Preliminary Blood NEGATIVE TO DATE A&P Additional A&P Information 70 yr old female [id number] stage III papillary thyroid cancer s/p thyroidectomy, and lymph node dissection (04/2018), followed by radioactive iodine ablation therapy (05/2018), and a bilateral neck dissection for bulky disease recurrence proving 8 positive lymph nodes throughout the bilateral neck. Ct scan performed in December was notable for radiation changes in the lung apices and upper mediastinum. Small amount of progressed pleural fluid and pleural thickening layering in the mid and upper lungs bilaterally. Postradiation changes with bronchovascular thickening about the mediastinum. Furthermore, a previously described 5 mm FDG avid pulmonary nodule inferior right major fissure medially is unchanged since August and September 2020. This was previously FDG avid suspicious for metastatic disease. There was also a tiny stable 2 mm noncalcified nodule left upper lobe. As an outpatient she is being treated with Lenvima as well as dexamethasone 4mg daily. 1. hyponatremia- low ur na- likely volume depletion on SIADH. na alyson from 112 to 117 now 114 -stop lasix -free water restrict -ns ivf -monitor chem 7 q 6 hrs -likely also some degree of SIADH- monitor na seen and examined w/ rN- telehealth visist time spent 30 minutes Attestations Medical Necessity Statement*: hyponatremia Time Spent in Patient Care: 16 - 35 minutes Coding Level of Care Code Acute Analytical Chemistry Teacher for Omid Jj
[2021-04-29] MEDS: sodium chloride 0.9% 1,000 ML 100 ML IV (07:40)
[2021-04-29] MEDS: levothyroxine 125 mcg Tablet 62.5 MCG PO (08:01)
[2021-04-29] MEDS: guaiFENesin 100 mg/5 mL UDC 10 mL 600 MG PO ×2 (08:02→18:25)
[2021-04-29] MEDS: dronabinol 2.5 mg Capsule 5 MG PO ×2 (08:02→17:36)
[2021-04-29] MEDS: dexamethasone 4 mg Tablet PO (08:02)
[2021-04-29 08:21] LABS: Basophils # 0.1 10^3/uL (0.0-0.1); Basophils % 0.7 %; Eosinophils # 0.2 10^3/uL (0.0-0.8); Eosinophils % 3.1 %; Hematocrit 41.9 % (37.0-47.0); Hemoglobin 14.5 g/dL (11.5-15.3); Lymphocytes # 0.2 10^3/uL (0.8-4.8); Lymphocytes % 2.1 %; Mean Corpuscular HGB Conc 34.6 g/dL (30.0-36.0); Mean Corpuscular Hemoglobin 29.3 pg (28.0-34.0); Mean Corpuscular Volume 84.6 fl (81-99); Mean Platelet Volume 8.4 fL (7.4-10.4); Monocytes # 0.3 10^3/uL (0.2-0.9); Monocytes % 3.7 %; Neutrophils % 90.1 %; Nucleated Red Blood Cells % 0 %; Platelet Count 157 10^3/cmm (130-400); Red Blood Count 4.95 10^6/uL (4.1-5.3); Red Cell Distribution Width 13.5 % (12.1-15.1)
[2021-04-29 08:42] LABS: Alanine Aminotransferase 14 U/L (0-33); Albumin Level 3.3 g/dL (3.5-5.2); Alkaline Phosphatase 64 IU/L (35-105); Anion Gap 17.4 (5-19); Aspartate Amino Transferase 14 U/L (0-32); Blood Urea Nitrogen 6 mg/dL (8-23); Calcium 8.6 mg/dL (8.5-10.5); Carbon Dioxide 27 mmol/L (22-29); Chloride 74 mmol/L (98-107); Globulin 2.7 g/dL (1.3-4.6); Glomerular Filtration Rate 221.2 mL/min (90-130); Glucose 151 mg/dL (65-115); Osmolality Calculated 241 mOsm/kg (285-295); Potassium 3.4 mmol/L (3.5-5.1); Total Bilirubin 0.4 mg/dL (0.15-1.2)
[2021-04-29 09:17] LABS: Sodium 115 mmol/L (136-145)
[2021-04-29] MEDS: sodium chloride 1 gm Tablet PO (09:34)
[2021-04-29] MEDS: sodium chlor 0.9% + KCl 40 mEq 40 MEQ/1,000 ML BAG 100 MEQ IV (11:52)
[2021-04-29 12:37] LABS: Anion Gap 18.4 (5-19); Blood Urea Nitrogen 6 mg/dL (8-23); Calcium 8.9 mg/dL (8.5-10.5); Carbon Dioxide 26 mmol/L (22-29); Chloride 79 mmol/L (98-107); Glomerular Filtration Rate 353.2 mL/min (90-130); Glucose 137 mg/dL (65-115); Osmolality Calculated 250 mOsm/kg (285-295); Potassium 3.4 mmol/L (3.5-5.1); Sodium 120 mmol/L (136-145)
[2021-04-29] MEDS: ipratropium-albuterol 3 mL Neb INHALATION ×2 (13:54→19:11)
--- NOTE | 2021-04-29 15:32 | P.PN_ITS ---
Subjective Subjective: Interval history: States she got a breathing treatment, felt better afterwards. Overall doing perhaps slightly better. She and family would like to resume oral intake for now. Discussed concern for aspiration with all consistencies and the requested MBS. As MBS will not be available today, they are requesting to restart diet currently, understand the risk of aspiration, proceeding with MBS tomorrow. Otherwise patient family state that discussed regarding feeding tube, and she is agreeable to proceed once she is ready to to reduce burden of aspiration. Discussed findings of patches of groundglass interstitial lung disease in bases, discussed consideration of possible also acute on chronic pneumonitis, cannot exclude possible pneumonia. Discussed minute pneumothorax noted on shoulder x-ray initially incidentally, which was reported as chronic, although I am not really finding it reported previously, and they are not aware of chronic problem. This was present again on CT last night, but it appears to be resolved this morning on repeat x-ray. Vitals/I&O/Wt Last Vital Signs Temp 97.8 F 04/28/21 20:27 Pulse 104 H 04/29/21 14:03 Resp 16 04/29/21 14:03 BP 145/80 04/29/21 13:00 Pulse Ox 100 04/29/21 14:03 Physical Exam Narrative: EXAM NARRATIVE: and daughter at bedside Const: COMMON NORMALS: no acute distress and patient oriented x3 GENERAL APPEARANCE: frail appearing HENMT: COMMON NORMALS: oropharynx normal OTHER: Occ upper resp wheeze/stridor Neck/C-Spine: COMMON NORMALS: no JVD Resp: COMMON NORMALS: normal respiratory effort and clear to auscultation bilaterally EFFORT & INSPECTION: Yes able to speak in complete sentences and Yes stridor AUSCULTATION: clear to auscultation bilaterally Cardio: COMMON NORMALS: no JVD, regular rhythm, S1 normal heart sound present, S2 normal heart sound present and No murmurs present (Cardio) RHYTHM: regular rhythm HEART SOUNDS: S1 normal heart sound present and S2 normal heart sound present GI: COMMON NORMALS: Normal to inspection, nondistended, normoactive bowel sounds present, Soft to palpation and non-tender PALPATION: Yes Soft to palpation Extremity: COMMON NORMALS: no joint enlargement and no pedal edema Neuro: COMMON NORMALS: patient oriented x3 and moves all extremities Skin: COMMON NORMALS: no rashes or lesions noted GENERAL SKIN EXAM: no rashes or lesions noted Data : 04/29/21 08:13 04/29/21 12:16 Micro: Microbiology 04/27/21 16:33 Blood Culture - Preliminary Blood NEGATIVE TO DATE 04/27/21 16:30 Blood Culture - Preliminary Blood NEGATIVE TO DATE A&P Assessment and plan (1) Dehydration with hyponatremia: Worsening of sodium this morning. Restarted again on IV fluid. Patient responding with sodium increased to 120. Decrease IVF rate. Continue fluid restriction. Appreciate nephrology recommendations. Lasix stopped. As discussed with family given cannot exclude also superimposed acute infection on chronic interstitial lung disease likely secondary to chronic aspiration, additionally will add antibiotic coverage. Difficult interpret sodium levels today, since this morning 117-117-117 every 2 hours, subsequent value 105 at 3:30 PM, then 117 again at 1717, now appears down again 106 at 7:30 PM. Discussed with the lab. They will try running on Boswell analyzer to compare. We will also redraw additional sample to rerun. Continue monitor closely. Today also requested assistance with management with nephrology. Appreciate consultation. Severe acute on chronic hyponatremia. At home poor oral intake, and also states has been following low-sodium diet because her is doing so for himself. Status: Acute (2) Dysphagia: Discussed concern regarding wet vocal quality with all consistencies intermittently. They state they had previously discussed PEG tube, she was not wanting it at that time, but during recent discussion she is agreeable. Discussed we will additionally assessed by MBS to see if we are able to find additional measures that may help reduce chance of aspiration, but otherwise would likely proceed with feeding tube placement once her severe metabolic abnormalities are under better control and pneumothorax remains resolved. For now they request to continue dysphagia level 2 diet. [place] thick liquids. Add Ensure. Status: Acute Qualifiers: Dysphagia type: pharyngoesophageal phase Qualified Code(s): R13.14 - Dysphagia, pharyngoesophageal phase (3) Pneumothorax: Small pneumothorax incidentally noted on shoulder x-ray on admission. Currently appears resolved on x-ray this morning. Follow-up additional x-ray tomorrow and will follow up 1 prior to discharge. Status: Acute Additional A&P Information Intermittent stridor: Has been going on for several months, followed up with ENT, is asked to follow-up with her surgeon in [place] to discuss further assessment, consideration of intervention, possibly even tracheostomy. She states she would leave the tracheostomy as an absolute last resort. Hypothyroidism levothyroxine dose recently adjusted by her heel nail rasper, states was asked to take half dose of levothyroxine on Friday. On other days of 125 mcg. Generalized weakness, deconditioning: Multifactorial likely secondary to hyponatremia, negative COVID-19 PCR. PT, OT assessment. Papillary thyroid cancer status post excision, radiation therapy continues on Lenvima DM2: Not on any treatment currently HTN: Has been at goal without treatment HLD Attestations Medical Necessity Statement*: Continue admission for assessment and management of improving severe hyponatremia, further assessment of dysphagia with high risk of aspiration, reassessment of pneumothorax. Coding Level of Care Code Acute Level Glass Forming Machine Operator for Chg Fwd Diagnoses Dehydration with hyponatremia E86.0; E87.1 Dysphagia R13.14 Dysphagia type: pharyngoesophageal phase Pneumothorax J93.9
[2021-04-29] MEDS: cefTRIAXone 1,000 MG in sodium chloride 0.9% (plus) 50 ML 100 MG IV (17:21)
--- NOTE | 2021-04-29 17:24 | PC.PT ---
Patient still not in room today, being transferred up here shortly, will evaluate in a.m.
[2021-04-29] MEDS: potassium chloride ER 20 mEq Tablet PO (17:33)
[2021-04-29] MEDS: azithromycin 500 MG in sodium chloride 0.9% 250 ML 250 MG IV (18:26)
[2021-04-29 18:42] LABS: Anion Gap 15.6 (5-19); Blood Urea Nitrogen 8 mg/dL (8-23); Carbon Dioxide 26 mmol/L (22-29); Chloride 83 mmol/L (98-107); Glomerular Filtration Rate 221.2 mL/min (90-130); Glucose 320 mg/dL (65-115); Osmolality Calculated 263 mOsm/kg (285-295); Potassium 3.6 mmol/L (3.5-5.1); Sodium 121 mmol/L (136-145)
--- NOTE | 2021-04-29 19:06 | PC.NURSE ---
Dr. Vasquez approved 1 family member to stay at bedside at night
[2021-04-29] MEDS: budesonide 0.5 mg/2 mL Neb INHALATION (19:11)
[2021-04-29] MEDS: enoxaparin 30 mg/0.3 mL Syringe SUBCUT (20:11)
[2021-04-29] MEDS: sodium chlor 0.9% + KCl 20 mEq 20 MEQ/1,000 ML BAG 75 MEQ IV (20:11)
--- NOTE | 2021-04-29 21:06 | PC.NURSE ---
i reported high pulse 106 to nurse
[2021-04-30] VITALS (59 sets, daily range): BP systolic 95–179; BP diastolic 63–134; PULSE 80–131; RESP 12–39; TEMP 36.1–37; O2SAT 87–100
[2021-04-30 00:47] LABS: Blood Urea Nitrogen 7 mg/dL (8-23); Calcium 8.1 mg/dL (8.5-10.5); Carbon Dioxide 28 mmol/L (22-29); Chloride 87 mmol/L (98-107); Glomerular Filtration Rate 353.2 mL/min (90-130); Glucose 168 mg/dL (65-115); Osmolality Calculated 258 mOsm/kg (285-295); Sodium 123 mmol/L (136-145)
[2021-04-30] MEDS: racepinephrine 0.5 mL Neb INHALATION ×2 (01:00→04:54)
[2021-04-30] MEDS: ipratropium-albuterol 3 mL Neb INHALATION ×5 (01:00→20:10)
[2021-04-30 01:26] LABS: ABG PCO2 51.5 mmHg (35-45); ABG PH Result 7.39 (7.35-7.45); Arterial Blood Gas Hematocrit 40.2 % (37-47); Blood Gas Sample Site Radial, left; Blood Gas Sample Type Arterial; HCO3 ABG 31.2 mmol/L (22-26); Oxygen Device OXY MASK; PO2 ABG 77.6 mmHg (80.0-100.0)
[2021-04-30 01:56] LABS: Procalcitonin 0.17 ng/mL (0-0.5)
[2021-04-30 02:06] LABS: NT Pro B Type Natriuretic Pept 680 pg/mL (0-125)
--- NOTE | 2021-04-30 02:09 | PM.EVENT ---
Event Note Event Note: Called with patient's stridor being worse and her oxygen requirements being up. She was finally able to get a bed outside of the ED today. She transferred up there around 7 PM. She has had increased difficulty breathing since then and the stridor has gradually gotten worse. Her stridor is chronic to a degree from radiation and surgery associated changes from her history of thyroid cancer. Respiratory therapy had given her a DuoNeb and racemic epi without clinical improvement in the stridor itself. She had been on 2 L by nasal cannula and at the time I was called was up to 10 L via oxygen flow mask. ABG was requested and showed 7.38/51/77 on 10 L. I originally ordered a 1 mg dose of IV morphine and a stat chest x-ray but upon my arrival to the room, patient was actually breathing much more comfortably. She had only intermittent musical stridor. Oxygen saturations were up to 100% on the 10 L. Respiratory rate was improved. No retractions noted. Mouth breathing. On physical exam lungs were clear when she was not having stridor. No crepitus. Family denied any difficulty eating when meals were resumed today. No vomiting. Patient declined the morphine because she says in the past of it had caused her to have increased difficulty breathing. I ended up canceling the chest x-ray. Another chest x-ray is ordered for the morning. I am also can order a blood gas later this morning. Reviewed with the daughter the increased PCO2 and low PO2 on the ABG in terms that I think she understood. We talked about side effects of increasing CO2 including decreased level of responsiveness and potential options such as BiPAP. For now we can hold off on such considerations. Swallow study is ordered for in the morning already. Racemic epi I think finally kicked in. She is on dexamethasone daily and has the duo nebs and racemic epi as needed on profile. She is also on scheduled Pulmicort twice a day but it was last given around 7 PM. I am going to change it to every 12 hours dosing as that may help. Patient and daughter as well as nursing staff were all given an opportunity to ask questions and were in agreement with plan of care at the time I left the room. Event Notes Attestations Time Spent in Patient Care: 16 - 35 minutes 20 minutes reviewing history, medications, labs/images & notes, discussing with nurse and daughter, examining patient and placing orders.
[2021-04-30 05:09] LABS: Blood Gas Sample Site Radial, left; Blood Gas Sample Type Arterial
[2021-04-30 05:10] LABS: Oxygen Device OXY MASK
[2021-04-30 05:18] LABS: ABG PCO2 56.9 mmHg (35-45); ABG PH Result 7.34 (7.35-7.45); Arterial Blood Gas Hematocrit 42.4 % (37-47); Base Excess ABG 3.1 mmol/L (-2.0-2.0); HCO3 ABG 30.4 mmol/L (22-26); PO2 ABG 62.5 mmHg (80.0-100.0)
--- NOTE | 2021-04-30 06:00 | XR_ITS ---
WS: [id number] XR chest 1V portable [id number] REASON FOR EXAM: Hypoxia FINDINGS: Compared to the examination of 04/29/2021, increasing patchy lung opacities in both lower lung calles. No other interval change or new finding. XR/XR chest 1V portable [id number] IMPRESSION: Increasing lung opacities compatible with acute pneumonitis.
--- NOTE | 2021-04-30 06:00 | ECG_ITS ---
[facility] Test Date: 2021-04-30 Pat Name: Kylah Patterson Department: Room: [facility] Gender: Female Desizing Pad Operator: : 1950 Requested By: Azalia Hall Order Number: [id number] Otoniel MD: Yoly Dewitt M.D. Measurements Intervals [place] Rate: 126 P: 61 VT: 112 QRS: -30 QRSD: 72 T: 52 QT: 294 QTc: 427 Interpretive Statements SINUS TACHYCARDIA WITH SHORT VT INTERVAL POSSIBLE ANTERIOR MYOCARDIAL INFARCTION , OF INDETERMINATE AGE [30 ms Q WAVE IN V3/V4, OR R < 0.2 mV IN V4] Compared to ECG 04/27/2021 18:39:42 Short VT interval now present Myocardial infarct finding now present Sinus rhythm no longer present Left-axis deviation no longer present Electronically Signed On 05-01-2021 5:17:12 [employer] by Yoly Dewitt M.D. [id number]
[2021-04-30 06:09] LABS: Basophils # 0.1 10^3/uL (0.0-0.1); Basophils % 0.9 %; Hematocrit 39.4 % (37.0-47.0); Lymphocytes # 0.1 10^3/uL (0.8-4.8); Lymphocytes % 1.2 %; Mean Corpuscular Hemoglobin 29.1 pg (28.0-34.0); Mean Corpuscular Volume 88.3 fl (81-99); Mean Platelet Volume 8.7 fL (7.4-10.4); Monocytes # 0.1 10^3/uL (0.2-0.9); Monocytes % 1.8 %; Neutrophils # 6.52 10^3/uL (1.8-7.7); Neutrophils % 95.2 %; Nucleated Red Blood Cells % 0 %; Platelet Count 143 10^3/cmm (130-400); Red Blood Count 4.46 10^6/uL (4.1-5.3); Red Cell Distribution Width 14.3 % (12.1-15.1); White Blood Count 6.8 10^3/uL (4.0-10.0)
--- NOTE | 2021-04-30 06:09 | PC.NURSE ---
Stridor noted at 0430. Pts BP also elevated. MD made aware. Chest xray ordered, ABGs and lab work done. MD order to transfer pt to ICU. Daughter at bedside. Pt transferred to ICU at 0600.
--- NOTE | 2021-04-30 06:16 | PC.NURSE ---
Pt noted to have stridor 0055. RT called to administer breathing tx. Dr. Hall made aware. Oxygen requirement now up to 10L from 5L oxymask. Pt able to wean down to 6L Oxygen at 95%. Will continue to monitor. Daughter at bedside.
[2021-04-30] MEDS: dexamethasone 4 mg/mL INJ IVP (06:17)
--- NOTE | 2021-04-30 06:21 | PC.NURSE ---
Patient arrived to ICU from [facility] at approximately 0610. Patient has rhonchi noted to right lower lobe. Chronic stidor heard near trachea. Currently on bipap
--- NOTE | 2021-04-30 06:27 | P.PNCC_ITS ---
Critical Care Event Note The high probability of a clinically significant, sudden or life threatening deterioration of the patient's pulmonary system(s) required my full and direct attention, intervention and personal management. The critical care time is as shown. This time is in addition to time spent performing any reported procedures but includes the following: [x] Data and vital sign review and interpretation [x] Patient assessment, examination and intervention [x] Documentation [x] Medication orders and management Patient had been doing better with decreased oxygen requirements but then later in the morning became more dyspneic and again was requiring higher liter flow of oxygen. Morning ABG showed 7.34/56.9/62.5. I had chest x-ray that have been ordered for 6 AM done earlier. It showed right-sided opacity with effusion as well as some left-sided scattered opacities. I am concerned about aspiration but also pulmonary edema. Procalcitonin is 0.17. BNP is 680. I have put her on Zosyn to add more anaerobic coverage and stop Rocephin currently. Held all oral medications and replaced oral levothyroxine with IV levothyroxine at half dosing and changed oral dexamethasone to IV dexamethasone. Giving 1 dose of Lasix IV now. Ensured morning laboratory studies were collected prior to Lasix administration to assist with overall sodium management guidance. Additional blood culture was collected. I have also sent repeat COVID testing. She was negative on the seventh. With worsening respiratory status, chest x-ray and patient may more difficult to arouse, have transferred her to the ICU as she is at high risk of rapid clinical decline. CODE STATUS was discussed with family available and she would not want prolonged intubation and mechanical ventilation but short-term to help her recover from an acute event would be acceptable to her. I have not had a chance to review her cancer and other history in enough detail to say current situation is not reversible in the short-term. After transfer to the ICU, patient was placed on BiPAP 12/8 and initially up to 100% FiO2. FiO2 was down to 60% with saturations in the mid 90s. Patient was waking up a bit more in terms of she would open her eyes. Williamson catheter was placed for close monitoring of urine output under the circumstances. Case was d iscussed with oncoming nurse and signout provided for oncoming attending physician. I did also review with nephrology at the time of transferring patient to the ICU. Critical Care Time Critical Care Time: Code activated: No Critical Care Time (min): 48 Coding Level of Care Code Acute Cooky Packer for Omid Jj
[2021-04-30] MEDS: FUROsemide 10 mg/mL SDV 2mL 20 MG IVP (06:30)
[2021-04-30 06:41] LABS: Alanine Aminotransferase 12 U/L (0-33); Albumin Level 2.8 g/dL (3.5-5.2); Alkaline Phosphatase 67 IU/L (35-105); Anion Gap 17.2 (5-19); Aspartate Amino Transferase 14 U/L (0-32); Blood Urea Nitrogen 6 mg/dL (8-23); Calcium 8.9 mg/dL (8.5-10.5); Carbon Dioxide 25 mmol/L (22-29); Chloride 88 mmol/L (98-107); Globulin 2.8 g/dL (1.3-4.6); Glomerular Filtration Rate 353.2 mL/min (90-130); Glucose 172 mg/dL (65-115); Osmolality Calculated 264 mOsm/kg (285-295); Potassium 4.2 mmol/L (3.5-5.1); Sodium 126 mmol/L (136-145); Total Bilirubin 0.3 mg/dL (0.15-1.2); Total Protein 5.6 g/dL (6.6-8.7)
--- NOTE | 2021-04-30 06:45 | PM.PN ---
Subjective Subjective: Interval history: overnight na improved. pt became sob and had stridor. developed pleural effusions . now on bipap in ICU. weak. Medications: Reviewed: Yes Medication Review Details: Current Medications Acetaminophen (Acetaminophen 325 Mg Tablet) 650 mg PO Q6H PRN PRN Reason: Mild/Mod Pain Or Temp >/= 101 Albuterol/Ipratropium (Ipratropium-Albuterol 3 Ml Neb) 3 ml INHALATION Q4H.RESPIRATORY PRN PRN Reason: shortness of breath or wheezing Last Admin: 04/30/21 04:54 Dose: 3 ml Documented by: Budesonide (Budesonide 0.5 Mg/2 Ml Neb) 0.5 mg INHALATION Q12H PHU Dexamethasone (Dexamethasone 4 Mg/Ml Inj) 4 mg IVP Q24H PHU Enoxaparin Sodium (Enoxaparin 30 Mg/0.3 Ml Syringe) 30 mg SUBCUT Q24H PHU Last Admin: 04/29/21 20:11 Dose: 30 mg Documented by: Epinephrine (Racepinephrine 0.5 Ml Neb) 0.5 ml INHALATION Q4H.RESPIRATORY PRN PRN Reason: SHORTNESS OF BREATH Last Admin: 04/30/21 04:54 Dose: 0.5 ml Documented by: Azithromycin 500 mg/ Sodium (Chloride) 250 mls @ 250 mls/hr IV Q24H PHU; Protocol Last Titration: 04/29/21 20:06 Dose: Infused Documented by: Piperacillin Sod/Tazobactam (Sod 3.375 gm/ Sodium Chloride) 50 mls @ 12.5 mls/hr IV Q8H [facility]; Protocol Lanolin (Lanolin Oint 7 Gm) 1 applic TOPICAL PRN PRN PRN Reason: Dryness Levothyroxine Sodium (Levothyroxine 100 Mcg Sdv) 62.5 mcg IVP DAILY PHU Pantoprazole Sodium (Pantoprazole 40 Mg Sdv) 40 mg IVP DAILY [facility] Vitals/I&O/Wt Last Vital Signs Temp 98.3 F 04/30/21 06:18 Pulse 111 H 04/30/21 06:18 Resp 22 H 04/30/21 06:18 BP 116/71 04/30/21 06:18 Pulse Ox 96 04/30/21 06:18 04/29/21 04/29/21 04/30/21 14:59 22:59 06:59 Intake Total 2540.000 / 2540.000 Balance 2540.000 / 2540.000 Physical Exam Narrative: EXAM NARRATIVE: vs noted thin, appears older than stated age, SOB and resp distress in bed heent- nc/at, eomi, anicteric neck supple lungs left clear, rt dull base and wheezes heart reg, tachycardic no rub abd soft, nt, nd, + bs ext no edema neuro- awake, tired Urinary Catheter Management^: Williamson: Cath Placed During This Visit: yes Urinary Catheter Date of Insertion: 04/30/21 Urinary Catheter Time of Insertion: 06:32 Data : 04/29/21 08:13 04/30/21 05:42 A&P Additional A&P Information 70 yr old female [id number] stage III papillary thyroid cancer s/p thyroidectomy, and lymph node dissection (04/2018), followed by radioactive iodine ablation therapy (05/2018), and a bilateral neck dissection for bulky disease recurrence proving 8 positive lymph nodes throughout the bilateral neck. Ct scan performed in December was notable for radiation changes in the lung apices and upper mediastinum. Small amount of progressed pleural fluid and pleural thickening layering in the mid and upper lungs bilaterally. Postradiation changes with bronchovascular thickening about the mediastinum. Furthermore, a previously described 5 mm FDG avid pulmonary nodule inferior right major fissure medially is unchanged since August and September 2020. This was previously FDG avid suspicious for metastatic disease. There was also a tiny stable 2 mm noncalcified nodule left upper lobe. As an outpatient she is being treated with Lenvima as well as dexamethasone 4mg daily. 1. hyponatremia- low ur na- likely volume depletion on SIADH. na alyson from 112 to 117 now 114- overnight na went to 126 w/ ivf -agree w/ stopping ivf -lasix for SOB -free water restrict -monitor chem 7 q 6 hrs -likely also some degree of SIADH- monitor na 2. resp acidosis- agree w/ bipap and lasix 3. dm control per medicine 4. magnesium improved seen and examined w/ rN- telehealth visist discussed w/ Dr. Hall time spent 30 minutes Attestations Medical Necessity Statement*: sob, resp acidosis, hypoxemic, hyponatremia Time Spent in Patient Care: 16 - 35 minutes Coding Level of Care Code Acute Anchor Tack Puller for Chg Parviz
[2021-04-30 07:25] LABS: Slide Review Slide Review Perform
[2021-04-30 07:31] LABS: Lactic Sepsis W/Reflex 1.4 mmol/L (0.5-2.2)
[2021-04-30 07:43] LABS: C Reactive Protein 359.6 mg/L (0.0-4.9)
[2021-04-30] MEDS: levothyroxine 100 mcg SDV 62.5 MCG IVP (08:09)
[2021-04-30] MEDS: piperacillin-tazobactam 3.375 GM in sodium chloride 0.9% (plus) 50 ML IV ×3 (08:10→22:51)
[2021-04-30] MEDS: pantoprazole 40 mg SDV IVP (08:10)
[2021-04-30] MEDS: budesonide 0.5 mg/2 mL Neb INHALATION ×2 (08:48→20:10)
--- NOTE | 2021-04-30 09:07 | USCV_ITS ---
Kylah Patterson Age: 70 Gender: F : 1950 Exam Date: 04/30/2021 09:50 Ordering Phys: Paulie Magaña MD Technologist: TRACI [place] [facility]ication: CHEST PAIN BP: 116 / 78 HR: 107 Rhythm: Sinus Technical Quality: Adequate MEASUREMENTS (Male / Female) Normal Values 2D ECHO LV Diastolic Diameter PLAX 2.3 cm 4.2 - 5.9 / 3.9 - 5.3 cm LV Systolic Diameter PLAX 1.6 cm LV Chamber Size 2.0 cm IVS Diastolic Thickness 1.1 cm 0.6 - 1.0 / 0.6 - 0.9 cm IVS Systolic Thickness 1.2 cm LVPW Diastolic Thickness 1.2 cm 0.6 - 1.0 / 0.6 - 0.9 cm LVPW Systolic Thickness 1.2 cm RV Chamber Size 3.0 cm LVOT Diameter 2.0 cm LV Ejection Fraction 2D Teich 61.2 % LV Ejection Fraction MOD 2C 67.9 % LV Ejection Fraction 2C AL 67.6 % LA Diameter 1.5 cm LA Width 2.3 cm LA Height 2.7 cm RA Width 2.6 cm RA Height 2.6 cm Aorta at Sinotubular Diameter 2.5 cm M-MODE Aortic Annulus Diameter 3.4 cm LA Ao Ratio MM 0.6 MV E Point Septal Separation 0.2 cm DOPPLER AV Peak Velocity 248.7 cm/s LVOT Peak Velocity 214.7 cm/s AV Area Cont Eq vti 2.6 cm squared AV Area Cont Eq pk 2.7 cm squared MV Area PHT 5.5 cm squared Mitral E to A Ratio 0.6 MV E' Velocity 39.0 cm/s Mitral E to MV E' Ratio 11.1 Mitral E to LV E' Lateral Ratio 11.8 Mitral E to LV E' Septal Ratio 10.4 TR Peak Velocity 237.5 cm/s TR Peak Gradient 22.6 mmHg TR Mean Velocity 173.7 cm/s TR Mean Gradient 14.1 mmHg TR Velocity Time Integral 50.5 cm TV Peak E Velocity 100.0 cm/s Right Atrial Pressure 3.0 mmHg Pulmonary Artery Systolic Pressu 25.6 mmHg PV Peak Velocity 93.0 cm/s RV Acceleration Time 0.1 s RV Ejection Time 0.3 s RV AcT/ET 0.5 FINDINGS Left Ventricle Normal left ventricular size. LV systolic function is normal with EF of 60-65%. No regional wall motion abnormalities. Grade 1 diastolic dysfunction Right Ventricle The right ventricle is normal in size and function. Right Atrium The right atrium is normal in size. Left Atrium The left atrium is normal in size. Mitral Valve Structurally normal mitral valve without significant stenosis or prolapse. There is no mitral regurgitation. Aortic Valve Aortic valve is thickened. Mild aortic stenosis with mean gradient across the aortic valve of 13.5mm Hg. There is no aortic regurgitation. Tricuspid Valve Structurally normal tricuspid valve without significant stenosis. Mild tricuspid regurgitation. Pulmonary artery systolic pressure is normal. Pulmonic Valve Structurally normal pulmonic valve without significant stenosis. There is no pulmonic regurgitation. Pericardium Normal pericardium without effusion. Aorta Normal ascending aorta dimension. CONCLUSIONS LV systolic function is normal with EF of 60-65% Grade 1 diastolic dysfunction Aortic valve is thickened. Mild aortic stenosis No comparison studies are avaiable Richard Unger MD (Electronically Signed) Final Date: 30 April 2021 17:00 S
--- NOTE | 2021-04-30 09:29 | PC.CHAP ---
Pastoral Care Encounter/Spiritual Assessment Type of Contact [] Declined supply chain vice president visit [] Patient/Family/Request visit [] Outpatient visit [] Follow-up visit [] Physician referral [] Code/Alert [x] Routine visit [] Staff referral [] Actively dying [] Patient sleeping [] Family support [] [] Out of room [] Palliative care [] [] Receiving care in room [] Pre-surgical visit [] Trauma [] Long length of stay [x] ICU visit [x] Other: isolated Relational/Emotional Strength [] Patient feels connected with others/family/visitors/staff [] Distress [] Loneliness/isolation [] Abandonment Spirituality of Patient [] Person of Unique [] Attends Restorationist of their Unique [] Believes in Prayer [] Reads Bible or Worship materials [] There are Spiritual issues to be addressed Farm Truck Driver Interventions [x] Prayer [] Active listening [] Non-anxious presence [] Spiritual/emotional support [] Crisis/trauma care [] Spiritual counseling [] Bereavement support [] Provided bereavement packet [] Provided Bible/devotional materials [] Provided toy/stuffed animal, coloring book to patient or family member [] Provided Communion [] Anointing/Royal [] Salvation [x] Completed spiritual assessment [] Other: Impact on Illness or Injury [] Angry [] Fearful [] Anxious [] Often cries [] Exhaustion [] Unable to work [] Unable to attend restorationist [] Unable to walk/stand [] Unable to read [] Unable to drive [] Unable to eat/drink [] Unable to sleep [] Unable to be with family [] Patient intubated [] Other: Summary Time spent with patient
--- NOTE | 2021-04-30 09:56 | PC.SOCIAL ---
IMM updatd IMM dated and initialed and copy placed in chart. and copy placed in pts room
[2021-04-30 10:41] LABS: D Dimer 1.74 ug/mIFEU (0-0.59)
[2021-04-30 10:44] LABS: Sodium 128 mmol/L (136-145)
[2021-04-30 10:55] LABS: Adenovirus Not Detected (NOT DETECT); Chlamydia Pneumoniae Not Detected (NOT DETECT); Coronavirus 229E,HKU1,NL63,OC4 Not Detected (NOT DETECT); Human Metapneumovirus Not Detected (NOT DETECT); Human Rhinovirus/Enterovirus Not Detected (NOT DETECT); Influenza A Not Detected (NOT DETECT); Influenza A H1 Not Detected (NOT DETECT); Influenza A H1-2009 Not Detected (NOT DETECT); Influenza A H3 Not Detected (NOT DETECT); Influenza B Not Detected (NOT DETECT); Mycoplasma Pneumoniae Not Detected (NOT DETECT); Parainfluenza Virus Type 1 Not Detected (NOT DETECT); Parainfluenza Virus Type 2 Not Detected (NOT DETECT); Parainfluenza Virus Type 3 Not Detected (NOT DETECT); Parainfluenza Virus Type 4 Not Detected (NOT DETECT); Respiratory Syncytial Virus A Not Detected (NOT DETECT); Respiratory Syncytial Virus B Not Detected (NOT DETECT); SARS-COV-2 Not Detected (NOT DETECT)
[2021-04-30] MEDS: ondansetron 2 mg/ML SDV 2 mL 4 MG IVP (12:02)
--- NOTE | 2021-04-30 15:56 | P.PN_ITS ---
Subjective Subjective: Interval history: Hospital course, labs appreciated. Overnight patient went into respiratory distress for which she was transferred to ICU and placed on BiPAP. Today morning seen with family at bedside. Patient is awake but drowsy on BiPAP. Denies any nausea vomiting, headache. Patient denies any pain. We discussed with patient and patient's family at bedside that going forward most likely she will need tracheostomy and possible PEG tube placement for further management given high chances of vocal cord paralysis. Patient's and patient's family state that they have been recommended the same by their outpatient ENT physician Dr. Aguilar. Patient verbalizes understanding and states she is okay with trach, PEG, intubation if needed. Medications: Reviewed: Yes Vitals/I&O/Wt Last Vital Signs Temp 98.3 F 04/30/21 06:18 Pulse 114 H 04/30/21 14:50 Resp 22 H 04/30/21 14:04 BP 135/81 04/30/21 13:00 Pulse Ox 96 04/30/21 14:50 04/30/21 04/30/21 04/30/21 06:59 14:59 22:59 Intake Total 50 / 50 Output Total 725 / 725 Balance -675 / -675 Physical Exam Narrative: EXAM NARRATIVE: General: No acute distress, AO x3, on BiPAP, drowsy HEENT: PERRLA, pupils bilaterally equal and reactive Chest: Bilateral normal vesicular breath sounds, coarse crackles in rhonchi present in the right lower zone, stridor present CVS: S1-S2 regular, no murmurs, no tachycardia, no gallops, no rubs Abdomen: Soft, nontender, no organomegaly, bowel sounds present Neuro: No focal deficits, no facial deformity, AO x3, power 5/5 in all limbs Urinary Catheter Management^: Williamson: Cath Placed During This Visit: yes Urinary Catheter Date of Insertion: 04/30/21 Urinary Catheter Time of Insertion: 06:32 Data : 04/30/21 05:42 04/30/21 10:14 Micro: Microbiology 04/30/21 05:42 Blood Culture - Preliminary Blood SPECIMEN COLLECTED A&P Assessment and plan (1) Acute respiratory failure with hypoxia and hypercapnia: Most likely a combination of stridor secondary to 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 Most likely patient would need possible intubation and tracheostomy going forward. Will consult ENT and Dr. Dick from pulmonology for further recommendations. Case discussed with Dr. Aguilar who is patient's outpatient ENT. Unfortunately he is not available so discussed case with on-call Dr. Linda who has agreed to see the patient. CT neck with contrast along with CT chest with contrast. Stop Decadron switch to methylprednisolone 40 mg every 12 hourly. Continue with BiPAP ventilation for now. Repeat ABG in noon. Sputum culture, MRSA swab. For now continue with Zosyn. MRSA swab 4 months ago negative. 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 Baseline sodium around 138. Improving to 126. Appreciate nephrology consultation. Check BMP every 6 hours. Fluid restriction up to 1200 cc. Start on oral salt tablets 3 times daily. 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 Awaiting colonoscopy MBS study. Delayed currently from overnight respiratory distress. Patient and patient's family okay with PEG tube placement if needed. N.p.o. for now. Status: Acute Qualifiers: Dysphagia type: pharyngoesophageal phase Qualified Code(s): R13.14 - Dysphagia, pharyngoesophageal phase (6) Pneumothorax: Small pneumothorax incidentally noted on shoulder x-ray on admission. Currently appears resolved on x-ray this morning. Follow-up additional x-ray tomorrow and will follow up 1 prior to discharge. Status: Acute Additional A&P Information Hypothyroidism levothyroxine dose recently adjusted by her contact lens assistant, states was asked to take half dose of levothyroxine on Friday. On other days of 125 mcg. Generalized weakness, deconditioning: Multifactorial likely secondary to hyponatremia, negative COVID-19 PCR. PT, OT assessment. Papillary thyroid cancer status post excision, radiation therapy continues on Lenvima DM2: Not on any treatment currently HTN: Has been at goal without treatment HLD CODE STATUS: Discussed in detail with the patient. Full code. NPO. Protonix OPD prophylaxis. Lovenox for DVT prophylaxis. Attestations Medical Necessity Statement*: Requires further hospitalization for management of acute hypoxic and hypercapnic respiratory failure secondary to aspiration pneumonia, stridor in a patient with bilateral vocal cord paralysis post thyroidectomy and radiation for thyroid cancer, hyponatremia Critical Care Time: The high probability of a clinically significant, sudden or life threatening deterioration of the patient's [respiratory, ENT] system(s) required my full and direct attention, intervention and personal management. The critical care time is as shown. This time is in addition to time spent performing any reported procedures but includes the following: [x] Data and vital sign review and interpretation [x] Patient assessment, examination and intervention [x] Documentation [x] Medication orders and management Critical Care Time (min): 90 Coding Level of Care Code Acute Chicken Stuffer for g Fwd Diagnoses Acute respiratory failure with hypoxia and hypercapnia J96.01; J96.02 Aspiration pneumonia J69.0 Stridor R06.1 Dehydration with hyponatremia E86.0; E87.1 Dysphagia R13.14 Dysphagia type: pharyngoesophageal phase Pneumothorax J93.9
--- NOTE | 2021-04-30 15:59 | PC.OT ---
Unable to see due to patient going for CT scan.
[2021-04-30] MEDS: midazolam 1 mg/mL INJ 2 mL 4 MG IVP (16:50)
--- NOTE | 2021-04-30 16:58 | PM.CONSULT ---
Providers/Reason For Consult Consulting Physician/Specialty*: Pulmonary and critical care medicine Reason for Consult*: Acute hypoxic respiratory failure Attending Physician: Paulie Magaña MD Primary Care Provider: Jah Ortega DO History of Present Illness History of Present Illness Kylah Patterson is a 70 year old female well-known to me from her previous office visit. I have previously seen her in the office for Th2 high asthma. The patient is a lifelong non-smoker. She was diagnosed with papillary thyroid cancer and has undergone multiple surgical and radiation therapy. The patient has stage III thyroid cancer. Pulmonary function test: Her pulmonary function test from January 2020 revealed an FEV1 FVC ratio of 86% with FEV1 of 1.49 L which is 81% of predicted and forced vital capacity of 1.73 L which is 74% of predicted. Her total lung capacity 115% and residual volume of 165%. Her DLCO was 80%. Her flow volume loop is consistent with variable inspiratory airflow obstruction. Chest radiology: CT scan of the chest in December 2020 revealed changes consistent with radiation in the bilateral lung apices as well as pleural changes. The patient has a stable 5 mm FDG positive lung nodule in the right major fissure that has remained stable since August 2020. The nodule appears to be in the minor fissure and could be a lymph node. The patient presented to the hospital on April 27 with hyponatremia which is better controlled. CT scan of the chest in the hospital revealed evidence of bronchiolitis in the left lower lobe likely secondary to aspiration. The patient had been suffering from stridor since she came in. However her requirement had gotten progressively worse and last night the patient was brought down to ICU and started on BiPAP. I have seen and examined the patient in the ICU today. The patient appears tired. She has audible stridor and she has developed worsening hypercapnia on arterial blood gas. I had a conversation with the patient, her and her other family members. Given her history of previous thyroid surgery, vocal cord paralysis, the decision was made to preemptively intubate the patient for a tracheostomy procedure in the near future. Review of Systems Narrative: The review of system is limited. The patient complained of shortness of breath. Meds/Allergies Home Medications and Allergies Home Medications Medication Instructions Recorded Confirmed Last Taken Type mecobalamin (vitamin B12) 1,000 1,000 mcg SUBLINGUAL DAILY 01/04/21 04/27/21 01/14/21 History mcg disintegrating tablet,sublingual acetaminophen 500 mg PO Q4H PRN 01/15/21 04/27/21 Unknown History lenvatinib 12 mg/day (4 mg x 3) 12 mg PO QAM 01/15/21 04/27/21 01/14/21 History capsule guaifenesin [Mucinex] 600 mg PO BID #60 tab 01/21/21 04/27/21 04/25/21 Rx modified lanolin [Lanolin (HPA)] 1 applic TOPICAL PRN PRN #7 g 01/21/21 04/27/21 Unknown Rx ipratropium 0.5 mg-albuterol 3 mg 3 ml INHALATION Q4H PRN #3 ml 03/08/21 04/27/21 Unknown Rx (2.5 mg base)/3 mL nebulization soln dexamethasone 4 mg PO DAILY #20 tab 04/04/21 04/27/21 04/26/21 Rx levothyroxine 125 mcg tablet See Rx Instructions .ROUTE .COMPLEX 04/16/21 04/27/21 04/27/21 07:30 History Probiotic 1 cap PO .UP TO BID 04/27/21 04/27/21 04/24/21 History Pulmicort 0.5 mg INHALATION BID PRN 04/27/21 04/27/21 Unknown History cyanocobalamin (vitamin B-12) 1 ml PO ONCE 04/27/21 04/27/21 04/27/21 History [Vitamin B-12] Allergies Allergy/AdvReac Type Severity Reaction Status Date / Time No Known Allergies Allergy Verified 04/27/21 12:53 Current Medications Current Medications Generic Name Dose Route Start Last Admin Trade Name Freq PRN Reason Stop Dose Admin Albuterol/Ipratropium 3 ml 04/30/21 09:06 04/30/21 14:04 Ipratropium-Albuterol 3 Ml Neb INHALATION 3 ml Q6H.RESPIRATORY PHU Administration Budesonide 0.5 mg 04/30/21 09:00 04/30/21 08:48 Budesonide 0.5 Mg/2 Ml Neb INHALATION 0.5 mg Q12H PHU Administration Enoxaparin Sodium 30 mg 04/27/21 20:00 04/29/21 20:11 Enoxaparin 30 Mg/0.3 Ml Syringe SUBCUT 30 mg Q24H PHU Administration Epinephrine 0.5 ml 04/28/21 02:37 04/30/21 04:54 Racepinephrine 0.5 Ml Neb INHALATION 0.5 ml Q4H.RESPIRATORY PRN Administration SHORTNESS OF BREATH Azithromycin 500 mg/ Sodium 250 mls @ 250 mls/hr 04/29/21 16:00 04/29/21 20:06 Chloride IV Infused Q24H PHU Infusion Protocol Piperacillin Sod/Tazobactam 50 mls @ 12.5 mls/hr 04/30/21 07:00 04/30/21 14:09 Sod 3.375 gm/ Sodium Chloride IV 12.5 mls/hr Q8H PHU Administration Protocol Levothyroxine Sodium 62.5 mcg 04/30/21 09:00 04/30/21 08:09 Levothyroxine 100 Mcg Sdv IVP 62.5 mcg DAILY PHU Administration Methylprednisolone Sodium Succinate 40 mg 04/30/21 13:30 04/30/21 14:09 Methylprednisolone Sod Succ 40 Mg/Ml Inj IVP 40 mg Q12H PHU Administration Ondansetron HCl 4 mg 04/30/21 11:10 04/30/21 12:02 Ondansetron 2 Mg/Ml Sdv 2 Ml IVP 4 mg Q6H PRN Administration NAUSEA AND VOMITING Pantoprazole Sodium 40 mg 04/30/21 09:00 04/30/21 08:10 Pantoprazole 40 Mg Sdv IVP 40 mg DAILY PHU Administration PFSH Acute PFSH: Medical History YOLANDA (acute kidney injury) DM type 2 (diabetes mellitus, type 2) GERD (gastroesophageal reflux disease) HTN (hypertension) Hyperlipidemia IBS (irritable bowel syndrome) Lung nodules Pneumonia Pulmonary nodule less than 1 cm in diameter with moderate to high risk for malignant neoplasm Rhinosinusitis Thyroid cancer Surgical History History of bladder suspension procedure History of cholecystectomy History of hysterectomy History of intestinal surgery History of salpingo-oophorectomy History of thyroid surgery Hx of tonsillectomy Family History Unknown Hypertension Diabetes Social History Smoking and tobacco status: never smoked Second hand smoke exposure: No Smoking risk assessment/counseling performed?: No Alcohol intake: never Counseling given: No Counseling given: No Lives independently: Yes Household members: spouse Marital status: History of recent travel: No Current gender identity: Female Vitals/I&O/Wt Last Vital Signs Temp 98.3 F 04/30/21 06:18 Pulse 114 H 04/30/21 14:50 Resp 22 H 04/30/21 14:04 BP 135/81 04/30/21 13:00 Pulse Ox 96 04/30/21 14:50 04/30/21 04/30/21 04/30/21 06:59 14:59 22:59 Intake Total 50 / 50 Output Total 725 / 725 Balance -675 / -675 Physical Exam Narrative: EXAM NARRATIVE: General: Patient is tired, arousable, follows commands and tries to answer simple questions Neck: No JVD Respiratory: Audible stridor, no wheezing or rhonchi Cardiovascular: Regular rate and rhythm, S1-S2 present, no murmur, no peripheral edema. Abdomen: Soft, nontender, nondistended, positive bowel sound Skin: No rash Neuro: Appears tired, able to follow simple commands, moves all extremities Urinary Catheter Management^: Williamson: Cath Placed During This Visit: yes Urinary Catheter Date of Insertion: 04/30/21 Urinary Catheter Time of Insertion: 06:32 Data Micro: Micro: Microbiology 04/30/21 05:42 Blood Culture - Pr eliminary Blood SPECIMEN COLLE KEVIN A&P Assessment and plan (1) Acute respiratory failure with hypoxia and hypercapnia: This is a 70-year-old lady with acute hypoxic and compensated hypercapnic respiratory failure. This is likely secondary to upper airway compromise in the setting of paralyzed vocal cords. The patient had undergone multiple thyroid surgeries and radiation due to papillary thyroid cancer which is likely responsible for the vocal cord paralysis. Given the patient's worsening mental status, progressive hypercapnia and audible stridor, after discussion with the family we have decided to proceed with intubation. The ENT team will evaluate the patient for tracheostomy. The possibility of tracheostomy was discussed with the patient and her family and they are all in agreement. The patient is likely suffering from ongoing microaspiration. The patient is on appropriate antibiotic. Status: Acute (2) Stridor: She is also receiving steroid. Status: Acute (3) Papillary thyroid carcinoma: The ENT team will evaluate the patient for possible tracheostomy. Status: Acute (4) Asthma: Patient is on nebulized therapy. Status: Acute Coding Level of Care Code Acute Sales/Marketing for [facility] Diagnoses Acute respiratory failure with hypoxia and hypercapnia J96.01; J96.02 Stridor R06.1 Papillary thyroid carcinoma C73 Asthma J45.909 Time Spent (min) 33
[2021-04-30 17:00] LABS: Sodium 129 mmol/L (136-145)
--- NOTE | 2021-04-30 17:00 | XRR_ITS ---
PROCEDURE INFORMATION: Exam: XR Chest Exam date and time: 04/30/2021 5:00 PM Age: 70 years old Clinical indication: Device placement; Ng tube; Additional info: Et/og TECHNIQUE: Imaging protocol: XR of the chest. Views: 1 view. COMPARISON: CR XR chest 1V portable [id number] 04/30/2021 5:26 AM FINDINGS: Tubes, catheters and devices: The endotracheal tube is appropriately positioned in the distal thoracic trachea with the tip above the kendra. The tip of the orogastric tube lies proximally 7 cm beyond the expected position of the diaphragmatic hiatus. Lungs: There is mild ill-defined opacity in both lung bases, decreased on the right since the prior chest radiograph this morning. Pleural spaces: There is no pleural effusion or pneumothorax. Heart/Mediastinum: Cardiomediastinal contours are unremarkable. Bones/joints: Bones are unremarkable. Gastrointestinal tract: There is mild gaseous distention of colon and small bowel visible in the upper abdomen. XR/XR chest 1V portable [id number] IMPRESSION: 1. Satisfactory endotracheal tube position. 2. Orogastric tube tip is 7 cm beyond the diaphragmatic hiatus. Recommend advancing the tube another 3-5 cm for ideal position. 3. Nonspecific bilateral lower lung opacities, decreased on the right.
--- NOTE | 2021-04-30 17:09 | PM.ACPR ---
Procedure/Consent Time out: Time Out Performed: Yes Consent: Consent for Procedure: Consent obtained from patient (Verbally) and Consent obtained from other (indicate) Procedure Narrative: Name of the procedure: Endotracheal intubation. Indication: Hypoxic respiratory failure with stridor. Medications: Versed 2 mg, fentanyl 25 mcg, etomidate 10 mg Procedure: The patient was positioned optimally. The patient was oxygenated with 100% oxygen with noninvasive ventilator. After appropriate medications were given, the video laryngoscope blade was introduced and advanced till vocal cords were visualized. The endotracheal tube was advanced through the vocal cords under direct visualization. There was fogging of the ET tube, positive change in end-tidal CO2 monitor, bilateral chest rise, bilateral positive breath sound. The ET tube was secured at 21 cm at the lips. Complications: There was no immediate complications. Chest x-ray: Pending Acute Procedures Epistaxis Control: Time out performed: Yes
[2021-04-30] MEDS: fentaNYL 50 mcg/mL INJ 2mL IVP (17:22)
[2021-04-30] MEDS: sodium chloride 1 gm Tablet PO ×2 (17:35→20:35)
[2021-04-30] MEDS: azithromycin 500 MG in sodium chloride 0.9% 250 ML 250 MG IV (17:35)
--- NOTE | 2021-04-30 17:42 | PC.NURSE ---
Intubated by Dr. Dick at 1650.
[2021-04-30 18:02] LABS: ABG PCO2 32.1 mmHg (35-45); ABG PH Result 7.55 (7.35-7.45); Alveolar-Arterial Oxygen Gradi 36.5 mmHg (5-10); Arterial Blood Gas Hematocrit 37.9 % (37-47); Base Excess ABG 6.1 mmol/L (-2.0-2.0); Blood Gas Allen Test Pos; Blood Gas Operator Identificat ED; Blood Gas Sample Site Radial, right; Blood Gas Sample Type Arterial; Blood Gas Tidal Volume 0.35; Carboxyhemoglobin 0.9 %THgb (0.4-20.1); HCO3 ABG 28.3 mmol/L (22-26); HGB O2 Sat 87.5 % (95-100); Ionized Calcium Level - ABG 1.2 mmol/L (1.1-1.4); Methemoglobin 0.1 % (0.4-1.5); Oxygen Device VENT; Oxygen Saturation ABG 88.3; PO2 ABG 41.3 mmHg (80.0-100.0); Potassium Level - ABG 3.8 mmol/L (3.5-5.0); Total Hemoglobin 12.4 g/dL (12-16)
[2021-04-30 19:28] LABS: Blood Gas Allen Test Pos; Blood Gas Sample Site Radial, right; Blood Gas Sample Type Arterial; Carboxyhemoglobin 0.5 %THgb (0.4-20.1); Ionized Calcium Level - ABG 1.2 mmol/L (1.1-1.4); Oxygen Device VENT
[2021-04-30] MEDS: dextrose 5% 1,000 ML 75 ML IV (20:35)
[2021-04-30] MEDS: enoxaparin 30 mg/0.3 mL Syringe SUBCUT (20:35)
[2021-05-01] VITALS (60 sets, daily range): BP systolic 85–147; BP diastolic 50–89; PULSE 60–102; RESP 12–15; TEMP 36.6–36.8; O2SAT 90–100; BMI 15.7
[2021-05-01 00:46] LABS: Sodium 125 mmol/L (136-145)
[2021-05-01] MEDS: ipratropium-albuterol 3 mL Neb INHALATION ×4 (03:09→20:02)
[2021-05-01 04:12] LABS: ABG PH Result 7.52 (7.35-7.45); Alveolar-Arterial Oxygen Gradi 8.5 mmHg (5-10); Arterial Blood Gas Hematocrit 34.2 % (37-47); Blood Gas Tidal Volume 0.35; HCO3 ABG 32.6 mmol/L (22-26); HGB O2 Sat 98.7 % (95-100); Methemoglobin 0.1 % (0.4-1.5); Oxygen Saturation ABG 99.3; Potassium Level - ABG 3.3 mmol/L (3.5-5.0); Total Hemoglobin 11.2 g/dL (12-16)
[2021-05-01 05:12] LABS: Basophils # 0.1 10^3/uL (0.0-0.1); Basophils % 0.9 %; Eosinophils % 0.3 %; Hematocrit 30.9 % (37.0-47.0); Hemoglobin 10.4 g/dL (11.5-15.3); Lymphocytes # 0.2 10^3/uL (0.8-4.8); Lymphocytes % 1.4 %; Mean Corpuscular HGB Conc 33.7 g/dL (30.0-36.0); Mean Corpuscular Hemoglobin 28.9 pg (28.0-34.0); Mean Corpuscular Volume 85.8 fl (81-99); Mean Platelet Volume 8.7 fL (7.4-10.4); Monocytes # 0.3 10^3/uL (0.2-0.9); Monocytes % 2.3 %; Neutrophils # 11.64 10^3/uL (1.8-7.7); Neutrophils % 93.6 %; Nucleated Red Blood Cells % 0 %; Platelet Count 143 10^3/cmm (130-400); Red Cell Distribution Width 14.6 % (12.1-15.1); White Blood Count 12.4 10^3/uL (4.0-10.0)
--- NOTE | 2021-05-01 05:19 | PC.NURSE ---
Shift Note Frequent safety and comfort rounds continue. Orders and/or nursing care completed as indicated. Patient monitored for response to intervention and treatment(s). Education provided includes MRSA testing. Patient needs further reinforcement teaching. Patient had an uneventful night. She remains on the ventilator settings as follows; mode-VC-AC, FiO2-30%, VT-350, Peep-8, Rate-12. Fentanyl, Levophed, and D5W are infusing per protocol, please see MAR for infusion rates. Williamson catheter drained 75 mls of urine overnight. Patient has a small pressure injury on the sacrum covered with an Optifoam dressing. No other wounds or skin issues noted at this time. Will continue to monitor.
[2021-05-01 05:32] LABS: Alanine Aminotransferase 9 U/L (0-33); Albumin Level 2.1 g/dL (3.5-5.2); Alkaline Phosphatase 77 IU/L (35-105); Anion Gap 15.4 (5-19); Aspartate Amino Transferase 11 U/L (0-32); Blood Urea Nitrogen 9 mg/dL (8-23); Calcium 8.8 mg/dL (8.5-10.5); Carbon Dioxide 25 mmol/L (22-29); Chloride 88 mmol/L (98-107); Globulin 2.7 g/dL (1.3-4.6); Glomerular Filtration Rate 221.2 mL/min (90-130); Glucose 263 mg/dL (65-115); Osmolality Calculated 268 mOsm/kg (285-295); Potassium 3.4 mmol/L (3.5-5.1); Sodium 125 mmol/L (136-145); Total Bilirubin 0.4 mg/dL (0.15-1.2); Total Protein 4.8 g/dL (6.6-8.7)
[2021-05-01] MEDS: piperacillin-tazobactam 3.375 GM in sodium chloride 0.9% (plus) 50 ML IV ×2 (06:20→14:11)
--- NOTE | 2021-05-01 07:07 | P.PN_ITS ---
Subjective Subjective: Interval history: intubated, sedated, low level levo Medications: Reviewed: Yes Medication Review Details: Current Medications Acetaminophen (Acetaminophen 325 Mg Tablet) 650 mg PO Q6H PRN PRN Reason: Mild/Mod Pain Or Temp >/= 101 Albuterol/Ipratropium (Ipratropium-Albuterol 3 Ml Neb) 3 ml INHALATION Q6H.RESPIRATORY PHU Last Admin: 05/01/21 03:09 Dose: 3 ml Documented by: Budesonide (Budesonide 0.5 Mg/2 Ml Neb) 0.5 mg INHALATION Q12H PHU Last Admin: 04/30/21 20:10 Dose: 0.5 mg Documented by: Enoxaparin Sodium (Enoxaparin 30 Mg/0.3 Ml Syringe) 30 mg SUBCUT Q24H PHU Last Admin: 04/30/21 20:35 Dose: 30 mg Documented by: Epinephrine (Racepinephrine 0.5 Ml Neb) 0.5 ml INHALATION Q4H.RESPIRATORY PRN PRN Reason: SHORTNESS OF BREATH Last Admin: 04/30/21 04:54 Dose: 0.5 ml Documented by: Azithromycin 500 mg/ Sodium (Chloride) 250 mls @ 250 mls/hr IV Q24H PHU; Protocol Last Titration: 04/30/21 18:47 Dose: Infused Documented by: Piperacillin Sod/Tazobactam (Sod 3.375 gm/ Sodium Chloride) 50 mls @ 12.5 mls/hr IV Q8H PHU; Protocol Last Admin: 05/01/21 06:20 Dose: 12.5 mls/hr Documented by: Propofol (Diprivan) 1,000 mg in 100 mls @ 0 mls/hr IV .Q0M PHU; Protocol Fentanyl 1,000 mcg/ Sodium (Chloride) 100 mls @ 0 mls/hr IV .Q0M PHU; Protocol Last Admin: 05/01/21 05:01 Dose: 100 mcg/hr, 10 mls/hr Documented by: Norepinephrine Bitartrate 4 mg (/ Dextrose) 254 mls @ 0 mls/hr IV .Q0M PHU; Protocol Last Titration: 05/01/21 05:01 Dose: 4 mcg/min, 15.24 mls/hr Documented by: Potassium Chloride/Sodium Chloride (Sodium Chlor 0.9% + Kcl 20 Meq) 20 meq in 1,000 mls @ 75 mls/hr IV .[id number] [facility] Lanolin (Lanolin Oint 7 Gm) 1 applic TOPICAL PRN PRN PRN Reason: Dryness Levothyroxine Sodium (Levothyroxine 100 Mcg Sdv) 62.5 mcg IVP DAILY [facility] Last Admin: 04/30/21 08:09 Dose: 62.5 mcg Documented by: Methylprednisolone Sodium Succinate (Methylprednisolone Sod Succ 40 Mg/Ml Inj) 40 mg IVP Q12H [facility] Last Admin: 05/01/21 01:48 Dose: 40 mg Documented by: Ondansetron HCl (Ondansetron 2 Mg/Ml Sdv 2 Ml) 4 mg IVP Q6H PRN PRN Reason: NAUSEA AND VOMITING Last Admin: 04/30/21 12:02 Dose: 4 mg Documented by: Pantoprazole Sodium (Pantoprazole 40 Mg Sdv) 40 mg IVP DAILY [facility] Last Admin: 04/30/21 08:10 Dose: 40 mg Documented by: Sodium Chloride (Sodium Chloride 1 Gm Tablet) 1 gm PO TID [facility] Last Admin: 04/30/21 20:35 Dose: 1 gm Documented by: Vitals/I&O/Wt Last Vital Signs Temp 98.2 F 05/01/21 04:00 Pulse 78 05/01/21 06:00 Resp 12 05/01/21 06:28 BP 116/69 05/01/21 05:00 Pulse Ox 96 05/01/21 06:28 04/30/21 05/01/21 05/01/21 22:59 06:59 14:59 Intake Total 345.371 / 1395.371 423.532 / 1818.903 Output Total 350 / 1075 75 / 1150 Balance -4.629 / 320.371 348.532 / 668.903 Weight last 48 hrs Weight 34.246 kg Physical Exam Narrative: EXAM NARRATIVE: vs noted on levo @ 2 intubated- heent- nc/at, eomi, anicteric neck supple lungs good air movement b/l heart reg, tachycardic no rub abd soft, nt, nd, + bs ext no edema neuro- sedated Urinary Catheter Management^: Williamson: Cath Placed During This Visit: yes Reason for Continuing Indwelling Catheter: Accurate Measurement of Urinary Output in Critically Ill Patients Urinary Catheter Date of Insertion: 04/30/21 Urinary Catheter Time of Insertion: 06:32 Data : 05/01/21 04:59 05/01/21 04:59 Micro: Microbiology 04/30/21 05:42 Blood Culture - Preliminary Blood SPECIMEN COLLECTED A&P Additional A&P Information 70 yr old female [id number] stage III papillary thyroid cancer s/p thyroidectomy, and lymph node dissection (04/2018), followed by radioactive iodine ablation therapy (05/2018), and a bilateral neck dissection for bulky disease recurrence proving 8 positive lymph nodes throughout the bilateral neck. Ct scan performed in December was notable for radiation changes in the lung apices and upper mediastinum. Small amount of progressed pleural fluid and pleural thickening layering in the mid and upper lungs bilaterally. Postradiation changes with bronchovascular thickening about the mediastinum. Furthermore, a previously described 5 mm FDG avid pulmonary nodule inferior right major fissure medially is unchanged since August and September 2020. This was previously FDG avid suspicious for metastatic disease. There was also a tiny stable 2 mm noncalcified nodule left upper lobe. As an outpatient she is being treated with Lenvima as well as dexamethasone 4mg daily. 1. hyponatremia- low ur na- likely volume depletion on SIADH. na alyson from 112 to 117 now 114- overnight na went to 129 w/ ivf -she became SOB- was intubated and recieved D5w and lasix -her na is now 125 -restart NS 2/ kcl -free water restrict -monitor chem 7 q 8 hrs -likely also some degree of SIADH- monitor na 2. VDRF per critical care -wean off pressers 3. dm control per medicine 4. 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
--- NOTE | 2021-05-01 08:01 | P.CONIM_ITS ---
Providers/Reason For Consult Consulting Physician/Specialty*: Cliff Linda/otolaryngology Reason for Consult*: Need for tracheotomy Requesting Physician: Paulie Burnham Attending Physician: Paulie Magaña MD Primary Care Provider: Jah Ortega DO History of Present Illness History of Present Illness Kylah Patterson is a 70 year old female who has been in the hospital with progressive stridorous breathing. She had been developing CO2 retention in spite of use of CPAP. Therefore I was called to consult to do a tracheotomy on this patient to relieve her of her airway distress. Review of Systems General: Reports: 10 or more systems reviewed and unremarkable except in HPI and below Meds/Allergies Home Medications and Allergies Home Medications Medication Instructions Recorded Confirmed Last Taken Type mecobalamin (vitamin B12) 1,000 1,000 mcg SUBLINGUAL DAILY 01/04/21 04/27/21 01/14/21 History mcg disintegrating tablet,sublingual acetaminophen 500 mg PO Q4H PRN 01/15/21 04/27/21 Unknown History lenvatinib 12 mg/day (4 mg x 3) 12 mg PO QAM 01/15/21 04/27/21 01/14/21 History capsule guaifenesin [Mucinex] 600 mg PO BID #60 tab 01/21/21 04/27/21 04/25/21 Rx modified lanolin [Lanolin (HPA)] 1 applic TOPICAL PRN PRN #7 g 01/21/21 04/27/21 Unknown Rx ipratropium 0.5 mg-albuterol 3 mg 3 ml INHALATION Q4H PRN #3 ml 03/08/21 04/27/21 Unknown Rx (2.5 mg base)/3 mL nebulization soln dexamethasone 4 mg PO DAILY #20 tab 04/04/21 04/27/21 04/26/21 Rx levothyroxine 125 mcg tablet See Rx Instructions .ROUTE .COMPLEX 04/16/21 04/27/21 04/27/21 07:30 History Probiotic 1 cap PO .UP TO BID 04/27/21 04/27/21 04/24/21 History Pulmicort 0.5 mg INHALATION BID PRN 04/27/21 04/27/21 Unknown History cyanocobalamin (vitamin B-12) 1 ml PO ONCE 0104/27/21 04/27/21 History [Vitamin B-12] Allergies Allergy/AdvReac Type Severity Reaction Status Date / Time No Known Allergies Allergy Verified 04/27/21 12:53 Current Medications Current Medications Generic Name Dose Route Start Last Admin Trade Name Freq PRN Reason Stop Dose Admin Albuterol/Ipratropium 3 ml 04/30/21 09:06 05/01/21 03:09 Ipratropium-Albuterol 3 Ml Neb INHALATION 3 ml Q6H.RESPIRATORY PHU Administration Budesonide 0.5 mg 04/30/21 09:00 04/30/21 20:10 Budesonide 0.5 Mg/2 Ml Neb INHALATION 0.5 mg Q12H PHU Administration Enoxaparin Sodium 30 mg 04/27/21 20:00 04/30/21 20:35 Enoxaparin 30 Mg/0.3 Ml Syringe SUBCUT 30 mg Q24H PHU Administration Epinephrine 0.5 ml 04/28/21 02:37 04/30/21 04:54 Racepinephrine 0.5 Ml Neb INHALATION 0.5 ml Q4H.RESPIRATORY PRN Administration SHORTNESS OF BREATH Azithromycin 500 mg/ Sodium 250 mls @ 250 mls/hr 04/29/21 16:00 04/30/21 18:47 Chloride IV Infused Q24H PHU Infusion Protocol Piperacillin Sod/Tazobactam 50 mls @ 12.5 mls/hr 04/30/21 07:00 05/01/21 06:20 Sod 3.375 gm/ Sodium Chloride IV 12.5 mls/hr Q8H PHU Administration Protocol Fentanyl 1,000 mcg/ Sodium 100 mls @ 0 mls/hr 04/30/21 16:15 05/01/21 05:01 Chloride IV 100 mcg/hr .Q0M PHU 10 mls/hr Administration Protocol Per Protocol Norepinephrine Bitartrate 4 mg 254 mls @ 0 mls/hr 04/30/21 16:15 05/01/21 07:15 / Dextrose IV 2 mcg/min .Q0M PHU 7.62 mls/hr Titration Protocol Per Protocol Levothyroxine Sodium 62.5 mcg 04/30/21 09:00 04/30/21 08:09 Levothyroxine 100 Mcg Sdv IVP 62.5 mcg DAILY PHU Administration Methylprednisolone Sodium Succinate 40 mg 04/30/21 13:30 05/01/21 01:48 Methylprednisolone Sod Succ 40 Mg/Ml Inj IVP 40 mg Q12H PHU Administration Ondansetron HCl 4 mg 04/30/21 11:10 04/30/21 12:02 Ondansetron 2 Mg/Ml Sdv 2 Ml IVP 4 mg Q6H PRN Administration NAUSEA AND VOMITING Pantoprazole Sodium 40 mg 04/30/21 09:00 04/30/21 08:10 Pantoprazole 40 Mg Sdv IVP 40 mg DAILY PHU Administration PFSH Acute PFSH: Medical History YOLANDA (acute kidney injury) DM type 2 (diabetes mellitus, type 2) GERD (gastroesophageal reflux disease) HTN (hypertension) Hyperlipidemia IBS (irritable bowel syndrome) Lung nodules Pneumonia Pulmonary nodule less than 1 cm in diameter with moderate to high risk for malignant neoplasm Rhinosinusitis Thyroid cancer Surgical History History of bladder suspension procedure History of cholecystectomy History of hysterectomy History of intestinal surgery History of salpingo-oophorectomy History of thyroid surgery Hx of tonsillectomy Family History Unknown Hypertension Diabetes Social History Smoking and tobacco status: never smoked Second hand smoke exposure: No Smoking risk assessment/counseling performed?: No Alcohol intake: never Counseling given: No Counseling given: No Lives independently: Yes Household members: spouse Marital status: History of recent travel: No Current gender identity: Female Vitals/I&O/Wt Last Vital Signs Temp 98.2 F 05/01/21 04:00 Pulse 78 05/01/21 06:00 Resp 12 05/01/21 06:28 BP 116/69 05/01/21 05:00 Pulse Ox 96 05/01/21 06:28 04/30/21 05/01/21 05/01/21 22:59 06:59 14:59 Intake Total 345.371 / 1395.371 423.532 / 1818.903 832.786 / 832.786 Output Total 350 / 1075 75 / 1150 Balance -4.629 / 320.371 348.532 / 668.903 832.786 / 832.786 Weight last 48 hrs Weight 75 lb 8 oz Physical Exam Narrative: EXAM NARRATIVE: I examined this patient in the ICU with the patient intubated and sedated and therefore not responsive. I examined her neck which appears to be thin but structures in the lower anterior neck appear to be stiff and most likely due to her previous bilateral thyroidectomy for thyroid malignancy done by another physician in the past. Apparently the patient developed bilateral true vocal cord paralysis. Since the patient is intubated I cannot assess the degree of stridor but as was described to me by her hospitalist the patient was retaining CO2 and CPAP was not sufficient to ventilate and allow exhalation of CO2. Urinary Catheter Management^: Williamson: Cath Placed During This Visit: yes Reason for Continuing Indwelling Catheter: Accurate Measurement of Urinary Output in Critically Ill Patients Urinary Catheter Date of Insertion: 04/30/21 Urinary Catheter Time of Insertion: 06:32 Data Micro: Micro: Microbiology 04/30/21 05:42 Blood Culture - Pr eliminary Blood NEGATIVE TO JACI E A&P Additional A&P Information Assessment: Patient has airway distress due to bilateral true vocal cord paralysis following previous bilateral thyroidectomy by another ENT physician in the past. Retention of CO2 and difficulty ventilating because of the extreme stridor indicates that the vocal cords most likely were edematous and/or not allowing exchange of CO2 outward and adequate oxygenation. Plan: My recommendation is for this patient to undergo tracheotomy in the operating room under controlled conditions on , 05/03/2021 Consult Attestations 2 Medical Necessity Statement: Patient has a medical necessity for this consult and tracheotomy. 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
[2021-05-01] MEDS: insulin lispro 100 unit/1 mL SUBCUT ×2 (08:03→20:34)
[2021-05-01] MEDS: pantoprazole 40 mg SDV IVP (08:03)
[2021-05-01] MEDS: levothyroxine 100 mcg SDV 62.5 MCG IVP (08:03)
[2021-05-01] MEDS: sodium chlor 0.9% + KCl 20 mEq 20 MEQ/1,000 ML BAG 75 MEQ IV (08:06)
[2021-05-01 08:28] LABS: Chol HDL Ratio 1.93 mg/dL (0.0-4.40); Cholesterol 112 mg/dL (0-200); HDL Cholesterol 58 mg/dL (60-100); LDL Cholesterol Calculated 41 mg/dL (50-129); Triglycerides 65 mg/dL (0-150); VLDL Cholestrol Calculation 13 mg/dL (0-30)
[2021-05-01 08:29] LABS: Estmated Average Glucose 154
[2021-05-01] MEDS: budesonide 0.5 mg/2 mL Neb INHALATION ×2 (09:19→20:02)
--- NOTE | 2021-05-01 10:09 | PC.NUTR ---
Consult received. When medically appropriate for Pt to be fed enterally, recommend consideration of Glucerna 1.2 to start at 10 ml/hr, advancing as tolerated until goal rate of 25 ml/hr is reached, with FW flushes of 50 ml Q4H or per MD discretion. See full RD assessment for details.
[2021-05-01 12:46] LABS: Magnesium 1.6 mg/dL (1.7-2.3)
--- NOTE | 2021-05-01 12:57 | P.PN_ITS ---
Subjective Subjective: Interval history: No acute events overnight. In last 24 hours patient was reactivated yesterday afternoon for impending respiratory failure because of stridor. Post intubation patient has remained on minimal Levophed. Currently on 2 mics with mean arterial pressures over 65. Appropriate urine output. Minimal ventilator settings reviewed. Afebrile. Discussed in detail with at bedside. Medications: Reviewed: Yes Vitals/I&O/Wt Last Vital Signs Temp 97.8 F 05/01/21 12:00 Pulse 76 05/01/21 12:00 Resp 12 05/01/21 10:50 BP 96/63 05/01/21 12:00 Pulse Ox 97 05/01/21 12:00 04/30/21 05/01/21 05/01/21 22:59 06:59 14:59 Intake Total 345.371 / 1395.371 423.532 / 1818.903 955.286 / 955.286 Output Total 350 / 1075 75 / 1150 Balance -4.629 / 320.371 348.532 / 668.903 955.286 / 955.286 Weight last 48 hrs Weight 34.246 kg Physical Exam Narrative: EXAM NARRATIVE: General: Intubated and sedated HEENT: PERRLA, pupils bilaterally equal and reactive Chest: Bilateral normal vesicular breath sounds, coarse crackles in rhonchi present in the right lower zone, CVS: S1-S2 regular, no murmurs, no tachycardia, no gallops, no rubs Abdomen: Soft, nontender, no organomegaly, bowel sounds present Neuro: intubated and sedated Urinary Catheter Management^: Williamson: Cath Placed During This Visit: yes Reason for Continuing Indwelling Catheter: Accurate Measurement of Urinary Output in Critically Ill Patients Urinary Catheter Date of Insertion: 04/30/21 Urinary Catheter Time of Insertion: 06:32 Data : 05/01/21 04:59 05/01/21 04:59 Micro: Microbiology 04/30/21 05:42 Blood Culture - Preliminary Blood NEGATIVE TO DATE A&P Assessment and plan (1) Acute respiratory failure with hypoxia and hypercapnia: Most likely a combination of stridor secondary to 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 Intubated on 04/30 for extensive stridor to prevent impending respiratory failure. Plan for trach with ENT on 05/03 C/w methylprednisolone 40 mg every 12 hourly. Sputum culture awaited, MRSA swab negative. Appreciate ENT and pulm recommendations. Will consult surgery for PEG tube placement. 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 Baseline sodium around 138. Stable. Appreciate nephrology consultation. Stared on fluid by nephro. Decrease rate to 50 cc/hr. Salt tabs stopped by nephro. Check BMP every 6 hours. 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 Awaiting colonoscopy MBS study. Delayed currently from overnight respiratory distress. Patient and patient's family okay with PEG tube placement if needed. N.p.o. for now. Status: Acute Qualifiers: Dysphagia type: pharyngoesophageal phase Qualified Code(s): R13.14 - Dysphagia, pharyngoesophageal phase (6) Pneumothorax: Small pneumothorax incidentally noted on shoulder x-ray on admission. Currently appears resolved on x-ray this morning. Follow-up additional x-ray tomorrow and will follow up 1 prior to discharge. Status: Acute Additional A&P Information Hypothyroidism: levothyroxine dose recently adjusted by her entry level account manager, states was asked to take half dose of levothyroxine on Friday. On other days of 125 mcg. Generalized weakness, deconditioning: Multifactorial likely secondary to hyponatremia, negative COVID-19 PCR. PT, OT assessment. Papillary thyroid cancer status post excision, radiation therapy continues on [place] DM2: Check A1c. ISS low dose protocol Q4h HTN: Goal less than 140/90 mmhg with MAP over 65. Wean levophed accordingly. HLD CODE STATUS: Discussed in detail with the patient. Full code. Start on tube feeds. Glucerna 10 cc, increase 10 cc q4h, goal of 30 cc. FW flush 100 cc q6h Protonix OPD prophylaxis. Lovenox for DVT prophylaxis. Attestations Medical Necessity Statement*: For respiratory failure due to stridor, post thyroidectomy, while awaits trach and PEG placement, Aspiration PNA. Intubated Critical Care Time: The high probability of a clinically significant, sudden or life threatening deterioration of the patient's [Respiratory, nephro] system(s) required my full and direct attention, intervention and personal management. The critical care time is as shown. This time is in addition to time spent performing any reported procedures but includes the following: [x] Data and vital sign review and interpretation [x] Patient assessment, examination and intervention [x] Documentation [x] Medication orders and management Critical Care Time (min): 90 Coding Level of Care Code Acute Air Traffic Coordinator for [facility] Fwd Diagnoses Acute respiratory failure with hypoxia and hypercapnia J96.01; J96.02 Aspiration pneumonia J69.0 Stridor R06.1 Dehydration with hyponatremia E86.0; E87.1 Dysphagia R13.14 Dysphagia type: pharyngoesophageal phase Pneumothorax J93.9
[2021-05-01 13:22] LABS: Osmolality Urine 248 mOsm/kg (50-1200)
[2021-05-01 13:22] LABS: Osmolality Serum 241 mOsm/kg (278-305)
--- NOTE | 2021-05-01 14:24 | PC.RESP ---
RT Shift Note Frequent safety and respiratory rounds continue. Orders completed as indicated. Patient monitored pre and post treatments throughout shift. Patient [Did.] tolerate treatments appropriately. Condition [DidNotChange]. Patient and/or medical sales representative educated on respiratory treatment and medications. Patient and/or medical sales representative [unable to comprehend]. Will continue to monitor patient progress.
[2021-05-01] MEDS: azithromycin 500 MG in sodium chloride 0.9% 250 ML 250 MG IV (15:47)
[2021-05-01 16:44] LABS: ABG PCO2 45.7 mmHg (35-45); ABG PH Result 7.44 (7.35-7.45); Alveolar-Arterial Oxygen Gradi 12.6 mmHg (5-10); Base Excess ABG 5.7 mmol/L (-2.0-2.0); Blood Gas Operator Identificat GD; Blood Gas Sample Site Brachial, left; Blood Gas Sample Type Arterial; Carboxyhemoglobin 0.8 %THgb (0.4-20.1); HCO3 ABG 30.7 mmol/L (22-26); HGB O2 Sat 92.5 % (95-100); Ionized Calcium Level - ABG 1.2 mmol/L (1.1-1.4); Methemoglobin 0.8 % (0.4-1.5); Oxygen Device VENT; PO2 ABG 63.2 mmHg (80.0-100.0); Potassium Level - ABG 3.9 mmol/L (3.5-5.0); Total Hemoglobin 11.1 g/dL (12-16)
[2021-05-01 16:47] LABS: Blood Gas Tidal Volume 0.33
[2021-05-01 16:51] LABS: Alanine Aminotransferase 8 U/L (0-33); Alkaline Phosphatase 75 IU/L (35-105); Aspartate Amino Transferase 11 U/L (0-32); Blood Urea Nitrogen 11 mg/dL (8-23); Carbon Dioxide 25 mmol/L (22-29); Chloride 91 mmol/L (98-107); Globulin 2.8 g/dL (1.3-4.6); Glomerular Filtration Rate 221.2 mL/min (90-130); Glucose 132 mg/dL (65-115); Magnesium 1.7 mg/dL (1.7-2.3); Osmolality Calculated 265 mOsm/kg (285-295); Sodium 127 mmol/L (136-145); Total Bilirubin 0.4 mg/dL (0.15-1.2); Total Protein 4.8 g/dL (6.6-8.7)
[2021-05-01 16:55] LABS: Creatinine Clr Calc Pharmacy 36.3864
--- NOTE | 2021-05-01 17:06 | P.CONIM_ITS ---
Providers/Reason For Consult Consulting Physician/Specialty*: General Surgery Dr. Vides Reason for Consult*: PEG placement Attending Physician: Paulie Magaña MD Primary Care Provider: Jah Ortega DO History of Present Illness History of Present Illness Information obtained from patient's chart and her as she is intubated Kylah Patterson is a 70 year old female who had undergone thyroidectomy and radiation for papillary thyroid cancer. She had a complicated course postop where she apparently required four more surgeries. Patient had been developing worsening stridor with CO2 retention and therefore she was intubated. Patient is being scheduled for a tracheostomy and therefore needs enteral access for nutritional support. Patient's denies any history of prior gastric surgeries Review of Systems General: Reports: ROS unobtainable due to endotracheal tube Meds/Allergies Home Medications and Allergies Home Medications Medication Instructions Recorded Confirmed Last Taken Type mecobalamin (vitamin B12) 1,000 1,000 mcg SUBLINGUAL DAILY 01/04/21 04/27/21 01/14/21 History mcg disintegrating tablet,sublingual acetaminophen 500 mg PO Q4H PRN 01/15/21 04/27/21 Unknown History lenvatinib 12 mg/day (4 mg x 3) 12 mg PO QAM 01/15/21 04/27/21 01/14/21 History capsule guaifenesin [Mucinex] 600 mg PO BID #60 tab 01/21/21 04/27/21 04/25/21 Rx modified lanolin [Lanolin (HPA)] 1 applic TOPICAL PRN PRN #7 g 01/21/21 04/27/21 Unknown Rx ipratropium 0.5 mg-albuterol 3 mg 3 ml INHALATION Q4H PRN #3 ml 03/08/21 04/27/21 Unknown Rx (2.5 mg base)/3 mL nebulization soln dexamethasone 4 mg PO DAILY #20 tab 04/04/21 04/27/21 04/26/21 Rx levothyroxine 125 mcg tablet See Rx Instructions .ROUTE .COMPLEX 04/16/21 04/27/21 04/27/21 07:30 History Probiotic 1 cap PO .UP TO BID 04/27/21 04/27/21 04/24/21 History Pulmicort 0.5 mg INHALATION BID PRN 04/27/21 04/27/21 Unknown History cyanocobalamin (vitamin B-12) 1 ml PO ONCE 04/27/21 04/27/21 04/27/21 History [Vitamin B-12] Allergies Allergy/AdvReac Type Severity Reaction Status Date / Time No Known Allergies Allergy Verified 04/27/21 12:53 Current Medications Current Medications Generic Name Dose Route Start Last Admin Trade Name Freq PRN Reason Stop Dose Admin Albuterol/Ipratropium 3 ml 04/30/21 09:06 05/01/21 14:20 Ipratropium-Albuterol 3 Ml Neb INHALATION 3 ml Q6H.RESPIRATORY PHU Administration Budesonide 0.5 mg 04/30/21 09:00 05/01/21 09:19 Budesonide 0.5 Mg/2 Ml Neb INHALATION 0.5 mg Q12H PHU Administration Enoxaparin Sodium 30 mg 04/27/21 20:00 04/30/21 20:35 Enoxaparin 30 Mg/0.3 Ml Syringe SUBCUT 30 mg Q24H PHU Administration Epinephrine 0.5 ml 04/28/21 02:37 04/30/21 04:54 Racepinephrine 0.5 Ml Neb INHALATION 0.5 ml Q4H.RESPIRATORY PRN Administration SHORTNESS OF BREATH Azithromycin 500 mg/ Sodium 250 mls @ 250 mls/hr 04/29/21 16:00 05/01/21 16:52 Chloride IV Infused Q24H PHU Infusion Protocol Piperacillin Sod/Tazobactam 50 mls @ 12.5 mls/hr 04/30/21 07:00 05/01/21 14:11 Sod 3.375 gm/ Sodium Chloride IV 12.5 mls/hr Q8H PHU Administration Protocol Fentanyl 1,000 mcg/ Sodium 100 mls @ 0 mls/hr 04/30/21 16:15 05/01/21 15:16 Chloride IV 100 mcg/hr .Q0M PHU 10 mls/hr Administration Protocol Per Protocol Norepinephrine Bitartrate 4 mg 254 mls @ 0 mls/hr 04/30/21 16:15 05/01/21 07:15 / Dextrose IV 2 mcg/min .Q0M PHU 7.62 mls/hr Titration Protocol Per Protocol Potassium Chloride/Sodium Chloride 20 meq in 1,000 mls @ 50 mls/hr 05/01/21 07:15 05/01/21 09:04 Sodium Chlor 0.9% + Kcl 20 Meq IV 50 mls/hr .Q20H PHU Infusion Insulin Human Lispro 0 unit 05/01/21 08:00 05/01/21 16:09 Insulin Lispro 100 Unit/1 Ml SUBCUT Not Given Q4H PHU Protocol Levothyroxine Sodium 62.5 mcg 04/30/21 09:00 05/01/21 08:03 Levothyroxine 100 Mcg Sdv IVP 62.5 mcg DAILY PHU Administration Methylprednisolone Sodium Succinate 40 mg 04/30/21 13:30 05/01/21 12:35 Methylprednisolone Sod Succ 40 Mg/Ml Inj IVP 40 mg Q12H PHU Administration Ondansetron HCl 4 mg 04/30/21 11:10 04/30/21 12:02 Ondansetron 2 Mg/Ml Sdv 2 Ml IVP 4 mg Q6H PRN Administration NAUSEA AND VOMITING Pantoprazole Sodium 40 mg 04/30/21 09:00 05/01/21 08:03 Pantoprazole 40 Mg Sdv IVP 40 mg DAILY PHU Administration PFSH Acute PFSH: Medical History YOLANDA (acute kidney injury) DM type 2 (diabetes mellitus, type 2) GERD (gastroesophageal reflux disease) HTN (hypertension) Hyperlipidemia IBS (irritable bowel syndrome) Lung nodules Pneumonia Pulmonary nodule less than 1 cm in diameter with moderate to high risk for malignant neoplasm Rhinosinusitis Thyroid cancer Surgical History History of bladder suspension procedure History of cholecystectomy History of hysterectomy History of intestinal surgery History of salpingo-oophorectomy History of thyroid surgery Hx of tonsillectomy Family History Unknown Hypertension Diabetes Social History Smoking and tobacco status: never smoked Second hand smoke exposure: No Smoking risk assessment/counseling performed?: No Alcohol intake: never Counseling given: No Counseling given: No Lives independently: Yes Household members: spouse Marital status: History of recent travel: No Current gender identity: Female Vitals/I&O/Wt Last Vital Signs Temp 97.8 F 05/01/21 16:00 Pulse 79 05/01/21 16:00 Resp 12 05/01/21 15:23 BP 103/59 05/01/21 16:00 Pulse Ox 98 05/01/21 16:00 05/01/21 05/01/21 05/01/21 06:59 14:59 22:59 Intake Total 423.532 / 1818.903 955.286 / 1485.286 530 / 1485.286 Output Total 75 / 1150 250 / 250 Balance 348.532 / 668.903 955.286 / 1235.286 280 / 1235.286 Weight last 48 hrs Weight 75 lb 8 oz Physical Exam Narrative: EXAM NARRATIVE: HEENT: Normocephalic Eye: Sclera /conjunctiva normal Respiratory and chest: Intubated on the ventilator Abdomen: Soft to palpation Neurological: Arousable, follows commands Skin: Intact, no lesions appreciated on gross exam Urinary Catheter Management^: Williamson: Cath Placed During This Visit: yes Reason for Continuing Indwelling Catheter: Accurate Measurement of Urinary Output in Critically Ill Patients Urinary Catheter Date of Insertion: 04/30/21 Urinary Catheter Time of Insertion: 06:32 Data Micro: Micro: Microbiology 04/30/21 21:14 MRSA Culture - Fin al Nose 04/30/21 05:42 Blood Culture - Pr eliminary Blood NEGATIVE TO JACI E A&P Assessment and plan (1) Dysphagia: 70-year-old female currently on the ventilator after she developed stridor and CO2 retention. She is scheduled for tracheostomy. Patient will therefore need an enteral access in the interim. Plan for placement of PEG tube in ICU tomorrow Procedure, risks, benefits and alternatives have been discussed with the patient who wishes to proceed with surgery. 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
--- NOTE | 2021-05-01 18:19 | PC.NURSE ---
Shift Note Frequent safety and comfort rounds continue. Orders and/or nursing care completed as indicated. Patient monitored for response to intervention and treatment(s). Education provided includes treatment plan, medications, and future surgery schedule. Consents on chart for trach and peg placement. verbalizes agreement but states that he is [place] and doesn't always understand instructions. VSS. Levo and fentanyl infusing per orders. restraints in place. Repositioned and oral care performed q2h and prn. Foely cath draining freely. Will continue to monitor.
[2021-05-01 18:58] LABS: Magnesium 1.7 mg/dL (1.7-2.3)
[2021-05-01] MEDS: enoxaparin 30 mg/0.3 mL Syringe SUBCUT (20:34)
[2021-05-02] VITALS (81 sets, daily range): BP systolic 77–171; BP diastolic 48–103; PULSE 56–101; RESP 12; TEMP 36.6–37.1; O2SAT 91–100; BMI 16.5
[2021-05-02] MEDS: piperacillin-tazobactam 3.375 GM in sodium chloride 0.9% (plus) 50 ML IV ×3 (00:10→15:09)
[2021-05-02 01:05] LABS: Sodium 130 mmol/L (136-145)
[2021-05-02] MEDS: sodium chlor 0.9% + KCl 20 mEq 20 MEQ/1,000 ML BAG 50 MEQ IV (03:22)
[2021-05-02] MEDS: insulin lispro 100 unit/1 mL SUBCUT ×4 (03:28→20:35)
[2021-05-02] MEDS: ipratropium-albuterol 3 mL Neb INHALATION ×4 (03:39→20:29)
--- NOTE | 2021-05-02 04:51 | PC.NURSE ---
Shift Note Frequent safety and comfort rounds continue. Orders and/or nursing care completed as indicated. Patient monitored for response to intervention and treatment(s). Education provided includes medication and oral care. Patient unable to verbalize understanding of teaching. Patient had an uneventful night, remains on ventilator. Settings are as follows; mode-VC-AC, FiO2-30, VT330, PEEP-8, rate-12. Williamson catheter drained 250 mls of pale yellow urine overnight. Tube feedings were held due to increased gastric residual, restarted tube feedings at rate of 10 mls/hr. Patient opens eyes to verbal command and will shake head yes/no. Sacrum has a small pressure injury, no other wounds or skin issues noted at this time. Levophed, Fentanyl, Zosyn, and NS with KCL are infusing please see MAR for infusion rates. Will continue to monitor.
[2021-05-02 06:15] LABS: Alanine Aminotransferase 9 U/L (0-33); Albumin Level 1.9 g/dL (3.5-5.2); Alkaline Phosphatase 75 IU/L (35-105); Anion Gap 13.1 (5-19); Aspartate Amino Transferase 9 U/L (0-32); Blood Urea Nitrogen 12 mg/dL (8-23); Calcium 8.2 mg/dL (8.5-10.5); Carbon Dioxide 25 mmol/L (22-29); Chloride 95 mmol/L (98-107); Creatinine Clr Calc Pharmacy 36.3864; Globulin 2.9 g/dL (1.3-4.6); Glomerular Filtration Rate 158.7 mL/min (90-130); Glucose 138 mg/dL (65-115); Magnesium 1.8 mg/dL (1.7-2.3); Osmolality Calculated 270 mOsm/kg (285-295); Phosphorus 1.3 mg/dL (2.5-4.5); Potassium 4.1 mmol/L (3.5-5.1); Sodium 129 mmol/L (136-145); Total Bilirubin 0.3 mg/dL (0.15-1.2); Total Protein 4.8 g/dL (6.6-8.7)
--- NOTE | 2021-05-02 07:33 | P.PN_ITS ---
Subjective Subjective: Interval history: sedated on vent. unable to obtain a ROS Medications: Reviewed: Yes Medication Review Details: Current Medications Acetaminophen (Acetaminophen 325 Mg Tablet) 650 mg PO Q6H PRN PRN Reason: Mild/Mod Pain Or Temp >/= 101 Albuterol/Ipratropium (Ipratropium-Albuterol 3 Ml Neb) 3 ml INHALATION Q6H.RESPIRATORY [facility] Last Admin: 05/02/21 03:39 Dose: 3 ml Documented by: Budesonide (Budesonide 0.5 Mg/2 Ml Neb) 0.5 mg INHALATION Q12H [facility] Last Admin: 05/01/21 20:02 Dose: 0.5 mg Documented by: Enoxaparin Sodium (Enoxaparin 30 Mg/0.3 Ml Syringe) 30 mg SUBCUT Q24H [facility] Last Admin: 05/01/21 20:34 Dose: 30 mg Documented by: Epinephrine (Racepinephrine 0.5 Ml Neb) 0.5 ml INHALATION Q4H.RESPIRATORY PRN PRN Reason: SHORTNESS OF BREATH Last Admin: 04/30/21 04:54 Dose: 0.5 ml Documented by: Azithromycin 500 mg/ Sodium (Chloride) 250 mls @ 250 mls/hr IV Q24H [facility]; Protocol Last Infusion: 05/01/21 16:52 Dose: Infused Documented by: Piperacillin Sod/Tazobactam (Sod 3.375 gm/ Sodium Chloride) 50 mls @ 12.5 mls/hr IV Q8H [facility]; Protocol Last Admin: 05/02/21 06:06 Dose: 12.5 mls/hr Documented by: Propofol (Diprivan) 1,000 mg in 100 mls @ 0 mls/hr IV .Q0M [facility]; Protocol Fentanyl 1,000 mcg/ Sodium (Chloride) 100 mls @ 0 mls/hr IV .Q0M [facility]; Protocol Last Admin: 05/02/21 02:22 Dose: 100 mcg/hr, 10 mls/hr Documented by: Norepinephrine Bitartrate 4 mg (/ Dextrose) 254 mls @ 0 mls/hr IV .Q0M [facility]; Protocol Last Admin: 05/02/21 02:22 Dose: 2 mcg/min, 7.62 mls/hr Documented by: Potassium Chloride/Sodium Chloride (Sodium Chlor 0.9% + Kcl 20 Meq) 20 meq in 1,000 mls @ 50 mls/hr IV .Q20H [facility] Last Admin: 05/02/21 03:22 Dose: 50 mls/hr Documented by: Insulin Human Lispro (Insulin Lispro 100 Unit/1 Ml) 0 unit SUBCUT Q4H [facility]; Protocol Last Admin: 05/02/21 03:28 Dose: 2 unit Documented by: Lanolin (Lanolin Oint 7 Gm) 1 applic TOPICAL PRN PRN PRN Reason: Dryness Levothyroxine Sodium (Levothyroxine 100 Mcg Sdv) 62.5 mcg IVP DAILY [facility] Last Admin: 05/01/21 08:03 Dose: 62.5 mcg Documented by: Methylprednisolone Sodium Succinate (Methylprednisolone Sod Succ 40 Mg/Ml Inj) 40 mg IVP Q12H [facility] Last Admin: 05/02/21 02:29 Dose: 40 mg Documented by: Ondansetron HCl (Ondansetron 2 Mg/Ml Sdv 2 Ml) 4 mg IVP Q6H PRN PRN Reason: NAUSEA AND VOMITING Last Admin: 04/30/21 12:02 Dose: 4 mg Documented by: Pantoprazole Sodium (Pantoprazole 40 Mg Sdv) 40 mg IVP DAILY [facility] Last Admin: 05/01/21 08:03 Dose: 40 mg Documented by: Vitals/I&O/Wt Last Vital Signs Temp 98.1 F 05/02/21 04:00 Pulse 70 05/02/21 06:00 Resp 12 05/02/21 06:00 BP 107/62 05/02/21 04:30 Pulse Ox 95 05/02/21 06:00 05/01/21 05/02/21 05/02/21 22:59 06:59 14:59 Intake Total 580 / 4929.567 1576.145 / 2850.431 Output Total 250 / 250 250 / 500 Balance 330 / 9081.333 6041.145 / 2350.431 Weight last 48 hrs Weight 35.976 kg Weight 34.246 kg Physical Exam Narrative: EXAM NARRATIVE: vs noted on levo @ 2 intubated-fio2=30%/ ac/ 12/ TV 330/PEEP 8 heent- nc/at, eomi, anicteric neck supple lungs good air movement b/l heart rrr, + s1, s2 no rub abd soft, nt, nd, + bs ext no edema neuro- sedated Urinary Catheter Management^: Williamson: Cath Placed During This Visit: yes Reason for Continuing Indwelling Catheter: Accurate Measurement of Urinary Output in Critically Ill Patients Urinary Catheter Date of Insertion: 04/30/21 Urinary Catheter Time of Insertion: 06:32 Data : 05/01/21 04:59 05/02/21 05:39 Micro: Microbiology 04/30/21 21:14 MRSA Culture - Final Nose 04/30/21 05:42 Blood Culture - Preliminary Blood NEGATIVE TO DATE A&P Additional A&P Information 70 yr old female [id number] stage III papillary thyroid cancer s/p thyroidectomy, and lymph node dissection (04/2018), followed by radioactive iodine ablation therapy (05/2018), and a bilateral neck dissection for bulky disease recurrence proving 8 positive lymph nodes throughout the bilateral neck. Ct scan performed in December was notable for radiation changes in the lung apices and upper mediastinum. Small amount of progressed pleural fluid and pleural thickening layering in the mid and upper lungs bilaterally. Postradiation changes with bronchovascular thickening about the mediastinum. Furthermore, a previously described 5 mm FDG avid pulmonary nodule inferior right major fissure medially is unchanged since August and September 2020. This was previously FDG avid suspicious for metastatic disease. There was also a tiny stable 2 mm noncalcified nodule left upper lobe. As an outpatient she is being treated with Lenvima as well as dexamethasone 4mg daily. 1. hyponatremia- low ur na- likely volume depletion on SIADH. na alyson from 112 to 117 now 114- overnight na went to 129 w/ ivf -she became SOB- was intubated and recieved D5w and lasix -cont ns ivf -free water restrict -monitor chem 7 q 12 hrs -likely also some degree of SIADH- monitor na 2. VDRF per critical care- for PEG and trach -wean off pressers 3. dm control per medicine 4. pna- abx per pulm 5. replace phos seen and examined w/ rN- telehealth visist discussed w/ SOFTWARE ASSET MANAGEMENT ANALYST time spent 25 minutes Attestations Medical Necessity Statement*: vdrf, per medicine Time Spent in Patient Care: 16 - 35 minutes (>than 50% of time spent in counselling and/or direct pt care on unit) . Coding Level of Care Code Acute Egg Sorter for Omid Jj
[2021-05-02] MEDS: sodium chloride 0.9% 1,000 ML 100 ML IV ×2 (08:00→19:02)
[2021-05-02] MEDS: pantoprazole 40 mg SDV IVP (08:01)
[2021-05-02] MEDS: levothyroxine 100 mcg SDV 62.5 MCG IVP (08:01)
[2021-05-02] MEDS: budesonide 0.5 mg/2 mL Neb INHALATION ×2 (08:24→20:29)
--- NOTE | 2021-05-02 09:31 | ANES.PREANE2 ---
Pre-Anesthetic Assessment Pre-Anesthetic Assessment: Height/Weight: Height 1.47 m Weight 35.976 kg Temp Pulse Resp BP Pulse Ox 98.1 F 66 12 107/62 97 05/02/21 04:00 05/02/21 08:40 05/02/21 08:28 05/02/21 04:30 05/02/21 08:28 Preop Diagnosis: Dysphagia Proposed Procedure: Operation Date: 05/02/21 11:00 Proposed Procedures p EGD(Not Applicable) - Danny Vides MD s PEG Tube Insertion(Not Applicable) - Danny Vides MD Operation Date: 05/03/21 10:40 Proposed Procedures p Tracheostomy(Not Applicable) - Cliff Linda MD Familial anesthetic complications: None, per Last intake: > 8 hrs Exam: Pre-Anes Outpt Exam: clear to auscultation bilaterally and regular rate & rhythm Additional Exam Findings (including area of procedure): Patient intubated and sedated on fentanyl 100 mcg/hr Airway: Dentition: Other Additional comments: Patient's states some are missing CV/HEM: CV/HEM: HTN Comments: CONCLUSIONS LV systolic function is normal with EF of 60-65% Grade 1 diastolic dysfunction Aortic valve is thickened. Mild aortic stenosis No comparison studies are avaiable GI: GI: GERD Metabolic: Metabolic: DM and Hyperlipidemia Comments: patient has hx papillary thyroid cancer w/ radiation of neck and upper apices of lungs Anesthetic Plan: ASA status: 4 Anesthesia: MAC Other: Patient on levo 2 mcg/min Risk of > 500 ml blood loss (7ml/kg in children): No Medications/Allergies Current Medications: Current Medications Generic Name Dose Route Start Last Admin Trade Name Farooqq PRN Reason Stop Dose Admin Albuterol/Ipratrop ium 3 ml 04/30/21 09:06 05/02/21 08:24 Ipratropium-Albu terol 3 Ml Neb INHALATION 3 ml Q6H.RESPIRATORY [facility] Administration Budesonide 0.5 mg 04/30/21 09:00 05/02/21 08:24 Budesonide 0.5 M g/2 Ml Neb INHALATION 0.5 mg Q12H [facility] Administration Enoxaparin Sodium 30 mg 04/27/21 20:00 05/01/21 20:34 Enoxaparin 30 Mg /0.3 Ml Syringe SUBCUT 30 mg Q24H [facility] Administration Epinephrine 0.5 ml 04/28/21 02:37 04/30/21 04:54 Racepinephrine 0 .5 Ml Neb INHALATION 0.5 ml Q4H.RESPIRATORY P RN Administration SHORTNESS OF AYSE TH Azithromycin 500 m g/ Sodium 250 mls @ 250 mls /hr 04/29/21 16:00 05/01/21 16:52 Chloride IV Infused Q24H [facility] Infusion Protocol Piperacillin Sod/T azobactam 50 mls @ 12.5 mls /hr 04/30/21 07:00 05/02/21 06:06 Sod 3.375 gm/ So dium Chloride IV 12.5 mls/hr Q8H [facility] Administration Protocol Fentanyl 1,000 mcg / Sodium 100 mls @ 0 mls/h r 04/30/21 16:15 05/02/21 02:22 Chloride IV 100 mcg/hr .Q0M [facility] 10 mls/hr Administration Protocol Per Protocol Norepinephrine Bit artrate 4 mg 254 mls @ 0 mls/h r 04/30/21 16:15 05/02/21 08:06 / Dextrose IV 0 mcg/min .Q0M [facility] 0 mls/hr Titration Protocol Per Protocol Potassium Phosphat e 15 mmol/ 105 mls @ 47 mls/ hr 05/02/21 08:00 05/02/21 08:29 Sodium Chloride IV 05/02/21 10:14 47 mls/hr ONCE ONE Administration Sodium Chloride 1,000 mls @ 100 m ls/hr 05/02/21 07:45 05/02/21 08:00 Sodium Chloride 0.9% IV 100 mls/hr .Q10H [facility] Administration Insulin Human Lisp ro 0 unit 05/01/21 08:00 05/02/21 08:01 Insulin Lispro 1 00 Unit/1 Ml SUBCUT 2 unit Q4H [facility] Administration Protocol Levothyroxine Sodi um 62.5 mcg 04/30/21 09:00 05/02/21 08:01 Levothyroxine 10 0 Mcg Sdv IVP 62.5 mcg DAILY [facility] Administration Methylprednisolone Sodium Succinate 40 mg 04/30/21 13:30 05/02/21 02:29 Methylprednisolo ne Sod Succ 40 Mg/ Ml Inj IVP 40 mg Q12H [facility] Administration Ondansetron HCl 4 mg 04/30/21 11:10 04/30/21 12:02 Ondansetron 2 Mg /Ml Sdv 2 Ml IVP 4 mg Q6H PRN Administration NAUSEA AND VOMITI NG Pantoprazole Sodiu m 40 mg 04/30/21 09:00 05/02/21 08:01 Pantoprazole 40 Mg Sdv IVP 40 mg DAILY [facility] Administration Additional Medication Information: Current Medications Acetaminophen (Acetaminophen 325 Mg Tablet) 650 mg PO Q6H PRN PRN Reason: Mild/Mod Pain Or Temp >/= 101 Albuterol/Ipratropium (Ipratropium-Albuterol 3 Ml Neb) 3 ml INHALATION Q6H.RESPIRATORY [facility] Last Admin: 05/02/21 03:39 Dose: 3 ml Documented by: Budesonide (Budesonide 0.5 Mg/2 Ml Neb) 0.5 mg INHALATION Q12H [facility] Last Admin: 05/01/21 20:02 Dose: 0.5 mg Documented by: Enoxaparin Sodium (Enoxaparin 30 Mg/0.3 Ml Syringe) 30 mg SUBCUT Q24H [facility] Last Admin: 05/01/21 20:34 Dose: 30 mg Documented by: Epinephrine (Racepinephrine 0.5 Ml Neb) 0.5 ml INHALATION Q4H.RESPIRATORY PRN PRN Reason: SHORTNESS OF BREATH Last Admin: 04/30/21 04:54 Dose: 0.5 ml Documented by: Azithromycin 500 mg/ Sodium (Chloride) 250 mls @ 250 mls/hr IV Q24H [facility]; Protocol Last Infusion: 05/01/21 16:52 Dose: Infused Documented by: Piperacillin Sod/Tazobactam (Sod 3.375 gm/ Sodium Chloride) 50 mls @ 12.5 mls/hr IV Q8H [facility]; Protocol Last Admin: 05/02/21 06:06 Dose: 12.5 mls/hr Documented by: Propofol (Diprivan) 1,000 mg in 100 mls @ 0 mls/hr IV .Q0M [facility]; Protocol Fentanyl 1,000 mcg/ Sodium (Chloride) 100 mls @ 0 mls/hr IV .Q0M [facility]; Protocol Last Admin: 05/02/21 02:22 Dose: 100 mcg/hr, 10 mls/hr Documented by: Norepinephrine Bitartrate 4 mg (/ Dextrose) 254 mls @ 0 mls/hr IV .Q0M [facility]; Protocol Last Admin: 05/02/21 02:22 Dose: 2 mcg/min, 7.62 mls/hr Documented by: Potassium Chloride/Sodium Chloride (Sodium Chlor 0.9% + Kcl 20 Meq) 20 meq in 1,000 mls @ 50 mls/hr IV .Q20H [facility] Last Admin: 05/02/21 03:22 Dose: 50 mls/hr Documented by: Insulin Human Lispro (Insulin Lispro 100 Unit/1 Ml) 0 unit SUBCUT Q4H [facility]; Protocol Last Admin: 05/02/21 03:28 Dose: 2 unit Documented by: Lanolin (Lanolin Oint 7 Gm) 1 applic TOPICAL PRN PRN PRN Reason: Dryness Levothyroxine Sodium (Levothyroxine 100 Mcg Sdv) 62.5 mcg IVP DAILY [facility] Last Admin: 05/01/21 08:03 Dose: 62.5 mcg Documented by: Methylprednisolone Sodium Succinate (Methylprednisolone Sod Succ 40 Mg/Ml Inj) 40 mg IVP Q12H [facility] Last Admin: 05/02/21 02:29 Dose: 40 mg Documented by: Ondansetron HCl (Ondansetron 2 Mg/Ml Sdv 2 Ml) 4 mg IVP Q6H PRN PRN Reason: NAUSEA AND VOMITING Last Admin: 04/30/21 12:02 Dose: 4 mg Documented by: Pantoprazole Sodium (Pantoprazole 40 Mg Sdv) 40 mg IVP DAILY [facility] Last Admin: 05/01/21 08:03 Dose: 40 mg Documented by: PFSH Anesthesia PFS: Medical History YOLANDA (acute kidney injury) DM type 2 (diabetes mellitus, type 2) GERD (gastroesophageal reflux disease) HTN (hypertension) Hyperlipidemia IBS (irritable bowel syndrome) Lung nodules Pneumonia Pulmonary nodule less than 1 cm in diameter with moderate to high risk for malignant neoplasm Rhinosinusitis Thyroid cancer Surgical History History of bladder suspension procedure History of cholecystectomy History of hysterectomy History of intestinal surgery History of salpingo-oophorectomy History of thyroid surgery Hx of tonsillectomy Family History Unknown Hypertension Diabetes Social History Smoking and tobacco status: never smoked Second hand smoke exposure: No Smoking risk assessment/counseling performed?: No Alcohol intake: never Counseling given: No Counseling given: No Lives independently: Yes Household members: spouse Marital status: History of recent travel: No Current gender identity: Female Data Anesthesia CBC & Chem 7: 05/01/21 04:59 05/02/21 05:39 Other Labs: Laboratory Results - last 48 hr 04/28/21 04/28/21 04/30/21 04:35 22:52 06:18 WBC RBC Hgb Hct MCV MCH MCHC RDW Plt Count MPV Neut % (Auto) Lymph % (Auto) Harlan % (Auto) Eos % (Auto) Baso % (Auto) Neut # (Auto) Lymph # (Auto) [place]lan # (Auto) Eos # (Auto) Baso # (Auto) Nucleated RBC % (auto) Nucleated RBCs # D-Dimer Specimen Type Sample Site ABG pH ABG pCO2 ABG pO2 ABG HCO3 ABG O2 Saturation ABG Base Excess Js Test A-a O2 Gradient Hematocrit Hgb O2 Saturation Carboxyhemoglobin Methemoglobin Total Hemoglobin Potassium Glucose Ionized Calcium O2 Delivery Device FiO2 Tidal Volume PEEP Crop Adjuster ID Sodium Chloride Carbon Dioxide Anion Gap BUN Creatinine GFR Calculation Estimat Average Glucose Hemoglobin A1c Serum Osmolality 241 L Calculated Osmolality Calcium Phosphorus Magnesium Total Bilirubin AST ALT Alkaline Phosphatase Total Protein Albumin Globulin Triglycerides Cholesterol LDL Cholesterol, Calc Total VLDL Cholesterol HDL Cholesterol Cholesterol/HDL Ratio Urine Osmolality 248 Coronavirus 229E (PCR) Not detected SARS-CoV-2 (PCR) Not detected 04/30/21 04/30/21 04/30/21 09:31 10:14 16:32 WBC RBC Hgb Hct MCV MCH MCHC RDW Plt Count MPV Neut % (Auto) Lymph % (Auto) [place] % (Auto) Eos % (Auto) Baso % (Auto) Neut # (Auto) Lymph # (Auto) [place]lan # (Auto) Eos # (Auto) Baso # (Auto) Nucleated RBC % (auto) Nucleated RBCs # D-Dimer 1.74 H Specimen Type Sample Site ABG pH ABG pCO2 ABG pO2 ABG HCO3 ABG O2 Saturation ABG Base Excess Js Test A-a O2 Gradient Hematocrit Hgb O2 Saturation Carboxyhemoglobin Methemoglobin Total Hemoglobin Potassium Glucose Ionized Calcium O2 Delivery Device FiO2 Tidal Volume PEEP Crop Adjuster ID Sodium 128 L 129 L Chloride Carbon Dioxide Anion Gap BUN Creatinine GFR Calculation Estimat Average Glucose Hemoglobin A1c Serum Osmolality Calculated Osmolality Calcium Phosphorus Magnesium Total Bilirubin AST ALT Alkaline Phosphatase Total Protein Albumin Globulin Triglycerides Cholesterol LDL Cholesterol, Calc Total VLDL Cholesterol HDL Cholesterol Cholesterol/HDL Ratio Urine Osmolality Coronavirus 229E (PCR) SARS-CoV-2 (PCR) 04/30/21 04/30/21 05/01/21 17:52 19:30 00:19 WBC RBC Hgb Hct MCV MCH MCHC RDW Plt Count MPV Neut % (Auto) Lymph % (Auto) Harlan % (Auto) Eos % (Auto) Baso % (Auto) Neut # (Auto) Lymph # (Auto) Harlan # (Auto) Eos # (Auto) Baso # (Auto) Nucleated RBC % (auto) Nucleated RBCs # D-Dimer Specimen Type Arterial Arterial Sample Site Radial, right Radial, right ABG pH 7.55 H 7.52 H ABG pCO2 32.1 L 40.0 ABG pO2 41.3 L 102.0 H ABG HCO3 28.3 H 32.6 H ABG O2 Saturation 88.3 99.3 ABG Base Excess 6.1 H 9.0 H Js Test Pos Pos A-a O2 Gradient 36.5 H 8.5 Hematocrit 37.9 34.2 L Hgb O2 Saturation 87.5 L 98.7 Carboxyhemoglobin 0.9 0.5 Methemoglobin 0.1 L 0.1 L Total Hemoglobin 12.4 11.2 L Potassium 3.8 3.3 L Glucose 215.0 H 277.0 H Ionized Calcium 1.2 1.2 O2 Delivery Device Vent Vent FiO2 50.0 30.0 Tidal Volume 0.35 0.35 PEEP 8.0 8.0 Crop Adjuster ID Ed ellpe Sodium 128.0 L 124.0 L 125 L Chloride Carbon Dioxide Anion Gap BUN Creatinine GFR Calculation Estimat Average Glucose Hemoglobin A1c Serum Osmolality Calculated Osmolality Calcium Phosphorus Magnesium Total Bilirubin AST ALT Alkaline Phosphatase Total Protein Albumin Globulin Triglycerides Cholesterol LDL Cholesterol, Calc Total VLDL Cholesterol HDL Cholesterol Cholesterol/HDL Ratio Urine Osmolality Coronavirus 229E (PCR) SARS-CoV-2 (PCR) 05/01/21 05/01/21 05/01/21 04:59 04:59 04:59 WBC 12.4 H RBC 3.60 L Hgb 10.4 L Hct 30.9 L MCV 85.8 MCH 28.9 MCHC 33.7 RDW 14.6 Plt Count 143 MPV 8.7 Neut % (Auto) 93.6 Lymph % (Auto) 1.4 Harlan % (Auto) 2.3 Eos % (Auto) 0.3 Baso % (Auto) 0.9 Neut # (Auto) 11.64 H Lymph # (Auto) 0.2 L Harlan # (Auto) 0.3 Eos # (Auto) 0.0 Baso # (Auto) 0.1 Nucleated RBC % (auto) 0 Nucleated RBCs # 0.0 D-Dimer Specimen Type Sample Site ABG pH ABG pCO2 ABG pO2 ABG HCO3 ABG O2 Saturation ABG Base Excess Js Test A-a O2 Gradient Hematocrit Hgb O2 Saturation Carboxyhemoglobin Methemoglobin Total Hemoglobin Potassium 3.4 L Glucose 263 H Ionized Calcium O2 Delivery Device FiO2 Tidal Volume PEEP Crop Adjuster ID Sodium 125 L Chloride 88 L Carbon Dioxide 25 Anion Gap 15.4 BUN 9 Creatinine 0.3 L GFR Calculation 221.2 H Estimat Average Glucose 154 Hemoglobin A1c 7.0 H Serum Osmolality Calculated Osmolality 268 L Calcium 8.8 Phosphorus Magnesium Total Bilirubin 0.4 AST 11 ALT 9 Alkaline Phosphatase 77 Total Protein 4.8 L Albumin 2.1 L Globulin 2.7 Triglycerides Cholesterol LDL Cholesterol, Calc Total VLDL Cholesterol HDL Cholesterol Cholesterol/HDL Ratio Urine Osmolality Coronavirus 229E (PCR) SARS-CoV-2 (PCR) 05/01/21 05/01/21 05/01/21 04:59 12:00 16:04 WBC RBC Hgb Hct MCV MCH MCHC RDW Plt Count MPV Neut % (Auto) Lymph % (Auto) Harlan % (Auto) Eos % (Auto) Baso % (Auto) Neut # (Auto) Lymph # (Auto) Harlan # (Auto) Eos # (Auto) Baso # (Auto) Nucleated RBC % (auto) Nucleated RBCs # D-Dimer Specimen Type Sample Site ABG pH ABG pCO2 ABG pO2 ABG HCO3 ABG O2 Saturation ABG Base Excess Js Test A-a O2 Gradient Hematocrit Hgb O2 Saturation Carboxyhemoglobin Methemoglobin Total Hemoglobin Potassium 4.0 Glucose 132 H Ionized Calcium O2 Delivery Device FiO2 Tidal Volume PEEP Crop Adjuster ID Sodium 127 L Chloride 91 L Carbon Dioxide 25 Anion Gap 15.0 BUN 11 Creatinine 0.3 L GFR Calculation 221.2 H Estimat Average Glucose Hemoglobin A1c Serum Osmolality Calculated Osmolality 265 L Calcium 9.0 Phosphorus Magnesium 1.6 L 1.7 Total Bilirubin 0.4 AST 11 ALT 8 Alkaline Phosphatase 75 Total Protein 4.8 L Albumin 2.0 L Globulin 2.8 Triglycerides 65 Cholesterol 112 LDL Cholesterol, Calc 41 L Total VLDL Cholesterol 13 HDL Cholesterol 58 L Cholesterol/HDL Ratio 1.93 Urine Osmolality Coronavirus 229E (PCR) SARS-CoV-2 (PCR) 05/01/21 05/01/21 05/02/21 16:27 18:31 00:30 WBC RBC Hgb Hct MCV MCH MCHC RDW Plt Count MPV Neut % (Auto) Lymph % (Auto) Harlan % (Auto) Eos % (Auto) Baso % (Auto) Neut # (Auto) Lymph # (Auto) Harlan # (Auto) Eos # (Auto) Baso # (Auto) Nucleated RBC % (auto) Nucleated RBCs # D-Dimer Specimen Type Arterial Sample Site Brachial, left ABG pH 7.44 ABG pCO2 45.7 H ABG pO2 63.2 L ABG HCO3 30.7 H ABG O2 Saturation 94.0 ABG Base Excess 5.7 H Js Test N/a A-a O2 Gradient 12.6 H Hematocrit 34.0 L Hgb O2 Saturation 92.5 L Carboxyhemoglobin 0.8 Methemoglobin 0.8 Total Hemoglobin 11.1 L Potassium 3.9 Glucose 191.0 H Ionized Calcium 1.2 O2 Delivery Device Vent FiO2 30.0 Tidal Volume 0.33 PEEP 8.0 Crop Adjuster ID Gd Sodium 125.0 L 130 L Chloride Carbon Dioxide Anion Gap BUN Creatinine GFR Calculation Estimat Average Glucose Hemoglobin A1c Serum Osmolality Calculated Osmolality Calcium Phosphorus Magnesium 1.7 Total Bilirubin AST ALT Alkaline Phosphatase Total Protein Albumin Globulin Triglycerides Cholesterol LDL Cholesterol, Calc Total VLDL Cholesterol HDL Cholesterol Cholesterol/HDL Ratio Urine Osmolality Coronavirus 229E (PCR) SARS-CoV-2 (PCR) 05/02/21 05:39 WBC RBC Hgb Hct MCV MCH MCHC RDW Plt Count MPV Neut % (Auto) Lymph % (Auto) Harlan % (Auto) Eos % (Auto) Baso % (Auto) Neut # (Auto) Lymph # (Auto) [place]lan # (Auto) Eos # (Auto) Baso # (Auto) Nucleated RBC % (auto) Nucleated RBCs # D-Dimer Specimen Type Sample Site ABG pH ABG pCO2 ABG pO2 ABG HCO3 ABG O2 Saturation ABG Base Excess Js Test A-a O2 Gradient Hematocrit Hgb O2 Saturation Carboxyhemoglobin Methemoglobin Total Hemoglobin Potassium 4.1 Glucose 138 H Ionized Calcium O2 Delivery Device FiO2 Tidal Volume PEEP Crop Adjuster ID Sodium 129 L Chloride 95 L Carbon Dioxide 25 Anion Gap 13.1 BUN 12 Creatinine 0.4 L GFR Calculation 158.7 H Estimat Average Glucose Hemoglobin A1c Serum Osmolality Calculated Osmolality 270 L Calcium 8.2 L Phosphorus 1.3 L Magnesium 1.8 Total Bilirubin 0.3 AST 9 ALT 9 Alkaline Phosphatase 75 Total Protein 4.8 L Albumin 1.9 L Globulin 2.9 Triglycerides Cholesterol LDL Cholesterol, Calc Total VLDL Cholesterol HDL Cholesterol Cholesterol/HDL Ratio Urine Osmolality Coronavirus 229E (PCR) SARS-CoV-2 (PCR) Micro: Microbiology 04/30/21 21:14 MRSA Culture - Final Nose 04/30/21 05:42 Blood Culture - Preliminary Blood NEGATIVE TO DATE Cardiac Studies: Echocardiogram 04/30/21
--- NOTE | 2021-05-02 10:05 | PC.CHAP ---
Pastoral Care Encounter/Spiritual Assessment Type of Contact [] Declined patient observation assistant visit [] Patient/Family/Request visit [] Outpatient visit [] Follow-up visit [] Physician referral [] Code/Alert [x] Routine visit [] Staff referral [] Actively dying [] Patient sleeping [] Family support [] [] Out of room [] Palliative care [] [x] Receiving care in room [] Pre-surgical visit [] Trauma [] Long length of stay [x] ICU visit [x] Other: vent Relational/Emotional Strength [] Patient feels connected with others/family/visitors/staff [] Distress [] Loneliness/isolation [] Abandonment Spirituality of Patient [] Person of Unique [] Attends Holiness of their Unique [] Believes in Prayer [] Reads Bible or Adventism materials [] There are Spiritual issues to be addressed Neighborhood Planner Interventions [x] Prayer [] Active listening [] Non-anxious presence [] Spiritual/emotional support [] Crisis/trauma care [] Spiritual counseling [] Bereavement support [] Provided bereavement packet [] Provided Bible/devotional materials [] Provided toy/stuffed animal, coloring book to patient or family member [] Provided Communion [] Anointing/[place] [] Salvation [x] Completed spiritual assessment [] Other: Impact on Illness or Injury [] Angry [] Fearful [] Anxious [] Often cries [] Exhaustion [] Unable to work [] Unable to attend orthodox [] Unable to walk/stand [] Unable to read [] Unable to drive [] Unable to eat/drink [] Unable to sleep [] Unable to be with family [] Patient intubated [] Other: Summary Time spent with patient
[2021-05-02 10:36] LABS: Glucose Point of Care 140 mg/dL (70-110)
[2021-05-02 10:36] LABS: Glucose Point of Care 227 mg/dL (70-110)
[2021-05-02 10:36] LABS: Glucose Point of Care 133 mg/dL (70-110)
[2021-05-02 10:37] LABS: Glucose Point of Care 148 mg/dL (70-110)
[2021-05-02 10:37] LABS: Glucose Point of Care 159 mg/dL (70-110)
--- NOTE | 2021-05-02 10:41 | PC.SOCIAL ---
IMM not updated IMM not updated as patient isn't accepted to dc in the next 24-48.
[2021-05-02 12:33] LABS: Sodium 130 mmol/L (136-145)
--- NOTE | 2021-05-02 14:15 | PC.NURSE ---
Report received from ELISEO Hodges. Care assumed. Fentanyl infusing at 100mcg/hr, NS at 100ml/hr and Levophed at 2mcg/hr. Pt intubated, FIO2 at 30%.
--- NOTE | 2021-05-02 14:45 | PC.NURSE ---
PEG placement completed by Dr Vides at bedside.
[2021-05-02] MEDS: midazolam 1 mg/mL INJ 2 mL 4 MG IVP (15:34)
[2021-05-02 15:36] LABS: Glucose Point of Care 199 mg/dL (70-110)
[2021-05-02 15:36] LABS: Glucose Point of Care 127 mg/dL (70-110)
[2021-05-02] MEDS: azithromycin 500 MG in sodium chloride 0.9% 250 ML 250 MG IV (15:45)
--- NOTE | 2021-05-02 16:22 | PM.OP ---
Operative Report Date of procedure: May 02, 2021 Pre-op Diagnosis: Dysphagia secondary to planned tracheostomy Post-op diagnosis: same Procedure Done: Normal EGD except for inflammation in the oropharynx Pathology: none sent Surgeon: Danny Vides Anesthesia: Other (IV sedation) Condition: stable Disposition: PACU Procedure: The patient was taken to the Operating Room and was placed under monitored anesthesia care after antibiotic had been administered. A bite block was placed and Olympus gastroscope was introduced and advanced up to the stomach and the first portion of the duodenum. There were no abnormalities noted in the esophagus, stomach and duodenum. The site for the planned PEG was confirmed in the left upper quadrant with transillumination using gastroscope noted through the abdominal wall and indentation of the abdominal wall noted on the gastroscope. This site was marked, and total of 5 milliliters of 1% lidocaine was infiltrated. An 11-blade was used to make a stab incision. An introducer needle was passed through the abdominal wall into the gastric lumen and the needle removed and the needle removed and the sheath left behind. A guidewire was passed through the introducer needle into the gastric lumen and grasped with a snare attached to the gastroscope. The gastroscope was withdrawn along with the guidewire, which was attached to the 20-[employer] EndoVive PEG tube. The guidewire was then pulled through the abdominal wall along with the PEG through the mouth into the gastric lumen until the inner disc was noted to stand against the gastric wall. The gastroscope was reintroduced to confirm good position. The outer disc was then attached and the two way valve was fixed to the PEG tube. The outer disc was noted to be at 3 centimeters at the skin level. Sterile dressing and abdominal binder was placed. The patient was stable throughout the procedure.
--- NOTE | 2021-05-02 16:50 | PM.PN ---
Subjective Subjective: Interval history: No acute events overnight. Patient has remained hemodynamically stable afebrile. Underwent PEG tube placement today. Tolerated procedure well. On minimal Levophed. Appropriate urine output. Medications: Reviewed: Yes Vitals/I&O/Wt Last Vital Signs Temp 98.7 F 05/02/21 08:00 Pulse 65 05/02/21 14:17 Resp 12 05/02/21 15:47 BP 149/77 05/02/21 12:30 Pulse Ox 93 05/02/21 15:47 05/02/21 05/02/21 05/02/21 06:59 14:59 22:59 Intake Total 1315.145 / 2850.431 603.355 / 603.355 Output Total 250 / 500 Balance 1065.145 / 2350.431 603.355 / 603.355 Weight last 48 hrs Weight 35.976 kg Weight 34.246 kg Physical Exam Narrative: EXAM NARRATIVE: General: Intubated and sedated HEENT: PERRLA, pupils bilaterally equal and reactive Chest: Bilateral normal vesicular breath sounds, coarse crackles in rhonchi present in the right lower zone, CVS: S1-S2 regular, no murmurs, no tachycardia, no gallops, no rubs Abdomen: Soft, nontender, no organomegaly, bowel sounds present Neuro: intubated and sedated Urinary Catheter Management^: Williamson: Cath Placed During This Visit: yes Reason for Continuing Indwelling Catheter: Accurate Measurement of Urinary Output in Critically Ill Patients Urinary Catheter Date of Insertion: 04/30/21 Urinary Catheter Time of Insertion: 06:32 Data : 05/01/21 04:59 05/02/21 11:58 Micro: Microbiology 04/27/21 16:33 Blood Culture - Final Blood NO GROWTH AFTER 5 DAYS 04/27/21 16:30 Blood Culture - Final Blood NO GROWTH AFTER 5 DAYS 05/01/21 13:05 Gram Stain - Final Sputum - Endotracheal Tube Aspirate Sputum Culture - Preliminary Gram Negative Rods 04/30/21 21:14 MRSA Culture - Final Nose A&P Assessment and plan (1) Acute respiratory failure with hypoxia and hypercapnia: Most likely a combination of stridor secondary to 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 Intubated on 04/30 for extensive stridor to prevent impending respiratory failure. Plan for trach with ENT on 05/03 C/w methylprednisolone 40 mg every 12 hourly. Sputum culture growing gram-negative rods. MRSA swab negative. Appreciate ENT and pulm recommendations. Post PEG tube placement on 05/02. Start on trickle feeds today and if tolerating can advance tomorrow to target 30 cc/h. Status: Acute (2) Aspiration pneumonia: Continue with Zosyn which would also cover for gram-negative rods in sputum culture. 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 Baseline sodium around 138. Stable. Appreciate nephrology consultation. Stared on fluid by nephro. Decrease rate to 50 cc/hr. Salt tabs stopped by nephro. Check BMP every 6 hours. 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 Awaiting colonoscopy MBS study. Delayed currently from overnight respiratory distress. Patient and patient's family okay with PEG tube placement if needed. N.p.o. for now. Status: Acute Qualifiers: Dysphagia type: pharyngoesophageal phase Qualified Code(s): R13.14 - Dysphagia, pharyngoesophageal phase (6) Pneumothorax: Small pneumothorax incidentally noted on shoulder x-ray on admission. Currently appears resolved on x-ray this morning. Follow-up additional x-ray tomorrow and will follow up 1 prior to discharge. Status: Acute Additional A&P Information Full code. Lovenox for DVT prophylaxis. Protonix OPD prophylaxis. Plan for day: PEG tube placement. Start on trickle feeds. If tolerating can go to goal rate tomorrow morning. Plan for trach tomorrow. Continue with Zosyn for gram-negative rods in sputum. Attestations Medical Necessity Statement*: Requires further hospitalization for management of acute hypoxic respiratory failure secondary to stridor and post thyroidectomy patient requiring PEG tube and tracheostomy, aspiration pneumonia Critical Care Time: The high probability of a clinically significant, sudden or life threatening deterioration of the patient's [respiratory, infection, cardiac] system(s) required my full and direct attention, intervention and personal management. The critical care time is as shown. This time is in addition to time spent performing any reported procedures but includes the following: [x] Data and vital sign review and interpretation [x] Patient assessment, examination and intervention [x] Documentation [x] Medication orders and management Critical Care Time (min): 60 Coding Level of Care Code Acute Machine Slat Basket Maker for Chg Fwd Diagnoses Acute respiratory failure with hypoxia and hypercapnia J96.01; J96.02 Aspiration pneumonia J69.0 Stridor R06.1 Dehydration with hyponatremia E86.0; E87.1 Dysphagia R13.14 Dysphagia type: pharyngoesophageal phase Pneumothorax J93.9
[2021-05-02 18:46] LABS: Sodium 131 mmol/L (136-145)
--- NOTE | 2021-05-02 19:45 | PC.NURSE ---
Addendum entered by Marialuisa Whitaker RN 05/03/21 20:10: Levophed remains at 2mcg/hr, Hypotension noted with attempt to reduce rate. Original Note: Shift Note Pt remains on vent at fio2 of 30%. Tolerating well. Fentanyl gtt at 100mcg/hr for comfort. Pt able to nod yes/no and hand signal for needs. PEG tube plament done today. , left upper quadrant. Pt tolerated well. Tube feeding restarted at 10ml/hr with the 100 ml H2O flushes every 6 hours as directed by Dr Vides. Pt has denied pain this afternoon. Frequent safety and comfort rounds continue. Orders and/or nursing care completed as indicated. Patient monitored for response to intervention and treatment(s). Education provided includes tube feedings, how to use PEG and medications. Patient and/or c s s representative verbalized or nodded head yes to understanding. demonstrated PEG tube knowledge. . Will continue to monitor.
[2021-05-02] MEDS: enoxaparin 30 mg/0.3 mL Syringe SUBCUT (20:35)
[2021-05-03] VITALS (56 sets, daily range): BP systolic 101–170; BP diastolic 56–100; PULSE 63–120; RESP 8–25; TEMP 34.7–37.7; O2SAT 93–100
[2021-05-03] MEDS: piperacillin-tazobactam 3.375 GM in sodium chloride 0.9% (plus) 50 ML IV ×2 (00:02→06:06)
[2021-05-03] MEDS: insulin lispro 100 unit/1 mL SUBCUT ×3 (00:14→20:50)
[2021-05-03] MEDS: ipratropium-albuterol 3 mL Neb INHALATION ×4 (02:52→20:15)
[2021-05-03] MEDS: sodium chloride 0.9% 1,000 ML 100 ML IV (04:03)
[2021-05-03 05:29] LABS: Alanine Aminotransferase 8 U/L (0-33); Albumin Level 2.1 g/dL (3.5-5.2); Alkaline Phosphatase 68 IU/L (35-105); Aspartate Amino Transferase 9 U/L (0-32); Blood Urea Nitrogen 12 mg/dL (8-23); Calcium 7.9 mg/dL (8.5-10.5); Carbon Dioxide 22 mmol/L (22-29); Chloride 100 mmol/L (98-107); Creatinine Clr Calc Pharmacy 38.2245; Globulin 2.5 g/dL (1.3-4.6); Glomerular Filtration Rate 221.2 mL/min (90-130); Glucose 109 mg/dL (65-115); Magnesium 1.7 mg/dL (1.7-2.3); Osmolality Calculated 282 mOsm/kg (285-295); Phosphorus 2.6 mg/dL (2.5-4.5); Sodium 136 mmol/L (136-145); Total Bilirubin 0.3 mg/dL (0.15-1.2); Total Protein 4.6 g/dL (6.6-8.7)
--- NOTE | 2021-05-03 07:30 | PM.PN ---
Subjective Subjective: Interval history: more awake, interactive. feels better. awaiting Trach today. POD #1 s/p PEG. on trickle feeds. + secretions from ET tube Medications: Reviewed: Yes Vitals/I&O/Wt Last Vital Signs Temp 97.8 F 05/03/21 04:00 Pulse 80 05/03/21 06:00 Resp 12 05/03/21 05:58 BP 138/80 05/03/21 06:00 Pulse Ox 99 05/03/21 06:00 05/02/21 05/03/21 05/03/21 22:59 06:59 14:59 Intake Total 1430.96 / 2034.315 991.545 / 3025.860 Output Total 450 / 450 400 / 850 Balance 980.96 / 1584.315 591.545 / 2175.860 Weight last 48 hrs Weight 41.277 kg Weight 35.976 kg Physical Exam Narrative: EXAM NARRATIVE: vs noted off of pressers intubated-fio2=30%/ ac/ 12/ TV 330/PEEP 6 heent- nc/at, eomi, anicteric neck supple lungs-ronchi b/l heart rrr, + s1, s2 no rub abd soft, nt, nd, +PEG, poor bs ext no edema neuro- awake, alert, interactive Urinary Catheter Management^: Williamson: Cath Placed During This Visit: yes Reason for Continuing Indwelling Catheter: Accurate Measurement of Urinary Output in Critically Ill Patients Urinary Catheter Date of Insertion: 04/30/21 Urinary Catheter Time of Insertion: 06:32 Data : 05/01/21 04:59 05/03/21 04:20 Micro: Microbiology 04/27/21 16:33 Blood Culture - Final Blood NO GROWTH AFTER 5 DAYS 04/27/21 16:30 Blood Culture - Final Blood NO GROWTH AFTER 5 DAYS 05/01/21 13:05 Gram Stain - Final Sputum - Endotracheal Tube Aspirate Sputum Culture - Preliminary Gram Negative Rods A&P Additional A&P Information 70 yr old female [id number] stage III papillary thyroid cancer s/p thyroidectomy, and lymph node dissection (04/2018), followed by radioactive iodine ablation therapy (05/2018), and a bilateral neck dissection for bulky disease recurrence proving 8 positive lymph nodes throughout the bilateral neck. Ct scan performed in December was notable for radiation changes in the lung apices and upper mediastinum. Small amount of progressed pleural fluid and pleural thickening layering in the mid and upper lungs bilaterally. Postradiation changes with bronchovascular thickening about the mediastinum. Furthermore, a previously described 5 mm FDG avid pulmonary nodule inferior right major fissure medially is unchanged since August and September 2020. This was previously FDG avid suspicious for metastatic disease. There was also a tiny stable 2 mm noncalcified nodule left upper lobe. As an outpatient she is being treated with Lenvima as well as dexamethasone 4mg daily. 1. hyponatremia- low ur na- likely volume depletion on SIADH. na normalized w/ ivf -dec ns ivf- and wean off as tolerates feeds -free water restrict -monitor chem 7 2. VDRF per critical care- s/p PEG -for trach 3. dm control per medicine 4. pna- abx per pulm seen and examined w/ rN- telehealth visist discussed w/ UNDRAPED ARTIST MODEL -as sodium improved. Renal will see PRN time spent 25 minutes Attestations Medical Necessity Statement*: per medicine Time Spent in Patient Care: 16 - 35 minutes Coding Level of Care Code Acute Woodworking Craftsman for Chg Fwdenise
[2021-05-03] MEDS: budesonide 0.5 mg/2 mL Neb INHALATION ×2 (08:18→20:15)
--- NOTE | 2021-05-03 08:32 | ANES.PREANE2 ---
Pre-Anesthetic Assessment Pre-Anesthetic Assessment: Height/Weight: Height 1.47 m Weight 41.277 kg Temp Pulse Resp BP Pulse Ox 99.8 F H 95 12 142/82 97 05/03/21 07:30 05/03/21 07:54 05/03/21 07:54 05/03/21 07:30 05/03/21 07:54 Preop Diagnosis: Dysphagia, intubated Proposed Procedure: Operation Date: 05/02/21 11:00 Proposed Procedures p EGD(Not Applicable) - Danny Vides MD s PEG Tube Insertion(Not Applicable) - Danny Vides MD Operation Date: 05/03/21 09:20 Proposed Procedures p Tracheostomy(Not Applicable) - Cliff Linda MD Familial anesthetic complications: Hx from and son at bedside. No anesthesia complications in past Was Beta Yannick taken within 24 hours: N/A Was Clonidine taken within 24 hours: N/A Social: Social History: No alcohol and No tobacco Exam: Pre-Anes Outpt Exam: alert and regular rate & rhythm Additional Exam Findings (including area of procedure): On vent, alert, responds to voice, opens eyes. Airway: Additional comments: Intubated currently Pulmonary: Pulmonary: Asthma Comments: Dysphagia w/ aspiration pneumonia s/p thyroidectomy w/ radiation fibrosis and VC paralysis Intubated currently, minimal vent settings From Pulmonlogy Consult Pulmonary function test: Her pulmonary function test from January 2020 revealed an FEV1 FVC ratio of 86% with FEV1 of 1.49 L which is 81% of predicted and forced vital capacity of 1.73 L which is 74% of predicted. Her total lung capacity 115% and residual volume of 165%. Her DLCO was 80%. Her flow volume loop is consistent with variable inspiratory airflow obstruction CV/HEM: CV/HEM: Murmur Comments: Anemia Hgb 10.4 TTE 04/30/21 CONCLUSIONS LV systolic function is normal with EF of 60-65% Grade 1 diastolic dysfunction Aortic valve is thickened. Mild aortic stenosis No comparison studies are avaiable 04/30/21 EKG Interpretive Statements SINUS TACHYCARDIA WITH SHORT NV INTERVAL POSSIBLE ANTERIOR MYOCARDIAL INFARCTION , OF INDETERMINATE AGE [30 ms Q WAVE IN V3/V4, OR R < 0.2 mV IN V4] Compared to ECG 04/27/2021 18:39:42 Short NV interval now present Myocardial infarct finding now present Sinus rhythm no longer present Left-axis deviation no longer present Electronically Signed On 05-01-2021 5:17:12 TEXTILE PIN WORKER by Yoly Dewitt M.D. : Comments: YOLANDA Hyponatremia GI: GI: GERD Comments: IBS s/p PEG 04/30 Metabolic: Metabolic: DM and Thyroid (Papillary thyroid cancer s/p mulitple resections and radiation resulting in VC paralysis and fibrosis) Other Pertinent Information: Receiving methylprednisone q12 hours (40 mg) last dose 05/03/21 @ 0136 Last dose enoxaparin 05/02/21 @ 2034 Left hand and forearm swollen w/o redness or appreciable tenderness Azithromycin administered 05/02/21 @ 1700 ordered q24 piperacillin-tazobactam administered 03/03/22 at 0606 ordered q8 Off norepinephrine Medications/Allergies Current Medications: Current Medications Generic Name Dose Route Start Last Admin Trade Name Freq PRN Reason Stop Dose Admin Albuterol/Ipratrop ium 3 ml 04/30/21 09:06 05/03/21 08:18 Ipratropium-Albu terol 3 Ml Neb INHALATION 3 ml Q6H.RESPIRATORY S CH Administration Budesonide 0.5 mg 04/30/21 09:00 05/03/21 08:18 Budesonide 0.5 M g/2 Ml Neb INHALATION 0.5 mg Q12H PHU Administration Enoxaparin Sodium 30 mg 04/27/21 20:00 05/02/21 20:35 Enoxaparin 30 Mg /0.3 Ml Syringe SUBCUT 30 mg Q24H PHU Administration Epinephrine 0.5 ml 04/28/21 02:37 04/30/21 04:54 Racepinephrine 0 .5 Ml Neb INHALATION 0.5 ml Q4H.RESPIRATORY P RN Administration SHORTNESS OF AYSE TH Azithromycin 500 m g/ Sodium 250 mls @ 250 mls /hr 04/29/21 16:00 05/02/21 17:00 Chloride IV Infused Q24H PHU Infusion Protocol Piperacillin Sod/T azobactam 50 mls @ 12.5 mls /hr 04/30/21 07:00 05/03/21 06:06 Sod 3.375 gm/ So dium Chloride IV 12.5 mls/hr Q8H PHU Administration Protocol Norepinephrine Bit artrate 4 mg 254 mls @ 0 mls/h r 04/30/21 16:15 05/03/21 00:15 / Dextrose IV 0 mcg/min .Q0M PHU 0 mls/hr Titration Protocol Per Protocol Sodium Chloride 1,000 mls @ 50 ml s/hr 05/02/21 07:45 05/03/21 07:34 Sodium Chloride 0.9% IV 50 mls/hr .Q20H PHU Infusion Fentanyl 2,500 mcg / Sodium 250 mls @ 0 mls/h r 05/02/21 11:00 05/02/21 12:30 Chloride IV 100 mcg/hr .Q0M PHU 10 mls/hr Administration Protocol Per Protocol Insulin Human Lisp ro 0 unit 05/01/21 08:00 05/03/21 05:04 Insulin Lispro 1 00 Unit/1 Ml SUBCUT Not Given Q4H PHU Protocol Levothyroxine Sodi um 62.5 mcg 04/30/21 09:00 05/02/21 08:01 Levothyroxine 10 0 Mcg Sdv IVP 62.5 mcg DAILY PHU Administration Methylprednisolone Sodium Succinate 40 mg 04/30/21 13:30 05/03/21 01:36 Methylprednisolo ne Sod Succ 40 Mg/ Ml Inj IVP 40 mg Q12H PHU Administration Ondansetron HCl 4 mg 04/30/21 11:10 04/30/21 12:02 Ondansetron 2 Mg /Ml Sdv 2 Ml IVP 4 mg Q6H PRN Administration NAUSEA AND VOMITI NG Pantoprazole Sodiu m 40 mg 04/30/21 09:00 05/02/21 08:01 Pantoprazole 40 Mg Sdv IVP 40 mg DAILY PHU Administration PFSH Anesthesia PFSH: Medical History YOLANDA (acute kidney injury) DM type 2 (diabetes mellitus, type 2) GERD (gastroesophageal reflux disease) HTN (hypertension) Hyperlipidemia IBS (irritable bowel syndrome) Lung nodules Pneumonia Pulmonary nodule less than 1 cm in diameter with moderate to high risk for malignant neoplasm Rhinosinusitis Thyroid cancer Surgical History History of bladder suspension procedure History of cholecystectomy History of hysterectomy History of intestinal surgery History of salpingo-oophorectomy History of thyroid surgery Hx of tonsillectomy Family History Unknown Hypertension Diabetes Social History Smoking and tobacco status: never smoked Second hand smoke exposure: No Smoking risk assessment/counseling performed?: No Alcohol intake: never Counseling given: No Counseling given: No Lives independently: Yes Household members: spouse Marital status: History of recent travel: No Current gender identity: Female Data Anesthesia CBC & Chem 7: 05/01/21 04:59 05/03/21 04:20 Other Labs: Laboratory Results - last 48 hr 04/28/21 04/28/21 05/01/21 04:35 22:52 04:59 Specimen Type Sample Site ABG pH ABG pCO2 ABG pO2 ABG HCO3 ABG O2 Saturation ABG Base Excess Js Test A-a O2 Gradient Hematocrit Hgb O2 Saturation Carboxyhemoglobin Methemoglobin Total Hemoglobin Ionized Calcium O2 Delivery Device FiO2 Tidal Volume PEEP Tubing Machine Operator ID Sodium Potassium Chloride Carbon Dioxide Anion Gap BUN Creatinine GFR Calculation Glucose POC Glucose Hemoglobin A1c 7.0 H Serum Osmolality 241 L Calculated Osmolality Calcium Phosphorus Magnesium Total Bilirubin AST ALT Alkaline Phosphatase Total Protein Albumin Globulin LDL Cholesterol, Calc HDL Cholesterol Urine Osmolality 248 05/01/21 05/01/21 05/01/21 04:59 07:58 11:12 Specimen Type Sample Site ABG pH ABG pCO2 ABG pO2 ABG HCO3 ABG O2 Saturation ABG Base Excess Js Test A-a O2 Gradient Hematocrit Hgb O2 Saturation Carboxyhemoglobin Methemoglobin Total Hemoglobin Ionized Calcium O2 Delivery Device FiO2 Tidal Volume PEEP Tubing Machine Operator ID Sodium Potassium Chloride Carbon Dioxide Anion Gap BUN Creatinine GFR Calculation Glucose POC Glucose 227 H 133 H Hemoglobin A1c Serum Osmolality Calculated Osmolality Calcium Phosphorus Magnesium Total Bilirubin AST ALT Alkaline Phosphatase Total Protein Albumin Globulin LDL Cholesterol, Calc 41 L HDL Cholesterol 58 L Urine Osmolality 05/01/21 05/01/21 05/01/21 12:00 15:51 16:04 Specimen Type Sample Site ABG pH ABG pCO2 ABG pO2 ABG HCO3 ABG O2 Saturation ABG Base Excess Js Test A-a O2 Gradient Hematocrit Hgb O2 Saturation Carboxyhemoglobin Methemoglobin Total Hemoglobin Ionized Calcium O2 Delivery Device FiO2 Tidal Volume PEEP Tubing Machine Operator ID Sodium 127 L Potassium 4.0 Chloride 91 L Carbon Dioxide 25 Anion Gap 15.0 BUN 11 Creatinine 0.3 L GFR Calculation 221.2 H Glucose 132 H POC Glucose 140 H Hemoglobin A1c Serum Osmolality Calculated Osmolality 265 L Calcium 9.0 Phosphorus Magnesium 1.6 L 1.7 Total Bilirubin 0.4 AST 11 ALT 8 Alkaline Phosphatase 75 Total Protein 4.8 L Albumin 2.0 L Globulin 2.8 LDL Cholesterol, Calc HDL Cholesterol Urine Osmolality 05/01/21 05/01/21 05/01/21 16:27 18:31 20:26 Specimen Type Arterial Sample Site Brachial, left ABG pH 7.44 ABG pCO2 45.7 H ABG pO2 63.2 L ABG HCO3 30.7 H ABG O2 Saturation 94.0 ABG Base Excess 5.7 H Js Test N/a A-a O2 Gradient 12.6 H Hematocrit 34.0 L Hgb O2 Saturation 92.5 L Carboxyhemoglobin 0.8 Methemoglobin 0.8 Total Hemoglobin 11.1 L Ionized Calcium 1.2 O2 Delivery Device Vent FiO2 30.0 Tidal Volume 0.33 PEEP 8.0 Tubing Machine Operator ID Gd Sodium 125.0 L Potassium 3.9 Chloride Carbon Dioxide Anion Gap BUN Creatinine GFR Calculation Glucose 191.0 H POC Glucose 199 H Hemoglobin A1c Serum Osmolality Calculated Osmolality Calcium Phosphorus Magnesium 1.7 Total Bilirubin AST ALT Alkaline Phosphatase Total Protein Albumin Globulin LDL Cholesterol, Calc HDL Cholesterol Urine Osmolality 05/02/21 05/02/21 05/02/21 00:08 00:30 03:24 Specimen Type Sample Site ABG pH ABG pCO2 ABG pO2 ABG HCO3 ABG O2 Saturation ABG Base Excess Js Test A-a O2 Gradient Hematocrit Hgb O2 Saturation Carboxyhemoglobin Methemoglobin Total Hemoglobin Ionized Calcium O2 Delivery Device FiO2 Tidal Volume PEEP Tubing Machine Operator ID Sodium 130 L Potassium Chloride Carbon Dioxide Anion Gap BUN Creatinine GFR Calculation Glucose POC Glucose 127 H 148 H Hemoglobin A1c Serum Osmolality Calculated Osmolality Calcium Phosphorus Magnesium Total Bilirubin AST ALT Alkaline Phosphatase Total Protein Albumin Globulin LDL Cholesterol, Calc HDL Cholesterol Urine Osmolality 05/02/21 05/02/21 05/02/21 05:39 07:46 11:58 Specimen Type Sample Site ABG pH ABG pCO2 ABG pO2 ABG HCO3 ABG O2 Saturation ABG Base Excess Js Test A-a O2 Gradient Hematocrit Hgb O2 Saturation Carboxyhemoglobin Methemoglobin Total Hemoglobin Ionized Calcium O2 Delivery Device FiO2 Tidal Volume PEEP Tubing Machine Operator ID Sodium 129 L 130 L Potassium 4.1 Chloride 95 L Carbon Dioxide 25 Anion Gap 13.1 BUN 12 Creatinine 0.4 L GFR Calculation 158.7 H Glucose 138 H POC Glucose 159 H Hemoglobin A1c Serum Osmolality Calculated Osmolality 270 L Calcium 8.2 L Phosphorus 1.3 L Magnesium 1.8 Total Bilirubin 0.3 AST 9 ALT 9 Alkaline Phosphatase 75 Total Protein 4.8 L Albumin 1.9 L Globulin 2.9 LDL Cholesterol, Calc HDL Cholesterol Urine Osmolality 05/02/21 05/03/21 17:57 04:20 Specimen Type Sample Site ABG pH ABG pCO2 ABG pO2 ABG HCO3 ABG O2 Saturation ABG Base Excess Js Test A-a O2 Gradient Hematocrit Hgb O2 Saturation Carboxyhemoglobin Methemoglobin Total Hemoglobin Ionized Calcium O2 Delivery Device FiO2 Tidal Volume PEEP Tubing Machine Operator ID Sodium 131 L 136 Potassium 4.0 Chloride 100 Carbon Dioxide 22 Anion Gap 18.0 BUN 12 Creatinine 0.3 L GFR Calculation 221.2 H Glucose 109 POC Glucose Hemoglobin A1c Serum Osmolality Calculated Osmolality 282 L Calcium 7.9 L Phosphorus 2.6 D Magnesium 1.7 Total Bilirubin 0.3 AST 9 ALT 8 Alkaline Phosphatase 68 Total Protein 4.6 L Albumin 2.1 L Globulin 2.5 LDL Cholesterol, Calc HDL Cholesterol Urine Osmolality Micro: Microbiology 04/27/21 16:33 Blood Culture - Final Blood NO GROWTH AFTER 5 DAYS 04/27/21 16:30 Blood Culture - Final Blood NO GROWTH AFTER 5 DAYS 05/01/21 13:05 Gram Stain - Final Sputum - Endotracheal Tube Aspirate Sputum Culture - Preliminary Gram Negative Rods Cardiac Studies: Echocardiogram 04/30/21
[2021-05-03] MEDS: levothyroxine 100 mcg SDV 62.5 MCG IVP (09:07)
[2021-05-03] MEDS: pantoprazole 40 mg SDV IVP (09:07)
--- NOTE | 2021-05-03 09:09 | W.PM.OPSUD ---
Surgery/Procedure H&P Update DATE OF PROCEDURE: May 03, 2021 DATE H&P PERFORMED: 04/30/21 H&P UPDATE INFORMATION: I have reviewed H&P completed within last 30 days, I have examined patient prior to procedure and No changes to prior documentation PREOP DIAGNOSIS: Dysphagia, intubated PLANNED PROCEDURE: Operation Date: 05/02/21 11:00 Proposed Procedures p EGD(Not Applicable) - Danny Vides MD s PEG Tube Insertion(Not Applicable) - Danny Vides MD Operation Date: 05/03/21 09:20 Proposed Procedures p Tracheostomy(Not Applicable) - Cliff Linda MD
--- NOTE | 2021-05-03 10:18 | SUR.OPER ---
0959 1ml 2% lidocaine was used on the pt neck by dr. garay
--- NOTE | 2021-05-03 10:44 | P.OP_ITS ---
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 Procedure Done: Tracheotomy Implants: 8. Shiley cuffed tube Specimens removed/disposition: No tissue removed. Pathology: none sent Surgeon: Cliff Linda Anesthesia: General and Local Estimated blood loss (mL): 5 Complications: No complications encountered Findings: Patient has a very stiffened larynx and trachea related to previous thyroid surgery and subsequent radiation therapy plus natural aging process and calcification. Condition: stable Disposition: ICU Brief History: 70-year-old female patient has been in the hospital to acute respiratory failure with hypoxia and hypercapnia. Due to vocal cord paralysis bilaterally following previous thyroidectomy for malignancy she was developing stridor and spite of CPAP usage. There was retention of CO2 and the patient was failing due to extreme fatigue. Therefore intubation was necessary and now the patient is brought to the operating room to change that over from endotracheal tube to tracheotomy tube. Procedure: Description of procedure: The patient was placed on the operating table in the supine position. Patient already intubated and changed over to general anesthesia. The patient was positioned with a chin up and shoulder roll under the shoulders. Care was taken to make sure she had good support for her head and neck. The neck was positioned appropriately and landmarks were noted. The area of the incision was infiltrated with local and deeper infiltration was also accomplished down to the level of the trachea. A total of 5.1 mL of 2% Xylocaine with 1 100,000 epinephrine was utilized. The patient was then prepped and draped in usual fashion. Timeout was accomplished identifying the patient date of plan procedure allergies fire risk and medications given. With all in agreement the procedure continued. A marking pen was used to highlight the midline and the sternal notch and the incision line 1 fingerbreadth above the sternal notch. The incision was created with the cut mode of the Bovie using a needle tip. This was carried down to the subcutaneous tissue. Hemostasis was obtained with bipolar cautery. Dissection was then carried out layer by layer as most of this tissue was scar tissue and very thickened. As the dissection was carried down to the level of the trachea the muscles were found to be extremely fibrotic. The trachea was identified and appropriate tracheal ring for entry was identified. The area was cleaned off with bipolar cautery. Incision was created with the bipolar cautery. The cuff remained up as I dissected and cut through the intercartilaginous ring and then made a flap based inferiorly through a tracheal ring. Once this was accomplished the cuff was popped and the endotracheal tube was in retracted. As that occurred using the obturator the trach tube was inserted without difficulty and under direct visualization. The obturator was removed and the inner cannula placed and snapped in place. The cuff was inflated and the anesthesia was connected to the tracheotomy tube. The trach shield was sutured to the neck in a four-quadrant fashion with 0 silk. Then a [place] was placed allowing 1 finger breath of laxity so that it was not too tight. This was more for security. No sign of active bleeding was encountered. Ventilation was excellent. The neck was cleansed and with the drapes removed the patient was returned to anesthesia for transport back to ICU and is sedated state. She tolerated the procedure well. Estimated blood loss was 5 mL or less.
--- NOTE | 2021-05-03 11:04 | PC.NUTR ---
Pt's wt was 16 lbs higher today - question accuracy and not sure whether 75 lbs on 05/01 or current wt of 91 lbs is accurate. Therefore, recommend slightly lower goal rate of Glucerna 1.2 @ 25 ml/hr, to start at 10 ml/hr and advancing as tolerated until goal rate of 25 ml/hr is reached, with FW flushes of 100 ml Q6H, as recommended by .
--- NOTE | 2021-05-03 11:10 | PC.NURSE ---
Pt back from OR. trach, size [address] Resp even and unlabored. Pt remains on 30% FIO2 VC-AC. NO s/s of distress. tTube feeding restarted as ordered.
--- NOTE | 2021-05-03 12:35 | PM.PN ---
Subjective Subjective: Interval history: Patient back from OR- underwent trach placement. Sedated. Off levophed since last night Medications: Reviewed: Yes Vitals/I&O/Wt Last Vital Signs Temp 99.8 F H 05/03/21 07:30 Pulse 84 05/03/21 09:00 Resp 16 05/03/21 11:01 BP 121/73 05/03/21 09:00 Pulse Ox 94 05/03/21 11:01 05/02/21 05/03/21 05/03/21 22:59 06:59 14:59 Intake Total 1430.96 / 2034.315 991.545 / 3025.860 624.167 / 624.167 Output Total 450 / 450 400 / 850 Balance 980.96 / 1584.315 591.545 / 2175.860 624.167 / 624.167 Weight last 48 hrs Weight 41.277 kg Weight 35.976 kg Physical Exam Narrative: EXAM NARRATIVE: sedated, trach in place. Chronically ill appearing HENMT: COMMON NORMALS: normocephalic and atraumatic HEAD & SCALP: normocephalic and atraumatic Eye: COMMON NORMALS: Equal, round and reactive pupils present and no scleral icterus PUPIL: Yes Equal, round and reactive pupils present Neck/C-Spine: COMMON NORMALS: supple and no JVD GENERAL: Yes tracheostomy present Lymph: LYMPHATIC: no lymphadenopathy noted Chest: COMMONS NORMALS: normal inspection of the chest Resp: COMMON NORMALS: No retractions and clear to auscultation bilaterally AUSCULTATION: clear to auscultation bilaterally Cardio: COMMON NORMALS: no JVD, regular rate, regular rhythm, S1 normal heart sound present, S2 normal heart sound present and No murmurs present (Cardio) RATE: regular rate RHYTHM: regular rhythm HEART SOUNDS: S1 normal heart sound present and S2 normal heart sound present PERIPHERAL PULSES: femoral pulses present GI: COMMON NORMALS: Soft to palpation PALPATION: Yes Soft to palpation, No Tenderness to palpation present (GI) and No Guarding due to palpation present (GI) Extremity: COMMON NORMALS: negative for no pedal edema (trace bilateral pedal edema) Neuro: COMMON NORMALS: moves all extremities SENSORIUM/ORIENTATION: Yes somnolent Skin: COMMON NORMALS: no rashes or lesions noted and no wounds GENERAL SKIN EXAM: no rashes or lesions noted Urinary Catheter Management^: Williamson: Cath Placed During This Visit: yes Reason for Continuing Indwelling Catheter: Accurate Measurement of Urinary Output in Critically Ill Patients Urinary Catheter Date of Insertion: 04/30/21 Urinary Catheter Time of Insertion: 06:32 Data : 05/01/21 04:59 05/03/21 04:20 Micro: Microbiology 05/01/21 13:05 Gram Stain - Final Sputum - Endotracheal Tube Aspirate Sputum Culture - Final Klebsiella oxytoca 04/27/21 16:33 Blood Culture - Final Blood NO GROWTH AFTER 5 DAYS 04/27/21 16:30 Blood Culture - Final Blood NO GROWTH AFTER 5 DAYS Attestation for Other Data: I personally reviewed and interpreted the following: Other data: lab,imaging A&P Assessment and plan (1) Acute respiratory failure with hypoxia and hypercapnia: Most likely a combination of stridor secondary to 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 Intubated on 04/30 for extensive stridor to prevent impending respiratory failure. Patient underwent tracheostomy placement today 05/03/2021- returned to ICU. C/w methylprednisolone 40 mg every 12 hourly. Sputum culture growing Klebsiella- final result noted- D/C zosyn and begin rocephin x 5 days Appreciate ENT and pulm recommendations. 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 Hyponatremia improved Stable. Appreciate nephrology consultation. Continue NS rate to 50 cc/hr. Salt tabs stopped by nephro. Check BMP every 6 hours. 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 Awaiting colonoscopy MBS study. Delayed currently from overnight respiratory distress. PEG tube placed as above Status: Acute Qualifiers: Dysphagia type: pharyngoesophageal phase Qualified Code(s): R13.14 - Dysphagia, pharyngoesophageal phase (6) Pneumothorax: Small pneumothorax incidentally noted on shoulder x-ray on admission. Resolved Follow-up additional x-ray prior to discharge. Status: Acute Additional A&P Information Full code. Lovenox for DVT prophylaxis. Protonix OPD prophylaxis. Attestations Medical Necessity Statement*: Patient requires ongoing hospitalization and acute care for respiratory failure, trach and PEG placement and LRI Coding Level of Care Code Acute Transformation Coach for Chg Fwd Exam Comprehensive Medical Decision Making Moderate Complexity Diagnoses Acute respiratory failure with hypoxia and hypercapnia J96.01; J96.02 Aspiration pneumonia J69.0 Stridor R06.1 Dehydration with hyponatremia E86.0; E87.1 Dysphagia R13.14 Dysphagia type: pharyngoesophageal phase Pneumothorax J93.9
--- NOTE | 2021-05-03 13:50 | P.PN_ITS ---
Subjective Subjective: Interval history: Patient is due for tracheostomy today, tolerating tube feeds overnight Vitals/I&O/Wt Last Vital Signs Temp 99.8 F H 05/03/21 07:30 Pulse 84 05/03/21 09:00 Resp 18 05/03/21 12:36 BP 121/73 05/03/21 09:00 Pulse Ox 95 05/03/21 12:36 05/02/21 05/03/21 05/03/21 22:59 06:59 14:59 Intake Total 1430.96 / 3025.860 991.545 / 3025.860 624.167 / 624.167 Output Total 450 / 850 400 / 850 Balance 980.96 / 2175.860 591.545 / 2175.860 624.167 / 624.167 Weight last 48 hrs Weight 91 lb Weight 79 lb 5 oz Physical Exam Narrative: EXAM NARRATIVE: Abdomen: Soft, nondistended, PEG tube left upper quadrant Urinary Catheter Management^: Williamson: Cath Placed During This Visit: yes Reason for Continuing Indwelling Catheter: Accurate Measurement of Urinary Output in Critically Ill Patients Urinary Catheter Date of Insertion: 04/30/21 Urinary Catheter Time of Insertion: 06:32 Data : 05/01/21 04:59 05/03/21 04:20 Micro: Microbiology 05/01/21 13:05 Gram Stain - Final Sputum - Endotracheal Tube Aspirate Sputum Culture - Final Klebsiella oxytoca 04/27/21 16:33 Blood Culture - Final Blood NO GROWTH AFTER 5 DAYS 04/27/21 16:30 Blood Culture - Final Blood NO GROWTH AFTER 5 DAYS A&P Assessment and plan (1) S/P percutaneous endoscopic gastrostomy (PEG) tube placement: 70-year-old female status post PEG tube placement Increase tube feeds by 10 cc/h every 8 hours to goal Liquid Colace 100 mg p.o. 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
[2021-05-03] MEDS: cefTRIAXone 2,000 MG in sodium chloride 0.9% (plus) 50 ML 100 MG IV (14:32)
[2021-05-03] MEDS: ondansetron 2 mg/ML SDV 2 mL 4 MG IVP (14:35)
[2021-05-03] MEDS: morphine 4 mg/mL SDV 1 mL 2 MG IVP (16:07)
[2021-05-03] MEDS: docusate sodium 10 mg/mL (5ml) Liq 100 MG PEG-TUBE (18:07)
--- NOTE | 2021-05-03 19:05 | PC.NURSE ---
Report received from tr RN. Assessment completed. Patient is calm and resting in bed with her son at the bedside. Patient is tachycardic in the 120's, but all other vital signs are stable. Patient shakes her head yes or no to questions and is able to mouth sentences. Patient shakes her head no when asked if she is in pain or has any needs or requests. NS at 50ml/hr infusing. Tracheotomy site is clean and dry with minimal serosanguineous drainage. Patient is connected to the vent on VC-AC FiO2 30%, TV 350, Rate 12, PEEP 5 and her SpO2 is >95%. Peg site is clean and dry with minimal serosanguineous drainage noted. Tube feeds infusing to peg tube.
--- NOTE | 2021-05-03 20:11 | PC.NURSE ---
Shift Note: Pt remains on vent. Trach placement done today. Fentanyl gtt stopped for possible weaning. Attempted to wean pt off vent unsuccessful, apneic episodes noted. Pt back to VC-AC at 30% FIO2. and son at bedside most of the day. Pt received Morphine 2mg IVP once for pain. She complained I am going to throw up once this afternoon, Zofran admin., it ws effective. She remains of tube feeding at 20ml/hr. Urine output was 100ml this shift. Frequent safety and comfort rounds continue. Orders and/or nursing care completed as indicated. Patient monitored for response to intervention and treatment(s). Education provided includes pt will be unable to speak for a while, vent vs HAG. antibiotics, skin ulcer on pt's bottom, and oral care.. Patient and/or patient representative were responsive to educations and verbalized understanding of all ongoing care. . Will continue to monitor.
[2021-05-03 20:17] LABS: Glucose Point of Care 149 mg/dL (70-110)
[2021-05-03 20:17] LABS: Glucose Point of Care 129 mg/dL (70-110)
[2021-05-03 20:17] LABS: Glucose Point of Care 118 mg/dL (70-110)
[2021-05-03 20:17] LABS: Glucose Point of Care 153 mg/dL (70-110)
[2021-05-03 20:17] LABS: Glucose Point of Care 125 mg/dL (70-110)
[2021-05-03 20:17] LABS: Glucose Point of Care 150 mg/dL (70-110)
[2021-05-03 20:19] LABS: Glucose Point of Care 140 mg/dL (70-110)
[2021-05-03 20:19] LABS: Glucose Point of Care 173 mg/dL (70-110)
[2021-05-03] MEDS: enoxaparin 30 mg/0.3 mL Syringe SUBCUT (20:50)
[2021-05-04] VITALS (32 sets, daily range): BP systolic 99–157; BP diastolic 61–96; PULSE 80–142; RESP 0–30; TEMP 36.7–38.4; O2SAT 94–100
[2021-05-04] MEDS: insulin lispro 100 unit/1 mL SUBCUT ×3 (01:07→19:59)
[2021-05-04] MEDS: sodium chloride 0.9% 1,000 ML 50 ML IV (01:07)
[2021-05-04] MEDS: ipratropium-albuterol 3 mL Neb INHALATION ×4 (03:33→20:26)
[2021-05-04 03:38] LABS: Basophils # 0.1 10^3/uL (0.0-0.1); Basophils % 0.5 %; Hematocrit 31.5 % (37.0-47.0); Hemoglobin 10.4 g/dL (11.5-15.3); Lymphocytes # 0.3 10^3/uL (0.8-4.8); Lymphocytes % 2.1 %; Mean Corpuscular Hemoglobin 29.4 pg (28.0-34.0); Mean Platelet Volume 8.9 fL (7.4-10.4); Monocytes # 0.7 10^3/uL (0.2-0.9); Monocytes % 5.8 %; Neutrophils # 10.89 10^3/uL (1.8-7.7); Neutrophils % 89.4 %; Nucleated Red Blood Cells % 0 %; Platelet Count 130 10^3/cmm (130-400); Red Blood Count 3.54 10^6/uL (4.1-5.3); Red Cell Distribution Width 15.9 % (12.1-15.1); White Blood Count 12.2 10^3/uL (4.0-10.0)
[2021-05-04 04:04] LABS: Alanine Aminotransferase 8 U/L (0-33); Albumin Level 2.3 g/dL (3.5-5.2); Alkaline Phosphatase 71 IU/L (35-105); Anion Gap 12.5 (5-19); Aspartate Amino Transferase 7 U/L (0-32); Blood Urea Nitrogen 13 mg/dL (8-23); Calcium 7.8 mg/dL (8.5-10.5); Carbon Dioxide 25 mmol/L (22-29); Chloride 102 mmol/L (98-107); Globulin 2.1 g/dL (1.3-4.6); Glomerular Filtration Rate 221.2 mL/min (90-130); Glucose 120 mg/dL (65-115); Magnesium 1.8 mg/dL (1.7-2.3); Osmolality Calculated 283 mOsm/kg (285-295); Phosphorus 2.3 mg/dL (2.5-4.5); Potassium 3.5 mmol/L (3.5-5.1); Sodium 136 mmol/L (136-145); Total Bilirubin 0.2 mg/dL (0.15-1.2); Total Protein 4.4 g/dL (6.6-8.7)
--- NOTE | 2021-05-04 05:26 | PC.NURSE ---
Shift Note Patient's vital signs have remained stable all night on current vent settings. Tracheotomy and PEG tube sites remain clean and dry with minimal drainage noted. Williamson catheter draining well with 600 total urine out. Patient continues to tolerate tube feeds well with residuals less than 50mls. Patient has had an uneventful night.
[2021-05-04] MEDS: budesonide 0.5 mg/2 mL Neb INHALATION ×2 (08:25→20:26)
--- NOTE | 2021-05-04 08:38 | XR_ITS ---
WS: [id number] XR chest 1V portable [id number] REASON FOR EXAM: RESPIRATORY FAILURE FINDINGS: Tracheostomy tube in place properly positioned. Moderate tortuosity the thoracic aorta. Normal heart size. Coarse reticular lung opacities adjacent to the mediastinum in both upper lung regions. Similar opaci ties in the lower lungs and lingula of the left lung. Multiple left lung nodules which appear partial ly calcified. Some improvement in the right lower lung opacities otherwise no significant interval change compared to 04/30/2021. XR/XR chest 1V portable [id number] IMPRESSION: Tracheostomy placement as above. Minimal improvement in the chest as above.
[2021-05-04] MEDS: pantoprazole 40 mg SDV IVP (09:04)
[2021-05-04] MEDS: levothyroxine 100 mcg SDV 62.5 MCG IVP (09:04)
[2021-05-04] MEDS: docusate sodium 10 mg/mL (5ml) Liq 100 MG PEG-TUBE (09:05)
[2021-05-04 09:28] LABS: Alveolar-Arterial Oxygen Gradi 6.2 mmHg (5-10); Arterial Blood Gas Hematocrit 32.6 % (37-47); Base Excess ABG 4.6 mmol/L (-2.0-2.0); Blood Gas Allen Test Pos; Blood Gas Operator Identificat CAK; Blood Gas Sample Site Brachial, left; Blood Gas Sample Type Arterial; Carboxyhemoglobin 0.8 %THgb (0.4-20.1); HCO3 ABG 23.1 mmol/L (22-26); HGB O2 Sat 97.2 % (95-100); Ionized Calcium Level - ABG 1.1 mmol/L (1.1-1.4); Methemoglobin 0.9 % (0.4-1.5); Oxygen Device VENT; Oxygen Saturation ABG 98.9; PO2 ABG 77.5 mmHg (80.0-100.0); Potassium Level - ABG 3.1 mmol/L (3.5-5.0); Total Hemoglobin 10.6 g/dL (12-16)
[2021-05-04 09:36] LABS: ABG PCO2 18.2 mmHg (35-45); ABG PH Result 7.71 (7.35-7.45)
--- NOTE | 2021-05-04 09:36 | ECG_ITS ---
[facility] Test Date: 2021-05-04 Pat Name: Kylah Patterson Department: Room: [facility] Gender: Female Administrative Nursing Supervisor: : [id number] Requested By: Arabella Carter Order Number: [id number] Reading MD: JAMAAL GILLIAM Measurements Intervals [place] Rate: 120 P: 76 MN: 114 QRS: 6 QRSD: 74 T: 69 QT: 288 QTc: 407 Interpretive Statements SINUS TACHYCARDIA WITH SHORT MN INTERVAL LOW QRS VOLTAGE IN PRECORDIAL LEADS [QRS DEFLECTION < 1.0 mV IN CHEST LEADS] POSSIBLE RIGHT VENTRICULAR CONDUCTION DELAY [RSR (QR) IN V1/V2] ABNORMAL RHYTHM ECG INTERPRETATION BASED ON A DEFAULT AGE OF 40 YEARS Compared to ECG 04/30/2021 10:31:57 Low QRS voltage now present Myocardial infarct finding no longer present Electronically Signed On 05-04-2021 18:18:34 PROGRAM MGR by JAMAAL GILLIAM [id number]
[2021-05-04] MEDS: dilTIAZem 30 mg Tablet PO ×2 (10:00→16:00)
[2021-05-04] MEDS: ALPRAZolam 0.5 mg Tablet PO (10:00)
[2021-05-04] MEDS: metoprolol tartrate 25 mg Tablet PO ×2 (10:28→20:52)
--- NOTE | 2021-05-04 10:37 | PM.PN ---
Subjective Subjective: Interval history: Patient is awake after tracheostomy, tube feeds at goal, she has not had a bowel movement in about over a week and has refused enema Vitals/I&O/Wt Last Vital Signs Temp 98.6 F 05/04/21 04:00 Pulse 100 05/04/21 07:47 Resp 22 H 05/04/21 10:18 BP 137/78 05/04/21 04:00 Pulse Ox 94 05/04/21 10:18 05/03/21 05/04/21 05/04/21 22:59 06:59 14:59 Intake Total 1193.833 / 2507.000 189 / 2507.000 Output Total 1200 / 1705 400 / 1705 Balance -6.167 / 802.000 -211 / 802.000 Weight last 48 hrs Weight 91 lb 6.4 oz Weight 91 lb Physical Exam Narrative: EXAM NARRATIVE: Abdomen: Soft, nondistended, minimally tender para, PEG tube in the left upper quadrant, no cellulitis or purulent drainage Urinary Catheter Management^: Williamson: Cath Placed During This Visit: yes Reason for Continuing Indwelling Catheter: Accurate Measurement of Urinary Output in Critically Ill Patients Urinary Catheter Date of Insertion: 04/30/21 Urinary Catheter Time of Insertion: 06:32 Data : 05/04/21 03:00 05/04/21 03:00 Micro: Microbiology 05/03/21 18:25 Gram Stain - Final Sputum - Endotracheal Tube Aspirate 05/01/21 13:05 Gram Stain - Final Sputum - Endotracheal Tube Aspirate Sputum Culture - Final Klebsiella oxytoca A&P Assessment and plan (1) S/P percutaneous endoscopic gastrostomy (PEG) tube placement: 70-year-old female status post PEG tube placement Continue tube feeds at goal with free water flushes Continue liquid Colace 100 mg p.o. twice daily, discussed with the patient that if she does not have a bowel movement by tomorrow she will need a enema Status: Acute Attestations Medical Necessity Statement*: As per primary Coding Level of Care Code Acute Guard Rail Installer for Chg Fwd Diagnoses S/P percutaneous endoscopic gastrostomy (PEG) tube placement Z93.1
[2021-05-04 10:44] LABS: Glucose Point of Care 155 mg/dL (70-110)
[2021-05-04 10:44] LABS: Glucose Point of Care 160 mg/dL (70-110)
[2021-05-04 10:44] LABS: Glucose Point of Care 117 mg/dL (70-110)
[2021-05-04 10:44] LABS: Glucose Point of Care 152 mg/dL (70-110)
--- NOTE | 2021-05-04 11:36 | PM.PN ---
Subjective Subjective: Interval history: Patient awake, family visiting at bedside. Patient tachycardic this AM. Also dyspneic. Denies pain. Medications: Reviewed: Yes Vitals/I&O/Wt Last Vital Signs Temp 98.6 F 05/04/21 04:00 Pulse 100 05/04/21 07:47 Resp 22 H 05/04/21 10:18 BP 137/78 05/04/21 04:00 Pulse Ox 94 05/04/21 10:18 05/03/21 05/04/21 05/04/21 22:59 06:59 14:59 Intake Total 1193.833 / 2318.000 189 / 2507.000 Output Total 1200 / 1305 400 / 1705 Balance -6.167 / 1013.000 -211 / 802.000 Weight last 48 hrs Weight 41.458 kg Weight 41.277 kg Physical Exam Narrative: EXAM NARRATIVE: Chronically ill appearing, frail, elderly patient Const: COMMON NORMALS: patient oriented x3 HENMT: COMMON NORMALS: atraumatic HEAD & SCALP: atraumatic Eye: COMMON NORMALS: Equal, round and reactive pupils present, conjunctivae normal and no scleral icterus CONJUNCTIVA: Yes conjunctivae normal PUPIL: Yes Equal, round and reactive pupils present Neck/C-Spine: COMMON NORMALS: supple and no JVD OTHER: Tracheostomy in place Chest: CHEST: Yes Symmetrical chest wall rise Resp: EFFORT & INSPECTION: Yes tachypneic AUSCULTATION: rhonchi lower bilaterally Cardio: COMMON NORMALS: no JVD OTHER: sinus tachycardia with HR 120-130 GI: COMMON NORMALS: Soft to palpation, non-tender and No hepatosplenomegaly present PALPATION: Yes Soft to palpation and Yes No hepatosplenomegaly present OTHER: PEG in place Extremity: COMMON NORMALS: no clubbing, cyanosis or edema and no calf tenderness Neuro: COMMON NORMALS: patient oriented x3, moves all extremities and no sensory deficits noted GAIT: Yes Unable to assess gait Psych: COMMON NORMALS: mental status grossly normal, Normal thought process present and cooperative ACTIVITY/MOTOR BEHAVIOR: Yes appropriate eye contact THOUGHT PROCESS: Normal thought process present Skin: COMMON NORMALS: no rashes or lesions noted, no wounds, turgor normal and no jaundice GENERAL SKIN EXAM: no rashes or lesions noted and turgor normal Urinary Catheter Management^: Williamson: Cath Placed During This Visit: yes Reason for Continuing Indwelling Catheter: Accurate Measurement of Urinary Output in Critically Ill Patients Urinary Catheter Date of Insertion: 04/30/21 Urinary Catheter Time of Insertion: 06:32 Data : 05/04/21 03:00 05/04/21 03:00 Micro: Microbiology 05/03/21 18:25 Gram Stain - Final Sputum - Endotracheal Tube Aspirate 05/01/21 13:05 Gram Stain - Final Sputum - Endotracheal Tube Aspirate Sputum Culture - Final Klebsiella oxytoca A&P Assessment and plan (1) Acute respiratory failure with hypoxia and hypercapnia: Most likely a combination of stridor secondary to 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 Intubated on 04/30 for extensive stridor to prevent impending respiratory failure. Patient underwent tracheostomy placement 05/03/2021- tachypeic with HR 120-130- STAT EKG, CXR and ABG obtained and noted- given metoprolol and cardizem per tube CXR same- with coarse interstitial markings- will D/C solumedrol and place patient on prednisone per tube Sputum culture growing Klebsiella- final result noted- Rocephin started x 5 days Appreciate ENT and pulm recommendations. 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 Awaiting colonoscopy MBS study. Delayed currently from overnight respiratory distress. PEG tube placed as above Status: Acute Qualifiers: Dysphagia type: pharyngoesophageal phase Qualified Code(s): R13.14 - Dysphagia, pharyngoesophageal phase (6) Pneumothorax: Small pneumothorax incidentally noted on shoulder x-ray on admission. Resolved Follow-up additional x-ray prior to discharge. Status: Acute Additional A&P Information Full code. Lovenox for DVT prophylaxis. Protonix OPD prophylaxis. Discussed with patient and family at bedside. Questions answered. Attestations Medical Necessity Statement*: Patient requires continued hospitalization for management of respiratory failure, tracheostomy, and weakness, tube feeds and monitoring Coding Level of Care Code Acute Spin Instructor for Chg Fwd Exam Comprehensive Diagnoses Acute respiratory failure with hypoxia and hypercapnia J96.01; J96.02 Aspiration pneumonia J69.0 Stridor R06.1 Dehydration with hyponatremia E86.0; E87.1 Dysphagia R13.14 Dysphagia type: pharyngoesophageal phase Pneumothorax J93.9
--- NOTE | 2021-05-04 11:38 | PC.SOCIAL ---
IMM update IMM updated with patient and son at bedside. Verbalized an understanding. Copy Pg 2 provided. Initialled, dated, timed, and placed in chart.
[2021-05-04 11:41] LABS: Glucose Point of Care 140 mg/dL (70-110)
[2021-05-04] MEDS: cefTRIAXone 2,000 MG in sodium chloride 0.9% (plus) 50 ML 100 MG IV (12:48)
[2021-05-04] MEDS: predniSONE 20 mg Tablet 40 MG PO (12:49)
[2021-05-04 16:01] LABS: Glucose Point of Care 106 mg/dL (70-110)
--- NOTE | 2021-05-04 17:43 | PC.NURSE ---
Addendum entered by TERRENCE Martel RN 05/04/21 17:45: witness waste 15 cc fentanyl Original Note: Fentanyl gtt wasted, 15 ml. Witnessed by TERRENCE Martel RN.
--- NOTE | 2021-05-04 19:05 | PC.NURSE ---
Report received from tr GOMES. Assessment completed. Patient is calm and resting in bed with her son at the bedside. All vital signs are stable. Patient shakes her head yes or no to questions and is able to mouth sentences. Patient shakes her head no when asked if she is in pain or has any needs or requests. NS at 50ml/hr infusing. Tracheotomy site is clean and dry with minimal serosanguineous drainage. Patient has a HAG at 35% and her SpO2 is >95%. Peg site is clean and dry with minimal serosanguineous drainage noted. Tube feeds infusing to peg tube at goal rate of 40ml/hr.
--- NOTE | 2021-05-04 19:45 | PC.NURSE ---
Shift Note: Pt's day started out a bit rough. Elevated heart rate of 145, BP and temp 101.1. She was switched t CPAp on the vent, she though it is not getting any gas she did admit to some anxiety. Dr Carter notified, Cardizem, XanaX and metoprolol given . Heart rate has been in 80's and sinus. She has resting in bed for most of the day, she did actively participate with PT today. No more fever the rest of the shift. Tolerating tube feedings well with barely to no residual. She was switched to HAG. SHe neded the shift at 35% FIOS on HAG, tolerating very well. Urine output of 2200ml this shift. and son have sat at bedside most of shift. Frequent safety and comfort rounds continue. Orders and/or nursing care completed as indicated. Patient monitored for response to intervention and treatment(s). Education provided includes PEG care, ongoing care plan, medications and tube feedings. Patient and/or kiosk sales representative verbalized understanding of all cares. Will continue to monitor.
[2021-05-04] MEDS: enoxaparin 30 mg/0.3 mL Syringe SUBCUT (19:58)
[2021-05-04 20:17] LABS: Glucose Point of Care 187 mg/dL (70-110)
[2021-05-05] VITALS (31 sets, daily range): BP systolic 97–137; BP diastolic 59–99; PULSE 62–113; RESP 0–26; TEMP 36.2–37.1; O2SAT 92–100
[2021-05-05 00:32] LABS: Glucose Point of Care 141 mg/dL (70-110)
[2021-05-05] MEDS: insulin lispro 100 unit/1 mL SUBCUT ×3 (01:15→21:57)
[2021-05-05] MEDS: sodium chloride 0.9% 1,000 ML 50 ML IV ×2 (01:22→16:10)
[2021-05-05] MEDS: ipratropium-albuterol 3 mL Neb INHALATION ×4 (02:51→20:15)
[2021-05-05 04:52] LABS: Glucose Point of Care 104 mg/dL (70-110)
--- NOTE | 2021-05-05 05:39 | PC.NURSE ---
Shift Note Patient has rested well tonight. She has remained on HAG at 35% and her SpO2 has stayed >95%. NS infusing to L arm IV. Patient was at times bradycardic in the 50's and SBP 90-100. Overall, vital signs have remained stable. Currently, patient is resting in bed watching tv. She denies any pain, needs, or requests at this time.
[2021-05-05 05:59] LABS: Basophils % 0.2 %; Eosinophils % 0.1 %; Hematocrit 36.2 % (37.0-47.0); Hemoglobin 11.6 g/dL (11.5-15.3); Lymphocytes # 0.4 10^3/uL (0.8-4.8); Lymphocytes % 4.6 %; Mean Corpuscular Hemoglobin 28.4 pg (28.0-34.0); Mean Corpuscular Volume 88.7 fl (81-99); Mean Platelet Volume 8.6 fL (7.4-10.4); Monocytes # 0.4 10^3/uL (0.2-0.9); Neutrophils # 7.79 10^3/uL (1.8-7.7); Neutrophils % 89.6 %; Nucleated Red Blood Cells % 0 %; Platelet Count 128 10^3/cmm (130-400); Red Blood Count 4.08 10^6/uL (4.1-5.3); Red Cell Distribution Width 15.9 % (12.1-15.1); White Blood Count 8.7 10^3/uL (4.0-10.0)
[2021-05-05 06:22] LABS: Anion Gap 14.6 (5-19); Blood Urea Nitrogen 10 mg/dL (8-23); Calcium 7.8 mg/dL (8.5-10.5); Carbon Dioxide 27 mmol/L (22-29); Chloride 99 mmol/L (98-107); Glomerular Filtration Rate 221.2 mL/min (90-130); Glucose 106 mg/dL (65-115); Osmolality Calculated 283 mOsm/kg (285-295); Potassium 3.6 mmol/L (3.5-5.1); Sodium 137 mmol/L (136-145)
[2021-05-05] MEDS: budesonide 0.5 mg/2 mL Neb INHALATION ×2 (08:05→20:15)
[2021-05-05 08:44] LABS: Glucose Point of Care 103 mg/dL (70-110)
[2021-05-05] MEDS: pantoprazole 40 mg SDV IVP (09:16)
[2021-05-05] MEDS: predniSONE 20 mg Tablet 40 MG PO (09:16)
[2021-05-05] MEDS: levothyroxine 100 mcg SDV 62.5 MCG IVP (09:17)
[2021-05-05] MEDS: metoprolol tartrate 25 mg Tablet PO ×2 (09:23→21:57)
--- NOTE | 2021-05-05 11:59 | PC.NUTR ---
Recommend consideration of Glucerna 1.2 @ goal rate of 40 ml/hr, with FW flushes 100 mls Q6H. this will meet estimated calorie, protein (high because of stg 2 PI to Sacrum), and fluid needs of Patient. Details in RD assessment.
[2021-05-05 12:01] LABS: Glucose Point of Care 100 mg/dL (70-110)
--- NOTE | 2021-05-05 12:25 | P.PN_ITS ---
Subjective Subjective: Interval history: Patient's tube feed is at goal and had multiple bowel movements today Vitals/I&O/Wt Last Vital Signs Temp 98.1 F 05/05/21 07:00 Pulse 113 H 05/05/21 12:03 Resp 20 H 05/05/21 12:03 BP 137/82 05/05/21 12:03 Pulse Ox 96 05/05/21 12:03 05/04/21 05/05/21 05/05/21 22:59 06:59 14:59 Intake Total 1731 / 2225 384 / 2225 Output Total 2300 / 3550 1250 / 3550 Balance -569 / -1325 -866 / -1325 Weight last 48 hrs Weight 90 lb 1.6 oz Weight 91 lb 6.4 oz Physical Exam Narrative: EXAM NARRATIVE: Abdomen: Soft, nondistended, minimally tender, PEG tube site clean Urinary Catheter Management^: Williamson: Cath Placed During This Visit: yes Reason for Continuing Indwelling Catheter: Accurate Measurement of Urinary Output in Critically Ill Patients Urinary Catheter Date of Insertion: 04/30/21 Urinary Catheter Time of Insertion: 06:32 Data : 05/05/21 05:38 05/05/21 05:38 Micro: Microbiology 05/03/21 18:25 Gram Stain - Final Sputum - Endotracheal Tube Aspirate Sputum Culture - Preliminary Gram Negative Rods Yeast 04/30/21 05:42 Blood Culture - Final Blood NO GROWTH AFTER 5 DAYS A&P Assessment and plan (1) S/P percutaneous endoscopic gastrostomy (PEG) tube placement: 70-year-old female status post PEG tube placement Continue tube feeds at goal with free water flushes Continue liquid Colace 100 mg p.o. twice daily Status: Acute Attestations Medical Necessity Statement*: As per primary Coding Level of Care Code Acute Silk Screen Layout Drafter for Chg Fwd Diagnoses S/P percutaneous endoscopic gastrostomy (PEG) tube placement Z93.1
[2021-05-05] MEDS: cefTRIAXone 2,000 MG in sodium chloride 0.9% (plus) 50 ML 100 MG IV (14:07)
[2021-05-05 16:09] LABS: Glucose Point of Care 177 mg/dL (70-110)
[2021-05-05] MEDS: dilTIAZem 30 mg Tablet PO (16:10)
--- NOTE | 2021-05-05 16:23 | P.PN_ITS ---
Subjective Subjective: Interval history: Patient awake and alert. Appears comfortable. Visiting with family Denies pain. No dyspnea. Worked with PT Medications: Reviewed: Yes Vitals/I&O/Wt Last Vital Signs Temp 98.1 F 05/05/21 07:00 Pulse 82 05/05/21 15:19 Resp 16 05/05/21 15:11 BP 137/82 05/05/21 12:03 Pulse Ox 95 05/05/21 15:11 05/05/21 05/05/21 05/05/21 06:59 14:59 22:59 Intake Total 384 / 2225 180 / 180 740 / 920 Output Total 1250 / 3550 Balance -866 / -1325 180 / 180 740 / 920 Weight last 48 hrs Weight 40.869 kg Weight 41.458 kg Physical Exam Narrative: EXAM NARRATIVE: frail, elderly, chronically ill appearing Const: COMMON NORMALS: no acute distress, patient oriented x3 and alert HENMT: COMMON NORMALS: normocephalic and atraumatic HEAD & SCALP: normocephalic and atraumatic Eye: COMMON NORMALS: Equal, round and reactive pupils present and no scleral icterus PUPIL: Yes Equal, round and reactive pupils present Neck/C-Spine: COMMON NORMALS: supple OTHER: trach in place Chest: COMMONS NORMALS: normal inspection of the chest Resp: COMMON NORMALS: No retractions and clear to auscultation bilaterally AUSCULTATION: clear to auscultation bilaterally Cardio: COMMON NORMALS: regular rate, regular rhythm, S1 normal heart sound present and S2 normal heart sound present RATE: regular rate RHYTHM: regular rhythm HEART SOUNDS: S1 normal heart sound present and S2 normal heart sound present GI: COMMON NORMALS: Soft to palpation and no masses PALPATION: Yes Soft to palpation OTHER: PEG in place Extremity: COMMON NORMALS: normal to inspection, full ROM and no clubbing, cyanosis or edema Neuro: COMMON NORMALS: patient oriented x3 and moves all extremities SENSORIUM/ORIENTATION: Yes alert Psych: COMMON NORMALS: mental status grossly normal and cooperative ATTITUDE: Yes calm Skin: COMMON NORMALS: no rashes or lesions noted and no wounds GENERAL SKIN EXAM: no rashes or lesions noted Urinary Catheter Management^: Williamson: Cath Placed During This Visit: yes Reason for Continuing Indwelling Catheter: Accurate Measurement of Urinary Output in Critically Ill Patients Urinary Catheter Date of Insertion: 04/30/21 Urinary Catheter Time of Insertion: 06:32 Data : 05/05/21 05:38 05/05/21 05:38 Micro: Microbiology 05/03/21 18:25 Gram Stain - Final Sputum - Endotracheal Tube Aspirate Sputum Culture - Preliminary Gram Negative Rods Yeast 04/30/21 05:42 Blood Culture - Final Blood NO GROWTH AFTER 5 DAYS A&P Assessment and plan (1) Acute respiratory failure with hypoxia and hypercapnia: Most likely a combination of stridor secondary to 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 Intubated on 04/30 for extensive stridor to prevent impending respiratory failure. Patient underwent tracheostomy placement 05/03/2021 CXR same- with coarse interstitial markings Sputum culture growing Klebsiella- final result noted- Rocephin x 5 days Endotracheal aspirate reveals gram negative rods and yeast- will await final ID and add diflucan per tube Patient started on cardizem and metoprolol per tube for tachycardia and HTN- with good results- continue Continue PEG tube feeds PT/OT eval Appreciate ENT and pulm recommendations. 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 PEG tube placed as above Status: Acute Qualifiers: Dysphagia type: pharyngoesophageal phase Qualified Code(s): R13.14 - Dysphagia, pharyngoesophageal phase (6) Pneumothorax: Small pneumothorax incidentally noted on shoulder x-ray on admission. Resolved Follow-up additional x-ray prior to discharge. Status: Acute Additional A&P Information Full code. Lovenox for DVT prophylaxis. Protonix OPD prophylaxis. Discussed with patient and family at bedside. Questions answered. Attestations Medical Necessity Statement*: Patient requires ongoing hospitalization for management of her acute medical problems including aspiration pneumonia, resp failure, tracheostomy and weakness. Coding Level of Care Code Acute Source Inspector for [facility] Fwd Exam Comprehensive Medical Decision Making Moderate Complexity Diagnoses Acute respiratory failure with hypoxia and hypercapnia J96.01; J96.02 Aspiration pneumonia J69.0 Stridor R06.1 Dehydration with hyponatremia E86.0; E87.1 Dysphagia R13.14 Dysphagia type: pharyngoesophageal phase Pneumothorax J93.9
[2021-05-05] MEDS: fluconazole 100 mg Tablet PEG-TUBE (16:54)
[2021-05-05 20:22] LABS: Glucose Point of Care 162 mg/dL (70-110)
[2021-05-05] MEDS: enoxaparin 30 mg/0.3 mL Syringe SUBCUT (21:57)
[2021-05-06] VITALS (24 sets, daily range): BP systolic 94–124; BP diastolic 53–78; PULSE 65–86; RESP 0–23; TEMP 36.6–37.1; O2SAT 94–100
[2021-05-06 00:28] LABS: Glucose Point of Care 157 mg/dL (70-110)
[2021-05-06] MEDS: insulin lispro 100 unit/1 mL SUBCUT ×4 (00:28→20:59)
[2021-05-06] MEDS: ipratropium-albuterol 3 mL Neb INHALATION ×4 (03:00→20:37)
[2021-05-06 03:20] LABS: Basophils % 0.3 %; Eosinophils % 0.1 %; Hematocrit 35.2 % (37.0-47.0); Hemoglobin 11.3 g/dL (11.5-15.3); Lymphocytes # 0.3 10^3/uL (0.8-4.8); Lymphocytes % 2.7 %; Mean Corpuscular HGB Conc 32.1 g/dL (30.0-36.0); Mean Corpuscular Hemoglobin 29.4 pg (28.0-34.0); Mean Corpuscular Volume 91.7 fl (81-99); Mean Platelet Volume 9.2 fL (7.4-10.4); Monocytes # 0.3 10^3/uL (0.2-0.9); Monocytes % 2.9 %; Neutrophils # 8.81 10^3/uL (1.8-7.7); Neutrophils % 92.4 %; Nucleated Red Blood Cells % 0 %; Platelet Count 132 10^3/cmm (130-400); Red Blood Count 3.84 10^6/uL (4.1-5.3); Red Cell Distribution Width 15.9 % (12.1-15.1); White Blood Count 9.5 10^3/uL (4.0-10.0)
[2021-05-06 03:45] LABS: Anion Gap 10.4 (5-19); Blood Urea Nitrogen 11 mg/dL (8-23); Calcium 7.7 mg/dL (8.5-10.5); Carbon Dioxide 31 mmol/L (22-29); Chloride 98 mmol/L (98-107); Glomerular Filtration Rate 221.2 mL/min (90-130); Glucose 77 mg/dL (65-115); Osmolality Calculated 280 mOsm/kg (285-295); Potassium 3.4 mmol/L (3.5-5.1); Sodium 136 mmol/L (136-145)
[2021-05-06 05:27] LABS: Glucose Point of Care 78 mg/dL (70-110)
[2021-05-06 08:11] LABS: Glucose Point of Care 91 mg/dL (70-110)
[2021-05-06] MEDS: budesonide 0.5 mg/2 mL Neb INHALATION ×2 (08:18→20:37)
[2021-05-06] MEDS: predniSONE 20 mg Tablet 40 MG PO (09:08)
[2021-05-06] MEDS: fluconazole 100 mg Tablet PEG-TUBE (09:08)
[2021-05-06] MEDS: pantoprazole 40 mg SDV IVP (09:08)
[2021-05-06] MEDS: levothyroxine 100 mcg SDV 62.5 MCG IVP (09:09)
[2021-05-06] MEDS: metoprolol tartrate 25 mg Tablet PO ×2 (09:15→20:44)
--- NOTE | 2021-05-06 09:38 | PC.NURSE ---
rigging and controls aircraft mechanic reported holding Cardizem past two nights for bradycardia. This nurse has held yesterdays and this mornings dose as well. Patient responds well to Lopressor.
--- NOTE | 2021-05-06 11:50 | PC.SOCIAL ---
IMM Updated Updated pt & family on IMM. No questions voiced. Provided pt/family at copy. Initialed, dated, & timed copy in chart.
[2021-05-06 12:26] LABS: Glucose Point of Care 150 mg/dL (70-110)
[2021-05-06] MEDS: sodium chloride 0.9% 1,000 ML 50 ML IV (12:28)
--- NOTE | 2021-05-06 15:32 | P.PN_ITS ---
Subjective Subjective: Interval history: Patient states she feels better. Worked with PT. Denies chest pain or dyspnea. Family at bedside. Medications: Reviewed: Yes Vitals/I&O/Wt Last Vital Signs Temp 97.8 F 05/06/21 07:00 Pulse 78 05/06/21 14:36 Resp 17 05/06/21 14:36 BP 124/67 05/06/21 12:00 Pulse Ox 95 05/06/21 14:36 05/06/21 05/06/21 05/06/21 06:59 14:59 22:59 Intake Total 405 / 2065 1000 / 1000 Output Total 250 / 1750 Balance 155 / 315 1000 / 1000 Weight last 48 hrs Weight 39.961 kg Weight 40.869 kg Physical Exam Narrative: EXAM NARRATIVE: elderly chronically ill appearing patient Const: COMMON NORMALS: no acute distress and patient oriented x3 NUTRITIONAL APPEARANCE: cachectic HENMT: COMMON NORMALS: normocephalic and atraumatic HEAD & SCALP: normocephalic and atraumatic Neck/C-Spine: COMMON NORMALS: supple and no JVD OTHER: trach in place Resp: COMMON NORMALS: No retractions and clear to auscultation bilaterally AUSCULTATION: clear to auscultation bilaterally Cardio: COMMON NORMALS: no JVD, regular rate and regular rhythm RATE: regular rate RHYTHM: regular rhythm GI: COMMON NORMALS: Soft to palpation, non-tender and no masses PALPATION: Yes Soft to palpation OTHER: PEG in place Extremity: COMMON NORMALS: no calf tenderness and no pedal edema Neuro: COMMON NORMALS: patient oriented x3, moves all extremities, no focal motor deficits and no sensory deficits noted Psych: COMMON NORMALS: mental status grossly normal ATTITUDE: Yes calm and Yes engaged ACTIVITY/MOTOR BEHAVIOR: Yes appropriate eye contact Skin: COMMON NORMALS: no rashes or lesions noted and no wounds GENERAL SKIN EXAM: no rashes or lesions noted Urinary Catheter Management^: Williamson: Cath Placed During This Visit: yes Reason for Continuing Indwelling Catheter: Accurate Measurement of Urinary Output in Critically Ill Patients Urinary Catheter Date of Insertion: 04/30/21 Urinary Catheter Time of Insertion: 06:32 Data : 05/06/21 02:32 05/06/21 02:32 Micro: Microbiology 05/03/21 18:25 Gram Stain - Final Sputum - Endotracheal Tube Aspirate Sputum Culture - Preliminary Enterobacter cloacae Yeast A&P Assessment and plan (1) Acute respiratory failure with hypoxia and hypercapnia: Most likely a combination of stridor secondary to 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 Intubated on 04/30 for extensive stridor to prevent impending respiratory failure. Patient underwent tracheostomy placement 05/03/2021 Sputum culture/aspirate from 05/01/21 growing Klebsiella- final result noted- Rocephin x 5 days Endotracheal aspirate from 05/03/21- reveals Enterobacter and yeast- continue rocephin and diflucan Continue PEG tube feeds PT/OT eval Speech/swallowing eval in AM Appreciate ENT and pulm recommendations. 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 PEG tube placed as above Status: Acute Qualifiers: Dysphagia type: pharyngoesophageal phase Qualified Code(s): R13.14 - Dysphagia, pharyngoesophageal phase (6) Pneumothorax: RESOLVED Status: Acute Additional A&P Information Full code. Lovenox for DVT prophylaxis. Protonix OPD prophylaxis. Discussed with patient and family at bedside. Questions answered. They would like to take her home with home health, PT,OT,Speech They are requesting a hospital bed at discharge. Patient stable for transfer from ICU to medical floor Attestations Medical Necessity Statement*: Patient requires ongoing hospitalization for management of acute medical probelms including acute resp failure, stridor, aspiration, trach and PEG placement. Coding Level of Care Code Acute Machine Bander And Cellophaner for Chg Fwd History Detailed Exam Comprehensive Medical Decision Making Moderate Complexity Diagnoses Acute respiratory failure with hypoxia and hypercapnia J96.01; J96.02 Aspiration pneumonia J69.0 Stridor R06.1 Dehydration with hyponatremia E86.0; E87.1 Dysphagia R13.14 Dysphagia type: pharyngoesophageal phase Pneumothorax J93.9
[2021-05-06] MEDS: cefTRIAXone 2,000 MG in sodium chloride 0.9% (plus) 50 ML 100 MG IV (16:03)
[2021-05-06] MEDS: dilTIAZem 30 mg Tablet PO ×2 (16:03→20:50)
[2021-05-06 16:15] LABS: Glucose Point of Care 197 mg/dL (70-110)
[2021-05-06] MEDS: enoxaparin 30 mg/0.3 mL Syringe SUBCUT (20:51)
[2021-05-06 20:55] LABS: Glucose Point of Care 150 mg/dL (70-110)
--- NOTE | 2021-05-06 23:00 | PC.NURSE ---
Patient with no complaints of pain at this time. VSS. Medications given. Tolerated well. 2 loose stools. Will continue to monitor.
[2021-05-07] VITALS (13 sets, daily range): BP systolic 98–126; BP diastolic 59–88; PULSE 70–78; RESP 16–18; TEMP 36.6–36.9; O2SAT 92–99
[2021-05-07] MEDS: ipratropium-albuterol 3 mL Neb INHALATION ×4 (03:05→20:28)
[2021-05-07] MEDS: dilTIAZem 30 mg Tablet PO ×4 (04:34→21:34)
--- NOTE | 2021-05-07 06:27 | PC.NURSE ---
Shift Note Frequent safety and comfort rounds continue. Orders and/or nursing care completed as indicated. Patient monitored for response to intervention and treatment(s). Education provided includes cardizem. Patient and/or petroleum products sales representative verbalize understanding. Will continue to monitor.
[2021-05-07 07:09] LABS: Glucose Point of Care 123 mg/dL (70-110)
[2021-05-07] MEDS: budesonide 0.5 mg/2 mL Neb INHALATION ×2 (08:06→20:28)
[2021-05-07] MEDS: fluconazole 100 mg Tablet PEG-TUBE (09:21)
[2021-05-07] MEDS: metoprolol tartrate 25 mg Tablet PO ×2 (09:21→21:34)
[2021-05-07] MEDS: predniSONE 20 mg Tablet 40 MG PO (09:22)
[2021-05-07] MEDS: pantoprazole 40 mg SDV IVP (09:22)
[2021-05-07 10:23] LABS: Glucose Point of Care 137 mg/dL (70-110)
[2021-05-07 11:08] LABS: Glucose Point of Care 131 mg/dL (70-110)
[2021-05-07] MEDS: levothyroxine 100 mcg SDV 62.5 MCG IVP (11:12)
[2021-05-07] MEDS: sodium chloride 0.9% 1,000 ML 50 ML IV (11:13)
[2021-05-07] MEDS: insulin lispro 100 unit/1 mL SUBCUT ×2 (16:06→21:36)
[2021-05-07 16:07] LABS: Glucose Point of Care 205 mg/dL (70-110)
--- NOTE | 2021-05-07 17:47 | PC.SLP ---
Patient did receive an order for evaluation yesterday, however, after discussing with the patient's physician, current plan is to continue with n.p.o. status and nutrition via PEG tube. Due to the patient's fragile medical condition, further aspiration episodes would be less than optimal. Discussed this with the patient and she indicated her understanding and agreed with this plan. UNDERWATER PHOTOGRAPHER will likely follow-up with the patient at some point to address potential to return to some form of oral intake.
--- NOTE | 2021-05-07 18:27 | PM.PN ---
Subjective Subjective: Interval history: She has been having some diarrhea with tube feeds, but otherwise doing okay. Denies shortness of breath. Has been able to self suction tracheostomy. Vitals/I&O/Wt Last Vital Signs Temp 98.4 F 05/07/21 15:17 Pulse 78 05/07/21 16:13 Resp 16 05/07/21 16:13 BP 103/69 05/07/21 15:17 Pulse Ox 99 05/07/21 16:13 05/07/21 05/07/21 05/07/21 06:59 14:59 22:59 Intake Total 500 / 1550 1000 / 1000 Output Total 1755 / 1755 1300 / 1300 600 / 1900 Balance -1255 / -205 -300 / -300 -600 / -900 Weight last 48 hrs Weight 39.718 kg Weight 39.961 kg Physical Exam Narrative: EXAM NARRATIVE: at bedside Const: COMMON NORMALS: no acute distress and patient oriented x3 GENERAL APPEARANCE: frail appearing HENMT: COMMON NORMALS: oropharynx normal OTHER: Tracheostomy in place Neck/C-Spine: COMMON NORMALS: no JVD Resp: COMMON NORMALS: normal respiratory effort and clear to auscultation bilaterally EFFORT & INSPECTION: Yes able to speak in complete sentences and Yes stridor AUSCULTATION: clear to auscultation bilaterally Cardio: COMMON NORMALS: no JVD, regular rhythm, S1 normal heart sound present, S2 normal heart sound present and No murmurs present (Cardio) RHYTHM: regular rhythm HEART SOUNDS: S1 normal heart sound present and S2 normal heart sound present GI: COMMON NORMALS: Normal to inspection, nondistended, normoactive bowel sounds present, Soft to palpation and non-tender PALPATION: Yes Soft to palpation OTHER: PEG tube, no surrounding discharge or erythema, mild tenderness on palpation around the PEG Extremity: COMMON NORMALS: no joint enlargement and no pedal edema Neuro: COMMON NORMALS: patient oriented x3 and moves all extremities Skin: COMMON NORMALS: no rashes or lesions noted GENERAL SKIN EXAM: no rashes or lesions noted Urinary Catheter Management^: Williamson: Cath Placed During This Visit: yes Reason for Continuing Indwelling Catheter: Other Urinary Catheter Date of Insertion: 04/30/21 Urinary Catheter Time of Insertion: 06:32 Data : 05/06/21 02:32 05/06/21 02:32 Micro: Microbiology 05/03/21 18:25 Gram Stain - Final Sputum - Endotracheal Tube Aspirate Sputum Culture - Final Enterobacter cloacae Nicolette albicans A&P Assessment and plan (1) Acute respiratory failure with hypoxia and hypercapnia: Doing well following tracheostomy. At this time defer any additional attempts for p.o. intake given risk of aspiration. Continue post tracheostomy care. Tracheostomy placed 05/03, would anticipate exchange around 05/10. Completed Rocephin. Continue fluconazole. Intubated on 04/30 for extensive stridor to prevent impending respiratory failure. Patient underwent tracheostomy placement 05/03/2021 Sputum culture/aspirate from 05/01/21 growing Klebsiella- final result noted- Rocephin x 5 days Endotracheal aspirate from 05/03/21- reveals Enterobacter and yeast- continue rocephin and diflucan Continue PEG tube feeds PT/OT eval PEG tube placed 05/02/21- on tube feeds with titration Status: Acute (2) Aspiration pneumonia: N.p.o., tube feeds. Tracheostomy care. 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 As above Status: Acute Qualifiers: Dysphagia type: pharyngoesophageal phase Qualified Code(s): R13.14 - Dysphagia, pharyngoesophageal phase (6) Pneumothorax: RESOLVED Status: Acute Additional A&P Information Full code. Lovenox for DVT prophylaxis. Protonix OPD prophylaxis. They are requesting a hospital bed at discharge. Attestations Medical Necessity Statement*: Continue admission for post tracheostomy care following aspiration pneumonia, hypoxia, following dysphagia. Coding Level of Care Code Acute Cloth Bleaching Supervisor for [facility] Fwd Diagnoses Acute respiratory failure with hypoxia and hypercapnia J96.01; J96.02 Aspiration pneumonia J69.0 Stridor R06.1 Dehydration with hyponatremia E86.0; E87.1 Dysphagia R13.14 Dysphagia type: pharyngoesophageal phase Pneumothorax J93.9
[2021-05-07 21:30] LABS: Glucose Point of Care 164 mg/dL (70-110)
[2021-05-07] MEDS: enoxaparin 30 mg/0.3 mL Syringe SUBCUT (21:36)
[2021-05-08] VITALS (15 sets, daily range): BP systolic 95–107; BP diastolic 61–70; PULSE 64–75; RESP 16–20; TEMP 36.6–36.9; O2SAT 93–100
[2021-05-08 00:28] LABS: Glucose Point of Care 122 mg/dL (70-110)
[2021-05-08] MEDS: ipratropium-albuterol 3 mL Neb INHALATION ×4 (02:44→20:48)
[2021-05-08] MEDS: dilTIAZem 30 mg Tablet PO ×4 (03:34→21:12)
[2021-05-08 03:55] LABS: Glucose Point of Care 134 mg/dL (70-110)
[2021-05-08] MEDS: sodium chloride 0.9% 1,000 ML 50 ML IV (05:31)
[2021-05-08 06:41] LABS: Glucose Point of Care 130 mg/dL (70-110)
[2021-05-08] MEDS: budesonide 0.5 mg/2 mL Neb INHALATION ×2 (08:13→20:48)
--- NOTE | 2021-05-08 09:07 | PC.SOCIAL ---
IMM update IMM updated with patient. Copy Pg 2 provided. Patient shook her head that she understood. Initialled, dated, timed, and placed in chart.
[2021-05-08] MEDS: fluconazole 100 mg Tablet PEG-TUBE (09:30)
[2021-05-08] MEDS: metoprolol tartrate 25 mg Tablet PO ×2 (09:30→21:12)
[2021-05-08] MEDS: predniSONE 20 mg Tablet 40 MG PO (09:31)
[2021-05-08] MEDS: pantoprazole 40 mg SDV IVP (09:31)
[2021-05-08] MEDS: levothyroxine 100 mcg SDV 62.5 MCG IVP (10:14)
[2021-05-08 11:59] LABS: Glucose Point of Care 140 mg/dL (70-110)
--- NOTE | 2021-05-08 15:14 | PC.NUTR ---
Current TF of Glucerna 1.2 @ 30 mls/hr with FW flushes 100 mls Q6H will provide 77-78% Pt's estimated calorie and protein needs.
[2021-05-08 15:59] LABS: Glucose Point of Care 220 mg/dL (70-110)
[2021-05-08] MEDS: insulin lispro 100 unit/1 mL SUBCUT ×2 (16:00→21:12)
[2021-05-08 20:59] LABS: Glucose Point of Care 161 mg/dL (70-110)
--- NOTE | 2021-05-08 20:59 | P.PN_ITS ---
Subjective Subjective: Interval history: She states she is doing well today without any new issues. Diarrhea so far has let up. Vitals/I&O/Wt Last Vital Signs Temp 98.3 F 05/08/21 19:50 Pulse 72 05/08/21 19:50 Resp 17 05/08/21 19:50 BP 102/66 05/08/21 19:50 Pulse Ox 99 05/08/21 19:50 05/08/21 05/08/21 05/08/21 06:59 14:59 22:59 Intake Total 915 / 3065 Output Total 560 / 2460 550 / 550 700 / 1250 Balance 355 / 605 -550 / -550 -700 / -1250 Weight last 48 hrs Weight 41.776 kg Weight 39.718 kg Physical Exam Narrative: EXAM NARRATIVE: at bedside Const: COMMON NORMALS: no acute distress and patient oriented x3 GENERAL APPEARANCE: frail appearing HENMT: COMMON NORMALS: oropharynx normal OTHER: Tracheostomy in place Neck/C-Spine: COMMON NORMALS: no JVD Resp: COMMON NORMALS: normal respiratory effort and clear to auscultation bilaterally EFFORT & INSPECTION: Yes able to speak in complete sentences and Yes stridor AUSCULTATION: clear to auscultation bilaterally Cardio: COMMON NORMALS: no JVD, regular rhythm, S1 normal heart sound present, S2 normal heart sound present and No murmurs present (Cardio) RHYTHM: regular rhythm HEART SOUNDS: S1 normal heart sound present and S2 normal heart sound present GI: COMMON NORMALS: Normal to inspection, nondistended, normoactive bowel sounds present, Soft to palpation and non-tender PALPATION: Yes Soft to palpation OTHER: PEG tube, no surrounding discharge or erythema, mild tenderness on palpation around the PEG Extremity: COMMON NORMALS: no joint enlargement and no pedal edema Neuro: COMMON NORMALS: patient oriented x3 and moves all extremities Skin: COMMON NORMALS: no rashes or lesions noted GENERAL SKIN EXAM: no rashes or lesions noted Urinary Catheter Management^: Williamson: Cath Placed During This Visit: yes Reason for Continuing Indwelling Catheter: Accurate Measurement of Urinary Output in Critically Ill Patients Urinary Catheter Date of Insertion: 04/30/21 Urinary Catheter Time of Insertion: 06:32 Data : 05/06/21 02:32 05/06/21 02:32 A&P Assessment and plan (1) Acute respiratory failure with hypoxia and hypercapnia: Continue oxygen by Hag. She is suctioning secretions. Stop IV fluids. Doing well following tracheostomy. At this time defer any additional attempts for p.o. intake given risk of aspiration. Continue post tracheostomy care. Tracheostomy placed 05/03, would anticipate exchange around 05/10. Completed Rocephin. Continue fluconazole. Intubated on 04/30 for extensive stridor to prevent impending respiratory failure. Patient underwent tracheostomy placement 05/03/2021 Sputum culture/aspirate from 05/01/21 growing Klebsiella- final result noted- completed Rocephin x 5 days Endotracheal aspirate from 05/03/21- reveals Enterobacter and yeast-completed Rocephin, continue diflucan PEG tube placed 05/02/21- on tube feeds with titration Mobilize. Status: Acute (2) Aspiration pneumonia: N.p.o., tube feeds. Tracheostomy care. 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 As above Status: Acute Qualifiers: Dysphagia type: pharyngoesophageal phase Qualified Code(s): R13.14 - Dysphagia, pharyngoesophageal phase (6) Pneumothorax: RESOLVED Status: Acute Additional A&P Information Full code. Lovenox for DVT prophylaxis. Protonix OPD prophylaxis. They are requesting a hospital bed at discharge. Attestations Medical Necessity Statement*: Continue admission for post tracheostomy care, with anticipated tracheostomy exchange prior to discharge. Coding Level of Care Code Acute Hotel Security Officer for [facility] Fwd Diagnoses Acute respiratory failure with hypoxia and hypercapnia J96.01; J96.02 Aspiration pneumonia J69.0 Stridor R06.1 Dehydration with hyponatremia E86.0; E87.1 Dysphagia R13.14 Dysphagia type: pharyngoesophageal phase Pneumothorax J93.9
[2021-05-08] MEDS: enoxaparin 30 mg/0.3 mL Syringe SUBCUT (21:12)
[2021-05-09] VITALS (12 sets, daily range): BP systolic 90–125; BP diastolic 60–77; PULSE 68–93; RESP 15–18; TEMP 36.6–37.1; O2SAT 94–100; BMI 19.2
[2021-05-09 00:17] LABS: Glucose Point of Care 126 mg/dL (70-110)
[2021-05-09] MEDS: ipratropium-albuterol 3 mL Neb INHALATION ×4 (02:41→21:32)
[2021-05-09 04:06] LABS: Glucose Point of Care 106 mg/dL (70-110)
[2021-05-09] MEDS: dilTIAZem 30 mg Tablet PO ×3 (04:14→21:56)
[2021-05-09] MEDS: budesonide 0.5 mg/2 mL Neb INHALATION ×2 (08:50→21:32)
[2021-05-09] MEDS: metoprolol tartrate 25 mg Tablet PO ×2 (09:31→21:04)
[2021-05-09] MEDS: fluconazole 100 mg Tablet PEG-TUBE (09:31)
[2021-05-09] MEDS: predniSONE 20 mg Tablet 40 MG PO (09:31)
[2021-05-09] MEDS: pantoprazole 40 mg SDV IVP (09:32)
[2021-05-09] MEDS: levothyroxine 100 mcg SDV 62.5 MCG IVP (11:44)
[2021-05-09 11:46] LABS: Glucose Point of Care 105 mg/dL (70-110)
--- NOTE | 2021-05-09 11:51 | PC.OT ---
PATIENT HAS MET ALL OT GOALS. NO FURTHER SKILLED OT REQUIRED AT THIS TIME. DISCHARGE SKILLED OT.
[2021-05-09 17:27] LABS: Glucose Point of Care 187 mg/dL (70-110)
--- NOTE | 2021-05-09 18:50 | PM.PN ---
Subjective Subjective: Interval history: Reports he is doing well. Denies any new problems. No pain or discomfort. No trouble with tracheostomy or PEG tube. Discussed with her tomorrow will be seen again by ENT with possible exchange of tracheostomy depending on reassessment. Vitals/I&O/Wt Last Vital Signs Temp 98.8 F 05/09/21 16:00 Pulse 84 05/09/21 16:00 Resp 18 05/09/21 16:00 BP 106/72 05/09/21 16:00 Pulse Ox 100 05/09/21 16:00 05/09/21 05/09/21 05/09/21 06:59 14:59 22:59 Intake Total 1372.5 / 1372.5 Output Total 850 / 2100 600 / 600 Balance 522.5 / -727.5 -600 / -570 Weight last 48 hrs Weight 41.776 kg Weight 41.776 kg Physical Exam Const: COMMON NORMALS: no acute distress, patient oriented x3 and alert GENERAL APPEARANCE: cooperative, comfortable and frail appearing ORIENTATION/CONSCIOUSNESS: Yes awake HENMT: COMMON NORMALS: oropharynx normal OTHER: Tracheostomy in place Neck/C-Spine: COMMON NORMALS: no JVD Resp: COMMON NORMALS: normal respiratory effort and clear to auscultation bilaterally EFFORT & INSPECTION: Yes able to speak in complete sentences and Yes stridor AUSCULTATION: clear to auscultation bilaterally Cardio: COMMON NORMALS: no JVD, regular rhythm, S1 normal heart sound present, S2 normal heart sound present and No murmurs present (Cardio) RHYTHM: regular rhythm HEART SOUNDS: S1 normal heart sound present and S2 normal heart sound present GI: COMMON NORMALS: Normal to inspection, nondistended, normoactive bowel sounds present, Soft to palpation and non-tender PALPATION: Yes Soft to palpation OTHER: PEG tube, no surrounding discharge or erythema, mild tenderness on palpation around the PEG Extremity: COMMON NORMALS: no joint enlargement and no pedal edema Neuro: COMMON NORMALS: patient oriented x3 and moves all extremities SENSORIUM/ORIENTATION: Yes alert Skin: COMMON NORMALS: no rashes or lesions noted GENERAL SKIN EXAM: no rashes or lesions noted Urinary Catheter Management^: Williamson: Cath Placed During This Visit: yes Reason for Continuing Indwelling Catheter: Assist Healing of Perineal & Sacral Wounds- Incontinent Patients Urinary Catheter Date of Insertion: 04/30/21 Urinary Catheter Time of Insertion: 06:32 Data : 05/06/21 02:32 05/06/21 02:32 A&P Assessment and plan (1) Acute respiratory failure with hypoxia and hypercapnia: Reassessment by ENT again tomorrow plus minus exchange of tracheostomy. Subsequently most likely may be able to return home. CM working on discharge supplies. Continue oxygen by [facility]. She is suctioning secretions. Doing well following tracheostomy. At this time defer any additional attempts for p.o. intake given risk of aspiration. Continue post tracheostomy care. Completed Rocephin. Continue fluconazole. Intubated on 04/30 for extensive stridor to prevent impending respiratory failure. Patient underwent tracheostomy placement 05/03/2021 Sputum culture/aspirate from 05/01/21 growing Klebsiella- final result noted-completed Rocephin x 5 days Endotracheal aspirate from 05/03/21- reveals Enterobacter and yeast-completed Rocephin, continue diflucan PEG tube placed 05/02/21- on tube feeds with titration Mobilize. Status: Acute (2) Aspiration pneumonia: N.p.o., tube feeds. Tracheostomy care. Hospital bed to assist with reduction of aspiration risk. 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 As above Status: Acute Qualifiers: Dysphagia type: pharyngoesophageal phase Qualified Code(s): R13.14 - Dysphagia, pharyngoesophageal phase (6) Pneumothorax: RESOLVED Status: Acute Additional A&P Information Physical deconditioning: With decreased endurance and strength. Continue physical therapy. Requiring the use of bedside commode. Full code. Lovenox for DVT prophylaxis. Protonix OPD prophylaxis. Attestations Medical Necessity Statement*: Continue admission for reassessment with possible replacement of tracheostomy, arrangements for equipment needed for discharge to continue care at home following tracheostomy, PEG tube placement due to recurrent episodes of aspiration, stridor with vocal cord paralysis. Coding Level of Care Code Acute Cooker Sulfite for [facility] Fwd Diagnoses Acute respiratory failure with hypoxia and hypercapnia J96.01; J96.02 Aspiration pneumonia J69.0 Stridor R06.1 Dehydration with hyponatremia E86.0; E87.1 Dysphagia R13.14 Dysphagia type: pharyngoesophageal phase Pneumothorax J93.9
--- NOTE | 2021-05-09 19:23 | PC.NURSE ---
Report to night guard nurse at this time.
[2021-05-09] MEDS: enoxaparin 30 mg/0.3 mL Syringe SUBCUT (21:04)
[2021-05-09] MEDS: insulin lispro 100 unit/1 mL SUBCUT (21:08)
[2021-05-10] VITALS (12 sets, daily range): BP systolic 107–113; BP diastolic 63–77; PULSE 64–89; RESP 15–20; TEMP 36.5–36.9; O2SAT 86–98
[2021-05-10 01:10] LABS: Glucose Point of Care 115 mg/dL (70-110)
[2021-05-10] MEDS: ipratropium-albuterol 3 mL Neb INHALATION ×4 (03:54→21:32)
[2021-05-10 04:10] LABS: Glucose Point of Care 113 mg/dL (70-110)
[2021-05-10] MEDS: dilTIAZem 30 mg Tablet PO ×3 (04:12→23:08)
--- NOTE | 2021-05-10 06:41 | P.PN_ITS ---
Subjective Subjective: Interval history: Patient has progressed well with tracheotomy in place. Now 1 week postop. Breathing well with cuff down. Vitals/I&O/Wt Last Vital Signs Temp 97.9 F 05/10/21 04:00 Pulse 67 05/10/21 04:00 Resp 16 05/10/21 04:00 BP 107/65 05/10/21 04:00 Pulse Ox 97 05/10/21 04:00 05/09/21 05/09/21 05/10/21 14:59 22:59 06:59 Intake Total Output Total 1050 / 1050 Balance -1050 / -1020 Weight last 48 hrs Weight 92 lb 1.6 oz Physical Exam Narrative: EXAM NARRATIVE: Trach checked. Some mucoid secretions being coughed up. The sutures are removed holding the trach in place. The [place] is released and the initial trach tube is removed. The area is cleansed and suctioned. New trach tube with cuff down placed with obturator and then changed over to inner cannula. [place] reattached and tightened to within 1 finger breath of the neck. Patient breathing well. 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 The trach tube has now been changed and the patient is breathing easily with the cuff down. No evidence of infection or bleeding. Trach site healing properly. Plan: The patient will be discharged today according to the hospitalist. Routine trach care. Follow-up with me in the office if necessary. Attestations Medical Necessity Statement*: Medical necessity for tracheotomy and change was for the acute respiratory distress with hypercapnia. Trach tube now changed over to a new trach with sutures removed. Patient will maintain this trach in place as an outpatient after discharge. 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
[2021-05-10 06:54] LABS: Glucose Point of Care 107 mg/dL (70-110)
[2021-05-10] MEDS: budesonide 0.5 mg/2 mL Neb INHALATION ×2 (09:36→21:32)
[2021-05-10] MEDS: fluconazole 100 mg Tablet PEG-TUBE (09:45)
[2021-05-10] MEDS: predniSONE 20 mg Tablet 40 MG PO (09:45)
[2021-05-10] MEDS: pantoprazole 40 mg SDV IVP (09:58)
--- NOTE | 2021-05-10 10:15 | PC.NURSE ---
Patient's Williamson Catheter removed intact. Patient tolerated well.
--- NOTE | 2021-05-10 10:48 | P.PN_ITS ---
Subjective Subjective: Interval history: Patient denies any abdominal pain, nausea, vomiting, tolerating tube feeds, had bowel movements Vitals/I&O/Wt Last Vital Signs Temp 98.5 F 05/10/21 08:00 Pulse 76 05/10/21 08:00 Resp 18 05/10/21 08:00 BP 113/77 05/10/21 08:00 Pulse Ox 93 05/10/21 08:00 05/09/21 05/10/21 05/10/21 22:59 06:59 14:59 Output Total 1050 / 1050 700 / 700 Balance -1050 / -1020 -700 / -700 Weight last 48 hrs Weight 100 lb 5 oz Weight 92 lb 1.6 oz Physical Exam Narrative: EXAM NARRATIVE: Abdomen: Soft, nontender, nondistended, PEG tube site clean dry intact Urinary Catheter Management^: Williamson: Cath Placed During This Visit: yes, but has since been removed by the nurse Reason for Continuing Indwelling Catheter: Decision to DC Catheter Urinary Catheter Date of Insertion: 04/30/21 Urinary Catheter Time of Insertion: 06:32 Date Urinary Catheter Removed: 05/10/21 Time Urinary Catheter Discontinued: 10:15 Data : 05/06/21 02:32 05/06/21 02:32 A&P Assessment and plan (1) S/P percutaneous endoscopic gastrostomy (PEG) tube placement: 70-year-old female status post PEG tube placement, tolerating tube feeds and has bowel movements Tube feeds can be transitioned to bolus feeds or bolus feeds during the day and continuous feeds at night, discussed with Dr. Vasquez Continue liquid Colace 100 mg p.o. 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
--- NOTE | 2021-05-10 16:14 | PC.NURSE ---
Attempt to call the fire protection designer policy adviser Carrie at this time. [phone]. left a message.
--- NOTE | 2021-05-10 19:12 | PC.NURSE ---
Report to Annie SANTA at this time.
--- NOTE | 2021-05-10 20:25 | P.PN_ITS ---
Subjective Subjective: Interval history: She says she is doing well. Denies shortness of breath, chest pain or pressure. Doing well after seen by ENT and trach exchange today. No issues with PEG. Vitals/I&O/Wt Last Vital Signs Temp 98.5 F 05/10/21 16:00 Pulse 88 05/10/21 16:08 Resp 20 H 05/10/21 16:08 BP 108/73 05/10/21 16:00 Pulse Ox 98 05/10/21 16:08 05/10/21 05/10/21 05/10/21 06:59 14:59 22:59 Output Total 700 / 700 Balance -700 / -700 Weight last 48 hrs Weight 45.501 kg Weight 41.776 kg Physical Exam Const: COMMON NORMALS: no acute distress, patient oriented x3 and alert GENERAL APPEARANCE: cooperative, comfortable and frail appearing ORIENTATION/CONSCIOUSNESS: Yes awake HENMT: COMMON NORMALS: oropharynx normal OTHER: Tracheostomy in place Neck/C-Spine: COMMON NORMALS: no JVD Resp: COMMON NORMALS: normal respiratory effort and clear to auscultation bilaterally EFFORT & INSPECTION: Yes able to speak in complete sentences and Yes stridor AUSCULTATION: clear to auscultation bilaterally Cardio: COMMON NORMALS: no JVD, regular rhythm, S1 normal heart sound present, S2 normal heart sound present and No murmurs present (Cardio) RHYTHM: regular rhythm HEART SOUNDS: S1 normal heart sound present and S2 normal heart sound present GI: COMMON NORMALS: Normal to inspection, nondistended, normoactive bowel sounds present, Soft to palpation and non-tender PALPATION: Yes Soft to palpation OTHER: PEG tube, no surrounding discharge or erythema, mild tenderness on palpation around the PEG Extremity: COMMON NORMALS: no joint enlargement and no pedal edema Neuro: COMMON NORMALS: patient oriented x3 and moves all extremities SENSORIUM/ORIENTATION: Yes alert Skin: COMMON NORMALS: no rashes or lesions noted GENERAL SKIN EXAM: no rashes or lesions noted Urinary Catheter Management^: Williamson: Cath Placed During This Visit: yes, but has since been removed by the nurse Reason for Continuing Indwelling Catheter: Decision to DC Catheter Urinary Catheter Date of Insertion: 04/30/21 Urinary Catheter Time of Insertion: 06:32 Date Urinary Catheter Removed: 05/10/21 Time Urinary Catheter Discontinued: 10:15 Data : 05/06/21 02:32 05/06/21 02:32 A&P Assessment and plan (1) Acute respiratory failure with hypoxia and hypercapnia: Seen by ENT today, and doing well after tracheostomy exchange. Preparations have been undergoing for discharge home. So far not all the equipment is available. We will reassess again tomorrow. Continue arrangements for tracheostomy equipment, oxygen. Continue oxygen by [facility]. She is suctioning secretions. At this time defer any additional attempts for p.o. intake given risk of aspiration. Continue post tracheostomy care. Completed Rocephin. Continue fluconazole. Intubated on 04/30 for extensive stridor to prevent impending respiratory failure. Patient underwent tracheostomy placement 05/03/2021 Sputum culture/aspirate from 05/01/21 growing Klebsiella- final result noted- completed Rocephin x 5 days Endotracheal aspirate from 05/03/21- reveals Enterobacter and yeast-completed Rocephin, continue diflucan PEG tube placed 05/02/21- on tube feeds with titration Mobilize. Status: Acute (2) Aspiration pneumonia: N.p.o., tube feeds. Tracheostomy care. Hospital bed to assist with reduction of aspiration risk. Status: Acute (3) Stridor: Status: Acute (4) Dehydration with hyponatremia: RESOLVED Status: Acute (5) Dysphagia: Status post PEG tube placement. Requesting additional consultation by emergency nurse to assist with transition to bolus feeding. Preparations for discharge home. 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 As above Status: Acute Qualifiers: Dysphagia type: pharyngoesophageal phase Qualified Code(s): R13.14 - Dysphagia, pharyngoesophageal phase (6) Pneumothorax: RESOLVED Status: Acute Additional A&P Information Physical deconditioning: With decreased endurance and strength. Continue physical therapy. Requiring the use of bedside commode. Full code. Lovenox for DVT prophylaxis. Protonix OPD prophylaxis. Attestations Medical Necessity Statement*: Status post tracheostomy exchange, arrangements for discharge home, tracheostomy care equipment, oxygen, tube feeds, will attempt to transition to bolus feeding prior to discharge. Coding Level of Care Code Acute Certified Nurse Operating Room for [facility] Fwd Diagnoses Acute respiratory failure with hypoxia and hypercapnia J96.01; J96.02 Aspiration pneumonia J69.0 Stridor R06.1 Dehydration with hyponatremia E86.0; E87.1 Dysphagia R13.14 Dysphagia type: pharyngoesophageal phase Pneumothorax J93.9
[2021-05-10 22:00] LABS: Glucose Point of Care 167 mg/dL (70-110)
[2021-05-10] MEDS: enoxaparin 30 mg/0.3 mL Syringe SUBCUT (23:07)
[2021-05-10] MEDS: insulin lispro 100 unit/1 mL SUBCUT (23:07)
[2021-05-10] MEDS: metoprolol tartrate 25 mg Tablet PO (23:08)
[2021-05-11] VITALS (11 sets, daily range): BP systolic 98–120; BP diastolic 62–79; PULSE 60–82; RESP 16–20; TEMP 36.4–36.9; O2SAT 94–99
[2021-05-11 02:06] LABS: Glucose Point of Care 117 mg/dL (70-110)
[2021-05-11] MEDS: ipratropium-albuterol 3 mL Neb INHALATION ×5 (03:47→21:04)
[2021-05-11 04:32] LABS: Glucose Point of Care 110 mg/dL (70-110)
[2021-05-11] MEDS: levothyroxine 125 mcg Tablet PO (05:40)
[2021-05-11] MEDS: dilTIAZem 30 mg Tablet PO ×3 (05:40→16:04)
[2021-05-11] MEDS: budesonide 0.5 mg/2 mL Neb INHALATION ×2 (07:57→21:04)
--- NOTE | 2021-05-11 08:58 | PC.NUTR ---
Consult received for home TF recommendations for Jevity 1.2. Four cartons/day would meet 100% of PT's est. kcal needs and protein needs. IF able to do feedings Q4H starting at 7 or 8 am, that would allow for 4 cartons/day.
[2021-05-11 11:43] LABS: Glucose Point of Care 105 mg/dL (70-110)
[2021-05-11] MEDS: predniSONE 20 mg Tablet 40 MG PO (12:22)
[2021-05-11] MEDS: metoprolol tartrate 25 mg Tablet PO ×2 (12:22→22:41)
[2021-05-11] MEDS: fluconazole 100 mg Tablet PEG-TUBE (12:22)
[2021-05-11] MEDS: pantoprazole 40 mg SDV IVP (12:22)
--- NOTE | 2021-05-11 14:45 | PC.CHAP ---
Pastoral Care Encounter/Spiritual Assessment Type of Contact [] Declined card puncher visit [] Patient/Family/Request visit [] Outpatient visit [xx] Follow-up visit [] Physician referral [] Code/Alert [] Routine visit [] Staff referral [] Actively dying [] Patient sleeping [] Family support [] [] Out of room [] Palliative care [] [] Receiving care in room [] Pre-surgical visit [] Trauma [xx] Long length of stay [] ICU visit [xx] Other: Isolation continues Relational/Emotional Strength [] Patient feels connected with others/family/visitors/staff [] Distress [] Loneliness/isolation [] Abandonment Spirituality of Patient [] Person of Unique [] Attends Nondenominational of their Unique [] Believes in Prayer [] Reads Bible or Gnosticist materials [] There are Spiritual issues to be addressed [employer] Developer Interventions [] Prayer [] Active listening [] Non-anxious presence [] Spiritual/emotional support [] Crisis/trauma care [] Spiritual counseling [] Bereavement support [] Provided bereavement packet [] Provided Bible/devotional materials [] Provided toy/stuffed animal, coloring book to patient or family member [] Provided Communion [] Anointing/[place] [] Salvation [] Completed spiritual assessment [] Other: Impact on Illness or Injury [] Angry [] Fearful [] Anxious [] Often cries [] Exhaustion [] Unable to work [] Unable to attend yarsani [] Unable to walk/stand [] Unable to read [] Unable to drive [] Unable to eat/drink [] Unable to sleep [] Unable to be with family [] Patient intubated [] Other: Summary Time spent with patient
[2021-05-11 16:55] LABS: Glucose Point of Care 195 mg/dL (70-110)
[2021-05-11] MEDS: insulin lispro 100 unit/1 mL SUBCUT ×2 (17:38→22:41)
--- NOTE | 2021-05-11 20:51 | P.PN_ITS ---
Subjective Subjective: Interval history: Denies any changes. She is doing well. Transitioning to bolus feeds. Vitals/I&O/Wt Last Vital Signs Temp 98.3 F 05/11/21 16:00 Pulse 70 05/11/21 16:00 Resp 16 05/11/21 16:00 BP 104/65 05/11/21 16:00 Pulse Ox 96 05/11/21 16:00 05/11/21 05/11/21 05/11/21 06:59 14:59 22:59 Output Total 600 / 600 Balance -600 / -600 Weight last 48 hrs Weight 41.504 kg Weight 45.501 kg Physical Exam Narrative: EXAM NARRATIVE: at bedside Const: COMMON NORMALS: no acute distress, patient oriented x3 and alert GENERAL APPEARANCE: cooperative, comfortable and frail appearing ORIENT ATION/CONSCIOUSNESS: Yes awake HENMT: COMMON NORMALS: oropharynx normal OTHER: Tracheostomy in place Neck/C-Spine: COMMON NORMALS: no JVD Resp: COMMON NORMALS: normal respiratory effort and clear to auscultation bilaterally EFFORT & INSPECTION: Yes able to speak in complete sentences and Yes stridor AUSCULTATION: clear to auscultation bilaterally Cardio: COMMON NORMALS: no JVD, regular rhythm, S1 normal heart sound present, S2 normal heart sound present and No murmurs present (Cardio) RHYTHM: regular rhythm HEART SOUNDS: S1 normal heart sound present and S2 normal heart sound present GI: COMMON NORMALS: Normal to inspection, nondistended, normoactive bowel sounds present, Soft to palpation and non-tender PALPATION: Yes Soft to p alpation OTHER: PEG tube, no surrounding discharge or erythema, mild tenderness on palpation around the PEG Extremity: COMMON NORMALS: no joint enlargement and no pedal edema Neuro: COMMON NORMALS: patient oriented x3 and moves all extremities SENSORIUM/ORIENTATION: Yes alert Skin: COMMON NORMALS: no rashes or lesions noted GENERAL SKIN EXAM: no rashes or lesions noted Urinary Catheter Management^: Williamson: Cath Placed During This Visit: yes, but has since been removed by the nurse Reason for Continuing Indwelling Catheter: Decision to DC Catheter Urinary Catheter Date of Insertion: 04/30/21 Urinary Catheter Time of Insertion: 06:32 Date Urinary Catheter Removed: 05/10/21 Time Urinary Catheter Discontinued: 10:15 Data : 05/06/21 02:32 05/06/21 02:32 A&P Assessment and plan (1) Acute respiratory failure with hypoxia and hypercapnia: Doing well. Arrangements are underway for home supplies, as well as oxygen and home health care. Trach exchanged on 05/10. Anticipated return home tomorrow if all arrangements completed. Continue oxygen by [facility]. She is suctioning secretions. At this time defer any additional attempts for p.o. intake given risk of aspiration. Continue post tracheostomy care. Completed Rocephin. Continue fluconazole. Intubated on 04/30 for extensive stridor to prevent impending respiratory failur e. Patient underwent tracheostomy placement 05/03/2021 Sputum culture/aspirate from 05/01/21 growing Klebsiella- final result noted- completed Rocephin x 5 days Endotracheal aspirate from 05/03/21- reveals Enterobacter and yeast-completed Rocephin, continue diflucan PEG tube placed 05/02/21- on tube feeds with titration Mobilize. Status: Acute (2) Aspiration pneumonia: N.p.o., tube feeds. Tracheostomy care. Hospital bed to assist with reduction of aspiration risk. Status: Acute (3) Stridor: Status: Acute (4) Dehydration with hyponatremia: RESOLVED Status: Acute (5) Dysphagia: Status post PEG tube placement. Transition to bolus feeds. 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 As above Status: Acute Qualifiers: Dysphagia type: pharyngoesophageal phase Qualified Code(s): R13.14 - Dysphagia, pharyngoesophageal phase (6) Pneumothorax: RESOLVED Status: Acute Additional A&P Information Physical deconditioning: With decreased endurance and strength. Continue physical therapy. Requiring the use of bedside commode. Full code. Lovenox for DVT prophylaxis. Protonix OPD prophylaxis. Attestations Medical Necessity Statement*: Continue admission for arrangements of needed eq uipment following tracheostomy, as well as transition to bolus feeding with PEG tube and otherwise NPO. 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
[2021-05-11] MEDS: enoxaparin 30 mg/0.3 mL Syringe SUBCUT (22:41)
[2021-05-11 23:04] LABS: Glucose Point of Care 142 mg/dL (70-110)
[2021-05-12] VITALS (13 sets, daily range): BP systolic 91–148; BP diastolic 49–88; PULSE 56–87; RESP 16–20; TEMP 36.7–37.1; O2SAT 91–100
[2021-05-12 00:27] LABS: Glucose Point of Care 135 mg/dL (70-110)
[2021-05-12] MEDS: ipratropium-albuterol 3 mL Neb INHALATION ×4 (02:58→20:18)
[2021-05-12 06:02] LABS: Glucose Point of Care 116 mg/dL (70-110)
[2021-05-12] MEDS: levothyroxine 125 mcg Tablet PO (06:16)
[2021-05-12] MEDS: budesonide 0.5 mg/2 mL Neb INHALATION ×2 (08:28→20:18)
[2021-05-12] MEDS: metoprolol tartrate 25 mg Tablet PO ×2 (10:52→21:13)
[2021-05-12] MEDS: predniSONE 20 mg Tablet 40 MG PO (10:52)
[2021-05-12] MEDS: dilTIAZem 30 mg Tablet PO ×3 (10:52→21:13)
[2021-05-12] MEDS: fluconazole 100 mg Tablet PEG-TUBE (10:53)
[2021-05-12] MEDS: pantoprazole 40 mg SDV IVP (10:53)
[2021-05-12 11:35] LABS: Glucose Point of Care 106 mg/dL (70-110)
--- NOTE | 2021-05-12 13:56 | PC.SOCIAL ---
IMM update IMM updated with patient. Copy Pg 2 provided. Patient shook her head that she understood. Initialled, dated, timed, and placed in chart.
[2021-05-12 17:26] LABS: Glucose Point of Care 230 mg/dL (70-110)
[2021-05-12 17:41] LABS: Glucose Point of Care 212 mg/dL (70-110)
[2021-05-12] MEDS: insulin lispro 100 unit/1 mL SUBCUT (18:09)
[2021-05-12 20:58] LABS: Glucose Point of Care 136 mg/dL (70-110)
--- NOTE | 2021-05-12 21:10 | P.PN_ITS ---
Subjective Subjective: Interval history: She is having some soreness around the tracheostomy on the right side. Vitals/I&O/Wt Last Vital Signs Temp 98.2 F 05/12/21 20:00 Pulse 71 05/12/21 20:39 Resp 16 05/12/21 20:18 BP 111/67 05/12/21 20:00 Pulse Ox 98 05/12/21 20:18 05/12/21 05/12/21 05/12/21 06:59 14:59 22:59 Output Total 350 / 350 300 / 650 Balance -350 / -350 -300 / -650 Weight last 48 hrs Weight 41.504 kg Physical Exam Const: COMMON NORMALS: no acute distress, patient oriented x3 and alert GENERAL APPEARANCE: cooperative, comfortable and frail appearing ORIENTATION/CONSCIOUSNESS: Yes awake HENMT: COMMON NORMALS: oropharynx normal OTHER: Tracheostomy in place. Minimal erythema to the right of insertion site Neck/C-Spine: COMMON NORMALS: no JVD Resp: COMMON NORMALS: normal respiratory effort and clear to auscultation bilaterally EFFORT & INSPECTION: Yes able to speak in complete sentences and Yes stridor AUSCULTATION: clear to auscultation bilaterally Cardio: COMMON NORMALS: no JVD, regular rhythm, S1 normal heart sound present, S2 normal heart sound present and No murmurs present (Cardio) RHYTHM: regular rhythm HEART SOUNDS: S1 normal heart sound present and S2 normal heart sound present GI: COMMON NORMALS: Normal to inspection, nondistended, normoactive bowel sounds present, Soft to palpation and non-tender PALPATION: Yes Soft to pa lpation OTHER: PEG tube, no surrounding discharge or erythema, mild tenderness on palpation around the PEG Extremity: COMMON NORMALS: no joint enlargement and no pedal edema Neuro: COMMON NORMALS: patient oriented x3 and moves all extremities SENSORIUM/ORIENTATION: Yes alert Skin: COMMON NORMALS: no rashes or lesions noted GENERAL SKIN EXAM: no rashes or lesions noted Urinary Catheter Management^: Williamson: Cath Placed During This Visit: yes, but has since been removed by the nurse Reason for Continuing Indwelling Catheter: Decision to DC Catheter Urinary Catheter Date of Insertion: 04/30/21 Urinary Catheter Time of Insertion: 06:32 Date Urinary Catheter Removed: 05/10/21 Time Urinary Catheter Discontinued: 10:15 Data : 05/06/21 02:32 05/06/21 02:32 A&P Assessment and plan (1) Acute respiratory failure with hypoxia and hypercapnia: Some soreness at the right side of incision site of tracheostomy. Added lidocaine jelly as needed. Monitor for any signs of worsening redness, cellulitis. Ongoing arrangements for equipment to return home. Home O2 evaluation in the morning, with tentative discharge plan for tomorrow. Continue oxygen by [facility]. She is suctioning secretions. At this time defer any additional attempts for p.o. intake given risk of aspiration. Continue post tracheostomy care. Completed Rocephin. Continue fluconazole. Intubated on 04/30 for extensive stridor to prevent impending respiratory failur e. Patient underwent tracheostomy placement 05/03/2021 Sputum culture/aspirate from 05/01/21 growing Klebsiella- final result noted- completed Rocephin x 5 days Endotracheal aspirate from 05/03/21- reveals Enterobacter and yeast-completed Rocephin, continue diflucan PEG tube placed 05/02/21- on tube feeds with titration Mobilize. Status: Acute (2) Aspiration pneumonia: N.p.o., tube feeds. Tracheostomy care. Hospital bed to assist with reduction of aspiration risk. Status: Acute (3) Stridor: Status: Acute (4) Dehydration with hyponatremia: RESOLVED Status: Acute (5) Dysphagia: Transition to bolus feeds. Status post PEG tube placement. 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 As above Status: Acute Qualifiers: Dysphagia type: pharyngoesophageal phase Qualified Code(s): R13.14 - Dysphagia, pharyngoesophageal phase (6) Pneumothorax: RESOLVED Status: Acute Additional A&P Information Physical deconditioning: With decreased endurance and strength. Continue physical therapy. Requiring the use of bedside commode. Full code. Lovenox for DVT prophylaxis. Protonix OPD prophylaxis. Attestations Medical Necessity Statement*: Continue admission for assessment and management following tracheostomy, arrangements for equipment needed at home, oxygen, transition to bolus feeding, tentative discharge planned for tomorrow. Coding Level of Care Code Acute Overnight Stocker for [facility] Fwd Diagnoses Acute respiratory failure with hypoxia and hypercapnia J96.01; J96.02 Aspiration pneumonia J69.0 Stridor R06.1 Dehydration with hyponatremia E86.0; E87.1 Dysphagia R13.14 Dysphagia type: pharyngoesophageal phase Pneumothorax J93.9
[2021-05-12] MEDS: enoxaparin 30 mg/0.3 mL Syringe SUBCUT (21:13)
[2021-05-13] VITALS (13 sets, daily range): BP systolic 94–116; BP diastolic 57–79; PULSE 61–80; RESP 16–18; TEMP 36.7–36.9; O2SAT 86–99
--- NOTE | 2021-05-13 00:39 | PC.NURSE ---
This nurse educated patient on how to check residual through her peg tube and patient did the procedure as this nurse walked her through the process. The patient also flushed tube, administered bolus feeding, medications (crushed and dissolved by this nurse) while educating the patient on the process, flushed peg tube again. Patient was educated that her tube feeding was changed to Jevity 1.2 Natan and she would be performing the feedings four times a day throughout the day. The patient stated she was a little overwhelmed but stated her would be there to help her as well. Patient was allowed the opportunity to participate and ask questions throughout the process.
[2021-05-13 00:51] LABS: Glucose Point of Care 210 mg/dL (70-110)
[2021-05-13] MEDS: insulin lispro 100 unit/1 mL SUBCUT (00:54)
[2021-05-13] MEDS: ipratropium-albuterol 3 mL Neb INHALATION ×3 (03:39→15:23)
[2021-05-13 06:27] LABS: Glucose Point of Care 81 mg/dL (70-110)
[2021-05-13 06:27] LABS: Glucose Point of Care 59 mg/dL (70-110)
[2021-05-13] MEDS: levothyroxine 125 mcg Tablet PO (06:44)
[2021-05-13] MEDS: budesonide 0.5 mg/2 mL Neb INHALATION (08:28)
[2021-05-13] MEDS: dilTIAZem 30 mg Tablet PO (10:08)
[2021-05-13] MEDS: predniSONE 20 mg Tablet 40 MG PO (10:08)
[2021-05-13] MEDS: docusate sodium 10 mg/mL (5ml) Liq 100 MG PEG-TUBE (10:09)
[2021-05-13] MEDS: metoprolol tartrate 25 mg Tablet PO (10:09)
[2021-05-13] MEDS: fluconazole 100 mg Tablet PEG-TUBE (10:09)
[2021-05-13] MEDS: pantoprazole 40 mg SDV IVP (10:09)
[2021-05-13 10:17] LABS: Glucose Point of Care 78 mg/dL (70-110)
--- NOTE | 2021-05-13 11:18 | P.DS_ITS ---
Discharge Providers Date of Admission: 04/27/21 14:44 Date of Discharge: May 13, 2021 Attending Provider at Admission: Negro Vasquez Attending Provider at Discharge: Negro Vasquez Primary Care Provider: Jah Ortega DO Diagnoses at Discharge Discharge Diagnosis (1) Acute respiratory failure with hypoxia and hypercapnia: Status: Acute (2) Aspiration pneumonia: Status: Acute (3) Stridor: Status: Acute (4) Dehydration with hyponatremia: Status: Acute (5) Dysphagia: Status: Acute Qualifiers: Dysphagia type: pharyngoesophageal phase Qualified Code(s): R13.14 - Dysphagia, pharyngoesophageal phase (6) Pneumothorax: Status: Acute Reason for Visit Reason for Visit: Weakness Hospital Course Hospital Course 70-year-old lady with history of papillary thyroid cancer, status post excision, radiation therapy, with recent hospitalization for pneumonia, with ongoing upper airway stridor was supposed to be following up with her surgeon in [place]. With also recurrent episodes of aspiration, previously maintaining dysphagia diet at home including thickened liquids, however, still with persistent dysphagia for which previously did not want to pursue feeding tube but recently has considered it. Presented to the hospital with generalized weakness, as well as noted severe acute on chronic hyponatremia with sodium 113. She also has been limiting sodium intake at home since her had been limiting it for himself. TSH noted low, although her levothyroxine dose was recently adjusted by her repair specialist. Chest CT on presentation revealed small patches of groundglass interstitial lung disease in bilateral lung bases consistent with active pneumonitis. COVID-19 PCR was negative. Concern was for ongoing aspiration despite dysphagia precautions. Consideration of feeding tube was discussed. Incidentally on CT also noted tiny right apical pneumothorax, 6.9 mm in depth which to her knowledge was new without prior occurrence. It had resolved spontaneously on subsequent studies. Other nonemergent, no emergent chronic findings in full report. Sodium was gradually improving with some discrepancy due to use of different analyzer's in the lab. During an acute event overnight on forestry consultant of 04/30 noted with worsening stridor with respiratory distress and hypoxia. Treated initially with BiPAP, subsequently underwent intubation, mechanical ventilation with worsening hypercapnia and fatigue. Was evaluated by ENT and general surgery. Underwent PEG tube placement on 05/02 and tracheostomy on 05/03. Completed antibiotic course with initially Zosyn, subsequently Rocephin, with Klebsiella growing from sputum culture, endotracheal aspirate from 05/03 growing Enterobacter and yeast, and so completed antibiotic course with Rocephin and completing currently Diflucan. She had weaned off mechanical ventilatory support. Has been doing well and becoming stronger, with persistence of secretions with some improvement, and has been self suctioning without difficulties. She has been tolerating tube feeds as well, and these are transition to bolus feeds prior to discharge. Due to risk of aspiration at discharge hospital bed is ordered for in addition to tracheostomy and oxygen supplies. Home health is requested due to physical deconditioning, new tracheostomy and PEG tube, for continued PT and OT. Tracheostomy was exchanged on 05/10. Follow-up with Dr. Linda in office if necessary. She is doing well and feels comfortable and eager to return home. Physical Exam Narrative: EXAM NARRATIVE: at bedside Const: COMMON NORMALS: no acute distress, patient oriented x3 and alert GENERAL APPEARANCE: cooperative, comfortable and frail appearing ORIENTATION/CONSCIOUSNESS: Yes awake HENMT: COMMON NORMALS: oropharynx normal OTHER: Tracheostomy in place. Minimal erythema to the right of insertion site Neck/C-Spine: COMMON NORMALS: no JVD Resp: COMMON NORMALS: normal respiratory effort and clear to auscultation bilaterally EFFORT & INSPECTION: Yes able to speak in complete sentences and Yes stridor AUSCULTATION: clear to auscultation bilaterally Cardio: COMMON NORMALS: no JVD, regular rhythm, S1 normal heart sound present, S2 normal heart sound present and No murmurs present (Cardio) RHYTHM: regular rhythm HEART SOUNDS: S1 normal heart sound present and S2 normal heart sound present GI: COMMON NORMALS: Normal to inspection, nondistended, normoactive bowel sounds present, Soft to palpation and non-tender PALPATION: Yes Soft to palpation OTHER: PEG tube, no surrounding discharge or erythema, mild tenderness on palpation around the PEG Extremity: COMMON NORMALS: no joint enlargement and no pedal edema Neuro: COMMON NORMALS: patient oriented x3 and moves all extremities SENSORIUM/ORIENTATION: Yes alert Skin: COMMON NORMALS: no rashes or lesions noted GENERAL SKIN EXAM: no rashes or lesions noted Urinary Catheter Management^: Williamson: Cath Placed During This Visit: yes, but has since been removed by the nurse Reason for Continuing Indwelling Catheter: Decision to DC Catheter Urinary Catheter Date of Insertion: 04/30/21 Urinary Catheter Time of Insertion: 06:32 Date Urinary Catheter Removed: 05/10/21 Time Urinary Catheter Discontinued: 10:15 Discharge Data Data Completed and Pending: Completed Studies During Hospitalization Category Date Time Status CT chest wo con 7 1250 Routine Cat Scan 04/28/21 17:55 Completed CXRP [XR chest 1V portable [id number]] S tat Exams 04/30/21 17:00 Completed XR chest 1V kassie ble [id number] Routine Exams 04/29/21 06:00 Completed XR chest 1V kassie ble [id number] Routine Exams 04/30/21 06:00 Completed XR chest 1V kassie ble [id number] Stat Exams 05/04/21 08:38 Completed XR chest 1V kassie ble [id number] Urgent Exams 04/27/21 12:34 Completed XR shoulder RT mi n 2V* [id number] Urgent Exams 04/27/21 12:34 Completed CV. echo complete * [id number] Routine Ultrasound 04/30/21 09:07 Completed Labs from last 24 hours 05/13/21 05/13/21 05/13/21 09:48 05:48 04:50 POC Glucose 78 81 59 L 05/13/21 05/12/21 05/12/21 00:48 20:47 17:37 POC Glucose 210 H 136 H 212 H 05/12/21 05/12/21 17:02 10:54 POC Glucose 230 H 106 Vitals: Last Vital Signs Temp 98.3 F 05/13/21 08:00 Pulse 74 05/13/21 08:38 Resp 16 05/13/21 08:38 BP 116/76 05/13/21 08:00 Pulse Ox 92 05/13/21 08:38 Discharge Plan Discharge Patient Disposition: Home Health Service Condition: Stable Prescriptions: New fluconazole 100 mg Tablet 100 mg peg-tube DAILY 2 Days Qty: 2 RF: 0 prednisone 20 mg Tablet See Rx Instructions .ROUTE .COMPLEX Qty: 5 RF: 0 diltiazem HCl 30 mg Tablet 30 mg feeding tube Q6H Qty: 360 RF: 0 metoprolol tartrate 25 mg Tablet 25 mg feeding tube BID@0900,2100 180 Days RF: 0 Continued mecobalamin (vitamin B12) 1,000 mcg tablet,disintegrating 1,000 mcg sublingual DAILY RF: 0 ipratropium-albuterol 0.5 mg-3 mg(2.5 mg base)/3 mL solution for nebulization 3 ml inhalation Q4H PRN (Reason: shortness of breath or wheezing) Qty: 3 RF: 4 Lenvima 12 mg/day (4 mg x 3) Capsule 12 mg PO QAM RF: 0 Hold Instructions: Resume on 02/04/21. Lanolin (HPA) 100 % Cream 1 applic topical PRN PRN (Reason: Dryness) Qty: 7 RF: 0 Probiotic 1 cap PO .UP TO BID RF: 0 Pulmicort 0.5 mg/2 mL suspension for nebulization 0.5 mg inhalation BID PRN (Reason: pt states she just uses prn) RF: 0 Changed acetaminophen 500 mg Tablet 500 mg feeding tube Q4H PRN (Reason: Pain) Qty: 0 RF: 0 levothyroxine 125 mcg tablet 125 mcg feeding tube DAILY Qty: 0 RF: 0 Vitamin B-12 1,000 mcg/mL Drops 1 ml feeding tube ONCE Qty: 0 RF: 0 Discontinued guaifenesin [Mucinex] 600 mg Tablet Extended Release 12hr 600 mg PO BID Qty: 60 RF: 0 dexamethasone 4 mg tablet 4 mg PO DAILY Qty: 20 RF: 0 Discharge Orders: Discharge Order (Routine); Ordered 05/13/21 Ordered By: Negro Vasquez Other Ambulatory Orders: DME: Miscellaneous (Order) Location: None Selected Ordered By: Negro Vasquez DME: Miscellaneous (Order) Location: None Selected Ordered By: Negro Vasquez DME: Miscellaneous (Order) Location: None Selected Ordered By: Negro Vasquez DME: Commode (Order) Location: None Selected Ordered By: Negro Vasquez DME: Hospital Bed (Order) Location: None Selected Ordered By: Negro Vasquez DME: Miscellaneous (Order) Location: None Selected Ordered By: Negro Vasquez DME: Miscellaneous (Order) Location: None Selected Ordered By: Negro Vasquez DME: Miscellaneous (Order) Timeframe: 1 Day Location: None Selected Ordered By: Negro Vasquez DME: Walker (Order) Location: None Selected Ordered By: Negro Vasquez Miscellaneous Procedure (Order) Location: None Selected Ordered By: Negro Vasquez Referrals: aDnny Vides MD [Physician] - 2 weeks (Please call Friday morning to schedule a follow-up appointment. ) Cliff Linda MD [Physician] - (As needed) Ghazala Calderón MD [Physician] - 2 weeks (Please call Friday morning to schedule a follow up appointment. ) Jah Ortega, [Primary Care Provider] - 4-7 days (Please call Friday morning to schedule a follow up appointment. ) Bisi Dick MD [Physician] - 1 month (Please call Friday morning to schedule a follow up appointment. ) Discharge Diet: Start new tube feeds as directed Discharge Activity: Increase activity as tolerated, As per PT/OT instructions and Oxygen as instructed Patient Instructions: Metoprolol (By mouth), Diltiazem (By mouth), Prednisone (By mouth), Fluconazole (By mouth), GI Discharge Instructions, Opioid Safety Activity Restrictions/Additional Instructions: Follow-up with your primary doctor for reassessment following aspiration pneumonia, reassessment following tracheostomy placement. Reassessment of oxygenation. Continue minified oxygen at home, suction as needed. Follow-up with Dr. Linda as needed. Discussed with your doctor consideration of follow-up imaging of your chest with incidental finding of small pneumothorax (air outside of lung) at the beginning of hospitalization which had subsequently resolved. Follow-up with your lung doctor. Do not take anything by mouth. Continue tube feeds starting at 7 or 8 AM with 1 carton of Jevity 1.2 every 4 ours during the day for total of 4 feedings a day. after feeding flush with 100 mL of water. Reduce levothyroxine dose as instructed by your endocrinology doctor, have your primary doctor follow-up thyroid function studies. Discharge Attestations Time Spent in Discharge Care*: greater than 30 min Quality Metrics Clinical Quality Measures During this hospital stay, did patient experience: None Coding Level of Care Code Acute Chg FW DC note Diagnoses Acute respiratory failure with hypoxia and hypercapnia J96.01; J96.02 Aspiration pneumonia J69.0 Stridor R06.1 Dehydration with hyponatremia E86.0; E87.1 Dysphagia R13.14 Dysphagia type: pharyngoesophageal phase Pneumothorax J93.9
--- NOTE | 2021-05-16 08:43 | PC.SOCIAL ---
Returned call to daughter who indicates the bag of supplies that this nurse packaged and left in closet with patients clothes did not make it home with her. This nurse is shocked with this fact since this nurse discussed with patient and spouse where supplies were on at least 2 maybe 3 occasions. Daughter indicates her Mom and Dad indicate they did not make it home with them. This nurse did retrieve additional supplies and daughter will pickling drum operator. Two set of trach with inner disposable cannula. Normal Saline and gauze. Melanie is aware. Talked to Geovanna at [facility] and asked that they call Dr Linda office to clarify how to clean the trach appropriately. There has been some concerns with this. Geovanna agrees to do so.
== END 2021-05-13 16:40 | disposition home health service (06) | DRG 4 ==
LOC: ER 15:26 → ER IP 22:04 → MEDSURG 04-29 15:06 → ICU 04-30 06:14 → MEDSURG 05-06 16:28
PROVIDERS: Hospitalist; Internal Medicine; Internal Medicine Nephrology; Otolaryngology; Student in an Organized Health Care Education/Training Program; Surgery; Admitting Provider Internal Medicine; Emergency Provider Emergency Medicine; PCP Family Medicine; Visit Provider Internal Medicine
PROC: 0DJ08ZZ Inspection of Upper Intestinal Tract, Via Natural or Artificial Opening Endoscopic (ICD-10-PCS; CPT 43235; principal; 2021-05-02 11:00)
PROC: 0DH63UZ Insertion of Feeding Device into Stomach, Percutaneous Approach (ICD-10-PCS; CPT 43246; 2021-05-02 11:00)
PROC: 0B110F4 Bypass Trachea to Cutaneous with Tracheostomy Device, Open Approach (ICD-10-PCS; principal; 2021-05-03 09:15)
DX: E22.2 Syndrome of inappropriate secretion of antidiuretic hormone (principal); J69.0 Pneumonitis due to inhalation of food and vomit; J96.02 Acute respiratory failure with hypercapnia; J96.01 Acute respiratory failure with hypoxia; C77.0 Secondary and unspecified malignant neoplasm of lymph nodes of head, face and neck; J70.1 Chronic and other pulmonary manifestations due to radiation; J93.9 Pneumothorax, unspecified; E46 Unspecified protein-calorie malnutrition; Z68.1 Body mass index [BMI] 19.9 or less, adult; C73 Malignant neoplasm of thyroid gland; E89.0 Postprocedural hypothyroidism; Z79.899 Other long term (current) drug therapy; W88.1XXA Exposure to radioactive isotopes, initial encounter; E11.9 Type 2 diabetes mellitus without complications; K21.9 Gastro-esophageal reflux disease without esophagitis; I50.9 Heart failure, unspecified; I11.0 Hypertensive heart disease with heart failure; E78.5 Hyperlipidemia, unspecified; Z87.01 Personal history of pneumonia (recurrent); R91.8 Other nonspecific abnormal finding of lung field; E86.0 Dehydration; R13.14 Dysphagia, pharyngoesophageal phase; R00.0 Tachycardia, unspecified; J45.909 Unspecified asthma, uncomplicated; J38.00 Paralysis of vocal cords and larynx, unspecified
CPT/HCPCS: 12345; 36415; 36416; 36600; 43246; 51702; 71045; 71250; 73030; 80048; 80051; 80053; 80061; 81001; 81003; 82330; 82575; 82803; 82805; 82962; 83036; 83605; 83735; 83880; 83930; 83935; 84100; 84145; 84295; 84300; 84439; 84443; 84550; 85025; 85378; 86140; 87040; 87070; 87077; 87106; 87186; 87205; 87635; 87641; 92507; 92526; 92610; 93005; 93306; 94002; 94003; 94640; 94660; 94664; 94799; 96372; 97110; 97116; 97161; 97163; 97165; 97530; 97535; A4570; C9113; J0456; J0696; J1100; J1650; J1815; J1940; J2250; J2270; J2405; J2543; J2704; J2920; J3010; J3490; J7030; J7050; J7512; J7626; J8540; Q0167; Q3014

== ENCOUNTER → 2021-05-31 13:51 | Outpatient (BNVA) | payer MEDICARE, OTHER, SELFPAY | PROVIDERS: PCP Family Medicine; Visit Provider Internal Medicine | DX: C73 Malignant neoplasm of thyroid gland (principal); E89.0 Postprocedural hypothyroidism; Z98.890 Other specified postprocedural states | CPT/HCPCS: 99214 ==

== ENCOUNTER 2021-06-06 09:11 | Outpatient (CLI) | payer MEDICARE, OTHER, SELFPAY ==
[2021-06-06 10:01] LABS: Free T4 Free Thyroxine 1.66 ng/dL (0.82-1.77); Thyroid Stimulating Hormone 2.65 uIU/mL (0.27-4.20)
[2021-06-07 13:43] LABS: Thyroglobulin AB <1 IU/mL (< or = 1)
[2021-06-14 09:38] LABS: Thyroglobulin Level <0.4 ng/mL
== END 2021-06-06 09:12 | disposition home or self-care (01) ==
LOC: LAB 09:16
PROVIDERS: PCP Family Medicine; Visit Provider Internal Medicine
DX: C73 Malignant neoplasm of thyroid gland (principal); E11.9 Type 2 diabetes mellitus without complications
CPT/HCPCS: 36415; 84432; 84439; 84443; 86800

== ENCOUNTER 2021-06-10 03:23 | Emergency (ER) | payer MEDICARE, OTHER, SELFPAY ==
[2021-06-10 03:28] VITALS: BMI 16.9
[2021-06-10 03:48] LABS: Basophils # 0.1 10^3/uL (0.0-0.1); Basophils % 0.6 %; Eosinophils # 0.1 10^3/uL (0.0-0.8); Eosinophils % 0.6 %; Hematocrit 31.7 % (37.0-47.0); Hemoglobin 9.5 g/dL (11.5-15.3); Lymphocytes # 1.5 10^3/uL (0.8-4.8); Lymphocytes % 17.9 %; Mean Corpuscular Hemoglobin 28.4 pg (28.0-34.0); Mean Corpuscular Volume 94.9 fl (81-99); Mean Platelet Volume 8.3 fL (7.4-10.4); Monocytes # 0.9 10^3/uL (0.2-0.9); Monocytes % 10.3 %; Neutrophils # 5.82 10^3/uL (1.8-7.7); Nucleated Red Blood Cells % 0 %; Platelet Count 368 10^3/cmm (130-400); Red Blood Count 3.34 10^6/uL (4.1-5.3); Red Cell Distribution Width 17.2 % (12.1-15.1); White Blood Count 8.3 10^3/uL (4.0-10.0)
--- NOTE | 2021-06-10 03:51 | W.ED.GENADLT ---
HPI - General Adult General: Chief complaint: General Medical Stated complaint: Trackia Bleeding Time Seen by Provider: 06/10/21 03:24 Source: patient Mode of arrival: ambulatory Limitations: no limitations History of Present Illness: 70-year-old female has a history of thyroid cancer and had a tracheostomy performed [address] Alexei JOSEPH. She has had some complications around the site as she had not been wearing her padding and has had skin breakdown and a wound just at her sternal notch. She states she had woke up this morning roughly an hour ago with a large amount of blood in the bed and active bleeding from her trach. She currently has blood all over her shirt and blood clots with active bleeding of the tracheostom tube Associated symptoms: Deny chest pain, dyspnea, headache(s), nausea, rash or vomiting Review of Systems Const: Denies: fever(s), chills, body aches or change in appetite Eyes: Denies: blurry vision or eye discomfort ENMT: Denies: throat pain or dental pain Card: Denies: chest pain Resp: Denies: dyspnea GI: Denies: abdominal pain, nausea, vomiting or diarrhea : Denies: dysuria Musc: Denies: neck pain or back pain Skin/Breast: Denies: rash Neuro: Denies: headache(s) Psych: Denies: depression Erik/Lymph: Denies: easy bruising All/Imm: Denies: urticaria PFSH ED PFSH: Medical History Acute respiratory failure with hypoxia and hypercapnia YOLANDA (acute kidney injury) Aspiration pneumonia Asthma DM type 2 (diabetes mellitus, type 2) GERD (gastroesophageal reflux disease) HTN (hypertension) Hyperlipidemia IBS (irritable bowel syndrome) Lung nodules Papillary thyroid carcinoma Pneumonia Pneumothorax Pulmonary nodule less than 1 cm in diameter with moderate to high risk for malignant neoplasm Rhinosinusitis Thyroid cancer Surgical History History of bladder suspension procedure History of cholecystectomy History of colonoscopy History of hysterectomy History of intestinal surgery History of salpingo-oophorectomy History of thyroid surgery Hx of tonsillectomy S/P percutaneous endoscopic gastrostomy (PEG) tube placement (05/03/21) Family History Unknown Hypertension Diabetes Social History Smoking and tobacco status: never smoked Second hand smoke exposure: No Smoking risk assessment/counseling performed?: No Alcohol intake: never Counseling given: No Counseling given: No Lives independently: Yes Household members: spouse Marital status: History of recent travel: No Current gender identity: Female Physical Exam Const: COMMON NORMALS: no acute distress, patient oriented x3 and healthy appearing HENMT: COMMON NORMALS: normocephalic and atraumatic HEAD & SCALP: normocephalic and atraumatic Eye: COMMON NORMALS: Equal, round and reactive pupils present and EOMs intact bilaterally PUPIL: Yes Equal, round and reactive pupils present Neck/C-Spine: COMMON NORMALS: full ROM and supple OTHER: active bleeding from tracheaostomy with clots and pt also has large wound around tracheostomythat is 2x3 cm with active oozing blood Chest: COMMONS NORMALS: normal inspection of the chest and normal palpation of entire chest wall Resp: COMMON NORMALS: normal respiratory effort, No retractions, No use of accessory muscles and clear to auscultation bilaterally AUSCULTATION: clear to auscultation bilaterally Cardio: COMMON NORMALS: regular rate, regular rhythm and No murmurs present (Cardio) RATE: regular rate RHYTHM: regular rhythm GI: COMMON NORMALS: Normal to inspection, nondistended, normoactive bowel sounds present, Soft to palpation, non-tender and no masses PALPATION: Yes Soft to palpation Extremity: COMMON NORMALS: normal to inspection and full ROM Neuro: COMMON NORMALS: patient oriented x3, moves all extremities and no focal motor deficits Psych: COMMON NORMALS: mental status grossly normal, Normal thought process present and cooperative THOUGHT PROCESS: Normal thought process present Skin: COMMON NORMALS: no rashes or lesions noted and no wounds GENERAL SKIN EXAM: no rashes or lesions noted Course Vital Signs: Vital signs: Vital Signs Pulse Rate 96 06/10/21 04:11 Respiratory Rate 18 06/10/21 04:11 Blood Pressure 95/54 06/10/21 04:11 Pulse Oximetry 100 06/10/21 04:11 [facility] - General Adult Medical Decision Making Patient presents here with tracheostomy hemorrhage. She does have a wound at her sternal notch from rubbing from the shield I do not believe the active hemorrhage is coming from there as because I inflated her cuff because the cuff had not been inflated I inflated with 5 cc and the bleeding stopped. She is appeared to lose a significant amount of blood causing hypotension her hemoglobin here is dropped to 9.5 patient's been transfused and given fluids blood pressure now is 100/64. I did speak to ENT Dr. Linda he is out of the [facility] and in [place] we do not have any other ENT here. I did speak to [facility] Jenny will transfer there emergently at this time. Lab Data : 06/10/21 03:40 06/10/21 03:40 Laboratory Results WBC 8.3 10^3/uL (4.0-10.0) 06/10/21 03:40 RBC 3.34 10^6/uL (4.1-5.3) L 06/10/21 03:40 Hgb 9.5 g/dL (11.5-15.3) L 06/10/21 03:40 Hct 31.7 % (37.0-47.0) L 06/10/21 03:40 MCV 94.9 fl (81-99) 06/10/21 03:40 MCH 28.4 pg (28.0-34.0) 06/10/21 03:40 MCHC 30.0 g/dL (30.0-36.0) 06/10/21 03:40 RDW 17.2 % (12.1-15.1) H 06/10/21 03:40 Plt Count 368 10^3/cmm (130-400) 06/10/21 03:40 MPV 8.3 fL (7.4-10.4) 06/10/21 03:40 Neut % (Auto) 70.0 % 06/10/21 03:40 Lymph % (Auto) 17.9 % 06/10/21 03:40 [place] % (Auto) 10.3 % 06/10/21 03:40 Eos % (Auto) 0.6 % 06/10/21 03:40 Baso % (Auto) 0.6 % 06/10/21 03:40 Neut # (Auto) 5.82 10^3/uL (1.8-7.7) 06/10/21 03:40 Lymph # (Auto) 1.5 10^3/uL (0.8-4.8) 06/10/21 03:40 [place] # (Auto) 0.9 10^3/uL (0.2-0.9) 06/10/21 03:40 Eos # (Auto) 0.1 10^3/uL (0.0-0.8) 06/10/21 03:40 Baso # (Auto) 0.1 10^3/uL (0.0-0.1) 06/10/21 03:40 Nucleated RBC % (auto) 0 % 06/10/21 03:40 Nucleated RBCs # 0.0 /100WBC 06/10/21 03:40 PT 13.40 SECONDS (12.1-14.9) 06/10/21 03:40 INR 0.99 (0.8-1.2) 06/10/21 03:40 Sodium 137 mmol/L (136-145) 06/10/21 03:40 Potassium 3.9 mmol/L (3.5-5.1) 06/10/21 03:40 Chloride 100 mmol/L (98-107) 06/10/21 03:40 Carbon Dioxide 26 mmol/L (22-29) 06/10/21 03:40 Anion Gap 14.9 (5-19) 06/10/21 03:40 BUN 27 mg/dL (8-23) H 06/10/21 03:40 Creatinine 0.4 mg/dL (0.5-0.9) L 06/10/21 03:40 GFR Calculation 158.7 mL/min (90-130) H 06/10/21 03:40 Glucose 162 mg/dL (65-115) H 06/10/21 03:40 Calculated Osmolality 293 mOsm/kg (285-295) 06/10/21 03:40 Calcium 8.9 mg/dL (8.5-10.5) 06/10/21 03:40 Total Bilirubin 0.2 mg/dL (0.15-1.2) 06/10/21 03:40 AST 10 U/L (0-32) 06/10/21 03:40 ALT 8 U/L (0-33) 06/10/21 03:40 Alkaline Phosphatase 75 IU/L (35-105) 06/10/21 03:40 Total Protein 5.7 g/dL (6.6-8.7) L 06/10/21 03:40 Albumin 3.1 g/dL (3.5-5.2) L 06/10/21 03:40 Globulin 2.6 g/dL (1.3-4.6) 06/10/21 03:40 Blood Type A Negative 06/10/21 03:40 Rho(D) Type Negative 06/10/21 03:40 Antibody Screen Negative 06/10/21 03:40 Crossmatch See Detail 06/10/21 03:40 Critical Care Time Critical Care Time: Critical Care Time: Yes Total Critical Care Time: 40 Attestation: The high probability of a clinically significant, sudden or life threatening deterioration of the patient's vascular system(s) required my full and direct attention, intervention and personal management. The critical care time is as shown. This time is in addition to time spent performing any reported procedures but includes the following: [x] Data and vital sign review and interpretation [x] Patient assessment, examination and intervention [x] Documentation [x] Medication orders and management Discharge Plan Discharge Patient Disposition: Xfer Short-Term Hosp Clinical Impression: Status post tracheostomy, Tracheostomy hemorrhage Condition: Stable Referrals: Jah Ortega DO [Primary Care Provider] - Coding Level of Care Code ED Head Of Ethics And Compliance for Chg Fwd Exam Comprehensive
[2021-06-10 03:57] LABS: INR 0.99 (0.8-1.2)
[2021-06-10 04:04] LABS: Alanine Aminotransferase 8 U/L (0-33); Albumin Level 3.1 g/dL (3.5-5.2); Alkaline Phosphatase 75 IU/L (35-105); Anion Gap 14.9 (5-19); Aspartate Amino Transferase 10 U/L (0-32); Blood Urea Nitrogen 27 mg/dL (8-23); Calcium 8.9 mg/dL (8.5-10.5); Carbon Dioxide 26 mmol/L (22-29); Chloride 100 mmol/L (98-107); Globulin 2.6 g/dL (1.3-4.6); Glomerular Filtration Rate 158.7 mL/min (90-130); Glucose 162 mg/dL (65-115); Osmolality Calculated 293 mOsm/kg (285-295); Potassium 3.9 mmol/L (3.5-5.1); Sodium 137 mmol/L (136-145); Total Bilirubin 0.2 mg/dL (0.15-1.2); Total Protein 5.7 g/dL (6.6-8.7)
[2021-06-10 04:06] LABS: Creatinine Clr Calc Pharmacy 39.0373
[2021-06-10 04:11] VITALS: BP 95/54; PULSE 96; RESP 18; O2SAT 100
--- NOTE | 2021-06-10 04:33 | XRR_ITS ---
PROCEDURE INFORMATION: Exam: XR Chest Exam date and time: 06/10/2021 4:33 AM Age: 70 years old Clinical indication: Dyspnea; Prior surgery; Surgery date: 6+ months; Surgery type: Trach; Additional info: SOB TECHNIQUE: Imaging protocol: XR of the chest. Views: 1 view. COMPARISON: CR XR chest 1V portable [id number] 05/04/2021 8:59 AM FINDINGS: Tubes, catheters and devices: There is stable placement of a tracheostomy tube. Lungs: There is increased density seen in the retrocardiac region compatible with a left basilar atelectasis versus pneumonia. There increased interstitial opacity seen in the perihilar regions bilaterally and within the right upper lobe that may represent atelectasis although bilateral interstitial infiltrates and pneumonia cannot be excluded. Pleural spaces: The left hemidiaphragm is obscured likely secondary to a left pleural effusion. Heart/Mediastinum: Unremarkable. No cardiomegaly. Bones/joints: Unremarkable. XR/XR chest 1V portable [id number] IMPRESSION: 1. There is a small left pleural effusion 2. Strandy opacities present in the retrocardiac region may represent atelectasis versus a consolidated infiltrate. 3. Bilateral perihilar interstitial opacities and interstitial opacity seen in the right upper hemithorax, findings that may represent atelectasis although interstitial infiltrates and pneumonia cannot be excluded.
[2021-06-10 04:38] VITALS: BP 83/52; PULSE 98; RESP 18; TEMP 36.9; O2SAT 100
--- NOTE | 2021-06-10 04:42 | PC.NURSE ---
Pt. states that she is not having any pain. Pt. states that she does not any needs at this time.
[2021-06-10 04:45] VITALS: BP 88/54; PULSE 96; RESP 18; O2SAT 100
--- NOTE | 2021-06-10 04:47 | PC.NURSE ---
family is at bedside, son and , they have been made aware of destination of patient.
[2021-06-10 04:53] VITALS: BP 88/54; PULSE 96; RESP 18; TEMP 36.9; O2SAT 100
--- NOTE | 2021-06-10 05:01 | PC.NURSE ---
Blood infusing while loading in helicopter.
--- NOTE | 2021-06-10 05:09 | PC.NURSE ---
Pt. transferred to [facility] via air ambulance.
== END 2021-06-10 05:13 | disposition short-term general hospital (02) ==
PROVIDERS: Emergency Provider Emergency Medicine; PCP Family Medicine
DX: J95.01 Hemorrhage from tracheostomy stoma (principal); E11.9 Type 2 diabetes mellitus without complications; I10 Essential (primary) hypertension; E78.5 Hyperlipidemia, unspecified; Z85.850 Personal history of malignant neoplasm of thyroid
CPT/HCPCS: 36430; 71045; 80053; 85025; 85610; 86850; 86900; 86920; 99284; P9016